=== PATIENT | male | born 1955 | race Caucasian/White ===

== ENCOUNTER → 2020-09-10 13:38 | Outpatient (BNVA) | payer MEDICARE, OTHER, SELFPAY | PROVIDERS: PCP Internal Medicine; Visit Provider Internal Medicine Cardiovascular Disease | DX: R06.00 Dyspnea, unspecified (principal); I10 Essential (primary) hypertension | CPT/HCPCS: 93005; 99212 ==

== ENCOUNTER 2020-09-18 07:28 | Outpatient (REF) | payer MEDICARE, OTHER, SELFPAY ==
[2020-09-18 08:21] LABS: MANUAL DIFF FLAG NO
[2020-09-18 08:30] LABS: Basophils Absolute Auto 0.1 X10*3/uL (0.0-0.2); Basophils Percent Auto 0.6 % (0-2); Eosinophils Absolute Auto 0.2 X10*3/uL (0.0-0.4); Hematocrit 46.1 % (42-52); Hemoglobin 15.1 g/dl (14.0-18.0); Imm Gran Abs Auto 0.03 X10*3/uL (0.00-0.03); Imm Gran Pct Auto 0.3 % (0.0-0.4); Lymphocytes Absolute Auto 2.6 X10*3/uL (1.2-4.9); Lymphocytes Percent Auto 26.6 % (20-40); Mean Corpuscular HGB Conc 32.8 g/dl (31.0-36.0); Mean Corpuscular Hemoglobin 28.1 pg (27.0-33.0); Mean Corpuscular Volume 85.8 fL (80-98); Mean Platelet Volume 11.5 fL (9.4-12.4); Monocytes Absolute Auto 0.9 X10*3/uL (0.1-1.2); Monocytes Percent Auto 9.5 % (2-11); Platelet Count 324 X10*3/uL (160-400); Red Blood Count 5.37 X10*6/uL (4.60-5.80); Red Cell Distribution Width 14.4 % (11.0-16.0); White Blood Count 9.8 X10*3/uL (4.8-10.8)
[2020-09-18 08:51] LABS: Estimated Average Glucose 120 mg/dL; Hemoglobin A1c % 5.8 %
[2020-09-18 08:55] LABS: Alanine Aminotransferase 21 U/L (0-40); Albumin Level 4.2 g/dL (3.5-5.0); Alkaline Phosphatase 59 U/L (39-117); Anion Gap 16 (12-20); Aspartate Amino Transferase 17 U/L (5-37); B Type Natriuretic Peptide 88 pg/mL (<100); Bilirubin Direct 0.3 mg/dL (0.0-0.5); Bilirubin Total 0.6 mg/dL (0.0-1.0); Blood Urea Nitrogen 25 mg/dL (9-16); Calcium 9.8 mg/dL (8.4-10.2); Carbon Dioxide 26 mmol/L (22-29); Chloride 103 mmol/L (96-108); Estimated Glomerular Filt Rate > 60; Glucose Fasting 124 mg/dL (60-99); Potassium 4.8 mmol/L (3.3-5.1); Sodium 140 mmol/L (135-145); Total Protein 7.7 g/dL (6.5-8.0)
[2020-09-18 09:20] LABS: Prostate Specific Antigen 0.22 ng/mL (<0.05-4.0); Thyroid Stimulating Hormone 2.76 uIU/mL (0.32-4.0)
== END 2020-09-18 07:29 | disposition home or self-care (01) ==
LOC: HO.LAB 07:28
PROVIDERS: PCP Internal Medicine; Visit Provider Internal Medicine
DX: Z12.5 Encounter for screening for malignant neoplasm of prostate (principal); E78.00 Pure hypercholesterolemia, unspecified; R73.01 Impaired fasting glucose
CPT/HCPCS: 36415; 80053; 80076; 82248; 83036; 83880; 84153; 84443; 85025

== ENCOUNTER 2020-10-01 15:16 | Outpatient (REF) | payer MEDICARE, OTHER, SELFPAY ==
--- NOTE | ~2020-10-01 | XR_ITS ---
EXAMINATION: XR CHEST CLINICAL INFORMATION: Dyspnea COMPARISON: None TECHNIQUE: 2 views of the chest were obtained. FINDINGS: The lungs are well expanded. There is no focal consolidation, edema, or effusion. There is mild bronchial wall thickening. No pneumothorax. The cardiomediastinal silhouette is within normal limits. No acute osseous abnormality. XR/XR chest 2V IMPRESSION: No consolidation. Bronchial wall thickening can be seen with a small airways process such as asthma or atypical/viral infection.
== END 2020-10-01 15:17 | disposition home or self-care (01) ==
LOC: HO.XRAY 15:16
PROVIDERS: PCP Internal Medicine; Visit Provider Internal Medicine
DX: R06.00 Dyspnea, unspecified (principal); E66.01 Morbid (severe) obesity due to excess calories; G47.33 Obstructive sleep apnea (adult) (pediatric); Z99.89 Dependence on other enabling machines and devices; Z87.891 Personal history of nicotine dependence; Z79.899 Other long term (current) drug therapy
CPT/HCPCS: 71046; 99202

== ENCOUNTER → 2020-10-22 09:11 | Outpatient (REF) | payer MEDICARE, OTHER, SELFPAY ==
--- NOTE | 2020-10-22 09:14 | CA_ITS ---
Transthoracic Echocardiogram Patient (Last, First, Middle): Bill Jeter, Gender: Male Date of : 1955 Age: 65 Procedure Date: 10/22/2020 Procedure Type: Transthoracic Echocardiogram Location: OP Height: 180.34 cm Weight: 140.62 kg BSA: 2.54 m2 Heart Rate: bpm BP: 120 / 59 mmHg Goldbeater: LORRAINE Jaramillo MD: Schuyler Small MD Migration Agent: Elijah Zavala MD Symptoms: R06.00 - Dyspnea, unspecified Study Quality: Technically Difficult/contrast ECG Rhythm: Atrial Fibrillation Conclusions: - 1. Normal LV systolic function 2. Limited evaluation of atrium 3. Limited evaluation of cardiac valves with within normal limits cardiac valvular Doppler 4. Normal RV systolic pressure 5. No gross pericardial effusion Findings Procedure Information Contrast agent, definity, is being given per protocol without apparent complications. Left Ventricle Normal left ventricular size and systolic function. There is mildly increased left ventricular wall thickness. The visually estimated ejection fraction is between 60-65%. Diastolic function is indeterminate on the basis of available data. Right Ventricle The right ventricle was not well visualized. Atria The left atrium was not well visualized. Interatrial shunt cannot be excluded. The right atrium was not well visualized. Aortic Valve The aortic valve was not well visualized. There is no aortic valve stenosis. There is no aortic valve regurgitation. Mitral Valve Likely normal mitral valve structure and function. There is trace mitral valve regurgitation. There is no mitral valve stenosis. Pulmonic Valve The pulmonic valve was not well visualized. Tricuspid Valve The tricuspid valve was not well visualized. The right ventricular systolic pressure is normal. There is no evidence of pulmonary hypertension. Great Vessels All visible segments of the aorta are normal in size. The pulmonary artery was not well visualized. Venous The inferior vena cava is normal in size and collapses greater than 50% with inspiration. Pericardium/Pleural There is no evidence of pericardial effusion. Prior Study Comparison No significant change compared to prior study dated: 02/17/2018. Patient noted to be in atrial fibrillation Measurements 2D Linear Measurements IVSd: 1.24 0.6-0.9/0.6-1.0 cm LVIDd: 4.50 3.9-5.3/4.2-5.9 cm LVIDd Index: 1.77 2.4-3.2/2.2-3.1 cm/m2 LVIDs: 3.41 2.0-3.6 cm LVPWd: 1.21 0.7-1.1 cm Ao Root: 3.90 2.1-3.5 cm LA Diam: 3.90 2.7-3.8/3.0-4.0 cm LAIDs Index: 1.54 1.5-2.3 cm/m2 LV Mass: 254.36 67-162/88-224 g LV Mass Index: 100.14 43-95/49-115 g/m2 LVOT Diam: 2.10 3.0+(-)1.3 cm Mitral Valve MV Pk E: 0.94 MV PK A: 0.36 MV Decel Time: 354.00 E/A: 2.60 E'Lateral: 11.20 E'Medial: 8.80 E/E' Med: 10.70 E/E' Lat: 8.40 PHT: 104.00 MVA PHT: 2.12 Decel [place]: 2.66 Aortic Valve AoV Pk Jason: 1.41 AoV Mn Jason: 0.91 AoV VTI: 0.32 AoV Pk Grad: 8.00 Aov Mn Grad: 4.00 ROMERO Cont.VTI: 2.75 LVOT LVOT Pk Jason: 0.98 LVOT Mn Jason: 0.67 LVOT VTI: 0.26 LVOT Pk Grad: 4.00 LVOT Mn Grad: 2.00 LVOT Diam: 2.10 LVOT Area: 3.46 Diastolic Function MV Pk E: 0.94 MV Pk A: 0.36 E/A: 2.60 E'Medial: 8.80 E/E' Med: 10.70 E' Laterial: 11.20 E/E' Lat: 8.40 Tricuspid Valve TR Pk Jason: 1.51 TR Pk Grad: 9.00 RA Press: 3.00 RVSP: 12.00 Great Vessels Aorta Ao Root-2D: 3.90 2.0-3.7 cm Ao Asc: 3.90 2.1-3.4 cm Updated in Other Vendor System with Status of Final Elijah Zavala MD electronically signed on 10/22/2020 4:00:23 PM with status of Final
== END ==
LOC: HO.CARD 09:11
PROVIDERS: Visit Provider Internal Medicine Cardiovascular Disease
DX: Z13.89 Encounter for screening for other disorder (principal)
CPT/HCPCS: 93306; 94060; 94727; 94729; Q9957

== ENCOUNTER 2020-10-22 10:21 | Outpatient (REF) | payer MEDICARE, OTHER, SELFPAY ==
--- NOTE | 2020-10-22 11:51 | PFT_ITS ---
Forced vital capacity and FEV1 are both slightly decreased. [id number] is normal. MVV slightly decreased. Postbronchodilator therapy, there is a slight improvement in FEV1 and [id number]. Total lung capacity normal. Residual volume slightly increased. Diffusion capacity normal. CONCLUSION: There is evidence of mild obstructive airway disorder. There is borderline response to bronchodilator therapy suggesting a bronchospastic component. These findings may indicate a mild degree of bronchial asthma. Clinical correlation recommended. MD PAULINE Oates/MODL / [id number]
== END 2020-10-22 10:22 | disposition home or self-care (01) ==
LOC: HO.RESP 10:21
PROVIDERS: PCP Internal Medicine; Visit Provider Internal Medicine
DX: R06.00 Dyspnea, unspecified (principal)
CPT/HCPCS: 93306; 94060; 94727; 94729; Q9957

== ENCOUNTER → 2020-10-23 11:10 | Outpatient (BNVA) | payer MEDICARE, OTHER, SELFPAY | PROVIDERS: PCP Internal Medicine; Visit Provider Internal Medicine | DX: E66.01 Morbid (severe) obesity due to excess calories (principal); R06.00 Dyspnea, unspecified; G47.33 Obstructive sleep apnea (adult) (pediatric); Z99.89 Dependence on other enabling machines and devices | CPT/HCPCS: 99212 ==

== ENCOUNTER → 2020-12-10 13:12 | Outpatient (BNVA) | payer MEDICARE, OTHER, SELFPAY | PROVIDERS: PCP Internal Medicine; Referring Provider Internal Medicine; Visit Provider Internal Medicine Cardiovascular Disease | DX: I10 Essential (primary) hypertension (principal); R06.00 Dyspnea, unspecified | CPT/HCPCS: 99212 ==

== ENCOUNTER → 2021-04-22 09:08 | Outpatient (BNVA) | payer MEDICARE, OTHER, SELFPAY | PROVIDERS: PCP Internal Medicine; Visit Provider Internal Medicine | DX: G47.33 Obstructive sleep apnea (adult) (pediatric) (principal); E66.01 Morbid (severe) obesity due to excess calories; R06.00 Dyspnea, unspecified; Z99.89 Dependence on other enabling machines and devices | CPT/HCPCS: 99212 ==

== ENCOUNTER → 2021-06-10 12:58 | Outpatient (BNVA) | payer MEDICARE, OTHER, SELFPAY | PROVIDERS: PCP Internal Medicine; Referring Provider Internal Medicine; Visit Provider Internal Medicine Cardiovascular Disease | DX: R06.00 Dyspnea, unspecified (principal); I10 Essential (primary) hypertension | CPT/HCPCS: 99212 ==

== ENCOUNTER → 2021-12-02 10:10 | Outpatient (BNVA) | payer MEDICARE, OTHER, SELFPAY | PROVIDERS: PCP Internal Medicine; Visit Provider Internal Medicine Cardiovascular Disease | DX: R06.00 Dyspnea, unspecified (principal); I10 Essential (primary) hypertension | CPT/HCPCS: 93005; 99212 ==

== ENCOUNTER → 2022-07-21 14:54 | Outpatient (BNVA) | payer MEDICARE, OTHER, SELFPAY | PROVIDERS: PCP Internal Medicine; Referring Provider Internal Medicine; Visit Provider Internal Medicine Cardiovascular Disease | DX: I10 Essential (primary) hypertension (principal); R06.00 Dyspnea, unspecified; K76.0 Fatty (change of) liver, not elsewhere classified; E66.01 Morbid (severe) obesity due to excess calories; Z68.42 Body mass index [BMI] 45.0-49.9, adult | CPT/HCPCS: 93005; 99212 ==

== ENCOUNTER 2022-08-02 07:55 | Outpatient (REF) | payer MEDICARE, OTHER, SELFPAY ==
[2022-08-02 08:56] LABS: Alanine Aminotransferase 20 U/L (0-40); Albumin Level 4.1 g/dL (3.5-5.0); Alkaline Phosphatase 56 U/L (39-117); Aspartate Amino Transferase 15 U/L (5-37); Bilirubin Direct 0.2 mg/dL (0.0-0.5); Bilirubin Total 0.6 mg/dL (0.0-1.0); Cholesterol 156 mg/dL; HDL Cholesterol 29 mg/dL; LDL Cholesterol Calculated 93 mg/dl; Total Protein 7.3 g/dL (6.5-8.0); Triglycerides 174 mg/dL
[2022-08-02 09:17] LABS: Ferritin 271 ng/mL (20-250)
[2022-08-03 14:23] LABS: CRP High Sensitivity >10.0 mg/L
== END 2022-08-02 07:56 | disposition home or self-care (01) ==
LOC: HO.LAB 07:55
PROVIDERS: PCP Internal Medicine; Visit Provider Internal Medicine Cardiovascular Disease
DX: K76.0 Fatty (change of) liver, not elsewhere classified (principal)
CPT/HCPCS: 36415; 80061; 80076; 82728; 86141

== ENCOUNTER → 2022-08-24 09:09 | Outpatient (BNVA) | payer MEDICARE, OTHER, SELFPAY | PROVIDERS: PCP Internal Medicine; Visit Provider Internal Medicine | DX: K76.0 Fatty (change of) liver, not elsewhere classified (principal); E66.01 Morbid (severe) obesity due to excess calories; Z68.41 Body mass index [BMI] 40.0-44.9, adult | CPT/HCPCS: 99202 ==

== ENCOUNTER 2022-09-01 07:46 | Outpatient (REF) | payer MEDICARE, OTHER, SELFPAY ==
--- NOTE | ~2022-09-01 | US_ITS ---
EXAMINATION: US ABDOMEN COMPLETE CLINICAL INFORMATION: Fatty (change of) liver, not elsewhere classified. COMPARISON: None TECHNIQUE: Real-time imaging of the abdominal viscera. FINDINGS: PANCREAS: Visualized portions of the pancreas are unremarkable. The pancreatic tail is obscured by bowel gas. ABDOMINAL AORTA: The proximal, mid, and distal segments are normal in caliber. INFERIOR VENA CAVA: Visualized portions are normal. LIVER: Liver is borderline enlarged measuring 16.6 cm in span. The liver contour is normal. There is diffuse increased liver parenchymal echogenicity, consistent with infiltrative hepatocellular disease. No focal hepatic lesion. There is no intrahepatic biliary duct dilatation seen. GALLBLADDER: Normal. The gallbladder is physiologically distended without evidence of stones, sludge, polyps, wall thickening or pericholecystic fluid. COMMON BILE DUCT: Normal in caliber measuring 0.4 cm in diameter. RIGHT KIDNEY: Normal. No hydronephrosis. No renal calculi or focal parenchymal lesions. The kidney measures 13.0 cm in maximum dimension. LEFT KIDNEY: Normal. No hydronephrosis. No renal calculi or focal parenchymal lesions. The kidney measures 12.0 cm in maximum dimension. SPLEEN: Spleen is mildly enlarged. The spleen measures 13.3 cm in maximum dimension. FREE FLUID: None. US/US abdomen complete IMPRESSION: Liver is borderline enlarged. Increased hepatic echogenicity which can be seen in the setting of hepatic steatosis or underlying liver disease. Spleen is mildly enlarged.
[2022-09-01 09:12] LABS: Hemoglobin 13.8 g/dl (14.0-18.0); Mean Corpuscular HGB Conc 32.9 g/dl (31.0-36.0); Mean Corpuscular Hemoglobin 27.9 pg (27.0-33.0); Mean Platelet Volume 10.8 fL (9.4-12.4); Platelet Count 290 X10*3/uL (160-400); Red Blood Count 4.94 X10*6/uL (4.60-5.80); Red Cell Distribution Width 15.1 % (11.0-16.0)
[2022-09-01 09:21] LABS: Estimated Average Glucose 134 mg/dL; Hemoglobin A1c % 6.3 %
[2022-09-01 10:12] LABS: Hepatitis A Antibody IgG Nonreactive (Nonreactive); ~Hepatitis A Antibody IgG 0.42 S/CO (0.00-0.99)
[2022-09-01 10:13] LABS: ~HepC Num1 0.09 S/CO (0.00-0.79); ~Hepatitis C Antibody Nonreactive (Nonreactive)
[2022-09-01 10:20] LABS: HBS Num1 0.16 mIU/mL (0-7.99); HBc Num1 0.13 S/CO (0.00-0.79); HBsAGNum1 0.28 S/CO (0.00-0.99); Hepatitis B Core Antibody Nonreactive (Nonreactive); Hepatitis B Surface Antigen Negative (Negative); ~Hepatitis B Surface Antibody NONREACTIVE (Nonreactive)
== END 2022-09-01 07:47 | disposition home or self-care (01) ==
LOC: HO.US 07:46
PROVIDERS: PCP Internal Medicine; Visit Provider Internal Medicine
DX: K74.60 Unspecified cirrhosis of liver (principal); K76.0 Fatty (change of) liver, not elsewhere classified
CPT/HCPCS: 36415; 76700; 83036; 85027; 85610; 86704; 86706; 86708; 86803; 87340

== ENCOUNTER → 2022-11-23 09:17 | Outpatient (BNVA) | payer MEDICARE, OTHER, SELFPAY | PROVIDERS: PCP Internal Medicine; Referring Provider Internal Medicine; Visit Provider Internal Medicine | DX: E66.01 Morbid (severe) obesity due to excess calories (principal); Z68.41 Body mass index [BMI] 40.0-44.9, adult; K76.0 Fatty (change of) liver, not elsewhere classified; R53.83 Other fatigue | CPT/HCPCS: 99212 ==

== ENCOUNTER 2022-11-24 07:38 | Outpatient (REF) | payer MEDICARE, OTHER, SELFPAY ==
[2022-11-24 09:12] LABS: Estimated Average Glucose 117 mg/dL; Hemoglobin A1C 148.8074 umol/L; Hemoglobin A1c % 5.7 %
[2022-11-24 09:33] LABS: Cortisol Random 15.7 ug/dL; TSH reflex Free T4 2.47 uIU/mL (0.32-4.0)
[2022-12-01 15:42] LABS: Testosterone, Total 199 ng/dL (250-1100)
== END 2022-11-24 07:39 | disposition home or self-care (01) ==
LOC: HO.LAB 07:38
PROVIDERS: PCP Internal Medicine; Visit Provider Internal Medicine
DX: R53.83 Other fatigue (principal)
CPT/HCPCS: 36415; 82533; 83036; 84402; 84403; 84443

== ENCOUNTER → 2022-12-07 08:20 | Outpatient (BNVA) | payer MEDICARE, OTHER, SELFPAY | PROVIDERS: PCP Internal Medicine; Visit Provider Internal Medicine Endocrinology, Diabetes & Metabolism | DX: R79.89 Other specified abnormal findings of blood chemistry (principal) | CPT/HCPCS: 99202 ==

== ENCOUNTER 2023-01-05 12:41 | Outpatient (AMB) | payer MEDICARE, OTHER, SELFPAY ==
--- NOTE | 2023-01-05 13:02 | A.OFFVIS_ITS ---
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 Required: No Allergies No Known Allergies Allergy (Verified 01/05/23 13:07) Medication List - Last Reconciled 01/05/23 by DORCAS Lawson albuterol sulfate 90 mcg/actuation (ProAir HFA) 2 puffs inhalation Q6H PRN amlodipine 10 mg PO DAILY aspirin (Adult Aspirin Regimen) 81 mg PO DAILY CPAP (CPAP Machine/Device) As directed hepatitis A and B vaccine (PF) 720 ANIKA unit- 20 mcg/mL (Twinrix (PF)) 1 mL IM ONCE hydrochlorothiazide 25 mg PO QAM isosorbide mononitrate ER 60 mg PO QAM losartan 100 mg PO DAILY metoprolol tartrate 50 mg PO DAILY sertraline 50 mg PO DAILY terazosin 5 mg PO DAILY HPI HPI Comments History of Present Illness Details Pt is here to start the [facility] Weight Management surgical weight loss program. He heard about our program from his PCP. His goal is to lose weight and achieve a healthy lifestyle as well as to improve, if not resolve, obesity related medical conditions, including HTN, TED. He reports first being concerned about his weight 20 years ago, highest weight to date was 340. Current weight is 316.4 with a BMI of 44.1. He has tried multiple methods of weight loss including fad diets without permanent results. He lives with his . He is not currently working. He wakes at:?7 am, and goes to bed at?10 pm. Dinner is at 6 pm. Breakfast: pb and J toasted w chocolate milk and coffee (black) AM snack: skip Lunch: skip or sandwich PM snack: skip Dinner: chicken, veg, stove top stuffing, rice, pasta, After dinner: ice cream, chips Other snacks: as above, popcorn Liquids: 32-64 oz water, Mingo soda16 oz daily, no juice Alcohol/marijuana/tobacco intake: 1 drink per week, smoke marijuana daily, no tobacco (quit 25 years ago-prev 2 ppd x 20 years) Exercise: walk daily, 20-30 minutes GERD score: 0 BRIANNA score: 0 ESS score: 5 QOL score: 95 [facility] Medical History Dyspnea on exertion Morbid obesity TED on CPAP Surgical History H/O vasectomy History of cardiac cath History of surgery Hx of colonoscopy Family History Father HTN (hypertension) Mother HTN (hypertension) Social History Alcohol intake: current Alcohol intake frequency: holidays/special occasions only Patient Tobacco Use Status: Former Tobacco user Quit Date: 2004 Years Smoked: 20+ Physical Exam Const General: cooperative, healthy appearing and no acute distress Orientation/consciousness: patient oriented x3 HEENT Head: Yes normal to inspection Ears: hearing grossly normal bilaterally General nose exam: Normal external nose present Face and sinus: Yes normal facial exam Eyes General: appearance normal, both eyes and all related structures Resp Effort & Inspection: normal respiratory effort Auscultation: diminished lung sounds on the left Cardio Rate: regular rate Rhythm: regular rhythm Heart sounds: S1 normal heart sound present and S2 normal heart sound present GI Inspection: Yes normal to inspection, No distended and Yes obesity Palpation (GI): Soft to palpation, nontender and no guarding Auscultation: normal bowel sounds Skin General skin exam: no rashes or lesions noted Neuro General: patient oriented x3 Extrem General: No edema Psych Appearance: grossly normal Mental Status: mental status grossly normal Speech and movement: Normal speech and movement present Affect: normal affect Attitude: cooperative Assessment & Plan Assessment & Plan (1) Morbid obesity: Code(s): E66.01 - Morbid (severe) obesity due to excess calories Plan: This is a?67 yo male who will start our SWL program to prepare for bariatric surgery.? Blood work, h pylori , CXR, ECG, Abd US and UGI have been ordered. He is being scheduled for RD and BH initial consultations. He will start SWL classes and watch the first three videos before his next appointment. ? Adequate sleep of 7-8 hours per night discussed, awakening at 7 am an going to bed around 10 pm ? Purchase body composition analyzer scale (Carola hernandez or Omid recommended) and check weight weekly. The best time to do this is first thing in the morning after going to the bathroom. 1. Nutritional counseling: Be sure to careful read the number of scoops per shake Start with 3 Pure Protein shakes ([employer], [employer], [employer], [employer]) First shake (1 scoop in 8 oz low fat unsweetened almond milk) at 8am-10am, Second shake, (1 scoop in 8 oz low fat unsweetened almond milk) at 12pm-2pm 1 protein bar (Fulfil bars at [employer], [employer], or [employer]) at 3pm-5pm. Dinner at 6pm (10 forks of protein and 10 forks of salad/vegetables). Meal to include lean meat (beef, fish, pork, turkey, chicken), cooked vegetables or a salad with olive oil and/or fruits (berries, pears, apples, kiwi). Avoid salt, breads, potatoes, rice, pasta, desserts. Another shake with 1/2 scoop in 8 oz unsweetened almond milk at 8pm-10pm. Try to drink 64 oz of water daily and avoid soda and juices. ?2. Each shake would be drunk slowly, like coffee in a period of 2 hours. ?3. Cut each bar in 4 pieces and eat each piece in 30 min ?to make each bar last 2 hours. ?4. I emphasized the importance of measuring accurately the food portion and measure it carefully when serving the food on the plate ?5. The meal portions include 10 full-size forks of meat and 10 full-size forks of salad. You always eat the meat portion but you can replace up to half of the forks of salad/vegetables with rice, potatoes or pasta, or a fruit ?if you like. The less you do it the better weight loss will be. ?6. One full-size fork is what can be scooped on the fork without falling aside and not what can be bit with the fork. Use regular forks like those you find in a typical restaurant. ?7.? Please send me weight measurements as soon as possible and then once a week. Always include your diet and exercise plan. Alternatively come weekly at the office for weight checks and send me the measurements. ?8. Exercise counseling: Begin by watching a stretching for beginners video. Start slowly and begin to stretch your muscles. You should do this before and after each exercise session to prevent injury. Please join [employer] gym near your home. Ask the room manager or one of the trainers how to use the machines if you are unfamiliar with them. Start elliptical with a resistance of 2. Increase resistance by 1 every 3 min to your most comfortable resistance with a max resistance of 8. Reduce the resistance by 1 every 3 minutes back down to 2 and repeat cycles for 300 calories. Alternatively, start treadmill with a speed of 3.0 and incline of 0, increasing incline by 1 every 3 minutes to the highest comfortable level (max 6 for now) then decrease in the same fashion. Repeat process to a goal of 300 calories. Goal of 2000 calories burned or more weekly. You may also consider use of the stationary bike. The easiest would be to chose the fat-burn or interval training program on the machine and do this until you reach the 300 calorie goal. Alternatively, you can manually adjust the resistance in a similar fashion as mentioned above, (resistance of 2-8 with a goal speed of 12 mph). Tracking calories is essential. 9. Alternatively start walking outside daily, tracking calories with a goal of 300 calories per day, daily. You can download the she[employer]on [employer] which can track your time, distance and calories while walking outside. You press start in the sheldon when you start and then stop when you are finished. 10.? It is important to communicate by text with me weekly 11. Please get labs, EKG and chest X-Ray within 1 week. 12. Discussed and answered all questions regarding?obtained consent to participate in the [place] [facility]?Registry. 13. Please follow the diet plan exactly, without any change. If you do not like something about the plan or you feel hungry, you need to communicate with me so I can help you revise the plan. You should not change the plan yourself. Text me at [phone] 14. Goal is to lose at least 12 pounds in the first month 15. Goal is to lose 10% of your weight before surgery, which is about 31 lbs. Ultimate weight goal: 285 lbs before surgery Patient is morbidly obese and is not considered stable at this time.?I spent a total of 70 minutes reviewing/updating records, examining the patient and counseling the patient on weight management as detailed above. Orders: Orders Vitamin B12 and Folate Today E66.01 - Morbid (severe) obesity due to excess calories, I10 - Essential (primary) hypertension, R06.00 - Dyspnea, unspecified Comprehensive Met. Panel Today E66.01 - Morbid (severe) obesity due to excess calories, I10 - Essential (primary) hypertension, R06.00 - Dyspnea, unspecified C Reactive Protein Today E66.01 - Morbid (severe) obesity due to excess calories, I10 - Essential (primary) hypertension, R06.00 - Dyspnea, unspecified Ferritin Today E66.01 - Morbid (severe) obesity due to excess calories, I10 - Essential (primary) hypertension, R06.00 - Dyspnea, unspecified Hemoglobin A1c Today E66.01 - Morbid (severe) obesity due to excess calories, I10 - Essential (primary) hypertension, R06.00 - Dyspnea, unspecified Insulin Today E66.01 - Morbid (severe) obesity due to excess calories, I10 - Essential (primary) hypertension, R06.00 - Dyspnea, unspecified IRON PROFILE Today E66.01 - Morbid (severe) obesity due to excess calories, I10 - Essential (primary) hypertension, R06.00 - Dyspnea, unspecified Lipid Panel Today E66.01 - Morbid (severe) obesity due to excess calories, I10 - Essential (primary) hypertension, R06.00 - Dyspnea, unspecified PTHI Today E66.01 - Morbid (severe) obesity due to excess calories, I10 - Essential (primary) hypertension, R06.00 - Dyspnea, unspecified TSH reflex Free T4 Today E66.01 - Morbid (severe) obesity due to excess calories, I10 - Essential (primary) hypertension, R06.00 - Dyspnea, unspecified Vitamin A Today E66.01 - Morbid (severe) obesity due to excess calories, I10 - Essential (primary) hypertension, R06.00 - Dyspnea, unspecified Vitamin B1 Today E66.01 - Morbid (severe) obesity due to excess calories, I10 - Essential (primary) hypertension, R06.00 - Dyspnea, unspecified Vitamin D 25-OH Total Today E66.01 - Morbid (severe) obesity due to excess calories, I10 - Essential (primary) hypertension, R06.00 - Dyspnea, unspecified Zinc Today E66.01 - Morbid (severe) obesity due to excess calories, I10 - Essential (primary) hypertension, R06.00 - Dyspnea, unspecified ECG 12 lead EKG Today E66.01 - Morbid (severe) obesity due to excess calories, I10 - Essential (primary) hypertension, R06.00 - Dyspnea, unspecified FL upper GI w air Today E66.01 - Morbid (severe) obesity due to excess calories, I10 - Essential (primary) hypertension, R06.00 - Dyspnea, unspecified Complete Blood Count Auto Diff Today E66.01 - Morbid (severe) obesity due to excess calories, I10 - Essential (primary) hypertension, R06.00 - Dyspnea, unspecified H Pylori Breath Test Today E66.01 - Morbid (severe) obesity due to excess calories, I10 - Essential (primary) hypertension, R06.00 - Dyspnea, unspecified US abdomen comp w elastography Today E66.01 - Morbid (severe) obesity due to excess calories, I10 - Essential (primary) hypertension, R06.00 - Dyspnea, unspecified XR chest 2V Today E66.01 - Morbid (severe) obesity due to excess calories, I10 - Essential (primary) hypertension, R06.00 - Dyspnea, unspecified Referrals Behavioral Health Referral E66.01 - Morbid (severe) obesity due to excess calories, I10 - Essential (primary) hypertension, R06.00 - Dyspnea, unspecified Nutrition/Dietitian Referral E66.01 - Morbid (severe) obesity due to excess calories, I10 - Essential (primary) hypertension, R06.00 - Dyspnea, unspecified Coding Level of Care Code New Pt Level 5 (49626) Diagnoses Morbid obesity E66. Time Spent (min) 70
[2023-01-05 13:09] VITALS: BP 114/59; PULSE 74; TEMP 36.1; O2SAT 97; BMI 44.1
== END 2023-01-05 14:48 | disposition home or self-care (01) ==
PROVIDERS: PCP Internal Medicine; Visit Provider Physician Assistant Surgical
DX: E66.01 Morbid (severe) obesity due to excess calories (principal); Z68.41 Body mass index [BMI] 40.0-44.9, adult
CPT/HCPCS: 99205

== ENCOUNTER → 2023-01-05 12:41 | Outpatient (BNVA) | payer MEDICARE, OTHER, SELFPAY | PROVIDERS: PCP Internal Medicine; Visit Provider Physician Assistant Surgical | DX: E66.01 Morbid (severe) obesity due to excess calories (principal); Z68.41 Body mass index [BMI] 40.0-44.9, adult | CPT/HCPCS: 99202 ==

== ENCOUNTER 2023-01-17 09:50 | Outpatient (AMB) | payer MEDICARE, OTHER, SELFPAY ==
[2023-01-17 10:03] VITALS: BP 115/70; PULSE 75; BMI 44.0
--- NOTE | 2023-01-17 10:03 | MHC.OFFVIS ---
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 Allergies No Known Allergies Allergy (Verified 01/17/23 10:09) Medication List - Last Reconciled 01/17/23 by Schuyler Small MD albuterol sulfate 90 mcg/actuation (ProAir HFA) 2 puffs inhalation Q6H PRN amlodipine 10 mg PO DAILY aspirin (Adult Aspirin Regimen) 81 mg PO DAILY CPAP (CPAP Machine/Device) As directed hepatitis A and B vaccine (PF) 720 ANIKA unit- 20 mcg/mL (Twinrix (PF)) 1 mL IM ONCE hydrochlorothiazide 25 mg PO QAM isosorbide mononitrate ER 60 mg PO QAM losartan 100 mg PO DAILY metoprolol tartrate 50 mg PO DAILY sertraline 50 mg PO DAILY terazosin 5 mg PO DAILY HPI HPI Comments History of Present Illness Details Pleasant 67 gentleman here for follow-up. He was seen for dyspnea on exertion in the past. He underwent cardiac catheterization which did not show any significant coronary disease. Subsequent to that he was started on antihypertensive therapy as well as nitrates. His symptoms improved somewhat but never completely went back to normal. In the past he lost some weight and felt better and he was advised to exercise regularly and lose some weight. More recently he has been stable but has gained more weight which has led to fatigue and dyspnea. There has been some depression present 2. He had a CT scan of his chest which was mainly for screening for lung cancer given his history of smoking. This did not show any significant lung issue but did show hepatic steatosis. He was referred to GI. 01/17/23: He returns for follow-up. He has joined a gym and is following with the weight management program. He also saw gastroenterology and was referred to endocrinology for further workup for his fatigue and weight gain. His testosterone levels were a little low and his spironolactone was held. Blood pressure continues to be stable. [facility] Medical History Dyspnea on exertion Morbid obesity TED on CPAP Surgical History H/O vasectomy History of cardiac cath History of surgery Hx of colonoscopy Family History Father HTN (hypertension) Mother HTN (hypertension) Social History Alcohol intake: current Alcohol intake frequency: holidays/special occasions only Patient Tobacco Use Status: Former Tobacco user Quit Date: 2004 Years Smoked: 20+ Review of Systems ENT Reports dizziness Card Denies chest pain, Denies chest pain at rest, Denies chest pain with activity, Denies rapid heart rate, Denies pedal edema, Denies edema, Denies leg edema, Denies lightheadedness, Denies palpitations, Denies dyspnea, Denies dyspnea on exertion and Denies orthopnea Resp Denies cough, Denies dyspnea and Denies dyspnea on exertion GI Denies hematochezia and Denies change in stool character Musc Denies abnormal gait, Reports limited range of motion, Reports muscle cramps, Denies muscle weakness, Denies numbness, Denies radiating pain into limb, Denies stiffness and Denies tingling Neuro Denies abnormal gait, Reports dizziness, Denies numbness and Denies tingling Endo Denies palpitations Physical Exam Vital Signs: Last Vital Signs Pulse 75 01/17/23 10:03 BP 115/70 01/17/23 10:03 BMI result Body Mass Index 44.0 GENERAL APPEARANCE: in no acute distress, obese. NECK/THYROID: no carotid bruit, no jugular venous distention. SKIN: no suspicious lesions, warm and dry. HEART: no murmurs, regular rate and rhythm, S1, S2 normal. LUNGS: clear to auscultation bilaterally. ABDOMEN: normal, bowel sounds present, soft, nontender, nondistended. EXTREMITIES: no clubbing, cyanosis, or edema. PERIPHERAL PULSES: equal. NEUROLOGIC: nonfocal, alert and oriented. PSYCH: mood/affect full range. Assessment & Plan Assessment & Plan (1) Dyspnea on exertion: Code(s): R06.00 - Dyspnea, unspecified (2) Essential hypertension: Comment: Stable Code(s): I10 - Essential (primary) hypertension Plan 67-year-old gentleman here for follow-up. Blood pressure control is good. He was taken off the spironolactone because his testosterone level was low and he was experiencing fatigue. He is following with endocrinology. For hepatic steatosis he has seen GI and is going to continue to follow with them. He has started seeing weight management program and has taken a gym membership and is exercising regularly. He is saying he already is feeling better. I think if he can lose some weight he will have a lot of his medical issues stabilized. No changes in medications. See us back in 6 months. Thank you for allowing me to participate in the care of your patient. Please feel free to contact me if you have any questions. Coding Level of Care Code Est Pt Level 4 (19603) Diagnoses Dyspnea on exertion R06.00 Essential hypertension I10
== END 2023-01-17 10:19 | disposition home or self-care (01) ==
PROVIDERS: Visit Provider Internal Medicine Cardiovascular Disease
DX: R06.00 Dyspnea, unspecified (principal); I10 Essential (primary) hypertension
CPT/HCPCS: 99214

== ENCOUNTER → 2023-01-17 09:50 | Outpatient (BNVA) | payer MEDICARE, OTHER, SELFPAY | PROVIDERS: Visit Provider Internal Medicine Cardiovascular Disease | DX: R06.00 Dyspnea, unspecified (principal); I10 Essential (primary) hypertension | CPT/HCPCS: 99212 ==

== ENCOUNTER 2023-01-21 08:00 | Outpatient (REF) | payer MEDICARE, OTHER, SELFPAY ==
--- NOTE | ~2023-01-21 | US_ITS ---
EXAMINATION: US COMPLETE ABDOMEN WITH LIVER ELASTOGRAPHY CLINICAL INFORMATION: Morbid/severe obesity due to excess calories. COMPARISON: None available. TECHNIQUE: Real-time imaging of the abdominal viscera. Noninvasive ultrasound liver fibrosis assessment is performed using Teodoro ElastPQ point quantification shear wave elastography (2D-SWE) with a C5-2 MHz transducer. Multiple elastography samples are obtained. FINDINGS: PANCREAS: The pancreas is mostly obscured by the overlying bowel gas. ABDOMINAL AORTA: The proximal, middle, and distal aortic segments are normal in caliber. INFERIOR VENA CAVA: Visualized portions are normal. LIVER: The liver demonstrates normal size, contour and increased echogenicity. No focal lesion or intrahepatic biliary duct dilatation. The right lobe measures 20.0 cm in length. The left lobe measures 13.6 cm in length. Portal flow is hepatopedal. Shear wave liver elastography median stiffness is 1.66 m/s (reference: normal median stiffness is 1.3 m/s or less). Elastography measurement boxes are very shallow and may falsely elevate the numbers. IQR/median stiffness to assess sampling precision is 0.25 (reference: good quality data set is IQR/median stiffness of 0.15 or less). GALLBLADDER: Gallbladder wall thickness is 0.2 cm. The gallbladder is physiologically distended without evidence of stones, sludge, polyps, wall thickening or pericholecystic fluid. COMMON BILE DUCT: Normal in caliber measuring 0.5 cm in diameter. RIGHT KIDNEY: Normal. No hydronephrosis. No renal calculi or focal parenchymal lesions. The kidney measures 12.5 cm in maximum dimension. LEFT KIDNEY: Normal. No hydronephrosis. No renal calculi or focal parenchymal lesions. The kidney measures 10.3 cm in maximum dimension. SPLEEN: Normal. The spleen measures 13.2 cm in maximum dimension. FREE FLUID: None. US/US abdomen comp w elastography IMPRESSION: 1. Unremarkable complete abdomen ultrasound. 2. Liver elastography: Median liver stiffness 1.66 m/s corresponding to cACLD ruled out. REFERENCE: Society of Radiologists in Ultrasound Liver Stiffness Thresholds (2019): LIVER STIFFNESS THRESHOLDS: *Liver Stiffness equal or less than 1.3 m/s: High probability of being normal. *Liver Stiffness less than 1.7 m/s: In the absence of other known clinical signs, rules out compensated advanced chronic liver disease. *Liver Stiffness 1.7-2.1 m/s: Suggestive of compensated advanced chronic liver disease but need further test for confirmation. *Liver Stiffness over 2.1 m/s: Rules in compensated advanced chronic liver disease. *Liver Stiffness over 2.4 m/s: Suggestive of clinically significant portal hypertension. QUALITY OF DATA SET: *IQR/Median value equal or less than 0.15 implies a quality data set. *IQR/Median value over 0.15 implies a poor quality data set. SIGNIFICANT CHANGE FROM PRIOR EXAM: Significant change if liver stiffness measurement is 10% or greater from prior exam. OTHER CONSIDERATIONS: The stage of liver fibrosis may be overestimated in the setting of acute hepatitis, liver inflammation, elevated liver function tests, hepatic vascular congestion, obstructive cholestasis, non-fasting state, and infiltrative diseases such as amyloidosis and lymphoma. In some patients with NAFLD, the liver stiffness thresholds for compensated advanced chronic liver disease may be lower. In causes other than viral hepatitis and NAFLD, liver stiffness thresholds are not well established.
--- NOTE | ~2023-01-21 | XR_ITS ---
EXAMINATION: XR CHEST CLINICAL INFORMATION: Morbid obesity COMPARISON: October 01, 2020 TECHNIQUE: 2 views of the chest were obtained. FINDINGS: No significant abnormality is noted involving the heart, lungs, mediastinum, bony thorax or soft tissues. XR/XR chest 2V IMPRESSION: No acute disease.
--- NOTE | 2023-01-21 08:06 | ECG_ITS ---
Test Reason : e66.1 Blood Pressure : / mmHG Vent. Rate : 079 BPM Atrial Rate : 000 BPM P-R Int : 000 ms QRS Dur : 144 ms QT Int : 422 ms P-R-T Axes : 000 -12 028 degrees QTc Int : 483 ms Atrial fibrillation Right bundle branch block Abnormal ECG No previous ECGs available Referred By: Krishna Nickerson Electronically Signed By:JOSE COOPER MD
[2023-01-21 08:24] LABS: MANUAL DIFF FLAG NO
[2023-01-21 08:59] LABS: Basophils Absolute Auto 0.1 X10*3/uL (0.0-0.2); Basophils Percent Auto 0.5 % (0-2); Eosinophils Absolute Auto 0.2 X10*3/uL (0.0-0.4); Eosinophils Percent Auto 1.4 % (0-4); Hematocrit 45.4 % (42.0-52.0); Hemoglobin 14.6 g/dl (14.0-18.0); Imm Gran Abs Auto 0.04 X10*3/uL (0.00-0.03); Imm Gran Pct Auto 0.4 % (0.0-0.4); Lymphocytes Absolute Auto 1.5 X10*3/uL (1.2-4.9); Lymphocytes Percent Auto 13.6 % (20-40); Mean Corpuscular HGB Conc 32.2 g/dl (31.0-36.0); Mean Corpuscular Hemoglobin 27.2 pg (27.0-33.0); Mean Corpuscular Volume 84.7 fL (80.0-98.0); Mean Platelet Volume 10.5 fL (9.4-12.4); Monocytes Absolute Auto 0.8 X10*3/uL (0.1-1.2); Monocytes Percent Auto 7.1 % (2-11); Neutrophils Absolute Auto 8.6 x10*3/uL (2.0-8.3); Platelet Count 375 X10*3/uL (160-400); Red Blood Count 5.36 X10*6/uL (4.60-5.80); Red Cell Distribution Width 14.4 % (11.0-16.0); White Blood Count 11.1 X10*3/uL (4.8-10.8)
[2023-01-21 09:07] LABS: Estimated Average Glucose 111 mg/dL; Hemoglobin A1c % 5.5 %
[2023-01-21 09:34] LABS: Alanine Aminotransferase 19 U/L (0-40); Albumin Level 4.2 g/dL (3.5-5.0); Alkaline Phosphatase 50 U/L (39-117); Anion Gap 22 (12-20); Aspartate Amino Transferase 21 U/L (5-37); Bilirubin Total 0.7 mg/dL (0.0-1.0); Blood Urea Nitrogen 44 mg/dL (9-16); C Reactive Protein 2.03 mg/dL (< or = 0.50); Calcium 10.9 mg/dL (8.4-10.2); Carbon Dioxide 20 mmol/L (22-29); Chloride 100 mmol/L (96-108); Cholesterol 130 mg/dL; Estimated Glomerular Filt Rate 46; Glucose Random 105 mg/dL (60-115); HDL Cholesterol 22 mg/dL; Iron 53 mcg/dL (45-160); LDL Cholesterol Calculated 75 mg/dl; Percent Iron Saturation 17 % (15-50); Potassium 3.9 mmol/L (3.3-5.1); Sodium 138 mmol/L (135-145); Total Iron Binding Capacity 305 mcg/dL (228-428); Total Protein 8.1 g/dL (6.5-8.0); Triglycerides 166 mg/dL; Unsaturated Iron Binding 252 ug/dL
[2023-01-21 10:00] LABS: Ferritin 235 ng/mL (20-250); Folate 8.3 ng/mL (> or = 4.0); Insulin 20 uU/mL (2-29); TSH reflex Free T4 1.24 uIU/mL (0.32-4.0); Vitamin B12 488 pg/mL (200-900); Vitamin D 25-OH Total 28.6 ng/mL (>30)
[2023-01-24 13:22] LABS: Calcium (PTHI) 10.6 mg/dL (8.6-10.3); PTHI 9 pg/mL (16-77)
[2023-01-25 14:44] LABS: Zinc 70 mcg/dL (60-130)
[2023-01-26 11:49] LABS: Vitamin B1 7 nmol/L (8-30)
[2023-01-27 02:53] LABS: Vitamin A 47 mcg/dL (38-98)
== END 2023-01-21 08:01 | disposition home or self-care (01) ==
LOC: HO.US 08:00
PROVIDERS: Visit Provider Physician Assistant Surgical
DX: R06.00 Dyspnea, unspecified (principal); E66.01 Morbid (severe) obesity due to excess calories; I10 Essential (primary) hypertension
CPT/HCPCS: 36415; 71046; 76705; 76981; 80053; 80061; 82306; 82607; 82728; 82746; 83036; 83525; 83540; 83970; 84425; 84443; 84590; 84630; 85025; 86140; 93005

== ENCOUNTER → 2023-01-21 08:06 | Outpatient (BNV) | payer MEDICARE, OTHER, SELFPAY | PROVIDERS: Visit Provider Internal Medicine Cardiovascular Disease | DX: E66.01 Morbid (severe) obesity due to excess calories (principal) | CPT/HCPCS: 93010 ==

== ENCOUNTER 2023-01-31 09:16 | Outpatient (AMB) | payer MEDICARE, OTHER, SELFPAY ==
--- NOTE | 2023-01-31 09:29 | A.OFFVIS_ITS ---
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 Allergies No Known Allergies Allergy (Verified 01/31/23 09:32) Medication List - Last Reconciled 01/31/23 by DORCAS Lawson albuterol sulfate 90 mcg/actuation (ProAir HFA) 2 puffs inhalation Q6H PRN amlodipine 10 mg PO DAILY aspirin (Adult Aspirin Regimen) 81 mg PO DAILY cholecalciferol (vitamin D3) 125 mcg PO DAILY 90 days CPAP (CPAP Machine/Device) As directed hepatitis A and B vaccine (PF) 720 ANIKA unit- 20 mcg/mL (Twinrix (PF)) 1 mL IM ONCE hydrochlorothiazide 25 mg PO QAM isosorbide mononitrate ER 60 mg PO QAM losartan 100 mg PO DAILY metoprolol tartrate 50 mg PO DAILY sertraline 50 mg PO DAILY terazosin 5 mg PO DAILY thiamine HCl (vitamin B1) 100 mg PO DAILY 90 days HPI HPI Comments History of Present Illness Details The patient is a pleasant 67 year old female who returns to the clinic for pre-operative surgical weight loss management. They were last seen in the office on 01/05/23, recorded weight at that time was 316.4 pounds, with a BMI of 44.1. Today's weight is 297.6 pounds and BMI is 41.5. There has been a weight loss of 18.8 pounds since initiating the surgical weight loss program on 01/05/23 with a total body weight loss of 5.94 %. Pre op work up completed as follows: SWL classes:? 08/04 BH appts: 02/09/23 ? ? RD appts: 02/02/23 Labs: 01/21/23-SCr 1.51, H. pylori: [] CXR: 01/21/23-nad EK01/21/23-AF, RBBB-Cardiology notified, last seen 01/17/23 ABD U/S: 01/21/23 UGI: needs appt The patient reports he feels well and has improved breathing, energy and exe rcise tolerance. Current meal plan includes: 3 Pure Protein shakes First shake (1 scoop in 8 oz low fat unsweetened almond milk) at 8am-10am, Second shake, (1 scoop in 8 oz low fat unsweetened almond milk) at 12pm-2pm 1 protein bar (Fulfil bars at [employer], [employer], or [employer]) at 3pm-5pm. Dinner at 6pm (10 forks of protein and 10 forks of salad/vegetables). Another shake with 1/2 scoop in 8 oz unsweetened almond milk at 8pm-10pm. Drinking 48-64 oz of water Current exercise plan includes: 5 x per week swimming for an hour, walks with PFSH Medical History Dyspnea on exertion Morbid obesity TED on CPAP Surgical History H/O vasectomy History of cardiac cath History of surgery Hx of colonoscopy Family History Father HTN (hypertension) Mother HTN (hypertension) Social History Alcohol intake: current Alcohol intake frequency: holidays/special occasions only Patient Tobacco Use Status: Former Tobacco user Quit Date: 2004 Years Smoked: 20+ Review of Systems Const All systems reviewed & are unremarkable except as noted in HPI and below Physical Exam Vital Signs: BMI result Body Mass Index 41.5 Const General: healthy appearing and no acute distress Resp Effort & Inspection: normal respiratory effort Auscultation: clear to auscultation bilaterally Cardio Rate: regular rate Rhythm: abnormal rhythm irregularly irregular GI Auscultation: normal bowel sounds Extrem General: Yes normal to inspection Assessment & Plan Assessment & Plan (1) Morbid obesity: Code(s): E66.01 - Morbid (severe) obesity due to excess calories Plan: Will change meal plan slightly to: 3 Pure Protein shakes First shake (1 scoop in 8 oz low fat unsweetened almond milk) at 8am-10am, Second shake, (1/2 scoop in 8 oz low fat unsweetened almond milk) at 12pm-2pm 1 protein bar (Fulfil bars at [employer], [facility], or [employer]) at 3pm-5pm. Dinner at 6pm (10 forks of protein and 10 forks of salad/vegetables). Another shake with 1/2 scoop in 8 oz unsweetened almond milk at 8pm-10pm. Encouraged to add stationary bike to exercise regimen after swimming RTC 4 weeks (2) Abnormal EKG: Code(s): R94.31 - Abnormal electrocardiogram [ECG] [EKG] Plan: Discussed AF/RBBB and cardiology Dr Small is aware and will bring pt back in to discuss (3) Chronic kidney disease: Code(s): N18.9 - Chronic kidney disease, unspecified Plan: Pt states his PCP is aware and following this. Coding Level of Care Code Est Pt Level 4 (54010) Diagnoses Morbid obesity E66.01 Abnormal EKG R94.31 Chronic kidney disease N18.9 Time Spent (min) 40
[2023-01-31 09:34] VITALS: BP 146/69; PULSE 79; TEMP 35.7; O2SAT 95; BMI 41.5
== END 2023-01-31 10:41 | disposition home or self-care (01) ==
PROVIDERS: PCP Internal Medicine; Visit Provider Physician Assistant Surgical
DX: E66.01 Morbid (severe) obesity due to excess calories (principal); Z68.41 Body mass index [BMI] 40.0-44.9, adult; R94.31 Abnormal electrocardiogram [ECG] [EKG]; N18.9 Chronic kidney disease, unspecified
CPT/HCPCS: 99214

== ENCOUNTER → 2023-01-31 09:16 | Outpatient (BNVA) | payer MEDICARE, OTHER, SELFPAY | PROVIDERS: PCP Internal Medicine; Visit Provider Physician Assistant Surgical | DX: E66.01 Morbid (severe) obesity due to excess calories (principal); R06.00 Dyspnea, unspecified; I45.10 Unspecified right bundle-branch block; N18.9 Chronic kidney disease, unspecified; G47.33 Obstructive sleep apnea (adult) (pediatric); Z68.41 Body mass index [BMI] 40.0-44.9, adult; Z98.890 Other specified postprocedural states; Z79.82 Long term (current) use of aspirin; Z99.89 Dependence on other enabling machines and devices; Z79.899 Other long term (current) drug therapy | CPT/HCPCS: 99212 ==

== ENCOUNTER 2023-02-02 09:11 | Outpatient (AMB) | payer MEDICARE, OTHER, SELFPAY ==
--- NOTE | 2023-02-02 09:22 | MHC.AMNUTRGE ---
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 Exercise: swimming 1 hour , which he enjoys SW online classes: 09/01 has a lot of questions and concerns about surgery. isn't familiar with the post op diet recs yet is apprehensive about the idea of doing shakes for an extended period of time after surgery Dietary counseling reduction Who buys your food spouse Who prepares/cooks your food spouse Meal frequency regular: breakfast, lunch, dinner and snacks Lifestyle Eating out 1-3 times/week Family support Yes ( is very supportive) Food frequency Fruit: daily, Vegetables: daily, Grains/pasta/breads/cereal (carbs): daily, Meats/poultry/fish (protein): daily, Meat substitutes/nuts/seeds/legumes: daily, Processed foods/meats: several times weekly, Soda: daily, Juice: daily and Sports/energy drinks: daily Diagnosis Nutrition problem #1 overweight/obesity As related to (etiology) #1 excess energy intake and physical inactivity As evidenced by (sign/symptom) #1 high BMI Monitoring/Goals Nutrition problem monitoring total energy intake, level of knowledge/skill, total PRO intake, total CHO intake and weight Outcome progress progressing Learning/Education Readiness to learn good Stages of change action Educational materials provided Yes Most Recent Diabetes Results: Cholesterol 130 mg/dL 01/21/23 HDL Cholesterol 22 mg/dL 01/21/23 Triglycerides 166 mg/dL 01/21/23 Creatinine 1.51 mg/dL (0.5-1.4) H 01/21/23 Blood Urea Nitrogen 44 mg/dL (9-16) H 01/21/23 Sodium 138 mmol/L (135-145) 01/21/23 Potassium 3.9 mmol/L (3.3-5.1) 01/21/23 Chloride 100 mmol/L (96-108) 01/21/23 Carbon Dioxide 20 mmol/L (22-29) L 01/21/23 Calcium 10.9 mg/dL (8.4-10.2) H 01/21/23 AST 21 U/L (5-37) 01/21/23 ALT 19 U/L (0-40) 01/21/23 Total Protein 8.1 g/dL (6.5-8.0) H 01/21/23 Albumin 4.2 g/dL (3.5-5.0) 01/21/23 [facility] Medical History Dyspnea on exertion Morbid obesity TED on CPAP Surgical History H/O vasectomy History of cardiac cath History of surgery Hx of colonoscopy Family History Father HTN (hypertension) Mother HTN (hypertension) Social History Alcohol intake: current Alcohol intake frequency: holidays/special occasions only Patient Tobacco Use Status: Former Tobacco user Quit Date: 2004 Years Smoked: 20+ Assessment & Plan Assessment & Plan (1) Morbid (severe) obesity due to excess calories: Code(s): E66.01 - Morbid (severe) obesity due to excess calories Patient Instructions: Patient is doing well overall. He will continue his nutrition and exercise plans. Will complete online classes and follow-up 03/03 at 09:30 in office for review and more education about post bariatric surgery diet recommendations Coding Level of Care Code Nutr Indiv Intake (94578) Diagnoses Morbid (severe) obesity due to excess calories E66.01 Time Spent (min) 40
== END 2023-02-02 09:50 | disposition home or self-care (01) ==
PROVIDERS: PCP Internal Medicine; Visit Provider Dietitian, Registered
DX: E66.01 Morbid (severe) obesity due to excess calories (principal)

== ENCOUNTER → 2023-02-02 09:11 | Outpatient (BNVA) | payer MEDICARE, OTHER, SELFPAY | PROVIDERS: PCP Internal Medicine; Visit Provider Dietitian, Registered | DX: I48.92 Unspecified atrial flutter (principal); I10 Essential (primary) hypertension; E66.01 Morbid (severe) obesity due to excess calories; Z68.41 Body mass index [BMI] 40.0-44.9, adult | CPT/HCPCS: 93005; 97802; 99212 ==

== ENCOUNTER 2023-02-02 09:56 | Outpatient (AMB) | payer MEDICARE, OTHER, SELFPAY ==
[2023-02-02 10:20] VITALS: BP 124/86; PULSE 90; BMI 41.4
--- NOTE | 2023-02-02 10:20 | A.OFFVIS_ITS ---
Intake Vital Signs 02/02/23 10:20 Height 5 ft 11 in Weight 297 lb BMI 41.4 BP 124/86 Blood Pressure Location Lt brachial Position Sitting Pulse 90 Pulse Source Monitor Intake Visit Reasons: abn ekg Intake Note: Follow up with EKG for evaluation of abnormal EKG. 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 Required: No Accompanied by: Self / Same As Patient Allergies No Known Allergies Allergy (Verified 02/02/23 10:25) Medication List - Last Reconciled 02/02/23 by Schuyler Small MD amlodipine 10 mg PO DAILY aspirin (Adult Aspirin Regimen) 81 mg PO DAILY cholecalciferol (vitamin D3) 125 mcg PO DAILY 90 days CPAP (CPAP Machine/Device) As directed hepatitis A and B vaccine (PF) 720 ANIKA unit- 20 mcg/mL (Twinrix (PF)) 1 mL IM ONCE hydrochlorothiazide 25 mg PO QAM isosorbide mononitrate ER 30 mg PO QAM losartan 100 mg PO DAILY metoprolol tartrate 50 mg PO DAILY sertraline 50 mg PO DAILY terazosin 5 mg PO DAILY thiamine HCl (vitamin B1) 100 mg PO DAILY 90 days HPI HPI Comments History of Present Illness Details Pleasant 67 gentleman here for follow-up. He was seen for dyspnea on exertion in the past. He underwent cardiac catheterization which did not show any significant coronary disease. Subsequent to that he was started on antihypertensive therapy as well as nitrates. His symptoms improved somewhat but never completely went back to normal. In the past he lost some weight and felt better and he was advised to exercise regularly and lose some weight. More recently he has been stable but has gained more weight which has led to fatigue and dyspnea. There has been some depression present 2. He had a CT scan of his chest which was mainly for screening for lung cancer given his history of smoking. This did not show any significant lung issue but did show hepatic steatosis. He was referred to GI. 01/17/23: He returns for follow-up. He has joined a gym and is following with the weight management program. He also saw gastroenterology and was referred to endocrinology for further workup for his fatigue and weight gain. His testosterone levels were a little low and his spironolactone was held. Blood pressure continues to be stable. 02/02/23: He went for assessment with weight management program. EKG performed there is showing atrial fibrillation. Was referred back to us for further assessment. He is denying any symptoms. In fact is feeling better than before and has been exercising losing weight without any dyspnea, palpitations or heart failure symptoms. EKG in the office is showing atrial flutter with variable block. Heart rates are well controlled. He is currently taking Toprol-XL 50 mg daily. He is on baby aspirin. No bleeding concerns. [facility] Medical History Dyspnea on exertion Morbid obesity TED on CPAP Surgical History H/O vasectomy History of cardiac cath History of surgery Hx of colonoscopy Family History Father HTN (hypertension) Mother HTN (hypertension) Social History Alcohol intake: current Alcohol intake frequency: holidays/special occasions only Patient Tobacco Use Status: Former Tobacco user Quit Date: 2004 Years Smoked: 20+ Review of Systems Const Denies weakness ENT Denies dizziness Card Denies chest pain, Denies chest pain with activity, Denies syncope, Denies rapid heart rate, Denies pedal edema, Denies edema, Denies leg edema, Denies lightheadedness, Denies palpitations, Denies dyspnea, Denies dyspnea on exertion and Denies orthopnea Resp Denies cough, Denies dyspnea and Denies dyspnea on exertion GI Denies hematochezia and Denies change in stool character Musc Denies abnormal gait, Denies muscle cramps, Denies muscle weakness, Denies numbness, Denies radiating pain into limb and Denies tingling Neuro Denies abnormal gait, Denies dizziness, Denies syncope, Denies numbness, Denies tingling and Denies weakness Endo Denies palpitations Physical Exam Vital Signs: Last Vital Signs Pulse 90 02/02/23 10:20 BP 124/86 02/02/23 10:20 BMI result Body Mass Index 41.4 GENERAL APPEARANCE: in no acute distress, obese. NECK/THYROID: no carotid bruit, no jugular venous distention. SKIN: no suspicious lesions, warm and dry. HEART: no murmurs, irregular rate and rhythm. LUNGS: clear to auscultation bilaterally. ABDOMEN: normal, bowel sounds present, soft, nontender, nondistended. EXTREMITIES: no clubbing, cyanosis, or edema. PERIPHERAL PULSES: equal. NEUROLOGIC: nonfocal, alert and oriented. PSYCH: mood/affect full range. Office Procedures EKG Details: Atrial flutter 90/min, QTc 504, RBBB. [id number], Complete Assessment & Plan Assessment & Plan (1) Atrial flutter: Code(s): I48.92 - Unspecified atrial flutter (2) Essential hypertension: Comment: Stable Code(s): I10 - Essential (primary) hypertension (3) Morbid obesity: Code(s): E66.01 - Morbid (severe) obesity due to excess calories Plan [age] gentleman with morbid obesity, hypertension was referred to Bariatric program and was noticed to have question atrial fibrillation on the EKG and sent back to us. EKG showing atrial flutter at this point. Is completely asymptomatic at this point. Blood pressure control is good. Clinically not in heart failure. Stopping the aspirin. Starting him on Eliquis 5 mg twice a day. He will see us back in 2 months. At that stage we will discuss should be due cardioversion. Also will do 3 day Holter monitor to see how his heart rates are during the day. Thank you for allowing me to participate in the care of your patient. Please feel free to contact me if you have any questions. Orders: Orders ECG 3 day holter monitor Today I48.92 - Unspecified atrial flutter Medications: New 2 apixaban 5 mg PO BID 60 tabs 5RF I48.92 - Unspecified atrial flutter Coding Level of Care Code Est Pt Level 4 (99407) Diagnoses Atrial flutter I48.92 Essential hypertension I10 Morbid obesity E66.01 CPT Codes EKG - CPT: 46171-[id number], Complete ([id number])
== END 2023-02-02 11:02 | disposition home or self-care (01) ==
PROVIDERS: PCP Internal Medicine; Visit Provider Internal Medicine Cardiovascular Disease
DX: I48.92 Unspecified atrial flutter (principal); I10 Essential (primary) hypertension; E66.01 Morbid (severe) obesity due to excess calories
CPT/HCPCS: 93010; 99214

== ENCOUNTER → 2023-02-08 09:49 | Outpatient (REF) | payer MEDICARE, OTHER, SELFPAY ==
--- NOTE | 2023-02-08 09:52 | HM_ITS ---
Conclusion: 1. Patient was monitored for total period of 2 days and 23 hours 2. Baseline was atrial fibrillation with average heart rate of 61 beats per minute very good rate control 3. Longest pause of 2.9 seconds which is not significant for patient persistent atrial fibrillation 4. PVCs 5. No patient reported symptoms MTDD
== END ==
LOC: HO.CARD 09:49
PROVIDERS: Visit Provider Internal Medicine Cardiovascular Disease
DX: I48.92 Unspecified atrial flutter (principal)
CPT/HCPCS: 93242

== ENCOUNTER → 2023-02-08 09:52 | Outpatient (BNV) | payer MEDICARE, OTHER, SELFPAY | PROVIDERS: Visit Provider Internal Medicine Cardiovascular Disease | DX: I48.91 Unspecified atrial fibrillation (principal) | CPT/HCPCS: 93244 ==

== ENCOUNTER 2023-02-09 11:46 | Outpatient (AMB) | payer MEDICARE, OTHER, SELFPAY ==
--- NOTE | 2023-02-09 11:53 | MHC.WMTHER ---
Intake Intake Visit Reasons: (OV) BH Intake Allergies No Known Allergies Allergy (Verified 02/02/23 10:25) PFSH Medical History Dyspnea on exertion Morbid obesity TED on CPAP Surgical History H/O vasectomy History of cardiac cath History of surgery Hx of colonoscopy Family History Father HTN (hypertension) Mother HTN (hypertension) Social History Alcohol intake: current Alcohol intake frequency: holidays/special occasions only Patient Tobacco Use Status: Former Tobacco user Quit Date: 2004 Years Smoked: 20+ Behavioral Health Assessment Weight Management Therapy Therapy Notes Details Pt reported that he is looking to have weight loss surgery to help improve his health and quality of life. He stated that his health issues are related to his weight. He reported being in therapy in the past due to depression after retiring from [employer] after 25 years. He denied a history of problems with drugs or alcohol. Presenting Concerns Referral Source provider Reason for referral weight loss surgery evaluation Precipitating Event obesity Living Situation Current Living Situation Own At risk of losing current housing? No Satisfied with current living situation? Yes Comments Pt lives with his . Food/Weight/Diet Expectations of change weight loss and maintenance History/Relationship with food He reported he drank most of his calories through ice tea, soda juices, ate small amounts but would eat bread, pasta, candy, desserts, sympathetic bedtime eater if someone else is having something then he will have some. History/Relationship with weight Pt stated that he has been struggling with his weight for 20 years or so. History/Relationship with dieting various diets throughout his life, Binge Eating Do you frequently eat large amounts of food in short periods of time, not feeling physically hungry? No Do you feel out of control when you eat a large amount of food in a short period of time? No Do you eat large amounts of food rapidly and typically alone? Yes Night Eating Do you wake up at least once during the night to eat? No If you wake up in the night, do you find that it is necessary to eat something in order to fall back asleep? No Do you have little or no appetite in the morning and feel very hungry in the evening, often overeating between dinner and when you go to bed? No Social History Family history and relationship Patient has been to his third for 7 years. He has three adult children and 1 granddaughter. 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 none Education Preferred learning style Auditory, Verbal, Written, Learn by doing and Visual Currently enrolled in educational program? No Interested in further educational program? No Employment Employment Status Retired Wants help to find employment? No Financial Situation Describe current financial situation Comfortable Financial assistance? None Service Service? Yes Mental Health and Addiction Treatment Current/Past addictive behavior concerns? No Medical and Physical Health Summary Physical exam in the last year? Yes Pain Screening Current pain? No Pain in the last few months? No Medications Is the patient compliant with medications? Yes Does the patient have [facility] Guardian in place? Not applicable Does the patient use complimentary health approaches? No Trauma/Abuse History History of trauma? No Questionnaires PHQ-9 Over the last 2 weeks, how often have you been bothered by any of the following problems? 1. Little interest or pleasure in doing things: several days 2. Feeling down, depressed, or hopeless: several days 3. Trouble falling or staying asleep, or sleeping too much: nearly every day 4. Feeling tired or having little energy: nearly every day 5. Poor appetite or overeating: more than half the days 6. Feeling bad about yourself - or that you are a failure or have let yourself or your family down: not at all 7. Trouble concentrating on things, such as reading the newspaper or watching television: not at all 8. Moving or speaking so slowly that other people could have noticed. Or the opposite - being so fidgety or restless that you have been moving around a lot more than usual: not at all 9. Thoughts that you would be better off or of hurting yourself in some way: not at all Total score: 10 Source: Developed by Drs. Dylon Pinto, Kaci Thorpe, Rick Ventura and colleagues, with an educational kaitlynn from [employer]). Binge Eating Scale Group 1 A. I don't feel self-conscious about my wt. or body size when I'm with others. B. I feel concerned about how I look to others, but it normally does not make me fell disappointed with myself C. I do get self-conscious about my appearance and wt. which makes me feel disappointed in myself. D. I feel very self-conscious about my wt. and frequently I feel intense shame and disgust for myself. I try to avoid social contacts because of my self-consciousness. Response Group 1: B Group 2 A. I don't have any difficulty eating slowly in the proper manner. B. Although I seem to gobble down foods, I don't end up feeling stuffed because of eating to much. C. At times, I tend to eat quickly and then, I feel uncomfortably full afterwards. D. I have the habit of bolting down my food, without really chewing it. When this happens I usually feel uncomfortably stuffed because I've eaten to much. Response Group 2: C Group 3 A. I feel capable to control my eating urges when I want to. B. I feel like I have failed to control my eating more than the average person. C. I feel utterly helpless when it comes to feeling in control of my eating urges. D. Because I feel so helpless about controlling my eating I have become very desperate about trying to get control. Response Group 3: A Group 4 A. I don't have the habit of eating when I'm bored. B. I sometimes eat when I'm bored, but often I'm able to get busy and get my mind off food. C. I have a regular habit of eating when I'm bored, but occasionally, I can use some other activity to get my mind off eating. D. I have a strong habit of eating when I'm bored. Nothing seems to help me breath the habit. Response Group 4: A Group 5 A. I'm usually physically hungry when I eat something. B. Occasionally, I eat something on impulse even though I really am not hungry. C. I have the regular habit of eating foods, that I might not really enjoy, to satisfy a hungry feeling even though physically, I don't need the food. D. Although I'm not physically hungry, I get a hungry feeling in my mouth that only seems to be satisfied when I eat a food, like sandwich, that fills my mouth. Sometimes, when I eat the food to satisfy my mouth hunger, I then spit the food out so I won't gain weight. Response Group 5: B Group 6 A. I don't feel any guilt or self-hate after I overeat. B. After I overeat, occasionally I feel guilt or self-hate. C. Almost all the time I experience strong guilt or self-hate after I overeat. Response Group 6: B Group 7 A. I don't lose total control of my eating when dieting even after periods when I overeat. B. Sometimes when I eat a forbidden food on a diet, I feel like I blew it and eat even more. C. Frequently, I have the habit of saying to myself, I've blown it now, why not go all the way, when I overeat on a diet. When that happens I eat more. D. I have a regular habit of starting a strict diets for myself but I break the diets by going on an eating binge. My life seems to be either a feast or famine. Response Group 7: D Group 8 A. I rarely eat so much food that I feel uncomfortably stuffed afterwards. B. Usually about once a month, I each such a quantity of food, I end up feeling very stuffed. C. I have regular periods during the month when I eat large amounts of food, either at mealtime or at snacks. D. I eat so much food that I regularly feel quite uncomfortable after eating and sometimes a bit nauseous. Response Group 8: B Group 9 A. My level of calorie intake does not go up very high or go down very low on a regular basis. B. Sometimes after I overeat, I will try to reduce my caloric intake to almost nothing to compensate for the excess calories I've eaten. C. I have a regular habit of overeating during the night. It seems that my routine is not to be hungry in the morning but overeat in the evening. D. In my adult years, I have had week-long periods where I practically starve myself. This follows periods when I overeat. It seems I live a life of either feast or famine. Response Group 9: A Group 10 A. I usually am able to stop eating when I want to. I know when enough is enough. B. Every so often, I experience a compulsion to eat which I can't seem to control. C. Frequently, I experience strong urges to eat which I seem unable to control, but at other times I can control my eating urges. D. I feel incapable of controlling urges to eat. I have a fear of not being able to stop eating voluntarily. Response Group 10: A Group 11 A. I don't have any problem stopping eating when I feel full. B. I usually can stop eating when I feel full but occasionally overeat leaving me feeling uncomfortably stuffed. C. I have a problem stopping eating once I start and usually I feel uncomfortably stuffed after I eat a meal. D. Because I have a problem not being able to stop eating when I want, I sometimes have to induce vomiting to relieve my stuffed feeling. Response Group 11: A Group 12 A. I seem to eat just as much when I'm with others, Family social gatherings as when I'm by myself. B. Sometimes, when I'm with other persons, I don't eat as much as I want to eat because I'm self-conscious about my eating. C. Frequently, I eat only a small amount of food when others are present, because I'm very embarrassed about my eating. D. I feel so ashamed about overeating that I pick times to overeat when I know no one will see me. I feel like a closet eater. Response Group 12: A Group 13 A. I eat three meals a day with only an occasional between meal snack. B. I eat 3 meals a day, but I also normally snack between meals. C. When I am snacking heavily, I get in the habit of skipping regular meals. D. There are regular periods when I seem to be continually eating, with no planned meals. Response Group 13: A Group 14 A. I don't think much about trying to control unwanted eating urges. B. At least some of the time, I feel my thoughts are pre-occupied with trying to control my eating urges. C. I feel that frequently I spend much time thinking about how much I ate or about trying not to eat anymore. D. It seems to me that most of my waking hours are pre-occupied by thoughts about eating or not eating. I feel like I'm constantly struggling not to eat. Response Group 14: C Group 15 A. I don't think about food a great deal. B. I have strong craving for food but they last only for brief periods of time. C. I have days when I can't seem to think about anything else but food. D. Most of my days seem to be pre-occupied with thoughts about food. I feel like I live to eat. Response Group 15: A Group 16 A. I usually know whether or not I'm physically hungry. I take the right portion of food to satisfy me. B. Occasionally, I feel uncertain about knowing whether or not I'm physically hungry. A these times it's hard to know how much food I should take to satisfy me. C. Even though I might know how many calories I should eat, I don't have any idea what is a normal amount of food for me. Response Group 16: C Binge Eating Score: 13 Score less than 17 Minimal Risk Score between 18-26 Moderate Risk Score between 27-46 High Risk Assessment & Plan Assessment & Plan (1) Dysthymia: Code(s): F34.1 - Dysthymic disorder (2) Morbid obesity: Code(s): E66.01 - Morbid (severe) obesity due to excess calories Plan Pt will be seen again for further evaluation. Patient processed many different thoughts and concerns he has about surgery. Validation and normalization of feelings, active and supportive listening, motivational interviewing, Coding Level of Care Code Psy Diag Eval ([id number]) Diagnoses Dysthymia F34.1 Morbid obesity E66.01 Time Spent (min) 50
== END 2023-02-09 14:29 | disposition home or self-care (01) ==
PROVIDERS: PCP Internal Medicine; Visit Provider Counselor Mental Health
DX: F34.1 Dysthymic disorder (principal); E66.01 Morbid (severe) obesity due to excess calories; Z68.41 Body mass index [BMI] 40.0-44.9, adult
CPT/HCPCS: 90791

== ENCOUNTER → 2023-02-09 11:46 | Outpatient (BNVA) | payer MEDICARE, OTHER, SELFPAY | PROVIDERS: PCP Internal Medicine; Visit Provider Counselor Mental Health ==

== ENCOUNTER 2023-02-22 08:43 | Outpatient (AMB) | payer MEDICARE, OTHER, SELFPAY ==
--- NOTE | 2023-02-22 08:48 | MHC.OFFVIS ---
Intake Vital Signs 02/22/23 08:50 Height 5 ft 11 in Weight 291 lb BMI 40.6 Intake Visit Reasons: 3 Month Follow Up Intake Note: Bill presents in the office as a 3 month follow up. CC: He states that he is not having any concerns at this time. 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 08/24/22: History was reviewed the patient, who currently has no gastrointestinal symptoms to include abdominal pain, nausea, vomiting, changes in bowel habits. Fatty liver was diagnosed based on a CT scan done for lung cancer screening in 2021. In terms of the risk factors appears to be morbid obesity as etOH is minimal. Estimates 12oz beer in a week. Pt does not have DM or HLD. Most recent LFTs from 08/02/2022 are normal. Ferritin mildly elevated. 11/23/22: No gastrointestinal complaints today. Main complaint is low energy and easy fatiguability. Pt recalled very little of the discussion from last visit. He was unsure of reason for follow up today. We again reviewed the incidental finding of steatosis on CT Chest that led to this referral. US Abd 08/2022 also showed steatosis. Fib-4 based on labs is 0.80 which is reassuring for no advanced fibrosis. Weight is unchanged from last time. He had previously declined bariatric medicine appt as he had forgotten why it was recommended. 02/22/23: Recent diagnosis of AFib - on eliquis with follow up later this year with Cardiology to review indication for cardioversion. Also reports a hx of syncope on 02/02 afternoon. Did not seek any medical attention at that time as felt back to baseline after coming about and no recurrent events (the syncopal episode occured before the Holter was installed). Has been working on weight with weight management and has lost almost 20 lbs in one month! Reports feeling increased levels of energy and breathing a lot better too. Labs ordered by weight management - SONAL and hypercalcemia with low PTH and normal Vit D noted. Elastography without any advanced fibrosis, consistent with Fib-4 score. COUNTS INCLUDE 234 BEDS AT THE [facility] Medical History Dyspnea on exertion Morbid obesity TED on CPAP Surgical History H/O vasectomy History of cardiac cath History of surgery Hx of colonoscopy Family History Father HTN (hypertension) Mother HTN (hypertension) Social History Alcohol intake: current Alcohol intake frequency: holidays/special occasions only Patient Tobacco Use Status: Former Tobacco user Quit Date: 2004 Years Smoked: 20+ Physical Exam Vital Signs: BMI result Body Mass Index 40.6 Gen Appear: NAD, with central obesity HEENT: No scleral icterus Chest: CTA CVS: Regular S1/S2 no murmurs Abd: soft, nontender, nondistended, no shifting dullness to percussion, bowel sounds active Ext: No peripheral edema bilaterally Neuro: A/Ox3, no asterixis Derm: Palmar erythema noted Assessment & Plan Assessment & Plan (1) Hepatic steatosis: Code(s): K76.0 - Fatty (change of) liver, not elsewhere classified (2) Morbid obesity: Code(s): E66.01 - Morbid (severe) obesity due to excess calories (3) Hypercalcemia: Code(s): E83.52 - Hypercalcemia (4) Atrial flutter: Code(s): I48.92 - Unspecified atrial flutter Plan Fatty liver 2/2 MAFLD/MOHAN. Fib-4 is 0.80 and elastography without any advanced fibrosis. Mainstay of management will be control of metabolic factors and was congratulated on weight loss of 20 lbs in a month. In terms of his c/o fatigue and low energy, this has improved considerably. He is being seen by Endocrine for low testosterone and spirinolactone DCed. Also noted to have hypercalcemia and SONAL on labs ordered by weight management. No anemia. Will order prelim work up to r/o humoral hyperCal, granulomatous disease (25 OH normal), MM (total protein noted to be high). Plan: -detailed counseling was done with the patient regarding prevention of further progression to chronic liver disease. -treatment will largely be weight loss, recommend at least 10% of body weight loss in 6 months -Continue etOH abstinence -Pt established with weight management program. -Labs for hyperCal work up ordered - will call pt with results and any actionable findings -TOMMY martin sent to his [facility] for syncope in a pt with recently diagnosed AF Follow up in 6 months. Orders: Orders Calcium Today E83.52 - Hypercalcemia Calcium, Ionized Today E83.52 - Hypercalcemia Comprehensive Met. Panel Today K76.0 - Fatty (change of) liver, not elsewhere classified Protein Electrophoresis, Serum Today E83.52 - Hypercalcemia Protein Electrophoresis,Ran Ur Today E83.52 - Hypercalcemia [place]/Lambda Light Chain Serum Today E83.52 - Hypercalcemia Parathyroid Hormone Related Pr Today E83.52 - Hypercalcemia Vitamin D 1,25 OH LC/MS/MS Today E83.52 - Hypercalcemia Vitamin D 25-OH Total Today E83.52 - Hypercalcemia Coding Level of Care Code Est Pt Level 5 (39530) Diagnoses Hepatic steatosis K76.0 Morbid obesity E66.01 Hypercalcemia E83.52 Atrial flutter I48.92
[2023-02-22 08:50] VITALS: BMI 40.6
== END 2023-02-22 09:34 | disposition home or self-care (01) ==
PROVIDERS: PCP Internal Medicine; Visit Provider Internal Medicine
DX: K76.0 Fatty (change of) liver, not elsewhere classified (principal); E66.01 Morbid (severe) obesity due to excess calories; Z68.41 Body mass index [BMI] 40.0-44.9, adult; E83.52 Hypercalcemia; I48.92 Unspecified atrial flutter
CPT/HCPCS: 99214

== ENCOUNTER 2023-02-22 08:43 | Outpatient (REF) | payer MEDICARE, OTHER, SELFPAY ==
[2023-02-22 11:01] LABS: Alanine Aminotransferase 19 U/L (0-40); Albumin Level 3.9 g/dL (3.5-5.0); Alkaline Phosphatase 51 U/L (39-117); Anion Gap 12 (12-20); Aspartate Amino Transferase 17 U/L (5-37); Bilirubin Total 0.6 mg/dL (0.0-1.0); Blood Urea Nitrogen 47 mg/dL (9-16); Carbon Dioxide 28 mmol/L (22-29); Chloride 103 mmol/L (96-108); Estimated Glomerular Filt Rate 36; Glucose Random 109 mg/dL (60-115); Potassium 3.9 mmol/L (3.3-5.1); Sodium 139 mmol/L (135-145); Total Protein 7.6 g/dL (6.5-8.0)
[2023-02-22 11:19] LABS: Vitamin D 25-OH Total 43.2 ng/mL (>30)
[2023-02-23 15:08] LABS: Calcium, Ionized 5.1 mg/dL (4.7-5.5)
[2023-02-24 15:14] LABS: Prot Elec - Albumin 3.7 g/dL (3.8-4.8); Prot Elec - Alpha1 0.4 g/dL (0.2-0.3); Prot Elec - Alpha2 0.8 g/dL (0.5-0.9); Prot Elec - Beta 1 0.5 g/dL (0.4-0.6); Prot Elec - Beta 2 0.5 g/dL (0.2-0.5); Prot Elec - Gamma 1.2 g/dL (0.8-1.7)
[2023-02-25 23:13] LABS: VITAMIN D (1,25 OH) D3 18 pg/mL; Vit D (1,25-Dihydroxy) Total 18 pg/mL (18-72); Vitamin D (1,25 OH) D2 <8 pg/mL
[2023-03-02 18:48] LABS: Parathyroid Hormone Related Pr 14 pg/mL (11-20)
[2023-03-04 15:43] LABS: Kappa, Serum 351 mg/dL (176-443); Kappa/Lambda Ratio, Serum 2.06 (1.29-2.55); Lambda, Serum 170 mg/dL (91-240)
== END 2023-02-22 08:44 | disposition home or self-care (01) ==
LOC: HO.LAB 08:43
PROVIDERS: PCP Internal Medicine; Visit Provider Internal Medicine
DX: K76.0 Fatty (change of) liver, not elsewhere classified (principal); E83.52 Hypercalcemia; E66.01 Morbid (severe) obesity due to excess calories; I48.92 Unspecified atrial flutter
CPT/HCPCS: 80053; 82306; 82330; 82652; 83519; 83883; 84165; 99212

== ENCOUNTER 2023-03-01 13:32 | Outpatient (AMB) | payer MEDICARE, OTHER, SELFPAY ==
--- NOTE | 2023-03-01 13:36 | MHC.OFFVISWM ---
Intake VS Expanded 03/01/23 13:42 Height 5 ft 11 in Weight 290 lb BMI 40.4 BP 116/57 L Blood Pressure Location Rt brachial Blood Pressure Position Sitting Pulse 66 Pulse Source Pulse Oximeter Temp 98.1 F Temperature Source Temporal Artery Scan Pulse Oximetry 96 Oxygen Delivery Method Room Air Body Fat 115. 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 Allergies No Known Allergies Allergy (Verified 03/01/23 13:39) Medication List - Last Reconciled 03/01/23 by DORCAS Lawson amlodipine 10 mg PO DAILY apixaban 5 mg PO BID cholecalciferol (vitamin D3) 125 mcg PO DAILY 90 days CPAP (CPAP Machine/Device) As directed hepatitis A and B vaccine (PF) 720 ANIKA unit- 20 mcg/mL (Twinrix (PF)) 1 mL IM ONCE hydrochlorothiazide 25 mg PO QAM isosorbide mononitrate ER 30 mg PO QAM losartan 100 mg PO DAILY metoprolol tartrate 50 mg PO DAILY sertraline 50 mg PO DAILY thiamine HCl (vitamin B1) 100 mg PO DAILY 90 days HPI HPI Comments History of Present Illness Details The patient is a pleasant 67 year old male who returns to the clinic for pre-operative surgical weight loss management. They were last seen in the office on 01/31/23, recorded weight at that time was 297.6 pounds, with a BMI of 41.5. Today's weight is 290 pounds and BMI is 40.4. There has been a weight loss of 26.4 pounds since initiating the surgical weight loss program on 01/05/23 with a total body weight loss of 8.3 %. Pre op work up completed as follows: SWL classes:? 08/04 BH appts: 02/09/23 ? ? RD appts: f/u 03/03/23 Labs: 01/21/23-SCr 1.51, low B1 H. pylori: [] CXR: 01/21/23-nad EK01/21/23-AF, RBBB-Cardiology notified, last seen 01/17/23 ABD U/S: 01/21/23 UGI: needs appt The patient reports he feels well although does not want to continue in the program as he does not want to have a surgical intervention. Current meal plan includes: 3 Pure Protein shakes First shake (1 scoop in 8 oz low fat unsweetened almond milk) at 8am-10am, Second shake, (1/2 scoop in 8 oz low fat unsweetened almond milk) at 12pm-2pm 1 protein bar (Fulfil bars at [employer], [employer], or [employer]) at 3pm-5pm. Dinner at 6pm (10 forks of protein and 10 forks of salad/vegetables). Another shake with 1/2 scoop in 8 oz unsweetened almond milk at 8pm-10pm. Drinking 48-64 oz of water Current exercise plan includes: 5 x per week swimming for an hour, walks with PFSH Medical History Dyspnea on exertion Morbid obesity TED on CPAP Surgical History H/O vasectomy History of cardiac cath History of surgery Hx of colonoscopy Family History Father HTN (hypertension) Mother HTN (hypertension) Social History (Updated 03/01/23 @ 13:40 by Bianca Tolbert CMA) Alcohol intake: current Alcohol intake frequency: holidays/special occasions only Patient Tobacco Use Status: Former Tobacco user Quit Date: 2004 Years Smoked: 20+ Physical Exam Vital Signs: Last Vital Signs Temp 98.1 F 03/01/23 13:42 Pulse 66 03/01/23 13:42 BP 116/57 L 03/01/23 13:42 Pulse Ox 96 03/01/23 13:42 Oxygen Delivery Method Room Air 03/01/23 13:42 BMI result Body Mass Index 40.4 Const General: healthy appearing and no acute distress Resp Effort & Inspection: normal respiratory effort Auscultation: clear to auscultation bilaterally Cardio Rate: regular rate Rhythm: regular rhythm GI Auscultation: normal bowel sounds Extrem General: Yes normal to inspection Assessment & Plan Assessment & Plan (1) Morbid obesity: Code(s): E66.01 - Morbid (severe) obesity due to excess calories Plan: Pt wishes to w/d from the program at this time. Encouraged to continue meal plan until 275 pounds then decrease to 1/2 scoop each shake Continue exercise may return in the future if he wishes. Coding Level of Care Code Est Pt Level 3 (72187) Diagnoses Morbid obesity E66.01
[2023-03-01 13:42] VITALS: BP 116/57; PULSE 66; TEMP 36.7; O2SAT 96; BMI 40.4
== END 2023-03-01 14:14 | disposition home or self-care (01) ==
PROVIDERS: PCP Internal Medicine; Visit Provider Physician Assistant Surgical
DX: E66.01 Morbid (severe) obesity due to excess calories (principal); Z68.41 Body mass index [BMI] 40.0-44.9, adult
CPT/HCPCS: 99213

== ENCOUNTER → 2023-03-01 13:32 | Outpatient (BNVA) | payer MEDICARE, OTHER, SELFPAY | PROVIDERS: PCP Internal Medicine; Visit Provider Physician Assistant Surgical | DX: E66.01 Morbid (severe) obesity due to excess calories (principal); Z68.41 Body mass index [BMI] 40.0-44.9, adult | CPT/HCPCS: 99212 ==

== ENCOUNTER 2023-03-02 13:28 | Outpatient (REF) | payer MEDICARE, OTHER, SELFPAY ==
[2023-03-02 16:44] LABS: Calcium 10.3 mg/dL (8.4-10.2)
[2023-03-02 18:48] LABS: Anion Gap 14 (12-20); Blood Urea Nitrogen 31 mg/dL (9-16); Calcium 10.3 mg/dL (8.4-10.2); Carbon Dioxide 25 mmol/L (22-29); Chloride 104 mmol/L (96-108); Estimated Glomerular Filt Rate 47; Glucose Random 89 mg/dL (60-115); Potassium 3.9 mmol/L (3.3-5.1); Sodium 139 mmol/L (135-145)
[2023-03-04 02:58] LABS: Follicle Stimulating Hormone 2.4 mIU/mL (1.6-8.0); Lutenizing Hormone 4.6 mIU/mL (1.6-15.2)
[2023-03-07 15:03] LABS: Testosterone, Free 25.7 pg/mL (35.0-155.0); Testosterone, Total 211 ng/dL (250-1100)
== END 2023-03-02 13:29 | disposition home or self-care (01) ==
LOC: HO.LAB 13:28
PROVIDERS: Internal Medicine Endocrinology, Diabetes & Metabolism; Absent Provider Internal Medicine; PCP Internal Medicine; Referring Provider Internal Medicine; Visit Provider Internal Medicine Cardiovascular Disease
DX: I12.9 Hypertensive chronic kidney disease with stage 1 through stage 4 chronic kidney disease, or unspecified chronic kidney disease (principal); N18.9 Chronic kidney disease, unspecified; R79.89 Other specified abnormal findings of blood chemistry; E83.52 Hypercalcemia; R06.00 Dyspnea, unspecified; R55 Syncope and collapse
CPT/HCPCS: 36415; 80048; 82310; 83001; 83002; 84402; 84403; 93005; 99212

== ENCOUNTER 2023-03-02 13:28 | Outpatient (AMB) | payer MEDICARE, OTHER, SELFPAY ==
--- NOTE | 2023-03-02 14:00 | A.OFFVIS_ITS ---
Intake Vital Signs 03/02/23 14:03 Height 5 ft 11 in Weight 290 lb BMI 40.4 BP 104/56 L Blood Pressure Location Lt brachial Position Sitting Pulse 65 Pulse Source Monitor Intake Visit Reasons: SYNCOPAL EPISODES Intake Note: Follow up with EKG after recent syncopal episode. Concierge Receptionist Required: No Accompanied by: Self / Same As Patient Allergies No Known Allergies Allergy (Verified 03/02/23 14:06) Medication List - Last Reconciled 03/02/23 by Schuyler Small MD amlodipine 10 mg PO DAILY apixaban 5 mg PO BID cholecalciferol (vitamin D3) 125 mcg PO DAILY 90 days CPAP (CPAP Machine/Device) As directed hepatitis A and B vaccine (PF) 720 ANIKA unit- 20 mcg/mL (Twinrix (PF)) 1 mL IM ONCE hydrochlorothiazide 25 mg PO QAM isosorbide mononitrate ER 30 mg PO QAM losartan 100 mg PO DAILY metoprolol tartrate 50 mg PO DAILY sertraline 50 mg PO DAILY thiamine HCl (vitamin B1) 100 mg PO DAILY 90 days HPI HPI Comments History of Present Illness Details Pleasant 67 gentleman here for follow-up. He was seen for dyspnea on exertion in the past. He underwent cardiac catheterization which did not show any significant coronary disease. Subsequent to that he was started on antihypertensive therapy as well as nitrates. His symptoms improved somewhat but never completely went back to normal. In the past he lost some weight and felt better and he was advised to exercise regularly and lose some weight. More recently he has been stable but has gained more weight which has led to fatigue and dyspnea. There has been some depression present 2. He had a CT scan of his chest which was mainly for screening for lung cancer given his history of smoking. This did not show any significant lung issue but did show hepatic steatosis. He was referred to GI. 01/17/23: He returns for follow-up. He has joined a gym and is following with the weight management program. He also saw gastroenterology and was referred to endocrinology for further workup for his fatigue and weight gain. His testosterone levels were a little low and his spironolactone was held. Blood pressure continues to be stable. 02/02/23: He went for assessment with weight management program. EKG performed there is showing atrial fibrillation. Was referred back to us for further assessment. He is denying any symptoms. In fact is feeling better than before and has been exercising losing weight without any dyspnea, palpitations or heart failure symptoms. EKG in the office is showing atrial flutter with variable block. Heart rates are well controlled. He is currently taking Toprol-XL 50 mg daily. He is on baby aspirin. No bleeding concerns. 03/02/2023: He returns for follow-up. He saw GI and told them that he had syncope. We decided to bring him for follow-up. It appears he has been diagnosed with kidney disease. He had blood workup done which showed acute kidney injury. He also was noticed to have hypercalcemia. Apparently he was out in the sun and felt dizzy and went inside the house. He was sitting and stood up and started walking and felt a love to his had and very flushed and then passed out for short period time. He did not have any further issues since then. He has lost 30 lb in the last 6 months. [facility] Medical History Dyspnea on exertion Morbid obesity TED on CPAP Surgical History H/O vasectomy History of cardiac cath History of surgery Hx of colonoscopy Family History Father HTN (hypertension) Mother HTN (hypertension) Social History Alcohol intake: current Alcohol intake frequency: holidays/special occasions only Patient Tobacco Use Status: Former Tobacco user Quit Date: 2004 Years Smoked: 20+ Review of Systems Const Denies weakness ENT Denies dizziness Card Denies chest pain, Denies chest pain with activity, Denies syncope, Denies rapid heart rate, Denies pedal edema, Denies edema, Denies leg edema, Denies lightheadedness, Denies palpitations, Denies dyspnea, Denies dyspnea on exertion and Denies orthopnea Resp Denies cough, Denies dyspnea and Denies dyspnea on exertion GI Denies hematochezia and Denies change in stool character Musc Denies abnormal gait, Denies muscle cramps, Denies muscle weakness, Denies numbness, Denies radiating pain into limb and Denies tingling Neuro Denies abnormal gait, Denies dizziness, Denies syncope, Denies numbness, Denies tingling and Denies weakness Endo Denies palpitations Physical Exam Vital Signs: Last Vital Signs Pulse 65 03/02/23 14:03 BP 104/56 L 03/02/23 14:03 BMI result Body Mass Index 40.4 GENERAL APPEARANCE: in no acute distress, obese. NECK/THYROID: no carotid bruit, no jugular venous distention. SKIN: no suspicious lesions, warm and dry. HEART: no murmurs, irregular rate and rhythm. LUNGS: clear to auscultation bilaterally. ABDOMEN: normal, bowel sounds present, soft, nontender, nondistended. EXTREMITIES: no clubbing, cyanosis, or edema. PERIPHERAL PULSES: equal. NEUROLOGIC: nonfocal, alert and oriented. PSYCH: mood/affect full range. Office Procedures EKG Details: Atrial fibrillation 65 beats per minute, normal axis, right bundle-branch block, QTC 445 milliseconds. [id number], Complete Assessment & Plan Assessment & Plan (1) CLAROS (dyspnea on exertion): Comment: He has background diastolic heart failure, obesity and deconditioning. Clinically is not volume overloaded. HE HAS SOME MILD RESTRICTIVE PATTERN, ON PFT. HIS DYSPNEA ON EXERTION IS PRIMARILY DUE TO MORBID OBESITY, CAUSING MILD RESTRICTIVE PATTERN. AND ALSO HIS BACKGROUND OF DIASTOLIC HEART FAILURE. EXPLAINED IN DETAIL, WOULD NOT NEED ANY MEDICAL TREATMENT, EXCEPT DOING DEEP BREATHING EXERCISES DAILY AND LOSING WEIGHT. Code(s): R06.00 - Dyspnea, unspecified (2) Essential hypertension: Comment: Stable Code(s): I10 - Essential (primary) hypertension (3) Syncope: Code(s): R55 - Syncope and collapse Plan Pleasant 67 gentleman who is here for follow-up. He has background of morbid obesity, hypertension and dyspnea on exertion. He also was diagnosed with at rial flutter but EKG in the office today showing atrial fibrillation. In any case he is rate controlled and asymptomatic from arrhythmia viewpoint. He had episode of syncope with sound like vasovagal syncope. He was out in the heat when he started feeling dizzy and went inside the house and then felt flushed and passed out. Other possibility can be orthostatic hypotension as he was changing his posture. In any case his losartan and hydrochlorothiazide were held because he had kidney injury none previously had hypercalcemia 2. I will repeat blood workup today. His blood pressure is low despite holding hydrochlorothiazide and losartan. I have advised him to stop the isosorbide mononitrate also. He is on metoprolol tartrate which is not a long-acting form and I am changing him to metoprolol succinate at the same dose. If his blood pressure recovers then I think losartan should be resumed. I think his blood pressure is changing because of weight loss. Rate control strategy for atrial fibrillation for now. If he develops any symptoms or had difficult to control heart rates then we can consider cardioversion Anticoagulation with apixaban 5 mg twice a day. Thank you for allowing me to participate in the care of your patient. Please feel free to contact me if you have any questions. Orders: Orders Basic Metabolic Panel Today N18.9 - Chronic kidney disease, unspecified Medications: New metoprolol succinate ER (Toprol XL) 50 mg PO DAILY 90 tabs 3RF Discontinued hydrochlorothiazide Discontinued Reason: Doctor's Order 25 mg PO QAM 90 caps 3RF Coding Level of Care Code Est Pt Level 4 (56581) Diagnoses CLAROS (dyspnea on exertion) R06.00 Essential hypertension I10 Syncope R55 CPT Codes EKG - CPT: 12602-[id number], Complete ([id number])
[2023-03-02 14:03] VITALS: BP 104/56; PULSE 65; BMI 40.4
== END 2023-03-02 14:33 | disposition home or self-care (01) ==
PROVIDERS: PCP Internal Medicine; Referring Provider Internal Medicine; Visit Provider Internal Medicine Cardiovascular Disease
DX: R06.00 Dyspnea, unspecified (principal); I10 Essential (primary) hypertension; R55 Syncope and collapse
CPT/HCPCS: 93010; 99214

== ENCOUNTER 2023-03-30 | Outpatient (REF) | payer MEDICARE, OTHER, SELFPAY | END 2023-03-30 00:01 | LOC: CF | PROVIDERS: PCP Internal Medicine; Visit Provider Internal Medicine Cardiovascular Disease | DX: E66.01 Morbid (severe) obesity due to excess calories (principal); I10 Essential (primary) hypertension; I50.9 Heart failure, unspecified; R06.00 Dyspnea, unspecified; I51.81 Takotsubo syndrome; I48.92 Unspecified atrial flutter; I99.8 Other disorder of circulatory system; Z79.899 Other long term (current) drug therapy | CPT/HCPCS: 99212 ==

== ENCOUNTER 2023-03-30 12:30 | Outpatient (AMB) | payer MEDICARE, OTHER, SELFPAY ==
--- NOTE | 2023-03-30 12:51 | A.OFFVIS_ITS ---
Intake Vital Signs 03/30/23 12:52 Height 5 ft 11 in Weight 284 lb 6.341 oz BMI 39.7 BP 116/70 Blood Pressure Location Lt brachial Position Sitting Pulse 64 Intake Visit Reasons: [facility] follow up Intake Note: Follow-up [facility] dc heart good finger still and issue Photogravure Press Operator Required: No Allergies No Known Allergies Allergy (Verified 03/02/23 14:06) Medication List - Last Reconciled 03/30/23 by Schuyler Small MD amlodipine 10 mg PO DAILY apixaban 5 mg PO BID carvedilol 6.25 mg PO BID cholecalciferol (vitamin D3) 125 mcg PO DAILY 90 days CPAP (CPAP Machine/Device) As directed empagliflozin (Jardiance) 10 mg PO DAILY furosemide 20 mg PO DAILY gabapentin 100 mg PO TID oxycodone mg PO sertraline 50 mg PO DAILY spironolactone 25 mg PO DAILY thiamine HCl (vitamin B1) 100 mg PO DAILY 90 days HPI HPI Comments History of Present Illness Details Pleasant 67 gentleman here for follow-up. He was seen for dyspnea on exertion in the past. He underwent cardiac catheterization which did not show any significant coronary disease. Subsequent to that he was started on antihypertensive therapy as well as nitrates. His symptoms improved somewhat but never completely went back to normal. In the past he lost some weight and felt better and he was advised to exercise regularly and lose some weight. More recently he has been stable but has gained more weight which has led to fatigue and dyspnea. There has been some depression present 2. He had a CT scan of his chest which was mainly for screening for lung cancer given his history of smoking. This did not show any significant lung issue but did show hepatic steatosis. He was referred to GI. 01/17/23: He returns for follow-up. He has joined a gym and is following with the weight management program. He also saw gastroenterology and was referred to endocrinology for further workup for his fatigue and weight gain. His testosterone levels were a little low and his spironolactone was held. Blood pressure continues to be stable. 02/02/23: He went for assessment with [facility] ght management program. EKG performed there is showing atrial fibrillation. Was referred back to us for further assessment. He is denying any symptoms. In fact is feeling better than before and has been exercising losing weight without any dyspnea, palpitations or heart failure symptoms. EKG in the office is showing atrial flutter with variable block. Heart rates are well controlled. He is currently taking Toprol-XL 50 mg daily. He is on baby aspirin. No bleeding concerns. 03/02/2023: He returns for follow-up. He saw GI and told them that he had syncope. We decided to bring him for follow-up. It appears he has been diagnosed with kidney disease. He had blood workup done which showed acute kidney injury. He also was noticed to have hypercalcemia. Apparently he was out in the sun and felt dizzy and went inside the house. He was sitting and stood up and started walking and felt a love to his had and very flushed and then passed out for short period time. He did not have any further issues since then. He has lost 30 lb in the last 6 months. 03/30/23: He is here for f/u. He was admi tted with CHF and NSTEMI to [facility]. He was diagnosed with Takotsubo. He had cardiac cath and afterwards developed right index finger pain and discoloration. It was thought that he had a micro embolus in the aftery. He was heparinized and was seen by hand surgery. He was discharged with full dose ASA and eliquis. He continues to have some pain but p ain is improving overall. He still has purplish discoloration of the index finger. He has intact sensations. [facility] Medical History Dyspnea on exertion Morbid obesity TED on CPAP Surgical History H/O vasectomy History of cardiac cath History of surgery Hx of colonoscopy Family History Father HTN (hypertension) Mother HTN (hypertension) Social History Alcohol intake: current Alcohol intake frequency: holidays/special occasions only Patient Tobacco Use Status: Former Tobacco user Quit Date: 2004 Years Smoked: 20+ Review of Systems Const Denies chills, Denies fatigue, Denies fever(s), Denies frequent falls, Denies weakness, Denies weight gain and Denies weight loss ENT Denies dizziness Card Denies chest pain, Denies leg edema, Denies lightheadedness, Denies palpitations, Denies dyspnea, Denies dyspnea on exertion, Denies orthopnea and Denies other (loss of consciousness) Resp Denies cough, Denies dyspnea and Denies dyspnea on exertion GI Denies hematochezia and Denies change in stool character Musc Denies abnormal gait, Denies muscle weakness, Denies numbness, Denies radiating pain into limb and Denies tingling Neuro Denies abnormal gait, Denies dizziness, Denies frequent falls, Denies numbness, Denies tingling and Denies weakness Endo Denies fatigue and Denies palpitations Physical Exam Vital Signs: Last Vital Signs Pulse 64 03/30/23 12:52 BP 116/70 03/30/23 12:52 BMI result Body Mass Index 39.7 GENERAL APPEARANCE: in no acute distress, obese. NECK/THYROID: no carotid bruit, + jugular venous distention. SKIN: no suspicious lesions, warm and dry. HEART: no murmurs, irregular rate and rhythm. LUNGS: clear to auscultation bilaterally. ABDOMEN: normal, bowel sounds present, soft, nontender, nondistended. EXTREMITIES: no clubbing. +1 edema. Right index finger purplish, not cold, nailbed is white, no tissue loss. PERIPHERAL PULSES: equal. NEUROLOGIC: nonfocal, alert and oriented. PSYCH: mood/affect full range. Assessment & Plan Assessment & Plan (1) Atrial flutter: Code(s): I48.92 - Unspecified atrial flutter (2) Takotsubo cardiomyopathy: Code(s): I51.81 - Takotsubo syndrome (3) CHF (congestive heart failure): Code(s): I50.9 - Heart failure, unspecified (4) Ischemic finger: Code(s): I99.8 - Other disorder of circulatory system Plan 68 male here for f/u. He had takotsubo CM and he was admitted with CHF. Still mildly overloaded but he has just restarted the Lasix 20 mg yesterday. I have advised him to continue the same. We will repeat echo in couple of months. He had embolus in the right index finger. Radial and ulnar arteries are patent. Was on hep gtt in hospital. On full dose ASA and apixaban. Advised him to keep the hand warm. He will f/u with vascular surgery at [facility]. No tissue loss and no signs of gangrene. f/u in couple of months. Coding Level of Care Code Est Pt Level 4 (17180) Diagnoses Atrial flutter I48.92 Takotsubo cardiomyopathy I51.81 CHF (congestive heart failure) I50.9 Ischemic finger I99.8
[2023-03-30 12:52] VITALS: BP 116/70; PULSE 64; BMI 39.7
== END 2023-03-30 13:45 | disposition home or self-care (01) ==
PROVIDERS: PCP Internal Medicine; Visit Provider Internal Medicine Cardiovascular Disease
DX: I48.92 Unspecified atrial flutter (principal); I51.81 Takotsubo syndrome; I50.9 Heart failure, unspecified; I99.8 Other disorder of circulatory system
CPT/HCPCS: 99214

== ENCOUNTER 2023-06-01 13:35 | Outpatient (AMB) | payer MEDICARE, OTHER, SELFPAY ==
--- NOTE | 2023-06-01 13:57 | A.OFFVIS_ITS ---
Intake Vital Signs 06/01/23 13:58 Height 5 ft 11 in Weight 273 lb 5.971 oz BMI 38.1 BP 140/70 H Blood Pressure Location Lt brachial Position Sitting Pulse 94 Pulse Source Pulse Oximeter Intake Visit Reasons: 2 mth s/p holter Intake Note: 2 mnth s/p holter/ patient its fine Insert Molding Operator Required: No Accompanied by: Self / Same As Patient Allergies No Known Allergies Allergy (Verified 03/02/23 14:06) Medication List - Last Reconciled 06/01/23 by Schuyler Small MD amlodipine 10 mg PO DAILY apixaban 5 mg PO BID 90 days carvedilol 6.25 mg PO BID cholecalciferol (vitamin D3) 125 mcg PO DAILY 90 days CPAP (CPAP Machine/Device) As directed empagliflozin (Jardiance) 10 mg PO DAILY sertraline 50 mg PO DAILY spironolactone 25 mg PO DAILY thiamine HCl (vitamin B1) 100 mg PO DAILY 90 days HPI HPI Comments History of Present Illness Details Pleasant 68 gentleman here for follow-up. He was seen for dyspnea on exertion in the past. He underwent cardiac catheterization which did not show any significant coronary disease. Subsequent to that he was started on antihypertensive therapy as well as nitrates. His symptoms improved somewhat but never completely went back to normal. In the past he lost some weight and felt better and he was advised to exercise regularly and lose some weight. More recently he has been stable but has gained more weight which has led to fatigue and dyspnea. There has been some depression present 2. He had a CT scan of his chest which was mainly for screening for lung cancer given his history of smoking. This did not show any significant lung issue but did show hepatic steatosis. He was referred to GI. 01/17/23: He returns for follow-up. He has joined a gym and is following with the weight management program. He also saw gastroenterology and was referred to endocrinology for further workup for his fatigue and weight gain. His testosterone levels were a little low and his spironolactone was held. Blood pressure continues to be stable. 02/02/23: [facility] EKG performed there is showing atrial fibrillation. Was referred back to us for further assessment. He is denying any symptoms. In fact is feeling better than before and has been exercising losing weight without any dyspnea, palpitations or heart failure symptoms. EKG in the office is showing atrial flutter with variable block. Heart rates are well controlled. He is currently taking Toprol-XL 50 mg daily. He is on baby aspirin. No bleeding concerns. 03/02/2023: He returns for follow-up. He saw GI and told them that he had syncope. We decided to bring him for follow-up. It appears he has been diagnosed with kidney disease. He had blood workup done which showed acute kidney injury. He also was noticed to have hypercalcemia. Apparently he was out in the sun and felt dizzy and went inside the house. He was sitting and stood up and started walking and felt a love to his had and very flushed and then passed out for short period time. He did not have any further issues since then. He has lost 30 lb in the last 6 months. 03/30/23: He is here for f/u. He was admi tted with CHF and NSTEMI to [facility]. He was diagnosed with Takotsubo. He had cardiac cath and afterwards developed right index finger pain and discoloration. It was thought that he had a micro embolus in the aftery. He was heparinized and was seen by hand surgery. He was discharged with full dose ASA and eliquis. He continues to have some pain but pain is improving overall. He still has purplish discoloration of the index finger. He has intact sensations. 06/01/2023: He returns for follow-up. Un fortunately he had gangrene of the index finger and had amputation of index finger performed just before . He said he was in excruciating pain and subsequently they decided to do amputation. He has done well since then. Is not requiring any medications currently. He was started on Jardiance and has been losing weight. He is saying that before surgery stop the Lasix and has not resumed it. His blood pressure is mildly elevated. He has mild peripheral edema also. [facility] Medical History Dyspnea on exertion Morbid obesity TED on CPAP Surgical History H/O vasectomy History of cardiac cath History of surgery Hx of colonoscopy Family History Father HTN (hypertension) Mother HTN (hypertension) Social History Alcohol intake: current Alcohol intake frequency: holidays/special occasions only Patient Tobacco Use Status: Former Tobacco user Quit Date: 2004 Years Smoked: 20+ Review of Systems Const Reports chills, Reports fatigue, Reports fever(s), Reports frequent falls, Reports weakness, Reports weight gain and Reports weight loss ENT Reports dizziness Card Reports chest pain, Reports leg edema, Reports lightheadedness, Reports palpitations, Reports dyspnea and Reports dyspnea on exertion Resp Reports cough, Reports dyspnea and Reports dyspnea on exertion GI Reports hematochezia Musc Reports abnormal gait, Reports muscle weakness, Reports numbness, Reports radiating pain into limb and Reports tingling Neuro Reports abnormal gait, Reports dizziness, Reports frequent falls, Reports numbness, Reports tingling and Reports weakness Endo Reports fatigue and Reports palpitations Physical Exam Vital Signs: Last Vital Signs Pulse 94 06/01/23 13:58 BP 140/70 H 06/01/23 13:58 BMI result Body Mass Index 38.1 GENERAL APPEARANCE: in no acute distress, obese. NECK/THYROID: no carotid bruit, + jugular venous distention. SKIN: no suspicious lesions, warm and dry. HEART: no murmurs, irregular rate and rhythm. LUNGS: clear to auscultation bilaterally. ABDOMEN: normal, bowel sounds present, soft, nontender, nondistended. EXTREMITIES: no clubbing. +1 edema. Right index finger amputation with healed stump. PERIPHERAL PULSES: equal. NEUROLOGIC: nonfocal, alert and oriented. PSYCH: mood/affect full range. Assessment & Plan Assessment & Plan (1) Takotsubo cardiomyopathy: Code(s): I51.81 - Takotsubo syndrome (2) Chronic kidney disease: Code(s): N18.9 - Chronic kidney disease, unspecified (3) Essential hypertension: Comment: Stable Code(s): I10 - Essential (primary) hypertension (4) CHF (congestive heart failure): Code(s): I50.9 - Heart failure, unspecified Plan 68-year-old gentleman who is here for follow-up. He had congestive heart failure and presented with mild NSTEMI to [facility]. Cardiac catheterization showed normal coronary arteries and he was thought to have takotsubo cardiomyopathy. He had no beatriz procedure complications but the same night he had the angiogram he woke up with severe right index finger pain. He was seen by vascular surgery and started on heparin drip because there was conc boris for ischemia to the index finger. He also had a CT scan which did not show any major vessel occlusion. It was thought that he had embolic occlusion and he was conservatively treated at that time by vascular and had surgery. He was subsequently seen in the office and had discoloration of the index finger with poor flow distally. We tried some nitroglycerin but he could not tolerate it and developed some blisters on the finger. He was seen by vascular surgery in follow-up and decision was made to do amputation which was done just before . He is currently taking apixaban 5 mg twice a day which I have advised him to continue regularly. He continues to be in flutter but he is asymptomatic from that currently. Clinically he is improved. We will repeat echocardiography to see if the takotsubo cardiomyopathy has improved or not. Resuming Lasix at 20 mg daily. He will continue rest of his medications as before. He will follow- up with us in 4 months. Thank you for allowing me to participate in the care of your patient. Please feel free to contact me if you have any questions. Orders: Orders CA echo transthoracic complete Today I51.81 - Takotsubo syndrome Medications: New furosemide (Lasix) 20 mg PO DAILY 90 tabs 3RF Coding Level of Care Code Est Pt Level 4 (54791) Diagnoses Takotsubo cardiomyopathy I51.81 Chronic kidney disease N18.9 Essential hypertension I10 CHF (congestive heart failure) I50.9
[2023-06-01 13:58] VITALS: BP 140/70; PULSE 94; BMI 38.1
== END 2023-06-01 15:05 | disposition home or self-care (01) ==
PROVIDERS: PCP Internal Medicine; Visit Provider Internal Medicine Cardiovascular Disease
DX: I51.81 Takotsubo syndrome (principal); I12.9 Hypertensive chronic kidney disease with stage 1 through stage 4 chronic kidney disease, or unspecified chronic kidney disease; N18.9 Chronic kidney disease, unspecified; I50.9 Heart failure, unspecified
CPT/HCPCS: 99214

== ENCOUNTER → 2023-06-01 13:35 | Outpatient (BNVA) | payer MEDICARE, OTHER, SELFPAY | PROVIDERS: PCP Internal Medicine; Visit Provider Internal Medicine Cardiovascular Disease | DX: I51.81 Takotsubo syndrome (principal); I13.0 Hypertensive heart and chronic kidney disease with heart failure and stage 1 through stage 4 chronic kidney disease, or unspecified chronic kidney disease; N18.9 Chronic kidney disease, unspecified; I50.9 Heart failure, unspecified | CPT/HCPCS: 99212 ==

== ENCOUNTER → 2023-06-22 08:35 | Outpatient (REF) | payer MEDICARE, OTHER, SELFPAY ==
--- NOTE | 2023-06-22 08:37 | CA_ITS ---
Transthoracic Echocardiogram Patient (Last, First, Middle): Bill Jeter, Gender: Male Date of : 1955 Age: 68 Procedure Date: 06/22/2023 Procedure Type: Transthoracic Echocardiogram Location: OP Height: 180.34 cm Weight: 122.47 kg BSA: 2.40 m2 Heart Rate: bpm BP: 130 / 84 mmHg Evaluation Advisor: TO Referring MD: Schuyler Small MD Symptoms: I51.81 - Takotsubo syndrome Study Quality: Fair, contrast Conclusions: - Normal left ventricular size and systolic function. There is mildly increased left ventricular wall thickness. The visually estimated ejection fraction is between 60-65%. - Mildly increased right ventricular cavity size. There is normal right ventricular systolic function. - The left atrium is moderately dilated. The right atrium is mildly dilated. - There is mild dilatation of the sinuses of Valsalva measuring 3.93 cm and mild dilatation of the ascending aorta measuring 4.00 cm. Findings Procedure Information Contrast agent, definity, is being given per protocol without apparent complications. Left Ventricle Normal left ventricular size and systolic function. There is mildly increased left ventricular wall thickness. The visually estimated ejection fraction is between 60-65%. There is no evidence of regional wall motion abnormalities. Diastolic function is indeterminate on the basis of available data. Right Ventricle Mildly increased right ventricular cavity size. There is normal right ventricular systolic function. Atria The left atrium is moderately dilated. The right atrium is mildly dilated. Aortic Valve Normal aortic valve structure and function. There is no aortic valve stenosis. There is no aortic valve regurgitation. Mitral Valve The mitral valve appears normal. There is trace mitral valve regurgitation. There is no mitral valve stenosis. Pulmonic Valve Normal pulmonic valve structure and function. There is trace pulmonic valve regurgitation. Tricuspid Valve Normal tricuspid valve structure and function. Normal right atrial pressure. There is no evidence of pulmonary hypertension. Great Vessels There is mild dilatation of the sinuses of Valsalva measuring 3.93 cm and mild dilatation of the ascending aorta measuring 4.00 cm. The visualized portions of the pulmonary artery and branches are normal. Venous The inferior vena cava is normal in size and collapses greater than 50% with inspiration. Prior Study Comparison Changes noted compared to prior study dated: 10/22/2020. Mild dilation of RV. Mild dilation of aorta. Measurements 2D Linear Measurements IVSd: 1.33 0.6-0.9/0.6-1.0 cm LVIDd: 4.89 3.9-5.3/4.2-5.9 cm LVIDd Index: 2.04 2.4-3.2/2.2-3.1 cm/m2 LVIDs: 3.59 2.0-3.6 cm LVPWd: 1.12 0.7-1.1 cm LV Mass: 289.66 67-162/88-224 g LV Mass Index: 120.69 43-95/49-115 g/m2 LVOT Diam: 2.50 3.0+(-)1.3 cm 2D Systolic Function EF 4C: 42.80 >55% EF 2C: 53.30 >55% Mitral Valve MV Pk E: 0.80 MV Decel Time: 197.00 E'Lateral: 13.70 E'Medial: 8.77 E/E' Med: 9.10 E/E' Lat: 5.80 PHT: 58.00 MVA PHT: 3.79 Decel Hutchinson: 4.07 Aortic Valve AoV Pk Jason: 1.01 AoV Pk Grad: 4.00 LVOT LVOT Pk Jason: 0.68 LVOT Mn Jason: 0.44 LVOT VTI: 0.12 LVOT Pk Grad: 2.00 LVOT Mn Grad: 1.00 LVOT Diam: 2.50 LVOT Area: 4.91 Diastolic Function MV Pk E: 0.80 E'Medial: 8.77 E/E' Med: 9.10 E' Laterial: 13.70 E/E' Lat: 5.80 Right Ventricle TAPSE (mm): 21.20 TVS' Jason: 10.90 Tricuspid Valve TR Pk Jason: 1.91 TR Pk Grad: 15.00 RA Press: 3.00 RVSP: 18.00 Great Vessels Aorta Sinus of Valsalva: 3.93 2.0-3.[address] [place]: 3.28 1.7-3.4 cm Ao Asc: 4.00 2.1-3.4 cm Updated in Other Vendor System with Status of Final Schuyler Small MD electronically signed on 06/22/2023 3:34:26 PM with status of Final
== END ==
LOC: HO.CARD 08:35
PROVIDERS: PCP Internal Medicine; Visit Provider Internal Medicine Cardiovascular Disease
DX: I51.81 Takotsubo syndrome (principal)
CPT/HCPCS: 93306; Q9957

== ENCOUNTER → 2023-06-22 08:37 | Outpatient (BNV) | payer MEDICARE, OTHER, SELFPAY | PROVIDERS: PCP Internal Medicine; Visit Provider Internal Medicine Cardiovascular Disease | DX: I51.81 Takotsubo syndrome (principal) | CPT/HCPCS: 93306 ==

== ENCOUNTER 2023-07-07 10:42 | Outpatient (REF) | payer MEDICARE, OTHER, SELFPAY ==
--- NOTE | ~2023-07-07 | MR_ITS ---
EXAMINATION: MR BRAIN WITHOUT AND WITH CONTRAST CLINICAL INFORMATION: secondary hypogonadism COMPARISON: None TECHNIQUE: Multiplanar multisequence MR imaging of the brain was obtained without and following the administration of 5 mL Gadavist intravenous contrast. FINDINGS: The pituitary gland is normal in overall size, contour, and signal intensity on precontrast imaging. It enhances homogeneously on postcontrast sequences, without any evidence of focal delayed enhancement to suggest a microadenoma. The infundibulum remains midline and the optic chiasm is in a normal location. The cavernous sinus enhances normally. There is no acute infarct on diffusion-weighted imaging. No extra-axial collection or mass effect/herniation. Scattered periventricular and deep white matter T2 FLAIR hyperintensities consistent with mild underlying microangiopathy. No hydrocephalus. The ventricles are normal in morphology and size. No abnormal parenchymal or extra-axial enhancement. The major flow voids at the skull base are preserved. The midline structures are normal. The cerebellar tonsils are normally positioned. The craniocervical junction is normal. Marrow signal is within normal limits. The visualized soft tissues are without significant abnormality. Mild ethmoid and left greater than right maxillary sinus mucosal thickening MR/MR head/brain wo/w con IMPRESSION: 1. No evidence of pituitary adenoma. 2. Mild chronic microangiopathy
[2023-07-07] MEDS: gadobutroL 7.5 ML VIAL IVPUSH (12:02)
== END 2023-07-07 10:43 | disposition home or self-care (01) ==
LOC: HO.MRI 10:42
PROVIDERS: PCP Internal Medicine; Visit Provider Internal Medicine Endocrinology, Diabetes & Metabolism
DX: R79.89 Other specified abnormal findings of blood chemistry (principal); I73.9 Peripheral vascular disease, unspecified
CPT/HCPCS: 70553; A9585

== ENCOUNTER 2023-07-13 10:36 | Outpatient (AMB) | payer MEDICARE, OTHER, SELFPAY ==
[2023-07-13 10:38] VITALS: BP 130/82; PULSE 80; BMI 40.8
--- NOTE | 2023-07-13 10:38 | A.OFFVIS_ITS ---
Intake Vital Signs 07/13/23 10:38 Height 5 ft 11 in Weight 292 lb 12.382 oz BMI 40.8 BP 130/82 Blood Pressure Location Lt brachial Position Sitting Pulse 80 Pulse Source Pulse Oximeter Intake Visit Reasons: f/u hypogonadism-confirmed Intake Note: Patient presents for Hypogonadism follow up. Curbstone Setter Required: No Accompanied by: Self / Same As Patient Allergies No Known Allergies Allergy (Verified 07/13/23 10:43) HPI HPI Comments History of Present Illness Details 67 YO Male ] who is seen in consultation at the request of his PCP for Hypogonadism. First diagnosed with Hypogonadism recently with labs revealing testosterone 199 with low normal free testosterone by dialysis. Not started on Testosterone supplementation Currently not achieving spontaneous am erections, and unable to achieve erection when desired. Not Reports low libido. Decreased facial hair and shaving frequency. Denies any change in size or shape of testicles. Denies penile discharge or scrotal tenderness. Denies any history of mumps orchitis. Denies any head trauma. Has history of TED. Uses sleep CPAP with 3 children who were conceived spontaneously. Sense of smell intact. Denies headache or visual changes, gynecomastia or galactorrhea. Denies orthostatic symptoms, weight loss. Denies change in size of hands or feet. Denies hair loss, weight gain, cold intolerance. History of DVT or PE: No Labs: PSA CBC Had repeat free and total testosterone and gonadotropins performed which showed borderline low testosterone and free testosterone an inappropriately normal gonadotropins. An MRI of the pituitary was negative Main problem with ED [facility] Medical History (Updated 03/30/23 @ 19:42 by Schuyler Small MD) TED on CPAP Dyspnea on exertion Morbid obesity Surgical History History of amputation of finger of right hand History of surgery Hx of colonoscopy History of cardiac cath H/O vasectomy Family History Father HTN (hypertension) Mother HTN (hypertension) Social History Alcohol intake: current Alcohol intake frequency: holidays/special occasions only Patient Tobacco Use Status: Former Tobacco user Quit Date: 2004 Years Smoked: 20+ Physical Exam Vital Signs: Last Vital Signs Pulse 80 07/13/23 10:38 BP 130/82 07/13/23 10:38 BMI result Body Mass Index 40.8 Assessment & Plan Assessment & Plan (1) Low testosterone: Code(s): R79.89 - Other specified abnormal findings of blood chemistry Plan: This is a 68-year-old white male with a history of congestive heart failure/obesity found to have slightly low testosterone with normo gonadotropins. He complains more of a problem of erectile dysfunction. He is currently on Coreg. The plan is to recheck fasting testosterone with prolactin and ferritin. I will also message the patient's recep to see if this is a contraindication to starting the erectile dysfunction like Cialis or Levitra with the Coreg. Depending upon the testosterone, we could consider starting transdermal testosterone with erectile dysfunction agent or if the testosterone is normal just erectile dysfunction agent. If I start testosterone, I will need to do a rectal examination prior to initiation Orders: Orders Testosterone, Free/Total Today R79.89 - Other specified abnormal findings of blood chemistry Coding Level of Care Code Est Pt Level 3 (19780) Diagnoses Low testosterone R79.89
== END 2023-07-13 11:17 | disposition home or self-care (01) ==
PROVIDERS: PCP Internal Medicine; Visit Provider Internal Medicine Endocrinology, Diabetes & Metabolism
DX: R79.89 Other specified abnormal findings of blood chemistry (principal)
CPT/HCPCS: 99213

== ENCOUNTER → 2023-07-13 10:36 | Outpatient (BNVA) | payer MEDICARE, OTHER, SELFPAY | PROVIDERS: PCP Internal Medicine; Visit Provider Internal Medicine Endocrinology, Diabetes & Metabolism | DX: E29.1 Testicular hypofunction (principal) | CPT/HCPCS: 99212 ==

== ENCOUNTER 2023-08-24 08:29 | Outpatient (REF) | payer MEDICARE, OTHER, SELFPAY ==
[2023-08-24 10:10] LABS: Ferritin 139 ng/mL (20-250)
[2023-08-25 12:43] LABS: Prolactin 9.3 ng/mL (2.0-18.0)
[2023-08-31 11:08] LABS: Testosterone, Free 45.1 pg/mL (30.0-135.0); Testosterone, Total 293 ng/dL (250-1100)
== END 2023-08-24 08:30 | disposition home or self-care (01) ==
LOC: HO.LAB 08:29
PROVIDERS: PCP Internal Medicine; Visit Provider Internal Medicine Endocrinology, Diabetes & Metabolism
DX: R79.89 Other specified abnormal findings of blood chemistry (principal)
CPT/HCPCS: 36415; 82728; 84146; 84402; 84403

== ENCOUNTER 2023-09-12 13:40 | Outpatient (AMB) | payer MEDICARE, OTHER, SELFPAY ==
--- NOTE | 2023-09-12 13:47 | MHC.OFFVIS ---
Intake Vital Signs 09/12/23 13:48 Height 5 ft 11 in Weight 280 lb BMI 39.0 BP 165/80 H Blood Pressure Location Lt brachial Position Sitting Pulse 79 Pulse Source Pulse Oximeter Intake Visit Reasons: 6 month follow up Intake Note: Pt presents to the office today for a 6 month follow up. Pt states he is feeling well and denies any concerns at this point and time. Allergies No Known Allergies Allergy (Verified 09/12/23 13:49) HPI HPI Comments History of Present Illness Details This is a 67-year-old gentleman with past medical history of morbid obesity (BMI 45), hypertension, restrictive and obstructive lung disease, TED who is currently referred to our office for fatty liver. 08/24/22: History was reviewed the patient, who currently has no gastrointestinal symptoms to include abdominal pain, nausea, vomiting, changes in bowel habits. Fatty liver was diagnosed based on a CT scan done for lung cancer screening in 2021. In terms of the risk factors appears to be morbid obesity as etOH is minimal. Estimates 12oz beer in a week. Pt does not have DM or HLD. Most recent LFTs from 08/02/2022 are normal. Ferritin mildly elevated. 11/23/22: No gastrointestinal complaints today. Main complaint is low energy and easy fatiguability. Pt recalled very little of the discussion from last visit. He was unsure of reason for follow up today. We again reviewed the incidental finding of steatosis on CT Chest that led to this referral. US Abd 08/2022 also showed steatosis. Fib-4 based on labs is 0.80 which is reassuring for no advanced fibrosis. Weight is unchanged from last time. He had previously declined bariatric medicine appt as he had forgotten why it was recommended. 02/22/23: Recent diagnosis of AFib - on eliquis with follow up later this year with Cardiology to review indication for cardioversion. Also reports a hx of syncope on 02/02 afternoon. Did not seek any medical attention at that time as felt back to baseline after coming about and no recurrent events (the syncopal episode occured before the Holter was installed). Has been working on weight with weight management and has lost almost 20 lbs in one month! Reports feeling increased levels of energy and breathing a lot better too. Labs ordered by weight management - SONAL and hypercalcemia with low PTH and normal Vit D noted. Elastography without any advanced fibrosis, consistent with Fib-4 score. 09/12/23: Admitted to [facility] in Feb for stress induced CM - reported doing extra yard work and exhausted himself. 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 Currently on eliquis BID and lasix 20. Otherwise from fatty liver standpoint, has been working on his weight. Dropped BMI from 45 to almost 39 since his last visit. Withdrew from bariatric program but has been making efforts on his own - likes to swim daily and watching his diet and etOH intake. Consumes 1-2 beers a month. [facility] Medical History TED on CPAP Dyspnea on exertion Morbid obesity Surgical History History of amputation of finger of right hand History of surgery Hx of colonoscopy History of cardiac cath H/O vasectomy Family History Father HTN (hypertension) Mother HTN (hypertension) Social History Alcohol intake: current Alcohol intake frequency: holidays/special occasions only Patient Tobacco Use Status: Former Tobacco user Quit Date: 2004 Years Smoked: 20+ Review of Systems Const All systems reviewed & are unremarkable except as noted in HPI and below Physical Exam Vital Signs: Last Vital Signs Pulse 79 09/12/23 13:48 BP 165/80 H 09/12/23 13:48 BMI result Body Mass Index 39.0 NAD with obesity soft, nondistended A/Ox3, no gait abnl Assessment & Plan Assessment & Plan (1) Hepatic steatosis: Code(s): K76.0 - Fatty (change of) liver, not elsewhere classified (2) Morbid obesity: Code(s): E66.01 - Morbid (severe) obesity due to excess calories Plan Fatty liver 2/2 MAFLD/MOHAN. Fib-4 is 0.80 and elastography without any advanced fibrosis. Mainstay of management will be control of metabolic factors and was congratulated on ongoing weight loss. Plan: - Updated CBC and LFTs - US Abd ordered - If remains without significant fibrosis will be discharged back to PCP's care. Orders: Orders Complete Blood Count no Diff Today K76.0 - Fatty (change of) liver, not elsewhere classified Comprehensive Met. Panel Today K76.0 - Fatty (change of) liver, not elsewhere classified US abdomen complete Today K76.0 - Fatty (change of) liver, not elsewhere classified Coding Level of Care Code Est Pt Level 4 (94001) Diagnoses Hepatic steatosis K76.0 Morbid obesity E66.01
[2023-09-12 13:48] VITALS: BP 165/80; PULSE 79; BMI 39.0
== END 2023-09-12 14:16 | disposition home or self-care (01) ==
PROVIDERS: PCP Internal Medicine; Visit Provider Internal Medicine
DX: K76.0 Fatty (change of) liver, not elsewhere classified (principal); E66.01 Morbid (severe) obesity due to excess calories
CPT/HCPCS: 99214

== ENCOUNTER → 2023-09-12 13:40 | Outpatient (BNVA) | payer MEDICARE, OTHER, SELFPAY | PROVIDERS: PCP Internal Medicine; Visit Provider Internal Medicine | DX: K76.0 Fatty (change of) liver, not elsewhere classified (principal); G47.33 Obstructive sleep apnea (adult) (pediatric); E66.01 Morbid (severe) obesity due to excess calories; Z68.42 Body mass index [BMI] 45.0-49.9, adult; I48.91 Unspecified atrial fibrillation; Z79.01 Long term (current) use of anticoagulants | CPT/HCPCS: 99212 ==

== ENCOUNTER 2023-09-26 07:28 | Outpatient (REF) | payer MEDICARE, OTHER, SELFPAY ==
--- NOTE | ~2023-09-26 | US_ITS ---
EXAMINATION: US ABDOMEN COMPLETE CLINICAL INFORMATION: Fatty change of liver, not elsewhere classified. COMPARISON: Ultrasound abdomen complete with elastography 01/21/2023. Ultrasound abdomen complete 09/01/2022. TECHNIQUE: Real-time imaging of the abdominal viscera. Limited visualization due to bowel gas. FINDINGS: PANCREAS: Limited visualization of pancreatic tail and head. Imaged portion of pancreatic body is unremarkable. ABDOMINAL AORTA: Limited visualization. INFERIOR VENA CAVA: Visualized portions are normal. LIVER: Increased hepatic parenchymal heterogeneity and echogenicity could be associated with hepatocellular disease/hepatic steatosis and substantially limits visualization. Correlation with liver function tests and clinical exam recommended to determine further management. GALLBLADDER: No gallbladder wall thickening. No gallstones. COMMON BILE DUCT: Normal in caliber measuring 0.5 cm in diameter. RIGHT KIDNEY: Mild fullness of right renal pelvis. No renal calculi. Limited visualization. The kidney measures 12.3 cm in maximum dimension. LEFT KIDNEY: No hydronephrosis. No renal calculi. Limited visualization. The kidney measures 11.6 cm in maximum dimension. SPLEEN: Normal. The spleen measures 13.0 cm in maximum dimension. FREE FLUID: None. US/US abdomen complete IMPRESSION: 1. Increased hepatic parenchymal heterogeneity and echogenicity could be associated with hepatocellular disease/hepatic steatosis and substantially limits visualization. Correlation with liver function tests and clinical exam recommended to determine further management. 2. Mild fullness of right renal pelvis. No renal calculi.
[2023-09-26 08:02] LABS: Hematocrit 50.7 % (42.0-52.0); Hemoglobin 16.2 g/dl (14.0-18.0); Mean Corpuscular Hemoglobin 27.2 pg (27.0-33.0); Mean Corpuscular Volume 85.2 fL (80.0-98.0); Mean Platelet Volume 10.8 fL (9.4-12.4); Platelet Count 295 X10*3/uL (160-400); Red Blood Count 5.95 X10*6/uL (4.60-5.80); Red Cell Distribution Width 16.2 % (11.0-16.0); White Blood Count 12.1 X10*3/uL (4.8-10.8)
[2023-09-26 08:29] LABS: Alanine Aminotransferase 18 U/L (0-40); Albumin Level 3.9 g/dL (3.5-5.0); Alkaline Phosphatase 64 U/L (39-117); Anion Gap 13 (12-20); Aspartate Amino Transferase 18 U/L (5-37); Bilirubin Total 0.8 mg/dL (0.0-1.0); Blood Urea Nitrogen 21 mg/dL (9-16); Calcium 9.9 mg/dL (8.4-10.2); Carbon Dioxide 27 mmol/L (22-29); Chloride 105 mmol/L (96-108); Estimated Glomerular Filt Rate 55; Glucose Random 134 mg/dL (60-115); Potassium 4.8 mmol/L (3.3-5.1); Sodium 140 mmol/L (135-145); Total Protein 8.1 g/dL (6.5-8.0)
== END 2023-09-26 07:29 | disposition home or self-care (01) ==
LOC: HO.US 07:28
PROVIDERS: PCP Internal Medicine; Visit Provider Internal Medicine
DX: K76.0 Fatty (change of) liver, not elsewhere classified (principal)
CPT/HCPCS: 36415; 76700; 80053; 85027

== ENCOUNTER 2023-10-11 10:07 | Outpatient (AMB) | payer MEDICARE, OTHER, SELFPAY ==
[2023-10-11 10:11] VITALS: BP 132/90; PULSE 74; BMI 40.8
--- NOTE | 2023-10-11 10:11 | MHC.OFFVIS ---
Intake Vital Signs 10/11/23 10:11 Height 5 ft 11 in Weight 292 lb 5.327 oz BMI 40.8 BP 132/90 H Blood Pressure Location Lt brachial Position Sitting Pulse 74 Pulse Source Pulse Oximeter Intake Visit Reasons: f/u hypogonadism-confirmed Grocery Associate Required: No Accompanied by: Self / Same As Patient Allergies No Known Allergies Allergy (Verified 10/11/23 10:20) Medication List - Last Reconciled 10/11/23 by Dylon Farmer MD amlodipine 10 mg PO DAILY apixaban 5 mg PO BID 90 days apixaban (Eliquis) 5 mg PO BID carvedilol 6.25 mg PO BID CPAP (CPAP Machine/Device) As directed empagliflozin (Jardiance) 10 mg PO DAILY furosemide (Lasix) 20 mg PO DAILY sertraline 50 mg PO DAILY spironolactone 25 mg PO DAILY HPI HPI Comments History of Present Illness Details 68 YO Male ] who is seen in consultation at the request of his PCP for Hypogonadism. First diagnosed with Hypogonadism recently with labs revealing testosterone 199 with low normal free testosterone by dialysis. Not started on Testosterone supplementation Currently not achieving spontaneous am erections, and unable to achieve erection when desired. Not Reports low libido. Decreased facial hair and shaving frequency. Denies any change in size or shape of testicles. Denies penile discharge or scrotal tenderness. Denies any history of mumps orchitis. Denies any head trauma. Has history of TED. Uses sleep CPAP with 3 children who were conceived spontaneously. Sense of smell intact. Denies headache or visual changes, gynecomastia or galactorrhea. Denies orthostatic symptoms, weight loss. Denies change in size of hands or feet. Denies hair loss, weight gain, cold intolerance. History of DVT or PE: No Labs: PSA CBC Had repeat free and total testosterone and gonadotropins performed which showed borderline low testosterone and free testosterone an inappropriately normal gonadotropins. An MRI of the pituitary was negative Main problem with ED [facility] Medical History TED on CPAP Dyspnea on exertion Morbid obesity Surgical History History of amputation of finger of right hand History of surgery Hx of colonoscopy History of cardiac cath H/O vasectomy Family History Father HTN (hypertension) Mother HTN (hypertension) Social History Alcohol intake: current Alcohol intake frequency: holidays/special occasions only Patient Tobacco Use Status: Former Tobacco user Quit Date: 2004 Years Smoked: 20+ Physical Exam Vital Signs: Last Vital Signs Pulse 74 10/11/23 10:11 BP 132/90 H 10/11/23 10:11 BMI result Body Mass Index 40.8 Assessment & Plan Assessment & Plan (1) Low testosterone: Code(s): R79.89 - Other specified abnormal findings of blood chemistry Plan: This is a 68-year-old white male with a history of congestive heart failure/obesity found to have slightly low testosterone with normo gonadotropins. He complains more of a problem of erectile dysfunction. He is currently on Coreg. Repeat total testosterone is low normal with normal free testosterone The plan is to hold off on giving testosterone replacement as risks outweigh benefits. Will send patient back to primary care provider who can initiate an erectile dysfunction agent if not contraindicated by Cardiology Coding Level of Care Code Est Pt Level 3 (90000) Diagnoses Low testosterone R79.89
== END 2023-10-11 10:35 | disposition home or self-care (01) ==
PROVIDERS: PCP Internal Medicine; Visit Provider Internal Medicine Endocrinology, Diabetes & Metabolism
DX: R79.89 Other specified abnormal findings of blood chemistry (principal)
CPT/HCPCS: 99213

== ENCOUNTER → 2023-10-11 10:07 | Outpatient (BNVA) | payer MEDICARE, OTHER, SELFPAY | PROVIDERS: PCP Internal Medicine; Visit Provider Internal Medicine Endocrinology, Diabetes & Metabolism | DX: R79.89 Other specified abnormal findings of blood chemistry (principal) | CPT/HCPCS: 99212 ==

== ENCOUNTER 2023-10-26 10:42 | Outpatient (AMB) | payer MEDICARE, OTHER, SELFPAY ==
[2023-10-26 11:08] VITALS: BP 110/60; PULSE 89; BMI 40.9
--- NOTE | 2023-10-26 11:08 | A.OFFVIS_ITS ---
Vital Signs 10/26/23 11:08 Height 5 ft 11 in Weight 293 lb 3.437 oz BMI 40.9 BP 110/60 Blood Pressure Location Lt brachial Position Sitting Pulse 89 Pulse Source Pulse Oximeter Intake Visit Reasons: r/s 4 mos followup echo Deputy [employer] Required: No Accompanied by: Self / Same As Patient Allergies No Known Allergies Allergy (Verified 10/11/23 10:20) Medication List - Last Reconciled 10/26/23 by Schuyler Small MD amlodipine 10 mg PO DAILY apixaban (Eliquis) 5 mg PO BID carvedilol 6.25 mg PO BID CPAP (CPAP Machine/Device) As directed empagliflozin (Jardiance) 10 mg PO DAILY furosemide (Lasix) 20 mg PO DAILY sertraline 50 mg PO DAILY spironolactone 25 mg PO DAILY HPI Comments Details: Pleasant 68 gentleman here for follow-up. He was seen for dyspnea on exertion in the past. He underwent cardiac catheterization which did not show any significant coronary disease. Subsequent to that he was started on antihypertensive therapy as well as nitrates. His symptoms improved somewhat but never completely went back to normal. In the past he lost some weight and felt better and he was advised to exercise regularly and lose some weight. More recently he has been stable but has gained more weight which has led to fatigue and dyspnea. There has been some depression present 2. He had a CT scan of his chest which was mainly for screening for lung cancer given his history of smoking. This did not show any significant lung issue but did show hepatic steatosis. He was referred to GI. 01/17/23: He returns for follow-up. He has joined a gym and is following with the weight management program. He also saw gastroenterology and was referred to endocrinology for further workup for his fatigue and weight gain. His testosterone levels were a little low and his spironolactone was held. Blood pressure continues to be stable. 02/02/23: He went for assessment with weight management program. EKG performed there is showing atrial fibrillation. Was referred back to us for further assessment. He is denying any symptoms. In fact is feeling better than before and has been exercising losing weight without any dyspnea, palpitations or heart failure symptoms. EKG in the office is showing atrial flutter with variable block. Heart rates are well controlled. He is currently taking Toprol-XL 50 mg daily. He is on baby aspirin. No bleeding concerns. 03/02/2023: He returns for follow-up. He saw GI and told them that he had syncope. We decided to bring him for follow-up. It appears he has been diagnosed with kidney disease. He had blood workup done which showed acute kidney injury. He also was noticed to have hypercalcemia. Apparently he was out in the sun and felt dizzy and went inside the house. He was sitting and stood up and started walking and felt a love to his had and very flushed and then passed out for short period time. He did not have any further issues since then. He has lost 30 lb in the last 6 months. 03/30/23: He is here for f/u. He was admitted with CHF and NSTEMI to [facility]. He was diagnosed with Takotsubo. He had cardiac cath and afterwards developed right index finger pain and discoloration. It was thought that he had a micro embolus in the aftery. He was heparinized and was seen by hand surgery. He was discharged with full dose ASA and eliquis. He continues to have some pain but pain is improving overall. He still has purplish discoloration of the index finger. He has intact sensations. 06/01/2023: He returns for follow-up. Unfortunately he had gangrene of the index finger and had amputation of index finger performed just before . He said he was in excruciating pain and subsequently they decided to do amputation. He has done well since then. Is not requiring any medications currently. He was started on Jardiance and has been losing weight. He is saying that before surgery stop the Lasix and has not resumed it. His blood pressure is mildly elevated. He has mild peripheral edema also. 10/26/23: He returns for follow-up. He unfortunately developed a rash on his arms and legs and torso. This was fairly itchy and he has been on antibiotics. He still has significant rash on the legs. Since this started he has stopped swimming because he does not want to go in the pool with rash all over his body. Due to lack of activity has gained weight and feels short of breath and depressed. Blood pressure is well controlled. [facility] Medical History TED on CPAP Dyspnea on exertion Morbid obesity Surgical History History of amputation of finger of right hand History of surgery Hx of colonoscopy History of cardiac cath H/O vasectomy Family History Father HTN (hypertension) Mother HTN (hypertension) Social History Alcohol intake: current Alcohol intake frequency: holidays/special occasions only Patient Tobacco Use Status: Former Tobacco user Quit Date: 2004 Years Smoked: 20+ Review of Systems Const Denies chills, Denies fatigue, Denies fever(s), Denies frequent falls, Denies weakness, Denies weight gain and Denies weight loss ENT Denies dizziness Card Denies chest pain, Denies leg edema, Denies lightheadedness, Denies palpitations, Denies dyspnea and Denies dyspnea on exertion Resp Denies cough, Denies dyspnea and Denies dyspnea on exertion GI Denies hematochezia Musc Denies abnormal gait, Denies muscle weakness, Denies numbness, Denies radiating pain into limb and Denies tingling Neuro Denies abnormal gait, Denies dizziness, Denies frequent falls, Denies numbness, Denies tingling and Denies weakness Endo Denies fatigue and Denies palpitations Physical Exam Vital Signs: Last Vital Signs Pulse 89 10/26/23 11:08 BP 110/60 10/26/23 11:08 BMI result Body Mass Index 40.9 GENERAL APPEARANCE: in no acute distress, obese. NECK/THYROID: no carotid bruit, no jugular venous distention. SKIN: no suspicious lesions, warm and dry. HEART: no murmurs, regular rate and rhythm. LUNGS: clear to auscultation bilaterally. ABDOMEN: normal, bowel sounds present, soft, distended but nontender. EXTREMITIES: no clubbing. No significant peripheral. Right index finger amputation with healed stump. PERIPHERAL PULSES: equal. NEUROLOGIC: nonfocal, alert and oriented. PSYCH: mood/affect full range. Assessment & Plan Assessment & Plan (1) CLAROS (dyspnea on exertion): Comment: He has background diastolic heart failure, obesity and deconditioning. Clinically is not volume overloaded. HE HAS SOME MILD RESTRICTIVE PATTERN, ON PFT. HIS DYSPNEA ON EXERTION IS PRIMARILY DUE TO MORBID OBESITY, CAUSING MILD RESTRICTIVE PATTERN. AND ALSO HIS BACKGROUND OF DIASTOLIC HEART FAILURE. EXPLAINED IN DETAIL, WOULD NOT NEED ANY MEDICAL TREATMENT, EXCEPT DOING DEEP BREATHING EXERCISES DAILY AND LOSING WEIGHT. Code(s): R06.00 - Dyspnea, unspecified Category: Medical (2) Essential hypertension: Comment: Stable Code(s): I10 - Essential (primary) hypertension Category: Medical (3) Atrial flutter: Code(s): I48.92 - Unspecified atrial flutter Category: Medical Plan [age] year gentleman background history of hypertension, takotsubo cardiomyopathy, congestive heart failure and atrial flutter. He unfortunately had an embolic event to his right index finger from atrial flutter and finger was amputated. Blood pressure is well controlled. Clinically not in heart failure. He is gained weight unfortunately and is more short of breath than before. I think his dyspnea is due to weight gain and clearly previously as he lost weight his dyspnea improved. He has a significant rash on his legs and arms and is getting antibiotics for that. He is saying due to this he is unable to get into a pool where he was exercising previously and losing weight. He is following with primary care physician and potentially dermatology. From cardiovascular point of view, he is stable. He will see us back in few months. Thank you for allowing me to participate in the care of your patient. Please feel free to contact me if you have any questions. Coding Level of Care Code Est Pt Level 4 (96623) Diagnoses CLAROS (dyspnea on exertion) R06.00 Essential hypertension I10 Atrial flutter I48.92
== END 2023-10-26 11:50 | disposition home or self-care (01) ==
PROVIDERS: PCP Internal Medicine; Visit Provider Internal Medicine Cardiovascular Disease
DX: R06.00 Dyspnea, unspecified (principal); I10 Essential (primary) hypertension; I48.92 Unspecified atrial flutter
CPT/HCPCS: 99214

== ENCOUNTER → 2023-10-26 10:42 | Outpatient (BNVA) | payer MEDICARE, OTHER, SELFPAY | PROVIDERS: PCP Internal Medicine; Visit Provider Internal Medicine Cardiovascular Disease | DX: R06.00 Dyspnea, unspecified (principal); I10 Essential (primary) hypertension; I48.92 Unspecified atrial flutter; R21 Rash and other nonspecific skin eruption | CPT/HCPCS: 99212 ==

== ENCOUNTER 2024-02-29 10:29 | Outpatient (AMB) | payer MEDICARE, OTHER, SELFPAY ==
[2024-02-29 10:41] VITALS: BP 130/64; PULSE 75; BMI 42.5
--- NOTE | 2024-02-29 10:41 | A.OFFVIS_ITS ---
Vital Signs 02/29/24 10:41 Height 5 ft 11 in Weight 304 lb 10.861 oz BMI 42.5 BP 130/64 Blood Pressure Location Lt brachial Position Sitting Pulse 75 Pulse Source Monitor Intake Visit Reasons: 4 mth f/up Intake Note: 4 mth f/up Imaging Assistant Required: No Accompanied by: Self / Same As Patient Allergies No Known Allergies Allergy (Verified 10/11/23 10:20) Medication List - Last Reconciled 02/29/24 by Schuyler Small MD amlodipine 10 mg PO DAILY apixaban (Eliquis) 5 mg PO BID carvedilol 6.25 mg PO BID CPAP (CPAP Machine/Device) As directed empagliflozin (Jardiance) 10 mg PO DAILY furosemide (Lasix) 20 mg PO DAILY sertraline 50 mg PO DAILY spironolactone 25 mg PO DAILY HPI Comments Details: Pleasant 68 gentleman here for follow-up. He was seen for dyspnea on exertion in the past. He underwent cardiac catheterization which did not show any significant coronary disease. Subsequent to that he was started on antihypertensive therapy as well as nitrates. His symptoms improved somewhat but never completely went back to normal. In the past he lost some weight and felt better and he was advised to exercise regularly and lose some weight. More recently he has been stable but has gained more weight which has led to fatigue and dyspnea. There has been some depression present 2. He had a CT scan of his chest which was mainly for screening for lung cancer given his history of smoking. This did not show any significant lung issue but did show hepatic steatosis. He was referred to GI. 01/17/23: He returns for follow-up. He has joined a gym and is following with the weight management program. He also saw gastroenterology and was referred to endocrinology for further workup for his fatigue and weight gain. His testosterone levels were a little low and his spironolactone was held. Blood pressure continues to be stable. 02/02/23: He went for assessment with weight management program. EKG performed there is showing atrial fibrillation. Was referred back to us for further assessment. He is denying any symptoms. In fact is feeling better than before and has been exercising losing weight without any dyspnea, palpitations or heart failure symptoms. EKG in the office is showing atrial flutter with variable block. Heart rates are well controlled. He is currently taking Toprol-XL 50 mg daily. He is on baby aspirin. No bleeding concerns. 03/02/2023: He returns for follow-up. He saw GI and told them that he had syncope. We decided to bring him for follow-up. It appears he has been diagnosed with kidney disease. He had blood workup done which showed acute kidney injury. He also was noticed to have hypercalcemia. Apparently he was out in the sun and felt dizzy and went inside the house. He was sitting and stood up and started walking and felt a love to his had and very flushed and then passed out for short period time. He did not have any further issues since then. He has lost 30 lb in the last 6 months. 03/30/23: He is here for f/u. He was [facility] with [facility]F [facility]. He was diagnosed with Takotsubo. He had cardiac cath and afterwards developed right index finger pain and discoloration. It was thought that he had a micro embolus in the aftery. He was heparinized and was seen by hand surgery. He was discharged with full dose ASA and eliquis. He continues to have some pain but pain is improving overall. He still has purplish discoloration of the index finger. He has intact sensations. 06/01/2023: He returns for follow-up. Unfortunately he had gangrene of the index finger and had amputation of index finger performed just before . He said he was in excruciating pain and subsequently they decided to do amputation. He has done well since then. Is not requiring any medications currently. He was started on Jardiance and has been losing weight. He is sayi cl that before surgery stop the Lasix and has not resumed it. His blood pressure is mildly elevated. He has mild peripheral edema also. 10/26/23: He returns for follow-up. He unfortunately developed a rash on his arms and legs and torso. This was fairly itchy and he has been on antibiotics. He still has significant rash on the legs. Since this started he has stopped swimming because he does not want to go in the pool with rash all over his body. Due to lack of activity has gained weight and feels short of breath and depressed. Blood pressure is well controlled. 02/29/24: He is here for follow-up. He said he was getting a lot of urinary accidents and stopped using the Lasix. He is describing urge incontinence. He does not drink alcohol. He said due to this he has stopped using Lasix. He has been noticing that he is getting out of breath easily. Especially when he bends forward or does activities. He also has been more sedentary due to dermatitis on his leg and hammertoe for which he is getting surgery. [facility] Medical History TED on CPAP Dyspnea on exertion Morbid obesity Surgical History History of amputation of finger of right hand History of surgery Hx of colonoscopy History of cardiac cath H/O vasectomy Family History Father HTN (hypertension) Mother HTN (hypertension) Social History Alcohol intake: current Alcohol intake frequency: holidays/special occasions only Patient Tobacco Use Status: Former Tobacco user Years Smoked: 20+ Review of Systems Const Denies chills, Denies fatigue, Denies fever(s), Denies frequent falls, Denies weakness, Denies weight gain and Denies weight loss ENT Denies dizziness Card Denies chest pain, Denies leg edema, Denies lightheadedness, Denies palpitations, Denies dyspnea and Denies dyspnea on exertion Resp Denies cough, Denies dyspnea and Denies dyspnea on exertion GI Denies hematochezia Musc Denies abnormal gait, Denies muscle weakness, Denies numbness, Denies radiating pain into limb and Denies tingling Neuro Denies abnormal gait, Denies dizziness, Denies frequent falls, Denies numbness, Denies tingling and Denies weakness Endo Denies fatigue and Denies palpitations Physical Exam Vital Signs: Last Vital Signs Pulse 75 02/29/24 10:41 BP 130/64 02/29/24 10:41 BMI result Body Mass Index 42.5 GENERAL APPEARANCE: in no acute distress, obese. NECK/THYROID: no carotid bruit, no jugular venous distention. SKIN: no suspicious lesions, warm and dry. HEART: no murmurs, irregular rate and rhythm. LUNGS: clear to auscultation bilaterally. ABDOMEN: normal, bowel sounds present, soft, distended but nontender. EXTREMITIES: no clubbing. No significant peripheral. Right index finger amputation with healed stump. PERIPHERAL PULSES: equal. NEUROLOGIC: nonfocal, alert and oriented. PSYCH: mood/affect full range. Office Procedures EKG Details: Atrial fibrillation 75 beats per minute, right axis deviation, right bundle- branch block, QTC 447 milliseconds. [id number], Complete Assessment & Plan Assessment & Plan (1) CLAROS (dyspnea on exertion): Comment: He has background diastolic heart failure, obesity and deconditioning. Clinically is not volume overloaded. HE HAS SOME MILD RESTRICTIVE PATTERN, ON PFT. HIS DYSPNEA ON EXERTION IS PRIMARILY DUE TO MORBID OBESITY, CAUSING MILD RESTRICTIVE PATTERN. AND ALSO HIS BACKGROUND OF DIASTOLIC HEART FAILURE. EXPLAINED IN DETAIL, WOULD NOT NEED ANY MEDICAL TREATMENT, EXCEPT DOING DEEP BREATHING EXERCISES DAILY AND LOSING WEIGHT. Code(s): R06.00 - Dyspnea, unspecified Category: Medical (2) Essential hypertension: Comment: Stable Code(s): I10 - Essential (primary) hypertension Category: Medical (3) Atrial flutter: Code(s): I48.92 - Unspecified atrial flutter Category: Medical Plan [age] year gentleman background history of hypertension, takotsubo cardiomyopathy, congestive heart failure and atrial flutter. He unfortunately had an embolic event to his right index finger from atrial flutter and finger was amputated. Blood pressure is well controlled. He has stopped using Lasix and has been more SOB. I think Lasix should be resumed as he has known diastolic CHF and has been gaining weight too. c/w anticoagulation. Thank you for allowing me to participate in the care of your patient. Please feel free to contact me if you have any questions. Coding Level of Care Code Est Pt Level 4 (75980) Diagnoses CLAROS (dyspnea on exertion) R06.00 Essential hypertension I10 Atrial flutter I48.92 CPT Codes EKG - CPT: 01640-[id number], Complete ([id number])
== END 2024-02-29 11:11 | disposition home or self-care (01) ==
PROVIDERS: PCP Internal Medicine; Visit Provider Internal Medicine Cardiovascular Disease
DX: R06.00 Dyspnea, unspecified (principal); I10 Essential (primary) hypertension; I48.92 Unspecified atrial flutter
CPT/HCPCS: 93010; 99214

== ENCOUNTER → 2024-02-29 10:29 | Outpatient (BNVA) | payer MEDICARE, OTHER, SELFPAY | PROVIDERS: PCP Internal Medicine; Visit Provider Internal Medicine Cardiovascular Disease | DX: R06.00 Dyspnea, unspecified (principal); I48.92 Unspecified atrial flutter; I10 Essential (primary) hypertension | CPT/HCPCS: 93005; 99212 ==

== ENCOUNTER 2024-04-30 09:55 | Outpatient (AMB) | payer MEDICARE, OTHER, SELFPAY ==
--- NOTE | 2024-04-30 09:57 | MHC.OFFVIS ---
Vital Signs 04/30/24 09:59 Height 5 ft 11 in Weight 299 lb 13.259 oz BMI 41.8 BP 163/68 H Blood Pressure Location Lt radial Position Sitting Pulse 61 Intake Visit Reasons: Fatty Liver f/u Intake Note: Bill presents in the office as a follow up for fatty liver. CC: He states that he is feeling okay - In Nov he was told there was a blood clot in his pointer finger and had to get his right pointer finger amputated. He states he is not having any GI concerns at this time. Charge Account Identification Clerk Required: No Allergies No Known Allergies Allergy (Verified 10/11/23 10:20) HPI Comments Details: This is a 67-year-old gentleman with past medical history of morbid obesity (BMI 45), hypertension, restrictive and obstructive lung disease, TED who is currently referred to our office for fatty liver. 08/24/22: History was reviewed the patient, who currently has no gastrointestinal symptoms to include abdominal pain, nausea, vomiting, changes in bowel habits. Fatty liver was diagnosed based on a CT scan done for lung cancer screening in 2021. In terms of the risk factors appears to be morbid obesity as etOH is minimal. Estimates 12oz beer in a week. Pt does not have DM or HLD. Most recent LFTs from 08/02/2022 are normal. Ferritin mildly elevated. 11/23/22: No gastrointestinal complaints today. Main complaint is low energy and easy fatiguability. Pt recalled very little of the discussion from last visit. He was unsure of reason for follow up today. We again reviewed the incidental finding of steatosis on CT Chest that led to this referral. US Abd 08/2022 also showed steatosis. Fib-4 based on labs is 0.80 which is reassuring for no advanced fibrosis. Weight is unchanged from last time. He had previously declined bariatric medicine appt as he had forgotten why it was recommended. 02/22/23: Recent diagnosis of AFib - on eliquis with follow up later this year with Cardiology to review indication for cardioversion. Also reports a hx of syncope on 02/02 afternoon. Did not seek any medical attention at that time as felt back to baseline after coming about and no recurrent events (the syncopal episode occured before the Holter was installed). Has been working on weight with weight management and has lost almost 20 lbs in one month! Reports feeling increased levels of energy and breathing a lot better too. Labs ordered by weight management - SONAL and hypercalcemia with low PTH and normal Vit D noted. Elastography without any advanced fibrosis, consistent with Fib-4 score. 09/12/23: Admitted to [facility] in Feb for stress induced CM - reported doing extra yard work and exhausted himself. Underwent cardiac cath which did not show CAD but did develop R index finger embolic occlusion which had to be treated with amputation on 05/13 due to gangrene ([facility]). Currently on eliquis BID and lasix 20. Otherwise from fatty liver standpoint, has been working on his weight. Dropped BMI from 45 to almost 39 since his last visit. Withdrew from bariatric program but has been making efforts on his own - likes to swim daily and watching his diet and etOH intake. Consumes 1-2 beers a month. 04/30/24: Here for follow up. Reports has been getting treatment done for hammer toes. In addition also had severe venous congestion in legs and now going vascular treatment. This did set him back in his weight loss efforts as not able to do much exercise or swim to allow recovery after procedures. R hammer toe surgery still pending. Had managed to lose >30 lbs but gained it back. Interested in trying GLP-1s. EtOH intake is unchanged despite previous counseling for zero intake. Pt also reports significant urinary urgency and incontinence which he had initialyl attributed to lasix but notices it most of the day now. Last colo 05/2022 (Dr Valdez) x3 TA, diverticulosis, hemorrhoids. [facility] Medical History TED on CPAP Dyspnea on exertion Morbid obesity Surgical History History of amputation of finger of right hand History of surgery Hx of colonoscopy History of cardiac cath H/O vasectomy Family History Father HTN (hypertension) Mother HTN (hypertension) Social History Alcohol intake: current Alcohol intake frequency: holidays/special occasions only Patient Tobacco Use Status: Former Tobacco user Years Smoked: 20+ Review of Systems Const All systems reviewed & are unremarkable except as noted in HPI and below Physical Exam Vital Signs: Last Vital Signs Pulse 61 04/30/24 09:59 BP 163/68 H 04/30/24 09:59 BMI result Body Mass Index 41.8 No apparent distress With obesity Nonicteric Abdomen soft, nondistended Alert and oriented x3, normal gait Assessment & Plan Assessment & Plan (1) Hepatic steatosis: Code(s): K76.0 - Fatty (change of) liver, not elsewhere classified Category: Medical (2) Morbid obesity: Code(s): E66.01 - Morbid (severe) obesity due to excess calories Category: Medical (3) Personal history of colonic polyps: Code(s): Z86.0100 - Personal history of colon polyps, unspecified Category: Medical Plan Fatty liver 2/2 metALD Fib-4 is 0.80 and elastography without any advanced fibrosis based on previous labs. Will recheck given weight gain in a short duration. He is also due for repeat US abd which has been ordered. Mainstay of management will be control of metabolic factors. Interested in trying GLP-1s. Was advised to discuss this further with PCP or electrical integrator. In terms of urinary complaints, based on hx suspicious for prostate enlargement and will refer to Urology for further eval. Plan: - Check CBC, CMP and INR - Pt also not immune to HBV, but declines vaccination at this time due to low risk. - Check A1c and lipids - US Abd ordered - Urology referral - [place] for hx of polyps due in May 2025. Follow up 6 months Orders: Orders Complete Blood Count no Diff Today K76.0 - Fatty (change of) liver, not elsewhere classified Comprehensive Met. Panel Today K76.0 - Fatty (change of) liver, not elsewhere classified Prothrombin Time INR Today K76.0 - Fatty (change of) liver, not elsewhere classified Lipid Panel Today K76.0 - Fatty (change of) liver, not elsewhere classified Hemoglobin A1c Today K76.0 - Fatty (change of) liver, not elsewhere classified US abdomen complete Today K76.0 - Fatty (change of) liver, not elsewhere classified Referrals Urology Referral R39.9 - Unspecified symptoms and signs involving the genitourinary system Coding Level of Care Code Est Pt Level 4 (06881) Complex EM visit Add On G2211 Diagnoses Hepatic steatosis K76.0 Morbid obesity E66.01 Personal history of colonic polyps Z86.0100
[2024-04-30 09:59] VITALS: BP 163/68; PULSE 61; BMI 41.8
== END 2024-04-30 11:04 | disposition home or self-care (01) ==
LOC: HO.HGI 09:55
PROVIDERS: PCP Internal Medicine; Visit Provider Internal Medicine
DX: K76.0 Fatty (change of) liver, not elsewhere classified (principal); E66.01 Morbid (severe) obesity due to excess calories; Z86.0100 Personal history of colon polyps, unspecified
CPT/HCPCS: 99214; G2211

== ENCOUNTER → 2024-04-30 09:55 | Outpatient (BNVA) | payer MEDICARE, OTHER, SELFPAY | PROVIDERS: PCP Internal Medicine; Visit Provider Internal Medicine | DX: K76.0 Fatty (change of) liver, not elsewhere classified (principal); E66.01 Morbid (severe) obesity due to excess calories; Z86.0100 Personal history of colon polyps, unspecified | CPT/HCPCS: 99212 ==

== ENCOUNTER 2024-05-09 08:01 | Outpatient (REF) | payer MEDICARE, OTHER, SELFPAY ==
--- NOTE | ~2024-05-09 | US_ITS ---
EXAMINATION: US ABDOMEN COMPLETE CLINICAL INFORMATION: Fatty (change of) liver, not elsewhere classified. COMPARISON: Ultrasound abdomen 09/26/2023 and 01/21/2023. TECHNIQUE: Real-time imaging of the abdominal viscera. FINDINGS: PANCREAS: The visualized portion of the pancreas head and body are normal, portion of the pancreatic body and tail, not visualized are obscured by bowel gas. ABDOMINAL AORTA: The proximal, mid, and distal segments are normal in caliber. INFERIOR VENA CAVA: Visualized portions are normal. LIVER: The liver is normal in size. The liver contour is normal. Increased echogenicity of the liver parenchyma, this can be seen in the setting of hepatic steatosis or liver parenchymal disease. No focal hepatic lesion. There is no intrahepatic biliary duct dilatation seen. GALLBLADDER: Normal. The gallbladder is physiologically distended without evidence of stones, sludge, polyps, wall thickening or pericholecystic fluid. COMMON BILE DUCT: Normal in caliber measuring 0.3 cm in diameter. RIGHT KIDNEY: Normal. No hydronephrosis. No renal calculi or focal parenchymal lesions. The kidney measures 11.8 cm in maximum dimension. LEFT KIDNEY: Normal. No hydronephrosis. No renal calculi or focal parenchymal lesions. The kidney measures 10.7 cm in maximum dimension. SPLEEN: Borderline enlarged The spleen measures 12.7 cm in maximum dimension. FREE FLUID: None. US/US abdomen complete IMPRESSION: 1. Increased echogenicity of the liver parenchyma, this can be seen in the setting of hepatic steatosis or liver parenchymal disease. 2. Spleen borderline enlarged 12.7 cm. Electronically signed by: Polina Heard MD 05/13/2024 07:15 PM [facility]
[2024-05-09 08:36] LABS: Hematocrit 49.1 % (42.0-52.0); Hemoglobin 15.9 g/dl (14.0-18.0); Mean Corpuscular HGB Conc 32.4 g/dl (31.0-36.0); Mean Corpuscular Hemoglobin 28.1 pg (27.0-33.0); Mean Corpuscular Volume 86.7 fL (80.0-98.0); Mean Platelet Volume 10.6 fL (9.4-12.4); Platelet Count 298 X10*3/uL (160-400); Red Blood Count 5.66 X10*6/uL (4.60-5.80); Red Cell Distribution Width 15.5 % (11.0-16.0); White Blood Count 12.1 X10*3/uL (4.8-10.8)
[2024-05-09 08:44] LABS: Estimated Average Glucose 120 mg/dL; Hemoglobin A1c % 5.8 % (<6.0); Total Hemoglobin (HGBA1C) 4112.3472 umol/L
[2024-05-09 08:45] LABS: INTERNATIONAL NORM RATIO 1.1 (0.9-1.1); Prothrombin Time 13.1 SEC (10.9-12.4)
[2024-05-09 08:55] LABS: Alanine Aminotransferase 21 U/L (0-40); Albumin Level 3.9 g/dL (3.5-5.0); Alkaline Phosphatase 63 U/L (39-117); Anion Gap 10 (12-20); Aspartate Amino Transferase 22 U/L (5-37); Bilirubin Total 0.8 mg/dL (0.0-1.0); Blood Urea Nitrogen 18 mg/dL (9-16); Calcium 9.4 mg/dL (8.4-10.2); Carbon Dioxide 28 mmol/L (22-29); Chloride 106 mmol/L (96-108); Cholesterol 146 mg/dL (<200); Estimated Glomerular Filt Rate 50; Glucose Random 138 mg/dL (60-115); HDL Cholesterol 27 mg/dL (>40); LDL Cholesterol Calculated 84 mg/dL (<100); Sodium 139 mmol/L (135-145); Total Protein 8.1 g/dL (6.5-8.0); Triglycerides 177 mg/dL (<150)
== END 2024-05-09 08:02 | disposition home or self-care (01) ==
LOC: HO.US 08:01
PROVIDERS: PCP Internal Medicine; Visit Provider Internal Medicine
DX: K76.0 Fatty (change of) liver, not elsewhere classified (principal); Z13.1 Encounter for screening for diabetes mellitus
CPT/HCPCS: 36415; 76700; 80053; 80061; 83036; 85027; 85610

== ENCOUNTER 2024-06-06 11:01 | Outpatient (AMB) | payer MEDICARE, OTHER, SELFPAY ==
[2024-06-06 11:11] VITALS: BP 130/64; PULSE 86
--- NOTE | 2024-06-06 11:11 | MHC.OFFVIS ---
Vital Signs 06/06/24 11:11 Height 5 ft 11 in BMI Reason not done Patient refused/unable BP 130/64 Blood Pressure Location Lt brachial Position Sitting Pulse 86 Pulse Source Pulse Oximeter Intake Visit Reasons: 3 follow up Intake Note: 3 mth f/up Accounts Payable Lead Required: No Accompanied by: Self / Same As Patient Allergies No Known Allergies Allergy (Verified 10/11/23 10:20) Medication List - Last Reconciled 06/06/24 by Schuyler Small MD amlodipine 10 mg PO DAILY apixaban (Eliquis) 5 mg PO BID carvedilol 6.25 mg PO BID CPAP (CPAP Machine/Device) As directed empagliflozin (Jardiance) 10 mg PO DAILY furosemide (Lasix) 20 mg PO DAILY sertraline 50 mg PO DAILY spironolactone 25 mg PO DAILY HPI Comments Details: Pleasant 69 gentleman here for follow-up. He was seen for dyspnea on exertion in the past. He underwent cardiac catheterization which did not show any significant coronary disease. Subsequent to that he was started on antihypertensive therapy as well as nitrates. His symptoms improved somewhat but never completely went back to normal. In the past he lost some weight and felt better and he was advised to exercise regularly and lose some weight. More recently he has been stable but has gained more weight which has led to fatigue and dyspnea. There has been some depression present 2. He had a CT scan of his chest which was mainly for screening for lung cancer given his history of smoking. This did not show any significant lung issue but did show hepatic steatosis. He was referred to GI. 01/17/23: He returns for follow-up. He has joined a gym and is following with the weight management program. He also saw gastroenterology and was referred to endocrinology for further workup for his fatigue and weight gain. His testosterone levels were a little low and his spironolactone was held. Blood pressure continues to be stable. 02/02/23: He went for assessment with weight management program. EKG performed there is showing atrial fibrillation. Was referred back to us for further assessment. He is denying any symptoms. In fact is feeling better than before and has been exercising losing weight without any dyspnea, palpitations or heart failure symptoms. EKG in the office is showing atrial flutter with variable block. Heart rates are well controlled. He is currently taking Toprol-XL 50 mg daily. He is on baby aspirin. No bleeding concerns. 03/02/2023: He returns for follow-up. He saw GI and told them that he had syncope. We decided to bring him for follow-up. It appears he has been diagnosed with kidney disease. He had blood workup done which showed acute kidney injury. He also was noticed to have hypercalcemia. Apparently he was out in the sun and felt dizzy and went inside the house. He was sitting and stood up and started walking and felt a love to his had and very flushed and then passed out for short period time. He did not have any further issues since then. He has lost 30 lb in the last 6 months. 03/30/23: He is here for f/u. He was admitted with CHF and NSTEMI to [facility]. He was diagnosed with Takotsubo. He had cardiac cath and afterwards developed right index finger pain and discoloration. It was thought that he had a micro embolus in the aftery. He was heparinized and was seen by hand surgery. He was discharged with full dose ASA and eliquis. He continues to have some pain but pain is improving overall. He still has purplish discoloration of the index finger. He has intact sensations. 06/01/2023: He returns for follow-up. Unfortunately he had gangrene of the index finger and had amputation of index finger performed just before . He said he was in excruciating pain and subsequently they decided to do amputation. He has done well since then. Is not requiring any medications currently. He was started on Jardiance and has been losing weight. He is saying that before surgery stop the Lasix and has not resumed it. His blood pressure is mildly elevated. He has mild peripheral edema also. 10/26/23: He returns for follow-up. He unfortunately developed a rash on his arms and legs and torso. This was fairly itchy and he has been on antibiotics. He still has significant rash on the legs. Since this started he has stopped swimming because he does not want to go in the pool with rash all over his body. Due to lack of activity has gained weight and feels short of breath and depressed. Blood pressure is well controlled. 02/29/24: He is here for follow-up. He said he was getting a lot of urinary accidents and stopped using the Lasix. He is describing urge incontinence. He does not drink alcohol. He said due to this he has stopped using Lasix. He has been noticing that he is getting out of breath easily. Especially when he bends forward or does activities. He also has been more sedentary due to dermatitis on his leg and hammertoe for which he is getting surgery. 06/06/2024: He is here for follow-up. He has been feeling well. He underwent surgery for hammertoes and has been doing well. He is walking and exercising no chest pain or shortness of breath. No palpitations. [facility] Medical History TED on CPAP Dyspnea on exertion Morbid obesity Surgical History History of amputation of finger of right hand History of surgery Hx of colonoscopy History of cardiac cath H/O vasectomy Family History Father HTN (hypertension) Mother HTN (hypertension) Social History Alcohol intake: current Alcohol intake frequency: holidays/special occasions only Patient Tobacco Use Status: Former Tobacco user Years Smoked: 20+ Review of Systems Const Denies chills, Denies fatigue, Denies fever(s), Denies frequent falls, Denies weakness, Denies weight gain and Denies weight loss ENT Denies dizziness Card Denies chest pain, Denies leg edema, Denies lightheadedness, Denies palpitations, Denies dyspnea and Denies dyspnea on exertion Resp Denies cough, Denies dyspnea and Denies dyspnea on exertion GI Denies hematochezia Musc Denies abnormal gait, Denies muscle weakness, Denies numbness, Denies radiating pain into limb and Denies tingling Neuro Denies abnormal gait, Denies dizziness, Denies frequent falls, Denies numbness, Denies tingling and Denies weakness Endo Denies fatigue and Denies palpitations Physical Exam Vital Signs: Last Vital Signs Pulse 86 06/06/24 11:11 BP 130/64 06/06/24 11:11 GENERAL APPEARANCE: in no acute distress, obese. NECK/THYROID: no carotid bruit, no jugular venous distention. SKIN: no suspicious lesions, warm and dry. HEART: no murmurs, irregular rate and rhythm. LUNGS: clear to auscultation bilaterally. ABDOMEN: normal, bowel sounds present, soft, distended but nontender. EXTREMITIES: no clubbing. No significant peripheral. Right index finger amputation with healed stump. PERIPHERAL PULSES: equal. NEUROLOGIC: nonfocal, alert and oriented. PSYCH: mood/affect full range. Assessment & Plan Assessment & Plan (1) CLAROS (dyspnea on exertion): Comment: He has background diastolic heart failure, obesity and deconditioning. Clinically is not volume overloaded. HE HAS SOME MILD RESTRICTIVE PATTERN, ON PFT. HIS DYSPNEA ON EXERTION IS PRIMARILY DUE TO MORBID OBESITY, CAUSING MILD RESTRICTIVE PATTERN. AND ALSO HIS BACKGROUND OF DIASTOLIC HEART FAILURE. EXPLAINED IN DETAIL, WOULD NOT NEED ANY MEDICAL TREATMENT, EXCEPT DOING DEEP BREATHING EXERCISES DAILY AND LOSING WEIGHT. Code(s): R06.00 - Dyspnea, unspecified Category: Medical (2) Essential hypertension: Comment: Stable Code(s): I10 - Essential (primary) hypertension Category: Medical (3) Atrial flutter: Code(s): I48.92 - Unspecified atrial flutter Category: Medical Plan [age] year gentleman background history of hypertension, takotsubo cardiomyopathy, congestive heart failure and atrial flutter. He unfortunately had an embolic event to his right index finger from atrial flutter and finger was amputated. Blood pressure is well controlled. Euvolemic by examination. Continue same dose of furosemide 20 mg daily. He is on spironolactone 25 mg and Jardiance. He is on carvedilol 6.25 mg twice a day and Eliquis 5 mg twice a day. No bleeding concerns. He has been exercising regularly and feeling good. With weight loss he is going to feel better. He will see us back in 6 months. Thank you for allowing me to participate in the care of your patient. Please feel free to contact me if you have any questions. Coding Level of Care Code Est Pt Level 4 (88920) Diagnoses CLAROS (dyspnea on exertion) R06.00 Essential hypertension I10 Atrial flutter I48.92
--- OUTSIDE RECORDS SUMMARY | 2024-06-07 01:22 | XMS_ITS ---
Author Organization [facility] Address [address] [place] [address] Care Team Providers Care Assistant Professor Of Criminal Justice Name Role Phone Marcella Farah M.D Primary Care Provider Unavailable Coby Stevenson Unavailable [phone] Allergies No Known Allergies REASON FOR VISIT Pcp-04/19, Painful Toe Medications Medication SIG (Take, Route, Frequency, Duration) Notes Start Date End Date Status Eliquis 5 MG as directed Orally Active Carvedilol 6.25 MG 1 tablet with food Orally Twice a day Active Spironolactone 25 MG 1 tablet Orally Active Furosemide 20 MG 1 tablet Orally Once a day Active Jardiance 10 MG 1 tablet Orally Once a day Active Amlodipine & Diet Manage Prod Active Sertraline HCl 100 MG 1 tablet Orally On ce a day Active Social History Tobacco Use: Social History Observation Description Date Details (start date - stop date) Former Smoker NA - NA Tobacco use other than smoking: Question Answer Notes Are you an other tobacco user? No Tobacco Control (Standard) Question Answer Notes Tobacco use: Former smoker Additional Findings: Tobacco non-user Ex-cigaret te smoker Vital Signs Height 9hc00us in 05/16/2024 Weight 280 lbs 05/16/2024 BMI 40.17 kg/m2 05/16/2024 Blood pressure systolic 130 mm Hg 05/16/20 24 Blood pressure diastolic 80 mm Hg 024 Encounters Encounter Location Date Provider Diagnosis [facility] [address] [place] [address] 05/16/2024 Coby Stevenson Hammer toe of right foot M20.41 Assessments Encounter Date Diagnosis (ICD Code) Assessment Notes Treatment Notes Treatment Clinical Notes Section Notes 05/16/2024 Hammer toe of right foot (ICD-10 - M20.41) Plan Of Treatment Next Appt Details Follow Up: 1 Week, Reason: Procedure Notes * Category Sub-Category Detail Notes Podiatry Procedure Tenotomy - Flexor (27984) LOC ATION : T7 INDICATIONS : a painful non-rigid toe contrature at the PIPJ/DIPJ, Resistant to previous conservative treatment, ANESTHESIA : 3cc of [address] local anesthesic utilizing aseptic technique administered to each involved toe, PREP : The incision site was made surgically clean by applying betadine to the involved area, PROCEDURE : Once anesthesia was achieved, an incision was made at the flexor crease of the interphalangeal joint. The tendon was then transected in a medial to lateral sweeping motion. Any contracted plantar joint capsule was released as well. Skin sutured with Nylon in interrupted suture technique., Steri-strips and a sterile bandage were applied while splinting the toe in a rectus/corrected position, DISPOSITION : The patient tolerated the procedure and anesthesia well, and left the exam room awake, alert, and stable. The patient was instructed to take Tylenol or Motrin for discomfort, rest, ice for 10-15 minutes per hour, elevate the foot, and walk minimally until the next office visit. A surgical shoe was dispensed for ambulation. The patient is to maintain a clean surgical site, keeping it dry until the next visit Progress Notes * Bill JETER IIDOB: [birth year] (69 yo M)Acc No.[id number]:05/16/2024 Patient:?Bill JETER BRODY Provider:?Coby Stevenson DPM :1955???Age:69 Y???Sex:Male Angel e:05/16/2024 Address:[address] [place] [address], [id number] Pcp:Kin Borja Subjective: * Chief Complaints: * ???Pcp-04/19Painful Toe * ROS:?General/Constitutional:?Nausea?denies.?Vomiting?denies.?Hunger Thirst?denies.?Loss appetite?denies.?Chills?denies.?Fatigue?denies.?Fever?denies.?Night Sweats?denies.?Unexplained weight loss?denies.?Unexplained weight gain?denies.?HEENTM:?Dentures?denies.?Dizziness?denies.?Glasses/contacts?denies.?Retinopathy?de nies.?Blurred/double vision?denies.?TMJ?denies.?Discharge/drainage?denies.?Implants?denies.?Sore throat?denies.?Dental implants?denies.?Hard of hearing ?denies.?Difficulty chewing/swallowing/speaking?denies.?Nose bleeds?denies.?Sore mouth?denies.?Respiratory:?On Oxygen?denies.?Pneumonia/pleurisy?denies.?Bronchitis?denies.?Emphysema?denies.?C oughing?denies.?Cough blood?denies.?Shortness of breath?denies.?Wheezing?denies.?Cardiovascular:?Pacemaker?denies.?MVP?denies.?WPW?denies.?CHF?admits.?Heart attack?denies.?Septal defect?denies.?Rapid beat?denies.?Chest pain ?denies.?Atrial Fib.?admits.?Murmur/Palpitations?denies.?Gastrointestinal:?Hemorrhoids?denies.?Stomach/Abdominal pain?denies.?Dark blood stool?denies.?Irritable bowel ?denies.?Constipation?denies.?Diarrhea?denies.?Hematology:?Swelling?denies.?Clots?denies.?Varicose Veins?denies.?Bruising?denies.?Bleeding problem?denies.?Genitourinary:?Blood urine?denies.?Frequent/Painfu/urination/bladder control?denies.?Kidney stones?denies.?Infection (UTI)?denies.?Nephropathy?denies.?sex trans dis (STD)?denies.?Prostate?denies.?Musculoskeletal:?Hammertoes?denies.?Bunions?denies.?Back Pain?denies.?Muscle Cramps/ Resting?denies.?Muscle cramps / walking?denies.?Generalized aches and pains?denies.?Weakness?denies.?Integ.:?Jarrett?denies.?Scars?denies.?Corns/calluses?denies.?Ingrown nails?denies.?Painful nails?denies.?Open Sores?denies.?Rashes?denies.?Neurologic:?Difficulty sleeping?denies.?Brain disorder?denies.?Numbness?denies.?Balance trouble?denies.?Confusion?denies.?Fainting/blackouts?denies.?Tingling?denies.?Tr emors?denies.? * Medical History:? * Surgical History:?amputation finger 2022 * Hospitalization/Major Diagno stic Procedure:?Denies Past Hospitalization * Family History:?Mother: unkn own.?Father: unknown, stroke.? * Social History:?Tobacco Use:?Tobacco use other than smoking?Are you an other tobacco user??No ?Tobacco Control (Standard)?Tobacco use:?Former smoker ?Additional Findings: Tobacco non-user?Ex-cigarette smoker * Medications:?TakingSertralin e HCl 100 MG Tablet 1 tablet Orally Once a day Amlodipine & Diet Manage Prod Jardiance 10 MG Tablet 1 tablet Orally Once a day Furosemide 20 MG Tablet 1 tablet Orally Once a day Spironolactone 25 MG Tablet 1 tablet Orally Carvedilol 6.25 MG Tablet 1 tablet with food Orally Twice a day Eliquis 5 MG Tablet as directed Orally Medication List reviewed and reconciled with the patientTaking Sertraline HCl 100 MG Tablet 1 tablet Orally Once a day Taking Amlodipine & Diet Manage Prod Taking Jardiance 10 MG Tablet 1 tablet Orally Once a day Taking Furosemide 20 MG Tablet 1 tablet Orally Once a day Taking Spironolactone 25 MG Tablet 1 tablet Orally Taking Carvedilol 6.25 MG Tablet 1 tablet with food Orally Twice a day Taking Eliquis 5 MG Tablet as directed Orally Medication List reviewed and reconciled with the patient * Allergies:?N.K.D.A.yes[Aller gies Verified] Objective: * Vitals:?Ht: 7ew30ai, Wt:280, BMI:40.17, Shoe size: 9, BP:130/80mm Hg, Ht-cm: 177.8 cm, Wt-k.01 kg. * Examination: ???Orthopedic: ?DIGITAL DEFORMITIES:?Digital contracture, PIPJ, incompl-reducible with WB or to push-up test, T7.?Vascular: ?DP PULSES(B):?2/4 , B/L.?PT PULSES(B):? 0/4, B/L.?CAPILLARY FILL TIME:? delayed, all digits, B/L.?TROPHIC CONDITION-TEXTURE/ELASTICITY/TURGOR/HAIR GROWTH(B):? decreased, B/L.?TEMPERTURE GRADIENT(C):?decreased, proximal to distal, B/L, cool to cool.?PIGMENTATION:?brawny , B/L.?EDEMA(C):?absent, B/L.?CLAUDICATION(C):?denies, B/L.?REST PAIN:?denies, B/L.?Dermatologic: ?SKIN FINDINGS:?Skin exam reveals Keratotic lesion(s) located at , T7 , SUB MTH (s) , 3 , Right.? Assessment: * Assessment: 1.?Hammer toe of right foot - M20.41 (Primary)??? Plan: * Treatment: * Procedures:?Podiatry Procedure:?Tenotomy - Flexor (28188)?LOCATION : T7 INDICATIONS : a painful non-rigid toe contrature at the PIPJ/DIPJ, Resistant to previous conservative treatment, ANESTHESIA : 3cc of [address] local anesthesic utilizing aseptic technique administered to each involved toe, PREP : The incision site was made surgically clean by applying betadine to the involved area, PROCEDURE : Once anesthesia was achieved, an incision was made at the flexor crease of the interphalangeal joint. The tendon was then transected in a medial to lateral sweeping motion. Any contracted plantar joint capsule was released as well. Skin sutured with Nylon in interrupted suture technique., Steri-strips and a sterile bandage were applied while splinting the toe in a rectus/corrected position, DISPOSITION : The patient tolerated the procedure and anesthesia well, and left the exam room awake, alert, and stable. The patient was instructed to take Tylenol or Motrin for discomfort, rest, ice for 10-15 minutes per hour, elevate the foot, and walk minimally until the next office visit. A surgical shoe was dispensed for ambulation. The patient is to maintain a clean surgical site, keeping it dry until the next visit.? * Procedure Codes:?98252 INCIS ION OF FOOT TENDON(S) * Preventive Medicine:? ??Counseling:?Digital Surgery:?FLEXOR : Minimal Incision digital procedure consisting of Percutaneous Flexor Release was discussed with the patient, including the risks of the procedure vs and not having the procedure, the potential procedure complications, the anesthesia, and the usual post-op course. No guarentees were given. We discussed with the patient the complications such as delayed/non healing, excessive scarring, excessive swelling, failure of procedure, floppy toe, infection, numbness, chronic pain, recurrence of the condition, shortened toe, joint stiffness, and possible loss of limb/life. Alternatives to the procedure were also discussed, including conservative care, The patient would like to procede with surgical treatment.? * Follow Up:?1 Week * Images: * Sign off status: Completed true * Provider:?Coby Stevenson DPM Date:? Generated for Trevin smallwood/Sarai/eTransmitting on:?06/07/2024 01:22 AM EST History and Physical Notes * Examination Category Sub-Category Detail Notes Category Not es Dermatologic SKIN FINDINGS: Skin exam reveal s Keratotic lesion(s) located at , T7 , SUB MTH (s) , 3 , Right Orthopedic DIGITAL DEFORMITIES: Digital con tracture, PIPJ, incompl-reducible with WB or to push-up test, T7 Vascular DP PULSES(B): 2/4 , B/L PT PULSES(B): 0/4, B/L CAPILLARY FILL TIME: delayed, all digits , B/L TEMPERTURE GRADIENT(C): decreased, proxi mal to distal, B/L, cool to cool TROPHIC CONDITION-TEXTURE/ELASTICITY/TURGOR/HAIR GROWTH(B): decreased, B/L EDEMA(C): absent, B/L CLAUDICATION(C): denies, B/L REST PAIN: denies, B/L PIGMENTATION: brawny , B/L
--- OUTSIDE RECORDS SUMMARY | 2024-06-07 01:22 | XMS_ITS | Continuity of Care Document ---
Author Organization [facility] Adult Address [address] [place] [address]- Care Team Providers Care Marshmallow Machine Worker Name Role Phone Sofi BELLE, Marcella Primary Care Physician Encounter [place] Date(s): 05/02/24 - 06/01/24 [facility] Adult [address] [place] [address]- Encounter Type: Triage Allergies, Adverse Reactions, Alerts No Known Medication Allergies Immunizations Given and Recorded Vaccine Date Status Refusal Reason SARS-CoV-2 (COVID-19) mRNA-6631 vaccine 07/10/21 R ecorded Medications amLODIPine 10 mg oral tablet 1 tablet, By Mouth, Daily, # 90 tablet, 3 Refills, Maintenance, 03/01/24 9:16:00 AM EDT, [facility], 180, cm, 11/28/23 10:16:00 EDT, Height, 124.8, kg, 05/12/23 8:06:00 EST, Dry Weight Start Date: 03/01/24 Status: Ordered Quantity: 90.0 Unit: tablet Repeat number: 4 Coreg 6.25 mg oral tablet 6.25 mg, By Mouth, 2 times a day, # 180 tablet, Refills 3, Tot. Refills 3, Maintenance, 02/16/24 10:10:00 AM EDT, Route to Pharmacy Electronically, [facility], Partial fill upon patient request if the prescription is for a schedule II opioid drug., 180, cm, 11/28/23 10:16:00 EDT, Height, 124.8, kg, 05/12/23 8:06:00 EST, Dry Weight Start Date: 02/16/24 Stop Date: 02/10/25 Status: Ordered Quantity: 180.0 Unit: tablet Repeat number: 4 Eliquis 5 mg oral tablet 1 tablet = 5 mg, By Mouth, 2 times a day, # 180 tablet, 3 Refills, Maintenance, 02/16/24 10:10:00 AMEDT, Tablet, [facility], Partial fill upon patient request if the prescription is for a schedule II opioid drug., 180, cm, 11/28/23 10:16:00 EDT, Height, 124.8, kg, 05/12/23 8:06:00 EST, Dry Weight Start Date: 02/16/24 Stop Date: 02/10/25 Status: Ordered Quantity: 180.0 Unit: tablet Repeat number: 4 Flonase Allergy Relief 50 mcg/inh nasal spray 1 sprays = 50 mcg, Nares, Both, 2 times a day, shake well before using, # 16 Gm, 1 Refills, Maintenance, 08/03/23 9:56:00 AM EST, [place], [facility], Partial fill upon patient request if the prescription is for a schedule II opioid drug., 180, cm, 08/03/23 9:22:00 EST, Height, 124.8,kg, 05/12/23 8:06:00 EST, Dry Weight Start Date: 08/03/23 Status: Ordered Quantity: 16.0 Unit: g Repeat number: 2 Indication: Postnasal drip furosemide 20 mg oral tablet 20 mg, 1, tablet, By Mouth, Daily, for 90 days, # 90 tablet, Refills 3, Tot. Refills 3, Acute 02/24/25 9:17:00 AM EDT, 03/01/24 9:17:00 AM EDT, Route to Pharmacy Electronically, [facility], Partial fill upon patient request if the prescription is for a schedule II opioid drug., 180, cm, 11/28/23 10:16:00 EDT, Height, 124.8, kg, 05/12/23 8:06:00 EST, Dry Weight Start Date: 03/01/24 Stop Date: 02/24/25 Status: Ordered Quantity: 90.0 Unit: tablet Repeat number: 4 hydrOXYzine hydrochloride 10 mg oral tablet 2 tablet = 20 mg, By Mouth, 4 times a day, PRN as needed for itching, # 80 tablet, 0 Refills, Maintenance, 03/01/24 9:17:00 AM EDT, Tablet, [facility], Partial fill upon patient request if the prescription is for a schedule II opioid drug., 180, cm, 11/28/23 10:16:00 EDT, Height, 124.8, kg, 05/12/23 8:06:00 EST, Dry Weight Start Date: 03/01/24 Status: Ordered Quantity: 80.0 Unit: tablet Repeat number: 1 Jardiance 10 mg oral tablet 1 tablet = 10 mg, By Mouth, Daily in AM, # 90 tablet, 3 Refills, Maintenance, 02/16/24 10:10:00 AM EDT, Tablet, [facility], Partial fill upon patient request if the prescription is for a schedule II opioid drug., 180, cm, 11/28/23 10:16:00 EDT, Height, 124.8, kg, 05/12/23 8:06:00 EST, Dry Weight Start Date: 02/16/24 Stop Date: 02/10/25 Status: Ordered Quantity: 90.0 Unit: tablet Repeat number: 4 sertraline 100 mg oral tablet 2 tablet = 200 mg, By Mouth, Daily, # 180 tablet, 3 Refills, Maintenance, 03/01/24 9:17:00 AM EDT, Tablet, [facility], Partial fill upon patient request if the prescription is for a schedule II opioid drug., 180, cm, 11/28/23 10:16:00 EDT, Height, 124.8, kg, 05/12/23 8:06:00 EST, Dry Weight Start Date: 03/01/24 Stop Date: 02/24/25 Status: Ordered Quantity: 180.0 Unit: tablet Repeat number: 4 spironolactone 25 mg oral tablet 25 mg, By Mouth, Daily, # 90 tablet, Refills 3, Tot. Refills 3, Maintenance, 02/16/24 10:10:00 AM EDT, Route to Pharmacy Electronically, [facility], Partial fill upon patient request if the prescription is for a schedule II opioid drug., 180, cm, 11/28/23 10:16:00 EDT, Height, 124.8, kg, 05/12/23 8:06:00 EST, Dry Weight Start Date: 02/16/24 Stop Date: 02/10/25 Status: Ordered Quantity: 90.0 Unit: tablet Repeat number: 4 Problem List Condition Confirmation Course Effective Dates Status Health St atus Informant Atrial fibrillation Confirmed Active Bilateral hearing loss Confirmed Active Chronic diastolic heart failure Confirmed Active Chronic kidney disease, stage 3 Confirmed Active Depression Confirmed Active Erectile dysfunction Confirmed Active HTN - Hypertension Confirmed Active TED - Obstructive sleep apnea Confirmed Active Prediabetes Confirmed Active Severe obesity Confirmed Active Fatty liver Confirmed Active Tubular adenoma of colon 1 Confirmed 06/03/22 Active 1repeat screening colonoscopy in 2024 Social History Social History Type Response Tobacco Use: QUIT 2017. Vonda espitia pack years: 47. Started at age: 14 Years. Stopped at age: 63 Years. Sex Sex Representation Male (finding) Patient Care team information Care Team Personnel Name: Lianne Sánchez RN Position: S die presser Member Role: Water Treatment Plant Mechanic Name: Mitra Turpin RN Position: S RN Member Role: Primary Care Nurse Name: Beth Raya RN Position: S RN Member Role: Primary Care Nurse Name: Marcella Farah MD Position: [facility] Physician - Primary Care Member Role: PCP Address: [address] [place] [address] Telecom: Name: Bethany Whitehead RN Position: S RN Member Role: Primary Care Nurse Name: Thais Healy RN Position: S RN Member Role: Primary Care Nurse Care Team Related Persons Name: BERNADETTE HUGHES Insurance Providers Guarantor name: DANIELLE HUGHES Health Plan Information #: 1 Payer: MEDICARE PART B OUTPT Member Number: NA Policy Number: NA Group Number: NA Health Plan Information #: 2 Payer: FOR LIFE MCR A ONLY Member Number: NA Policy Number: NA Group Number: NA
--- OUTSIDE RECORDS SUMMARY | 2024-06-07 01:22 | XMS_ITS ---
[facility] Address [address] [place] [address] Care Team Providers Care Burglar Alarm Installer Name Role Phone Marcella Farah M.D Primary Care Provider Unavailable Coby Stevenson Unavailable [phone] Allergies No Known Allergies REASON FOR VISIT pcp-02/2024, Painful Toe(s) Medications Medication SIG (Take, Route, Frequency, Duration) Notes Start Date End Date Status Furosemide 20 MG 1 tablet Orally Once a day Active Spironolactone 25 MG 1 tablet Orally Active Carvedilol 6.25 MG 1 tablet with food Orally Twice a day Active Amlodipine & Diet Manage Prod Active Jardiance 10 MG 1 tablet Orally Once a day Active Eliquis 5 MG as directed Orally Active Sertraline HCl 100 MG 1 tablet Orally On ce a day Active Social History Tobacco Use: Social History Observation Description Date Details (start date - stop date) Former Smoker NA - NA Alcohol Screen Question Answer Notes Did you have a drink contain ing alcohol in the past year? Yes How often did you have a dri nk containing alcohol in the past year? 2 to 3 times a week (3 points) Points 3 Interpretation Negative Tobacco use other than smoking: Question Answer Notes Are you an other tobacco user? No Tobacco Control (Standard) Question Answer Notes Tobacco use: Former smoker Additional Findings: Tobacco non-user Ex-cigaret te smoker Vital Signs Height 5ft 10in in 05/23/2024 Weight 280 lbs 05/23/2024 BMI 40.17 kg/m2 05/23/2024 Encounters Encounter Location Date Provider Diagnosis [facility] [address] [place] [phone] 05/23/2024 Coby Stevenson Hammer toe of right foot M20.41 Assessments Encounter Date Diagnosis (ICD Code) Assessment Notes Treatment Notes Treatment Clinical Notes Section Notes 05/23/2024 Hammer toe of right foot (ICD-10 - M20.41) Improvement Plan Of Treatment Next Appt Details Follow Up: prn, Reason: Procedure Notes * Category Sub-Category Detail Notes Dressing Change: Type: bandaide Topical: bacitacin applied Removal of: sutures performed wi th sterile forceps/suture scissors or #15 blade, area cleaned with alcohol prior to removal Progress Notes * Bill JETER IIDOB: [birth year] (69 yo M)Acc No.[id number]:05/23/2024 Patient:?Bill JETER II Provider:?oCby Stevenson DPM :1955???Age:69 Y???Sex:Male Angel e:05/23/2024 Address:[address] [place], [place] [id number] Pcp:Kin Borja Subjective: * Chief Complaints: * ???Pcp-ainful Toe(s) * HPI: ???Toe pain:?Location:?3rd toe, Right foot.?Course:?improved.?Treatments:?Flexor tenotomy,?.? * ROS:?General/Constitutional:?Nausea?denies.?Vomiting?denies.?Hunger Thirst?denies.?Loss appetite?denies.?Chills?denies.?Fatigue?denies.?Fever?denies.?Night Sweats?denies.?Unexplained weight loss?denies.?Unexplained [...] use:?Former smoker ?Additional Findings: Tobacco non-user?Ex-cigarette smoker ???Drugs/Alcohol:?Drugs?Have you used drugs other than those for medical reasons in the past 12 months??Yes ?Marijuana??Yes ?Alcohol Screen?Did you have a drink containing alcohol in the past year??Yes ?How often did you have a drink containing alcohol in the past year??2 to 3 times a week (3 points) ?Points?3 ?Interpretation?Negative ???Miscellaneous:?Caffeine: yes, frequency:, 1-2 cups per day. ?Children: yes, 3. ?Exercise: no. ?Marital status: . 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 * Medications:?TakingSertralin e HCl 100 MG Tablet [...] * Allergies:?N.K.D.A.yes[Aller gies Verified] Objective: * Vitals:?Ht: 5ft 10in, Wt:280 , BMI:40.17, Shoe size: 9, Ht-cm: 177.8 cm, Wt-k.01 kg. * Examination: ???Orthopedic: ?DIGITAL DEFORMITIES:?NO FURTHER, Digital contracture, PIPJ, T7 Digit without pain and in rectus position with healed incision site.?Dermatologic: ?SURGICAL SITE?Skin and Sutures intact, Incision edges are well aligned and adhered, CFT intact, No signs or symptoms consistent with infection.? Assessment: * Assessment: 1.?Hammer toe of right foot - M20.41 (Primary)???Notes :Improvement??? Plan: * Treatment: * Procedures:?Dressing Change::?Type:?bandaide.?Topical:?bacitacin applied.?Removal of:?sutures performed with sterile forceps/suture scissors or #15 blade, area cleaned with alcohol prior to removal.? * Procedure Codes:? * Preventive Medicine:? ??Counseling:?Post-op:?I reviewed with the patient the usual surgical post-op course. The patient is to call with any questions/complications, and will follow-up as scheduled, return to accom firm-soled shoe for stability and support, gradually increase activity to tolerance, Pt can begin showering per usual starting tomorrow, can apply abx ointment to incisions to help with scarring, Pt to continue to ice and elevate foot to help with post op swelling and pain.? * Follow Up:?prn * Images: * Sign off status: Completed true * Provider:?Coby Stevenson DPM Date:? Generated for Trevin smallwood/Sarai/Babita on:?06/07/2024 01:22 AM EST History and Physical Notes * HPI (History of Present Illness) Category Sub-Category Detail Notes Category Not es Toe pain Location: 3rd toe, Right foot Course: improved Treatments: Flexor tenotomy, Examination Category Sub-Category Detail Notes Category Not es Dermatologic SURGICAL SITE Skin and Sutures intact, Incision edges are well aligned and adhered, CFT intact, No signs or symptoms consistent with infection Orthopedic DIGITAL DEFORMITIES: NO FURTHER, Digital contracture, PIPJ, T7 Digit without pain and in rectus position with healed incision site
--- OUTSIDE RECORDS SUMMARY | 2024-06-07 01:22 | XMS_ITS | Continuity of Care Document ---
Author Organization [facility] Adult Address [address] [place] [address]- Care Team Providers Care Acquisitions Logistics Analyst Name Role Phone Sofi BELLE, Marcella Primary Care Physician Encounter [facility] Date(s): 04/18/24 - 05/18/24 [facility] Adult [address] [place] [address]- Encounter Type: Triage Allergies, Adverse Reactions, Alerts No Known Medication Allergies Immunizations Given and Recorded Vaccine Date Status Refusal Reason SARS-CoV-2 (COVID-19) mRNA-8179 vaccine 07/10/21 R ecorded Medications amLODIPine 10 [...] 1 Refills, Maintenance, 08/03/23 9:56:00 AM EST, [place], [facility], Partial fill [...] 03/01/24 9:17:00 AM EDT, Tablet, [facility], Partial fill upon patient request [...] 03/01/24 9:17:00 AM EDT, Tablet, [facility], Partial fill upon patient request [...] Personnel Name: Lianne Sánchez RN Position: S airplane flight attendant supervisor Member Role: Skirt Panel Assembler Name: Mitra Turpin RN Position: S RN Member Role: Primary Care Nurse Name: Beth Raya RN Position: S RN Member Role: Primary Care Nurse Name: Marcella Farah MD Position: [facility] Physician - Primary Care Member Role: PCP Address: [address] [place] [address] Telecom: Name: Bethany Whitehead RN Position: S [...]
--- OUTSIDE RECORDS SUMMARY | 2024-06-07 01:23 | XMS_ITS | Patient Health Record ---
Author Organization [facility] Address [address] [place] [address] Care Team Providers Care Dispatcher Relay Name Role Phone Marcella Farah M.D Primary Care Provider Unavailable Coby Stevenson Unavailable [phone] Allergies No Known Allergies Reason For Referral No Information Medications Medication SIG (Take, Route, Frequency, Duration) Notes Start Date End Date Status Furosemide 20 MG 1 tablet Orally Once a day Active Spironolactone 25 MG 1 tablet Orally Active Carvedilol 6.25 MG 1 tablet with food Orally Twice a day Active Eliquis 5 MG as directed Orally Active Sertraline HCl 100 MG 1 tablet Orally On ce a day Active Amlodipine & Diet Manage Prod Active Jardiance 10 MG 1 tablet Orally Once a day Active Social History Tobacco Use: [...] Additional Findings: Tobacco non-user Ex-cigaret te smoker Problems Problem Type SNOMED Code ICD Code Onset Dates Problem Status W/U Status Risk Notes Problem Acquired hammer toe of right foot (053411864276201 5) Other hammer toe(s) (acquired), right foot (M20.41) Active confirmed Problem Acquired hammer toe of left foot (783113374180600 3) Other hammer toe(s) (acquired), left foot (M20.42) Active confirmed Problem Acquired hammer toe of right foot (356759481189892 5) Hammer toe of right foot (M20.41) Active confirmed Improvement Problem Acquired hammer toe of left foot (811803332102649 3) Hammer toe of left foot (M20.42) Active confirmed Improvement Problem Atherosclerosis of [place] artery of both lower extremities, with unspecified presence of clinical manifestation (I70.203) Active confirmed Problem Spasm (12477348) Extensor tendon tightness, contracture (M62.40) Active confirmed Improvement Problem Ulcer of toe of right foot (disorder) (278292526427282 01) Skin ulcer of toe of right foot, limited to breakdown of skin (L97.511) Active confirmed Response to treatment Problem Localized, primary osteoarthritis of the ankle and/or foot (731872587) Arthritis of joint of lesser toe, left (M19.072) Active confirmed Problem Localized, primary osteoarthritis of the ankle and/or foot (680138024) Arthritis of joint of lesser toe, right (M19.071) Active confirmed Problem Ulcer of toe of left foot (disorder) (234412532027331 02) Skin ulcer of toe of left foot, limited to breakdown of skin (L97.521) Active confirmed Response to treatment Problem Ischemic ulcer o f left foot, limited to breakdown of skin (L97.521) Active confirmed Response to treatment Vital Signs Blood pressure diastolic 80 mm Hg 05/16/2024 Height 5ft 10in in 05/23/2024 Blood pressure systolic 130 mm Hg 05/16/2024 Weight 280 lbs 05/23/2024 BMI 40.17 kg/m2 05/23/2024 Encounters Encounter Location Date Provider Diagnosis [facility] [place] [address] [place] [address] 01/17/2024 Coby Stevenson Other hammer toe(s) (acquired), left foot M20.42 ; Ischemic ulcer of left foot, limited to breakdown of skin L97.521 ; Atherosclerosis of [place] artery of both lower extremities, with unspecified presence of clinical manifestation I70.203 ; Other hammer toe(s) (acquired), right foot M20.41 ; Arthritis of joint of lesser toe, right M19.071 ; Arthritis of joint of lesser toe, left M19.072 and Subluxation of metatarsophalangeal joint of toe, initial encounter S93.149A [address] [address] 04/03/2024 Coby Perica Skin ulcer of toe of left foot, limited to breakdown of skin L97.521 and Hammer toe of left foot M20.[address] [address] 04/10/2024 Coby Perica Hammer toe of right foot M20.41 and Hammer toe of left foot M20.[address] [address] 05/16/2024 Coby Perica Hammer toe of right foot M20.[address] [address] 05/23/2024 Coby Perica Hammer toe of right foot M20.[address] [address] 01/17/2024 Coby Perica [address] [address] 04/10/2024 Coby Perica Assessments Encounter Date Diagnosis (ICD Code) Assessment Notes Treatment Notes Treatment Clinical Notes Section Notes 01/17/2024 Other hammer toe(s) (acquired), left foot (ICD-10 - M20.42) 01/17/2024 Ischemic ulcer of le ft foot, limited to breakdown of skin (ICD-10 - L97.521) Response to treatment Patient Educated with: WOUND CARE INSTRUCTIONS .pdf (WOUND CARE INSTRUCTIONS .pdf) 04/03/2024 Hammer toe of left f oot (ICD-10 - M20.42) 04/03/2024 Skin ulcer of toe of left foot, limited to breakdown of skin (ICD-10 - L97.521) Response to treatment Patient Educated with: WOUND CARE INSTRUCTIONS .pdf (WOUND CARE INSTRUCTIONS .pdf) 04/10/2024 Hammer toe of right foot (ICD-10 - M20.41) 04/10/2024 Hammer toe of left f oot (ICD-10 - M20.42) Improvement 05/16/2024 Hammer toe of right foot (ICD-10 - M20.41) 05/23/2024 Hammer toe of right foot (ICD-10 - M20.41) Improvement 01/17/2024 Atherosclerosis of [place] artery of both lower extremities, with unspecified presence of clinical manifestation (ICD-10 - I70.203) 01/17/2024 Other hammer toe(s) (acquired), right foot (ICD-10 - M20.41) 01/17/2024 Arthritis of joint o f lesser toe, right (ICD-10 - M19.071) 01/17/2024 Arthritis of joint o f lesser toe, left (ICD-10 - M19.072) 01/17/2024 Subluxation of metatarsophalangeal joint of toe, initial encounter (ICD-10 - S93.149A) 04/03/2024 Other Plan Of Treatment Pending Test Test Name Order Date X ray : Foot, left 3V 01/17/2024 X ray : Foot, right 3V 01/17/2024 Insurance Providers Payer Name Payer Address Payer Phone Subscriber Number Group Number Insured Name Patient Relationship to Insured Coverage Start Date Coverage End Date Medicare [employer] [address] [place] [address] [phone] [id number] Bill Jeter Self - patient is the insured [employer] [address] [place] [id number] [phone] [id number] Bill Jeter Self - patient is the insured Medical (General) History Medical History History ICD Code Depression High blood pressure Measles Chicken pox Heart attack 2022 Surgical History Surgery Date(Month/Year) amputation finger 2022
--- OUTSIDE RECORDS SUMMARY | 2024-06-07 01:23 | XMS_ITS | Continuity of Care Document ---
Author Name [facility] Organization [facility] Care Team Providers Care Desktop Support Manager Name Role Phone [facility] Unavailable Unavailable Problems Combined list of problems from Department of Defense and Veterans Affairs facilities. It does not include entries that were removed or entered in error. Problem Status Onset Date Problem Type Date of Resolution Comments Source Abrasion, Cornea Active Condition [facility] Calcaneal spur Active Condition [facility] Calculus of Kidney Active Condition November 01, 2005 Entered By: SUJATA STEINER Comment: right [facility] Essential Hypertension Active Condition [facility] Major Depressive Disorder, Recurrent, Moderate (DSM-IV 296.32) Active Condition [facility] OBESITY, UNSP Active Condition [facility] spirometry showed no Obstructive or restrictive disease. Active Condition [facility] WNL/FUNCTIONAL Active Condition [facility] Medications Combined list of outpatient medications from Department of Defense and Veterans Affairs facilities.Medications provided include 1) outpatient medications from the last 15 months, and 2) patient-reported medications. Medication Details Route Status Patient Instructions Prescription Expires Prescription Number Last Dispense Date Ordering Provider Order Date Order Qty Source AMLODIPINE BESYLATE (AMLODIPINE BESYLATE), 10 MG, TABLET, ORAL, [employer] 90 ea. BOTTLE Active [id number] 4 2023 90 Pharmac y Data Transac tion Service Facilit y AMLODIPINE BESYLATE (AMLODIPINE BESYLATE), 10 MG, TABLET, ORAL, CIPLA [employer] 90 ea. BOTTLE Active [id number] 4 2023 90 Pharmac y Data Transac tion Service Facilit y AMLODIPINE BESYLATE (AMLODIPINE BESYLATE), 10 MG, TABLET, ORAL, [employer], 1000 ea. BOTTLE Cancele d [id number] : 2023 0 Pharmac y Data Transac tion Service Facilit y CARVEDILOL (carvedilol ), 6.25 MG, TABLET, ORAL, [employer] 500 ea. BOTTLE Active [id number] 4 2023 180 Pharmac y Data Transac tion Service Facilit y CARVEDILOL (carvedilol ), 6.25 MG, TABLET, ORAL, [employer] 500 ea. BOTTLE Active [id number] 4 2023 180 Pharmac y Data Transac tion Service Facilit y DOXYCYCLINE HYCLATE (DOXYCYCLIN E HYCLATE), 100 MG, CAPSULE, ORAL, [facility] [place]., 500 ea. BOTTLE Active [id number] 4 2023 10 Pharmac y Data Transac tion Service Facilit y DOXYCYCLINE HYCLATE (DOXYCYCLIN E HYCLATE), 100 MG, CAPSULE, ORAL, [facility] [place]., 500 ea. BOTTLE Active [id number] 4 2023 20 Pharmac y Data Transac tion Service Facilit y DOXYCYCLINE MONOHYDRATE (DOXYCYCLIN E MONOHYDRATE ), 100 MG, TABLET, ORAL, [employer]ARMA, 50 ea. BOTTLE Active [id number] 4 2023 60 Pharmac y Data Transac tion Service Facilit y ELIQUIS (APIXABAN), 5 MG, TABLET, ORAL, [facility] , 60 ea. BOTTLE Active [id number] 3 2022 180 Pharmac y Data Transac tion Service Facilit y ELIQUIS (APIXABAN), 5 MG, TABLET, ORAL, [facility] , 60 ea. BOTTLE Active [id number] 2023 180 Pharmac y Data Transac tion Service Facilit y ELIQUIS (APIXABAN), 5 MG, TABLET, ORAL, [facility] , 60 ea. BOTTLE Active [id number] 4 2023 180 Pharmac y Data Transac tion Service Facilit y FLUTICASONE PROPIONATE (FLUTICASON E PROPIONATE) , 50MCG, SPRAY SUSP, NASAL, APOTEX FIDEL, 16 g AER W/ADAP Active [id number] 4 2023 16 Pharmac y Data Transac tion Service Facilit y FUROSEMIDE (furosemide ), 20 MG, TABLET, ORAL, [employer], 1000 ea. BOTTLE Cancele d [id number] : 2023 0 Pharmac y Data Transac tion Service Facilit y FUROSEMIDE (furosemide ), 20 MG, TABLET, ORAL, [employer], 1000 ea. BOTTLE Active [id number] 4 2023 90 Pharmac y Data Transac tion Service Facilit y FUROSEMIDE (furosemide ), 20 MG, TABLET, ORAL, [employer], 1000 ea. BOTTLE Active [id number] 4 2023 90 Pharmac y Data Transac tion Service Facilit y FUROSEMIDE (furosemide ), 20 MG, TABLET, ORAL, [employer], 1000 ea. BOTTLE Active [id number] 4 2023 90 Pharmac y Data Transac tion Service Facilit y FUROSEMIDE (furosemide ), 20 MG, TABLET, ORAL, [employer], 1000 ea. BOTTLE Active [id number] 4 2023 90 Pharmac y Data Transac tion Service Facilit y HYDROXYZINE HCL (HYDROXYZIN E HCL), 10 MG, TABLET, ORAL, [facility], 100 ea. BOTTLE Active [id number] 4 2023 80 Pharmac y Data Transac tion Service Facilit y HYDROXYZINE HCL (HYDROXYZIN E HCL), 25 MG, TABLET, ORAL, [employer], 100 ea. BOTTLE Active [id number] 4 2023 240 Pharmac y Data Transac tion Service Facilit y HYDROXYZINE HCL (HYDROXYZIN E HCL), 25 MG, TABLET, ORAL, [employer], 100 ea. BOTTLE Active [id number] 4 2023 40 Pharmac y Data Transac tion Service Facilit y JARDIANCE (EMPAGLIFLO ZIN), 10 MG, TABLET, ORAL, BOEHRINGER ING., 90 ea. BOTTLE Active [id number] 4 2023 90 Pharmac y Data Transac tion Service Facilit y JARDIANCE (EMPAGLIFLO ZIN), 10 MG, TABLET, ORAL, BOEHRINGER ING., 90 ea. BOTTLE Active [id number] 4 2023 90 Pharmac y Data Transac tion Service Facilit y PREDNISONE (prednisone ), 20 MG, TABLET, ORAL, AMNEAL PHARMACE, 100 ea. BOTTLE Active [id number] 4 2023 10 Pharmac y Data Transac tion Service Facilit y SERTRALINE HCL (SERTRALINE HCL), 100MG, TABLET, ORAL, [employer], 500 ea. BOTTLE Active [id number] 2023 180 Pharmac y Data Transac tion Service Facilit y SERTRALINE HCL (SERTRALINE HCL), 100MG, TABLET, ORAL, [employer], 500 ea. BOTTLE Active [id number] 2023 180 Pharmac y Data Transac tion Service Facilit y SPIRONOLACT ONE (spironolac tone), 25 MG, TABLET, ORAL, MIKAYLA RANCH NM, 100 ea. BOTTLE Active [id number] 4 2023 90 Pharmac y Data Transac tion Service Facilit y SPIRONOLACT ONE (spironolac tone), 25 MG, TABLET, ORAL, MIKAYLA RANCH NM, 100 ea. BOTTLE Active [id number] 4 2023 90 Pharmac y Data Transac tion Service Facilit y TACROLIMUS (TACROLIMUS ), 0.1 %, OINT. (G), TOPICAL, [employer] 100 g TUBE Active [id number] 4 2023 100 Pharmac y Data Transac tion Service Facilit y TRIAMCINOLO NE ACETONIDE (TRIAMCINOL ONE ACETONIDE), 0.1 %, CREAM (G), TOPICAL, [facility], 454 g TUBE Active [id number] 4 2023 454 Pharmac y Data Transac tion Service Facilit y TRIAMCINOLO NE ACETONIDE (triamcinol one acetonide), 0.1 %, OINT. (G), TOPICAL, [email or web address] PHARMA, 454 g JAR Active [id number] 4 2023 454 Pharmac y Data Transac tion Service Facilit y TRIAMCINOLO NE ACETONIDE (triamcinol one acetonide), 0.5 %, CREAM (G), TOPICAL, [facility], 15 g TUBE Active [id number] 4 2023 15 Pharmac y Data Transac tion Service Facilit y Allergies, Adverse Reactions, Alerts Combined list of allergies from Department of Defense and Veterans Affairs facilities. It does not include entries that were removed or entered in error. Substance Category Reaction Severity Reaction type Status Date Reported Comments Source LISINOPRIL Drug allergy (disorder) active 3 [facility] Immunizations Combined list of available immunizations from the Department of Defense and Veterans Affairs facilities. Immunization Series Date Given Administered By Site Reaction Lot Number CVX Code Drug Shrub Grower Status Comments Source COVID-19 (MODERNA), MRNA, LNP-S, PF, 100 MCG/0.5 ML DOSE 2 2020 207 complet ed MOD; [id number]; 1 [facility] COVID-19 (MODERNA), MRNA, LNP-S, PF, 100 MCG/0.5 ML DOSE 1 2020 207 complet ed MOD; [id number]; 1 [facility] FLU,3 YRS (HISTORICAL) 2005 88 complet ed [facility] TD(ADULT) UNSPECIFIED FORMULATION 2005 CARLOS BRADLEY 139 complet ed [facility] FLU,3 YRS (HISTORICAL) 2003 CARLOS BRADLEY 88 complet ed [facility] FLU,3 YRS (HISTORICAL) 2000 CANDELARIA DURAN RET 88 complet ed [facility] Social History Combined list of available smoking, tobacco, and other social history from Department of Defense and Veterans Affairs facilities. Social History Type Response Date Comment Source Tobacco smoking status NHIS HISTORY OF SMOKING 02/17/2004 [facility] History of tobacco use HISTORY OF SMOKING 03/05/2003 quit-10 yrs [facility] History of tobacco use HISTORY OF SMOKING 02/05/2002 quit 10 years ago - prior hx: smoked 2 - 2.5 ppd x 15 years [facility] History of tobacco use QUIT TOBACCO USE > 7 YEARS AGO 10/02/2001 [facility] History of tobacco use HISTORY OF SMOKING 12/05/2000 used to be heavy smoker [facility] This section is an empty social history section. DoD
--- OUTSIDE RECORDS SUMMARY | 2024-06-07 01:23 | XMS_ITS ---
Author Organization [facility] Address [address] [place] [address] Care Team Providers Care Motorized Squad Sergeant Name Role Phone Marcella Farah M.D Primary Care Provider Coby Herring [phone] REASON FOR VISIT BUY Betadine Encounters Encounter Location Date Provider Diagnosis [address] [address] 04/10/2024 Coby Stevenson Plan Of Treatment No Information Progress Notes * Bill JETER IIDOB: [birth year] (69 yo M)Acc No.[id number]:04/10/2024 Patient:?Bill Jeter :1955???Age:69 Y???Sex:Male Address:[address] [place] [address] * true * Date:? Generated for Trevin smallwood/Sarai/eTransmitting on:?06/07/2024 01:22 AM EST
== END 2024-06-06 11:39 | disposition home or self-care (01) ==
PROVIDERS: PCP Internal Medicine; Visit Provider Internal Medicine Cardiovascular Disease
DX: R06.00 Dyspnea, unspecified (principal); I10 Essential (primary) hypertension; I48.92 Unspecified atrial flutter
CPT/HCPCS: 99214

== ENCOUNTER → 2024-06-06 11:01 | Outpatient (BNVA) | payer MEDICARE, OTHER, SELFPAY | PROVIDERS: PCP Internal Medicine; Visit Provider Internal Medicine Cardiovascular Disease | DX: I10 Essential (primary) hypertension (principal); I48.92 Unspecified atrial flutter; R06.00 Dyspnea, unspecified; Z79.01 Long term (current) use of anticoagulants | CPT/HCPCS: 99212 ==

== ENCOUNTER 2024-06-25 14:31 | Outpatient (AMB) | payer MEDICARE, OTHER, SELFPAY ==
--- OUTSIDE RECORDS SUMMARY | 2024-06-25 14:33 | XMS_ITS | Continuity of Care Document ---
Author Organization [facility] Address [address] [place] [address]- Care Team Providers Care Lyric Writer Name Role Phone Sofi BELLE, Marcella Primary Care Physician [place] [facility] [place]17[place]24 - 06/16/24 [facility] [address] [place] [address]- Encounter Type: Triage Allergies, Adverse Reactions, Alerts No Known Medication Allergies Immunizations Given and Recorded Vaccine Date Status Refusal Reason SARS-CoV-2 (COVID-19) mRNA-1383 vaccine 07/10/21 R ecorded Medications amLODIPine 10 [...] 1 Refills, Maintenance, 08/03/23 9:56:00 AM EST, [place], [facility], Partial fill [...] 03/01/24 9:17:00 AM EDT, [place], [facility], Partial fill upon patient request [...] 03/01/24 9:17:00 AM EDT, [place], [facility], Partial fill upon patient request [...] Team Personnel Name: Lianne Sánchez RN Position: [facility] dance choreographer Member Role: Automobile Body Repairer Name: Mitra Turpin RN Position: [facility] RN Member Role: Primary Care Nurse Name: Beth Raya RN Position: S RN Member Role: Primary Care Nurse Name: Marcella Farah MD Position: [facility] Physician - Primary Care Member Role: PCP Address: [address] [place] [id number] Telecom: Name: Bethany Whitehead RN Position: [facility] RN Member Role: Primary Care Nurse Name: Thais Healy RN Position: [facility] RN Member Role: Primary Care Nurse Care Team Related Persons Name: ELLENBERNADETTE Insurance Providers Guarantor name: DANIELLE HUGHES Health Plan Information #: 1 Payer: MEDICARE PART B OUTPT Member Number: NA Policy Number: NA Group Number: NA Health Plan Information #: 2 Payer: FOR LIFE MCR A ONLY Member Number: NA Policy Number: NA Group Number: NA
--- OUTSIDE RECORDS SUMMARY | 2024-06-25 14:34 | XMS_ITS | Patient Health Record ---
Author Organization [facility] Address [address] [facility] [place] [address] Care Team Providers Care Unit Secretary Name Role Phone Marcella Farah M.D Primary Care Provider Unavailable Coby Stevenson Unavailable [phone] Allergies No Known Allergies Reason For Referral [...] Problem Acquired hammer toe of right foot (508502967934772 5) Other hammer toe(s) (acquired), right foot (M20.41) Active confirmed Problem Acquired hammer toe of left foot (568776286182355 3) Other hammer toe(s) (acquired), left foot (M20.42) Active confirmed Problem Acquired hammer toe of right foot (817888829306386 5) Hammer toe of right foot (M20.41) Active confirmed Improvement Problem Acquired hammer toe of left foot (076783925449269 3) Hammer toe of left foot (M20.42) Active confirmed Improvement Problem Atherosclerosis of [place] artery of both lower extremities, with unspecified presence of clinical manifestation (I70.203) Active confirmed Problem Spasm (22413916) Extensor tendon tightness, contracture (M62.40) Active confirmed Improvement Problem Ulcer of toe of right foot (disorder) (593023905987520 01) Skin ulcer of toe of right foot, limited to breakdown of skin (L97.511) Active confirmed Response to treatment Problem Localized, primary osteoarthritis of the ankle and/or foot (867510071) Arthritis of joint of lesser toe, left (M19.072) Active confirmed Problem Localized, primary osteoarthritis of the ankle and/or foot (375090699) Arthritis of joint of lesser toe, right (M19.071) Active confirmed Problem Ulcer of toe of left foot (disorder) (850827637145827 02) Skin ulcer of toe of left [...] 05/23/2024 Encounters Encounter Location Date Provider Diagnosis [facility] [address] [place] [address] 01/17/2024 Coby Stevenson Other hammer toe(s) (acquired), left foot M20.42 ; Ischemic ulcer of left foot, limited to breakdown of skin L97.521 ; Atherosclerosis of [place] artery of both lower extremities, with unspecified presence of clinical manifestation I70.203 ; Other hammer toe(s) (acquired), right foot M20.41 ; Arthritis of joint of lesser toe, right M19.071 ; Arthritis of joint of lesser toe, left M19.072 and Subluxation of metatarsophalangeal joint of toe, initial encounter S93.149A [address] [address] 04/03/2024 Coby Perica Skin ulcer of toe of left foot, limited to breakdown of skin L97.521 and Hammer toe of left foot M20.[address] [address] 04/10/2024 Coby Perica Hammer toe of right foot M20.41 and Hammer toe of left foot M20.[address] [address] 05/16/2024 Coby Perica Hammer toe of right foot M20.[address] [address] 05/23/2024 Coby Perica Hammer toe of right foot M20.[address] [address] 01/17/2024 Coby Perica [address] [address] 04/10/2024 Coby Perica Assessments Encounter Date Diagnosis [...] (ICD-10 - M20.41) Improvement 01/17/2024 Atherosclerosis of [place] artery of both lower extremities, with unspecified [...] [employer] [address] [facility] [address] [id number] Bill Jeter Self - patient is the insured [employer] [address] [place] [address] [phone] [id number] Bill Jeter Self - patient is the insured Medical (General) History Medical History History ICD Code Depression High blood pressure Measles Chicken pox Heart attack 2022 Surgical History Surgery Date(Month/Year) amputation finger 2022
--- OUTSIDE RECORDS SUMMARY | 2024-06-25 14:34 | XMS_ITS ---
Author Organization [facility] Address [address] [place] [address] Care Team Providers Care Commercial Front Load Operator Name Role Phone Marcella Farah M.D Primary Care Provider Coby Herring [phone] REASON FOR VISIT BUY Betadine Encounters Encounter Location Date Provider Diagnosis [address] [address] 04/10/2024 Coby Stevenson Plan Of Treatment No Information Progress Notes * Bill JETER IIDOB: [birth year] (69 yo M)Acc No.[id number]:04/10/2024 Patient:?Bill Jeter :1955???Age:69 Y???Sex:Male Address:[address] [place] [address] * true * Date:? Generated for Trevin smallwood/Sarai/eTransmitting on:?06/25/2024 02:34 PM EST
--- OUTSIDE RECORDS SUMMARY | 2024-06-25 14:34 | XMS_ITS ---
Author Organization [facility] Address [address] [place] [address] Care Team Providers Care Shingle Shearing Machine Operator Name Role Phone Marcella Farah M.D Primary Care Provider Unavailable Coby Stevenson Unavailable [phone] Allergies No Known Allergies REASON FOR VISIT [...] non-user Ex-cigaret te smoker Vital Signs Height 3hi24gg in 05/16/2024 Weight 280 lbs 05/16/2024 BMI 40.17 kg/m2 05/16/2024 Blood pressure systolic 130 mm Hg 05/16/20 24 Blood pressure diastolic 80 mm Hg 024 Encounters Encounter Location Date Provider Diagnosis [facility] [address] [place] [address] 05/16/2024 Coby Stevenson Hammer toe of right foot M20.41 Assessments Encounter Date Diagnosis (ICD Code) Assessment Notes Treatment Notes Treatment Clinical Notes Section Notes 05/16/2024 Hammer toe of right foot (ICD-10 - M20.41) Plan Of Treatment Next Appt Details Follow Up: 1 Week, Reason: Procedure Notes * Category Sub-Category Detail Notes Podiatry Procedure Tenotomy - Flexor (14568) LOC ATION : T7 INDICATIONS : a [...] Bill JETER IIDOB: [birth year] (69 yo M)Acc No.[id number]:05/16/2024 Patient:?Bill JETER BRODY Provider:?Coby Stevenson DPM :1955???Age:69 Y???Sex:Male Angel e:05/16/2024 Address:[address] [place] [address], [id number] Pcp:Kin Borja Subjective: * Chief Complaints: * [...] * Allergies:?N.K.D.A.yes[Aller gies Verified] Objective: * Vitals:?Ht: 2bt77gq, Wt:280, BMI:40.17, Shoe size: 9, BP:130/80mm Hg, [...] * Treatment: * Procedures:?Podiatry Procedure:?Tenotomy - Flexor (22427)?LOCATION : T7 INDICATIONS : a painful non-rigid [...] dry until the next visit.? * Procedure Codes:?92636 INCIS ION OF FOOT TENDON(S) * Preventive [...] Stevenson DPM Date:? Generated for Trevin smallwood/Sarai/eTransmitting on:?06/25/2024 02:33 PM EST History and Physical Notes * Examination Category Sub-Category Detail Notes Category Not es Dermatologic SKIN FINDINGS: Skin exam reveal s Keratotic lesion(s) located at , T7 , SUB MTH (s) , 3 , Right Orthopedic DIGITAL DEFORMITIES: Digital con tracture, PIPJ, incompl-reducible with WB or to push-up test, T7 Vascular DP PULSES (B): 2/4 , B/L PT PULSES (B): 0/4, B/L CAPILLARY FILL TIME: delayed, all digits , B/L TEMPERTURE GRADIENT (C): decreased, prox imal to distal, B/L, cool to cool TROPHIC CONDITION-TEXTURE/ELASTICITY/TURGOR/HAIR GROWTH (B): decreased, B/L EDEMA (C): absent, B/L CLAUDICATION (C): denies, B/L REST PAIN: denies, B/L PIGMENTATION: brawny , B/L
--- OUTSIDE RECORDS SUMMARY | 2024-06-25 14:34 | XMS_ITS ---
[facility] Address [address] [place] [address] Care Team Providers Care Hog Scraper Name Role Phone Marcella Farah M.D Primary Care Provider Unavailable Coby Stevenson Unavailable [phone] Allergies No Known Allergies REASON FOR VISIT [...] 05/23/2024 Encounters Encounter Location Date Provider Diagnosis [facility] [address] [place] [address] 05/23/2024 Coby Stevenson Hammer toe of right [...] Bill JETER IIDOB: [birth year] (69 yo M)Acc No.[id number]:05/23/2024 Patient:?Bill JETER II Provider:?Coby Stevenson DPM :1955???Age:69 Y???Sex:Male Angel e:05/23/2024 Address:[address] [place], [place] [id number] Pcp:Kin Borja Subjective: * Chief Complaints: * [...] ?Exercise: no. ?Marital status: . 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 * Medications:?TakingSertralin e HCl 100 MG Tablet [...] Stevenson DPM Date:? Generated for Trevin smallwood/Sarai/Babita on:?06/25/2024 02:33 PM EST History and Physical Notes * HPI [...]
--- OUTSIDE RECORDS SUMMARY | 2024-06-25 14:34 | XMS_ITS | Continuity of Care Document ---
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 Medication Details Route Status Patient Instructions Prescription Expires Prescription Number Last Dispense Date Ordering Provider Order Date Order Qty Source AMLODIPINE BESYLATE (AMLODIPINE BESYLATE), 10 MG, TABLET, ORAL, [employer] 90 ea. BOTTLE Active [id number] 4 2023 90 Pharmac y Data Transac tion Service Facilit y AMLODIPINE BESYLATE (AMLODIPINE BESYLATE), 10 MG, TABLET, ORAL, [employer] 90 ea. BOTTLE Active [id number] 4 2023 90 Pharmac y Data Transac tion Service Facilit y AMLODIPINE BESYLATE (AMLODIPINE BESYLATE), 10 MG, TABLET, ORAL, Therative, 1000 ea. BOTTLE Cancele d [id number] : 2023 0 Pharmac y Data Transac tion Service Facilit y CARVEDILOL (carvedilol ), 6.25 MG, TABLET, ORAL, [employer] 500 ea. BOTTLE Active [id number] 4 2023 180 Pharmac y Data Transac tion Service Facilit y CARVEDILOL (carvedilol ), 6.25 MG, TABLET, ORAL, [employer] 500 ea. BOTTLE Active [id number] 4 2023 180 Pharmac y Data Transac tion Service Facilit y DOXYCYCLINE HYCLATE (DOXYCYCLIN E HYCLATE), 100 MG, CAPSULE, ORAL, [facility] [place]., 500 ea. BOTTLE Active [id number] 2023 10 Pharmac y Data Transac tion Service Facilit y DOXYCYCLINE HYCLATE (DOXYCYCLIN E HYCLATE), 100 MG, CAPSULE, ORAL, [facility] [place] 500 ea. BOTTLE Active [id number] 2023 20 Pharmac y Data Transac tion Service Facilit y DOXYCYCLINE MONOHYDRATE (DOXYCYCLIN E MONOHYDRATE ), 100 MG, TABLET, ORAL, [employer] [facility], 50 ea. BOTTLE Active [id number] 2023 60 Pharmac y Data Transac tion Service Facilit y ELIQUIS (APIXABAN), 5 MG, TABLET, ORAL, [facility] , 60 ea. BOTTLE Active [id number] 2022 180 Pharmac y Data Transac tion Service Facilit y ELIQUIS (APIXABAN), 5 MG, TABLET, ORAL, [facility] , 60 ea. BOTTLE Active [id number] 4 2023 180 Pharmac y Data Transac tion Service Facilit y ELIQUIS (APIXABAN), 5 MG, TABLET, ORAL, [facility] , 60 ea. BOTTLE Active [id number] 4 2023 180 Pharmac y Data Transac tion Service Facilit y FLUTICASONE PROPIONATE (FLUTICASON E PROPIONATE) , 50MCG, SPRAY SUSP, NASAL, APOTEX FIDEL, 16 g AER W/ADAP Active [id number] 2023 16 Pharmac y Data Transac tion Service Facilit y FUROSEMIDE (furosemide ), 20 MG, TABLET, ORAL, [employer], 1000 ea. BOTTLE Cancele d [id number] : 2023 0 Pharmac y Data Transac tion Service Facilit y FUROSEMIDE (furosemide ), 20 MG, TABLET, ORAL, [employer], 1000 ea. BOTTLE Active [id number] 2023 90 Pharmac y Data Transac tion Service Facilit y FUROSEMIDE (furosemide ), 20 MG, TABLET, ORAL, [employer], 1000 ea. BOTTLE Active [id number] 2023 90 Pharmac y Data Transac tion Service Facilit y FUROSEMIDE (furosemide ), 20 MG, TABLET, ORAL, [employer], 1000 ea. BOTTLE Active [id number] 4 2023 90 Pharmac y Data Transac tion Service Facilit y FUROSEMIDE (furosemide ), 20 MG, TABLET, ORAL, [employer], 1000 ea. BOTTLE Active [id number] 2023 90 Pharmac y Data Transac tion Service Facilit y HYDROXYZINE HCL (HYDROXYZIN E HCL), 10 MG, TABLET, ORAL, [facility], 100 ea. BOTTLE Active [id number] 2023 80 Pharmac y Data Transac tion Service Facilit y HYDROXYZINE HCL (HYDROXYZIN E HCL), 25 MG, TABLET, ORAL, [employer], 100 ea. BOTTLE Active [id number] 2023 240 Pharmac y Data Transac tion Service Facilit y HYDROXYZINE HCL (HYDROXYZIN E HCL), 25 MG, TABLET, ORAL, [employer], 100 ea. BOTTLE Active [id number] 2023 40 Pharmac y Data Transac tion Service Facilit y JARDIANCE (EMPAGLIFLO ZIN), 10 MG, TABLET, ORAL, [employer] 90 ea. BOTTLE Active [id number] 2023 90 Pharmac y Data Transac tion Service Facilit y JARDIANCE (EMPAGLIFLO ZIN), 10 MG, TABLET, ORAL, [employer]., 90 ea. BOTTLE Active [id number] 4 2023 90 Pharmac y Data Transac tion Service Facilit y PREDNISONE (prednisone ), 20 MG, TABLET, ORAL, [facility], 100 ea. BOTTLE Active [id number] 2023 10 Pharmac y Data Transac tion Service Facilit y SERTRALINE HCL (SERTRALINE HCL), 100MG, TABLET, ORAL, [employer] [facility], 500 ea. BOTTLE Active [id number] 2023 180 Pharmac y Data Transac tion Service Facilit y SERTRALINE HCL (SERTRALINE HCL), 100MG, TABLET, ORAL, [employer] [facility], 500 ea. BOTTLE Active [id number] 2023 180 Pharmac y Data Transac tion Service Facilit y SPIRONOLACT ONE (spironolac tone), 25 MG, TABLET, ORAL, MIKAYLA RANCH [place], 100 ea. BOTTLE Active [id number] 4 2023 90 Pharmac y Data Transac tion Service Facilit y SPIRONOLACT ONE (spironolac tone), 25 MG, TABLET, ORAL, MIKAYLA RANCH [place], 100 ea. BOTTLE Active [id number] 4 2023 90 Pharmac y Data Transac tion Service Facilit y TACROLIMUS (TACROLIMUS ), 0.1 %, OINT. (G), TOPICAL, [employer] 100 g TUBE Active [id number] 2023 100 Pharmac y Data Transac tion Service Facilit y TRIAMCINOLO NE ACETONIDE (TRIAMCINOL ONE ACETONIDE), 0.1 %, CREAM (G), TOPICAL, [facility], 454 g TUBE Active [id number] 4 2023 454 Pharmac y Data Transac tion Service Facilit y TRIAMCINOLO NE ACETONIDE (triamcinol one acetonide), 0.1 %, OINT. (G), TOPICAL, [email or web address] [facility], 454 g JAR Active [id number] 4 2023 454 Pharmac y Data Transac tion Service Facilit y TRIAMCINOLO NE ACETONIDE (triamcinol one acetonide), 0.5 %, CREAM (G), TOPICAL, [facility], 15 g TUBE Active [id number] 4 2023 15 Pharmac y Data Transac tion Service Facilit y Allergies, Adverse Reactions, Alerts Combined list of allergies from Department of Defense and Veterans Affairs facilities. It does not include entries that were removed or entered in error. Substance Category Reaction Severity Reaction type Status Date Reported Comments Source LISINOPRIL Drug allergy (disorder) active 3 [facility] Immunizations Combined list of available immunizations from the Department of Defense and Veterans Affairs facilities. Immunization Series Date Given Administered By Site Reaction Lot Number CVX Code Drug Bicycle Racer Status Comments Source COVID-19 (MODERNA), MRNA, LNP-S, PF, 100 MCG/0.5 ML DOSE 2 2020 207 complet ed MOD; [id number]; 1 [facility] COVID-19 (MODERNA), MRNA, LNP-S, PF, 100 MCG/0.5 ML DOSE 1 2020 207 complet ed MOD; [id number]; 1 [facility] [...] SMOKING 02/17/2004 [facility] History of tobacco use HISTORY OF SMOKING 03/05/2003 quit-10 yrs [facility] History of tobacco use HISTORY OF SMOKING 02/05/2002 quit 10 years ago - prior hx: smoked 2 - 2.5 ppd x 15 years [facility] History of tobacco use QUIT TOBACCO USE > 7 YEARS AGO 10/02/2001 [facility] History of tobacco use HISTORY OF SMOKING 12/05/2000 used to be heavy smoker [facility] This section is an empty social history section. DoD
--- NOTE | 2024-06-25 14:57 | MHC.OFFVIS ---
Intake Visit Reasons: vague LUTS syptoms Intake Note: New Patient presents for initial visit for urinary frequency Urology Medications: none Blood Thinner: apixaban PVR: 65ml's Family Development Extension Specialist Required: No Accompanied by: Self / Same As Patient Allergies No Known Allergies Allergy (Verified 06/25/24 20:36) Medication List - Last Reconciled 06/25/24 by SUZANNE Pan amlodipine 10 mg PO DAILY apixaban (Eliquis) 5 mg PO BID carvedilol 6.25 mg PO BID CPAP (CPAP Machine/Device) As directed empagliflozin (Jardiance) 10 mg PO DAILY furosemide 20 mg PO DAILY 90 days sertraline 50 mg PO DAILY spironolactone 25 mg PO DAILY tamsulosin 0.4 mg PO BEDTIME 30 days HPI Comments Details: Bill is a very pleasant 69-year-old male patient of . He has a past medical history of sleep apnea on CPAP, morbid obesity, atrial flutter, congestive heart failure, NSTEMI 2022, and takotsubo. He presents to the office today as a new patient for his ongoing lower urinary tract symptoms. In discussion with the patient today he reports feeling lower urinary tract symptoms have been present for approximately 6 months however feels they are worsening. He reports noting urinary urgency, urinary frequency, and stress incontinence if not near a bathroom. He also reports noting episodes of nocturia up to 3 times per night. He does report to be compliant with his CPAP machine for his sleep apnea. He otherwise denies hematuria, dysuria, foul smelling urine, changes to urinary stream, flank pain, fever, and or chills. In office urinalysis results reviewed with the patient today. PVR 65 mL. We discussed at length potential causes of lower urinary tract symptoms patient was experiencing. He has had a recent abdominal ultrasound 05/20 bilateral kidneys with no hydronephrosis, renal calculi, and or focal lesions noted. We discussed obtaining bladder ultrasound for further assessment evaluation as well as PSA. We discussed further treatment options of these lower urinary tract symptoms. All questions were answered. He otherwise offers no other issues or concerns at this time. [facility] Medical History TED on CPAP Dyspnea on exertion Morbid obesity Surgical History History of amputation of finger of right hand History of surgery Hx of colonoscopy History of cardiac cath H/O vasectomy Family History Father HTN (hypertension) Mother HTN (hypertension) Social History Alcohol intake: current Alcohol intake frequency: holidays/special occasions only Patient Tobacco Use Status: Former Tobacco user Years Smoked: 20+ Review of Systems Const All systems reviewed & are unremarkable except as noted in HPI and below Reports no additional complaints Eyes Reports no additional complaints ENT Reports no additional complaints Card Reports as per HPI Resp Reports as per HPI GI Reports no additional complaints Reports as per HPI Musc Reports no additional complaints Neuro Reports no additional complaints Psych Reports no additional complaints Endo Reports no additional complaints Juan/Lymph Reports no additional complaints Aller/Immun Reports no additional complaints Physical Exam Const General: cooperative, healthy appearing, comfortable, no acute distress, well developed, alert and awake Nutritional Appearance: obese Orientation/consciousness: patient oriented x3 Limitations: no limitations HEENT Head: Yes normal to inspection, Yes normocephalic and Yes atraumatic Ears: hearing grossly normal bilaterally Eyes General: appearance normal, both eyes and all related structures Neck Neck: Yes normal visual inspection and Yes trachea midline Chest Chest palpation & inspection: normal inspection of the chest Resp Effort & Inspection: normal respiratory effort and able to speak in complete sentences Cardio Rate: regular rate GI Inspection: Yes normal to inspection General: Yes no CVA tenderness Back/Spine/Pelvis Back: no CVA tenderness Skin General skin exam: no rashes or lesions noted Neuro General: patient oriented x3 Extrem General: Yes normal to inspection Psych Appearance: grossly normal and well kempt Mental Status: mental status grossly normal Speech and movement: Normal speech and movement present and Clear speech present Affect: normal affect Attitude: cooperative Thought process: Normal thought process present Thought content: Normal thought content present Insight: Fair insight present (Psych) Judgement: Fair judgement present (Psych) Office Procedures Post Void Residual Post Residual Void Post Void Residual (PVR): [id number] Void Residual by ultrasound Results AMB Urinalysis, Automated UA Leukoctes 0 Brent/uL Last Edit by Halle Yi on 06/25/24 16:03 UA Nitrite Last Edit by Halle Yi on 06/25/24 16:03 UA Urobilinogen 0.2 mg/dL Last Edit by Palamidanaun Jimenez on 06/25/24 16:03 UA Protein 15 mg/dL Last Edit by Halle Jimenez on 06/25/24 16:04 UA [facility]:04 UA pH 6.0 Last Edit by Halle [facility] on 06/25/24 16:03 UA Blood 0 Leroy/uL Last Edit by Halle [facility] on 06/25/24 16:03 UA Specific [place] 1.025 Last Edit by Palamidanaun Flexiro[employer] on 06/25/24 16:04 UA Specific [place] previously reported as 1.020 [employer] 06/25/24 16:04 UA Ketone Last Edit by Halle [employer] on 06/25/24 16:03 UA Bilirubin 0 mg/dL Last Edit by [employer] on 06/25/24 16:03 UA Glucose 0 mg/dL Last Edit by Palamidanaun Flexiroam on 06/25/24 16:03 Results Reviewed Results Reviewed: Laboratory Last Values Urine pH (Auto) 6.0 06/25/24 16:01 Specific [place] (Auto) 1.025 06/25/24 16:01 Urine Protein (Auto) 15 mg/dL 06/25/24 16:01 Glucose (UA)(Auto) 0 mg/dL 06/25/24 16:01 Urine Blood (Auto) 0 Leroy/uL 06/25/24 16:01 Urine Bilirubin (Auto) 0 mg/dL 06/25/24 16:01 Urine Urobilinogen (Auto) 0.2 mg/dL 06/25/24 16:01 Leukocyte Esterase (Auto) 0 Brent/uL 06/25/24 16:01 Assessment & Plan Assessment & Plan (1) Urinary frequency: Code(s): R35.0 - Frequency of micturition Category: Medical (2) Urinary urgency: Code(s): R39.15 - Urgency of urination Category: Medical (3) Nocturia: Code(s): R35.1 - Nocturia Category: Medical (4) Lower urinary tract symptoms (LUTS): Code(s): R39.9 - Unspecified symptoms and signs involving the genitourinary system Category: Medical Plan In office urinalysis results reviewed with the patient today; as noted above. PVR 65 mL. Will obtain bladder ultrasound for further assessment evaluation. We discussed at length importance of weight loss in relation to lower urinary tract symptoms as well as overall health and well-being. Will obtain PSA for further assessment evaluation. Start Flomax as discussed and prescribed. We discussed bladder triggers/irritants. We discussed possible near future in office cystoscopy and or urodynamics for further assessment evaluation. Discussed importance of timed/scheduled voiding to decreased episodes of incontinence. Follow-up in 1-3 months with imaging, PVR, and PSA; or sooner with any issues, concerns, and or questions. Orders: Orders Prostate Specific Antigen Today N40.0 - Benign prostatic hyperplasia without lower urinary tract symptoms AMB Urinalysis Automated Today Z13.9 - Encounter for screening, unspecified AMB Post Void Residual by ultrasound Today R35.0 - Frequency of micturition US bladder Today R35.0 - Frequency of micturition, R39.15 - Urgency of urination Medications: New tamsulosin 0.4 mg PO BEDTIME 30 days 30 caps 3RF N40.1 - Benign prostatic hyperplasia with lower urinary tract symptoms, R35.1 - Nocturia Patient Instructions: The patient had an opportunity to ask questions regarding the treatment plan. All questions were answered. Physical exam, labs, and imaging were discussed and reviewed in detail. As well as risks, benefits, and discussion of treatment choices. No major barriers to understanding were identified. The patient expressed understanding and agreement with the above treatment plan. The patient was made aware they should contact our office by phone for worsening of their current condition, the appearance of new symptoms, or with any questions or concerns. Compliance is encouraged with any medications and follow up testing that is ordered. It is a privilege to be allowed the opportunity to participate in? your urological care.? Again, if you have any questions or concerns If you have any questions or concerns please do not hesitate to contact me. The office is [phone]. This note is constructed using voice recognition software. While every effort has been made to ensure accuracy digital analytics manager errors may have been included. Yours sincerely, SUZANNE Pan Coding Level of Care Code New Pt Level 4 (81337) Diagnoses Urinary frequency R35.0 Urinary urgency R39.15 Nocturia R35.1 Lower urinary tract symptoms (LUTS) R39.9 CPT Codes Post Residual Void - PVR CPT Code: 37212-Whuh Void Residual by ultrasound ([id number])
== END 2024-06-25 15:32 | disposition home or self-care (01) ==
PROVIDERS: PCP Internal Medicine; Visit Provider Nurse Practitioner Family
DX: R35.0 Frequency of micturition (principal); R39.15 Urgency of urination; R35.1 Nocturia; R39.9 Unspecified symptoms and signs involving the genitourinary system; Z13.9 Encounter for screening, unspecified
CPT/HCPCS: 99204

== ENCOUNTER → 2024-06-25 14:31 | Outpatient (BNVA) | payer MEDICARE, OTHER, SELFPAY | PROVIDERS: PCP Internal Medicine; Visit Provider Nurse Practitioner Family | DX: R39.15 Urgency of urination (principal); R35.0 Frequency of micturition; R35.1 Nocturia; R39.9 Unspecified symptoms and signs involving the genitourinary system | CPT/HCPCS: 51798; 81003; 99202 ==

== ENCOUNTER 2024-08-16 10:19 | Outpatient (REF) | payer MEDICARE, OTHER, SELFPAY ==
--- NOTE | ~2024-08-16 | US_ITS ---
EXAMINATION: US PELVIS LIMITED (BLADDER) CLINICAL INFORMATION: Urgency of urination. COMPARISON: None available. TECHNIQUE: Real-time imaging of the bladder. FINDINGS: BLADDER: Fluid-filled with small volume. Bilateral ureteral jets are demonstrated. Prevoid bladder volume is 150 mL. Postvoid bladder volume is 22 mL. Prostate gland is not enlarged measures 4 cm with a volume: 24 cc. US/US bladder IMPRESSION: 22 cc residual urine in a post void image.. Electronically signed by: Andrea So MD 08/16/2024 03:17 PM LAURY CULLEN
--- OUTSIDE RECORDS SUMMARY | 2024-08-16 11:24 | XMS_ITS ---
Author Name Department [place] Organization [place] Address [address] [place] [id number] Support Name Relationship Address Phone BLANCA HUGHES Next of Kin [address] [place], [place] [phone] BLANCA HUGHES Emergency Contact [address] [place] [address] Insurance Providers: All historical and [...] Name Patient's Relationship to Policy Dunbar MEDICARE ([facility]) MEDICARE (M) PART A Jun 27, 2020 PART A [id number] ALEAH HUGHES PATIENT MEDICARE (WN) MEDICARE (M) PART B Jun 27, 2020 PART B [id number] ALEAH HUGHES PATIENT [facility] 2018 SELEC T Jun 27, 2017 ([facility]) SELECT [id number] 51 ALEAH HUGHESY PATIENT FOR LIFE TFL* Jun 27, 2017 [id number] ELLEN,ALEAH MONGEY PATIENT Selected Encounter This section includes the information on record at [place] for the Encounter. Date/Time Encounter Type Encounter Description Reason Provider Source Jul 12, 2024 04:00 PM HEARING AID XM&SLCTN [facility]INAURL AUDIOLOGY ICD-10-CM H90.3 Sensorineural hearing loss, bilateral SENIOR,PATRICIA L IHE Encounter Template Text not used by [place] Assessments - Encounter Diagnoses This section includes the primary and secondary diagnoses documented for the Encounter. Date/Time Primary/Secondary Diagnosis Diagnosis Name Provider Source Jul 12, 2024 04:43 PM PRIMARY Sensorineural hearing loss, bilateral PATRICIA CYR [facility] Jul 12, 2024 04:43 PM SECONDARY Tinnitus, bilateral PATRICIA CYR [facility] Plan of Treatment: Future Appointments (+ 6 months) and Future Tests (+/- 45 days) The Plan of Treatment section includes future care activities for the patient [facility] [place] [facility] This section includes future appointments and future orders which are active, pending or scheduled. Future Appointments This section includes appointments that were scheduled to occur 6 months from the date of the Encounter, up to a maximum of 20 appointments. The data comes from all [place] treatment facilities. Appointment Date/Time Appointment Type Appointme nt Facility Name Oct 22, 2024 11:00 AM AMBULATORY - MEDICINE [facility] Active, Pending, and Scheduled Orders This section includes a listing of several types of active, pending, and scheduled orders, including clinic medications orders, diagnostic test orders, procedure orders and consult orders; where the start date of the order is 45 days before the date of the Encounter or 45 days after the date of theEncounter. The data comes from all [place] treatment facilities. Test Date/Time Test Type Test Details Facility Name Aug 07, 2024 02:16 PM Consult Order OTOLARYNGO LOGY/ENT ONE Cons Residential Appraiser's Choice [facility] Social History: Smoking Status (Most current) and Tobacco Use (All prior to encounter date) This section includes the most current, and the historical, smoking and tobacco- related health factors from the [place] facility where the Encounter took place. Current Smoking Status This section includes the most current smoking, or tobacco-related health factor, from the [place] facility where the Encounter took place. Date/Time Current Smoking Status Comment Facil ity Feb 17, 2004 09:49 AM HISTORY OF SMOKING [facility] Tobacco Use History This section includes a history of the smoking, or tobacco-related health factors, that were collected on or before the date of the Encounter. The data comes from the [place] facility where the Encounter took place. Date/Time Smoking Status/Tobac co Use Comment Facility Mar 05, 2003 11:21 AM HISTORY OF SMOKING quit-10 yrs [facility] Feb 05, 2002 02:23 PM HISTORY OF SMOKING quit 10 years ago - prior hx: smoked 2 - 2.5 ppd x 15 years [facility] Oct 02, 2001 01:47 PM QUIT TOBACCO USE > 7 YEARS AGO [facility] Dec 05, 2000 09:32 AM HISTORY OF SMOKING used to be heavy smoker [facility] Encounter Notes: All associated encounter notes This section contains the clinical notes associated to the Encounter. Date/Time Encounter Note(s) Provider Source Jul 12, 2024 07:53 AM AUDIOLOGY E [facility] T[facility] AUDIOLOGY CLINIC STANDARD TITLE: AUDIOLOGY E & M NOTE DATE OF NOTE: JUL 12, 2024@07:53 ENTRY DATE: JUL 12, 2024@07:53:13 AUTHOR: PATRICIA CYR COSIGNER: URGENCY: STATUS: COMPLETED Dx CODE: H90.3-Sensorineural Hearing Loss, Bilateral APPOINTMENT TYPE: Hearing Re-Evaluation and Hearing Aid Selection BACKGROUND/HISTORY: [facility] was seen today for a hearing re-evaluation and hearing aid selection appointment, unaccompanied. He was fit on 07/27/19 with GEETA HAILY AI DIANA 312s and reports a decline in benefit from these devices. He notes that they have become intermittent. He is eligible for new hearing aids through the [place] due to the age of the current [...] AID SELECTION: In order to save the [facility] a trip back for a hearing aid selection, this was completed today. is interested in hearing aids similar to his current pair. He would prefer to remain with size 312 batteries. Once is cleared for hearing aid use, a pair of Geeta Edge AI DIANA 312s will be ordered in [facility] in the [facility] with size 4 M receivers and canal [...] will be ordered as indicated above and [facility] will be contacted to schedule a 60 min hearing aid fitting. Patient Education Education provided on the following topics: Hearing test results Education provided to: P Response to Education: VU Sutton Patient P Family F Significant Other SO Verbalizes Understanding VU Returns Demonstration RD Performs Independently PI Lacks Comprehension LC Refused Education RE Not Applicable NA Suicide Screen: C-SSRS Screening [place]-Suicide Severity Rating Scale (C-SSRS Screener) 1. Over [...] required due to responses to other questions. /loretta/ MAYTE PANG, [facility]-A STAFF LEATHER CRAFTER Signed: 07/12/2024 16:44 PATRICIA CYR [facility]
--- OUTSIDE RECORDS SUMMARY | 2024-08-16 11:25 | XMS_ITS | Continuity of Care Document ---
Author Organization [facility] Adult Address [address] [place] [address]- Care Team Providers Care Manager Mental Health Name Role Phone Sofi BELLE, Marcella [id number] Date[facility]s): 08/03/24 - 08/10/24 [facility] [address] [place] [address]- Encounter Diagnosis History of respiratory failure(Discharge Diagnosis) - 08/03/24 HTN - Hypertension(Discharge Diagnosis) - 08/03/24 TED - Obstructive sleep apnea(Discharge Diagnosis) - 08/03/24 Globus sensation(Discharge Diagnosis) - 08/03/24 Bronchitis(Discharge Diagnosis) - 08/03/24 Attending Physician: Marcella Farah MD Encounter Type: Office Visit Allergies, Adverse Reactions, Alerts No Known Medication Allergies Immunizations Given and Recorded Vaccine Date Status Refusal Reason influenza virus vaccine, inactivated 07/23/24 Give n SARS-CoV-2 (COVID-19) mRNA-[id number] vaccine 07/10/21 R ecorded tetanus-diphtheria toxoids (Td) 10/07/05 Recorded Medications Albuterol (Eqv-Ventolin HFA) 90 mcg/inh inhalation aerosol 2 inhalation = 180 mcg, Inhalation, Every 6 hours, PRN as needed for shortness of breath or wheezing, # 8.5 Gm, 1 Refills, Maintenance, 08/03/24 10:59:00 AM EST, Aerosol, [facility], Partial fill upon patient request if the prescription is for a schedule II opioid drug., 2 inhalation Inhalation Every 6 hours,PRN:as needed for shortness of breath or wheezing, 178, cm, 08/03/24 10:57 :00 EST, Height, 132, kg, 07/22/24 15:18:00 EST, Dry Weight Start Date: 08/03/24 Status: Ordered Quantity: 8.5 Unit: g Repeat number: 2 Indication: Bronchitis, not specified as acute or chronic amLODIPine 10 mg oral tablet 1 tablet, [...] using, # 16 Gm, 1 Refills, Maintenance, 07/24/24 9:03:00 AM EST, [place], [facility], Partial fill upon patient requestif the prescription is for a schedule II opioid drug., 178, cm, 07/23/24 11:24:00 EST, Height, 132,kg, 07/22/24 15:18:00 EST, Dry Weight Start Date: 07/24/24 Status: Ordered Quantity: 16.0 Unit: g Repeat number: 2 Indication: Postnasal drip furosemide 20 mg oral tablet 20 mg, 1, tablet, By Mouth, Daily, for 90 days, # 90 tablet, Refills 3, Tot. Refills 3, Acute 02/24/25 9:17:00 AM EDT, 03/01/24 9:17:00 AM EDT, Route to Pharmacy Electronically, [facility], Partial fill upon patient request if the prescription is for a schedule II opioid drug., 180, cm, 11/28/23 10:16:00 EDT, Height, 124.8, kg, 05/12/23 8:06:00 EST, Dry Weight Start Date: 03/01/24 Stop Date: 02/24/25 Status: Ordered Quantity: 90.0 Unit: tablet Repeat number: 4 Gabapentin = 300 mg, By Mouth, Daily, takes at bedtime, 0 Refills, Maintenance, 07/22/24 3:36:00 PM EST, Partial fill upon patient request if the prescription is for a schedule II opioid drug. Start Date: 07/22/24 Status: Ordered Repeat number: 1 hydrOXYzine hydrochloride 10 mg oral tablet 2 tablet = 20 mg, By Mouth, 4 times a day, PRN as needed for itching, # 80 tablet, 0 Refills, Maintenance, 03/01/24 9:17:00 AM EDT, Tablet, [facility], Partial fill upon patient request [...] 03/01/24 9:17:00 AM EDT, Tablet, [facility], Partial fill [...] Quantity: 90.0 Unit: tablet Repeat number: 4 tamsulosin 0.4 mg oral capsule 0.4 mg, 1, capsule, By Mouth, Daily, # 30 capsule, Refills 0, Maintenance, 07/22/24 3:38:00 PM EST, Partial fill upon patient request if the prescription is for a schedule II opioid drug. Start Date: 07/22/24 Status: Ordered Quantity: 30.0 Unit: capsule Repeat number: 1 Problem List Condition Confirmation Course Effective Dates [...] 06/03/22 Active 1repeat screening colonoscopy in 2024 Diagnosis Diagnosis Type Effective Dates Health Status Clinical Service Informant History of respiratory failure Discharge Diagnosis 08/03/24 HTN - Hypertension Discharge Diagnosis 08/03/24 TED - Obstructive sleep apnea Discharge Diagnosis 08/03/24 Globus sensation Discharge Diagnosis 08/03/24 Bronchitis Discharge Diagnosis 08/03/24 Vital Signs Most recent to oldest [Reference Range]: 1 2 3 Height 178 cm (08/03/24 10:57 AM) 178 cm (08/03/24 10:25 AM) 178 cm (08/03/24 10:14 AM) Oxygen Saturation [94-100 %] 96 % (08/03/24 10:14 AM) Pulse Rate [55-90 bpm] 100 bpm *H* (08/03/24 10:14 AM) Blood Pressure [90-138/55-84 mm Hg] 132/78mm Hg (08/03/24 10:57 AM) 158/86mm Hg *H* (08/03/24 10:25 AM) 141/82mm Hg *H* (08/03/24 10:14 AM) Mode of Delivery (Oxygen) Room air (08/03/24 10:14 AM) Blood pressure sites Arm, left (08/03/24 10:25 AM) Arm, left (08/03/24 10:14 AM) Social History Social History Type Response Tobacco Use: QUIT 2017. Tota l pack years: 47. Started at age: 14 Years. Stopped at age: 63 Years. Sex Sex Representation Male (finding) Note * Rosanne Mercado: PERFORM Event Display: Patient Education/Instruction Authored Date: Ambulatory Adult Visit Summary [facility] [address], [place] [id number] Name: DANIELLE HUGHES : 1955?? Visit: 08/03/2024 09:50?? Ambulatory Visit Instructions ?? Your Care Team Primary Care Provider Sofi BELLE, Marcella? This Visit Provider Marcella Farah MD Your Diagnosis History of respiratory failure HTN - Hypertension TED - Obstructive sleep apnea Globus sensation Bronchitis Vitals Signs Pulse Rate:??100 bpm??High Height: 178 cm Systolic Blood Pressure: 132 mm Hg ?? Diastolic Blood Pressure: 78 mm Hg ?? Oxygen Saturation: 96 % ?? What to do next Scheduled Follow-Up Appointments Tuesday 1:50 PM EDT ?? With: Marcella Farah MD Where: [address] [address]- Status: Pending Future Orders CBC w/ Differential - Routine, Once, 11/02/23 11:44:00 EDT, Within 3 Days, [facility], Blood?? Medications The list below reflects the information in our records and provided by you today along with any changes made during this visit. Please continue your medications until treatment is completed or stopped by your provider. If this is different from the information you have or there are other questions,please contact the prescribing provider. What How Much When Why Instructions New Albuterol (Albuterol (Eqv-Ventolin HFA) 90 mcg/ inh inhalation aerosol) 2 inhalation Inhalation Every 6 hours as needed for as needed for shortness of breath or wheezing Bronchitis Refills: 1 Pickup at [facility] Unchanged Amlodipine (amLODIPine 10 mg oral tablet) 1 tab(s) Oral Daily Unchanged apixaban (Eliquis 5 mg oral tablet) 1 tab(s) Oral Twice a day Duration: 90 Days Unchanged Carvedilol (Coreg 6.25 mg oral tablet) 6.25 Milligram Oral Twice a day Duration: 90 Days Unchanged empagliflozin (Jardiance 10 mg oral tablet) 1 tab(s) Oral Daily in the morning Duration: 90 Days Unchanged Fluticasone Nasal (Flonase Allergy Relief 50 mcg/ inh nasal spray) 1 spray(s) Nares, Both Twice a day Postnasal drip shake well before using ?? Unchanged Furosemide (furosemide 20 mg oral tablet) 1 tab(s) Oral Daily Duration: 90 Days Unchanged Gabapentin 300 Milligram Oral Daily takes at bedtime ?? Unchanged HydrOXYzine (hydrOXYzine hydrochloride 10 mg oral tablet) 2 tab(s) Oral 4 times a day as needed for as needed for itching Unchanged Sertraline (sertraline 100 mg oral tablet) 2 tab(s) Oral Daily Duration: 90 Days Unchanged Spironolactone (spironolactone 25 mg oral tablet) 25 Milligram Oral Daily Duration: 90 Days Unchanged Tamsulosin (tamsulosin 0.4 mg oral capsule) 1 capsule Oral Daily Pharmacy Information [facility]: [address], [place] [id number] [phone] ?? What How Much When Comments Stop Taking PredniSONE (predniSONE 10 mg oral tablet) See instructions Take 4 tablet by mouth X 2 days then 3 tablet X2day, 2 tablet X2day, 1X2 and then discontinue ?? Medications and Immunizations Administered Medications Given During Visit No medications given during this visit.?? Allergies (NKA means No Known Allergies) No Known Medication Allergies Common Emergency Awareness Tips IS IT A STROKE? Act FAST and Check for these signs: FACE Does the face look uneven? ARM Does one arm drift down? SPEECH Does their speech sound strange? TIME Call at any sign of stroke ?? Heart Attack Signs Chest discomfort: Most heart attacks involve discomfort in the center of the chest and lasts more than a few minutes, or goes away and comes back. It can feel like uncomfortable pressure, squeezing, fullness or pain. Discomfort in upper body: Symptoms can include pain or discomfort in one or both arms, back, neck, jaw or stomach. Shortness of breath: With or without discomfort. Other signs: Breaking out in a cold sweat, nausea, or lightheaded. Remember, MINUTES DO MATTER. If you experience any of these heart attack warning signs, call to get immediate medical attention! ?? Smoking can increase your chances of developing chronic health problems and can cause harmful effects to other family members in your house. If you smoke, you are strongly encouraged to quit. Please call [employer] [facility] at [phone] or [phone] ([phone]) or log in to [email or web address] for referrals to smoking cessation programs. ?? The National Suicide Prevention Hotline is available 17/01 if you or someone you know needs to find a reason to keep living. By calling 3-199-459-FriendsEAT (3644) you'll be connected to a skilled, trained counselor at a crisis center in your area. [facility] Portal You can view and manage your care through the patient portal or by using a health care [facility]ldon of your choosing. [employer] is a website that allows you to securely view your medical information including your hospital discharge summary, office visit summaries, medications and follow-up visits. You can also request appointments, renew medications, and request access to your medical information using a health care sheldon of your choosing, or just ask a question. You can enroll at [email or web address] or register during your next office visit. [facility], in keeping with [facility] guidance, no longer requires face masks for staff, patientsor visitors in most situations. Similiar to time spent indoors at other locations, there is the chance that you were exposed to repiratory viruses during your time with us (such as flu or COVID-19). If you develop symptoms concerning for a viral respiratory infection, please seek testing (and treatment if indicated) from your medical provider or home test kit. ?? Disclaimer: The information provided is of a general nature and is intended to be used in conjunction with the recommendations and advice of your health care practitioner. Every effort has been made to ensure that the information provided is accurate and complete at the time it is provided to you however, as your needs change, or, as new information becomes available, different or additional instructions may be required. ?? If you have questions, please consult with your primary care provider or pharmacist, as appropriate. This information is not intended to serve as substitution for assessment and evaluation by a qualified health care provider. If you do not have a primary care provider, you may find a [facility] provider by calling [facility] Interactive Link at [phone]. Patient Care team information Care Team Personnel Name: Lianne Sánchez RN Position: [facility] sampler pickup Member Role: Lift Driver Name: Mitra Turpin RN Position: S RN Member Role: Primary Care Nurse Name: Beth Raya RN Position: S RN Member Role: Primary Care Nurse Name: Marcella Farah MD Position: S Physician - Primary Care Member Role: PCP Address: [address] [place] [id number] Telecom: Name: Bethany Whitehead RN Position: [facility] RN Member Role: Primary Care Nurse Name: Thais Healy RN Position: S RN Member Role: Primary Care Nurse Care Team Related Persons Name: BERNADETTE HUGHES Insurance Providers Guarantor name: DANIELLE HUGHES Health Plan Information #: 2 Payer: FOR LIFE MCR A ONLY Member Number: [id number] Policy Number: NA Group Number: NA Health Plan Information #: 1 Payer: MEDICARE PART B OUTPT Member Number: [id number] Policy Number: NA Group Number: NA
--- OUTSIDE RECORDS SUMMARY | 2024-08-16 11:25 | XMS_ITS ---
Author Organization [facility] Address [address] [place] [address] Care Team Providers Care Bread Room Hand Name Role Phone Marcella Farah M.D Primary Care Provider Unavailable Coby Stevenson Unavailable [phone] Allergies No Known Allergies REASON FOR VISIT [...] 05/23/2024 Encounters Encounter Location Date Provider Diagnosis [facility] [address] [place] [phone] 05/23/2024 Coby Stevenson Hammer toe of right [...] Bill JETER IIDOB: [birth year] (69 yo M)Acc No.[id number]:05/23/2024 Patient:?Bill JETER II Provider:?Coby Stevenson DPM :1955???Age:69 Y???Sex:Male Angel e:05/23/2024 Address:[address] [place], [place] [id number] Pcp:Kin Borja Subjective: * Chief Complaints: * [...] ?Exercise: no. ?Marital status: . 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 * Medications:?TakingSertralin e HCl 100 MG Tablet [...] Stevenson DPM Date:? Generated for Trevin smallwood/Sarai/Babita on:?08/16/2024 11:24 AM EST History and Physical Notes * [...]
--- OUTSIDE RECORDS SUMMARY | 2024-08-16 11:25 | XMS_ITS | Patient Health Record ---
Author Organization [facility] Address [address] [place] [address] Care Team Providers Care Specialty Sales Representative Name Role Phone Marcella Farah M.D Primary Care Provider Unavailable Coby Stevenson Unavailable [phone] Allergies No Known Allergies Reason For Referral [...] Problem Acquired hammer toe of right foot (940102629738494 5) Other hammer toe(s) (acquired), right foot (M20.41) Active confirmed Problem Acquired hammer toe of left foot (760268785978993 3) Other hammer toe(s) (acquired), left foot (M20.42) Active confirmed Problem Acquired hammer toe of right foot (002128407832477 5) Hammer toe of right foot (M20.41) Active confirmed Improvement Problem Acquired hammer toe of left foot (487510193802070 3) Hammer toe of left foot (M20.42) Active confirmed Improvement Problem Atherosclerosis of [place] artery of both lower extremities, with unspecified presence of clinical manifestation (I70.203) Active confirmed Problem Spasm (30814463) Extensor tendon tightness, contracture (M62.40) Active confirmed Improvement Problem Ulcer of toe of right foot (disorder) (311823032235034 01) Skin ulcer of toe of right foot, limited to breakdown of skin (L97.511) Active confirmed Response to treatment Problem Localized, primary osteoarthritis of the ankle and/or foot (770673166) Arthritis of joint of lesser toe, left (M19.072) Active confirmed Problem Localized, primary osteoarthritis of the ankle and/or foot (575162950) Arthritis of joint of lesser toe, right (M19.071) Active confirmed Problem Ulcer of toe of left foot (disorder) (560707687391393 02) Skin ulcer of toe of left [...] 05/23/2024 Encounters Encounter Location Date Provider Diagnosis [facility] [place] [address] [place] [address] 01/17/2024 Coby Stevenson Other hammer toe(s) (acquired), left foot M20.42 ; Ischemic ulcer of left foot, limited to breakdown of skin L97.521 ; Atherosclerosis of [place] artery of both lower extremities, with unspecified presence of clinical manifestation I70.203 ; Other hammer toe(s) (acquired), right foot M20.41 ; Arthritis of joint of lesser toe, right M19.071 ; Arthritis of joint of lesser toe, left M19.072 and Subluxation of metatarsophalangeal joint of toe, initial encounter S93.149A [address] [address] 04/03/2024 Coby Perica Skin ulcer of toe of left foot, limited to breakdown of skin L97.521 and Hammer toe of left foot M20.[address] [address] 04/10/2024 Coby Perica Hammer toe of right foot M20.41 and Hammer toe of left foot M20.[address] [address] 05/16/2024 Coby Perica Hammer toe of right foot M20.[address] [address] 05/23/2024 Coby Perica Hammer toe of right foot M20.[address] [address] 01/17/2024 Coby Perica [address] [address] 04/10/2024 Coby Perica Assessments Encounter Date Diagnosis [...] (ICD-10 - M20.41) Improvement 01/17/2024 Atherosclerosis of [place] artery of both lower extremities, with unspecified [...] [employer] [address] [place] [address] [id number] Bill Jeter Self - patient is the insured [employer] [address] [place] [id number] [phone] [id number] Bill Jeter Self - patient is the insured Medical (General) History Medical History History ICD Code Depression High blood pressure Measles Chicken pox Heart attack 2022 Surgical History Surgery Date(Month/Year) amputation finger 2022
--- OUTSIDE RECORDS SUMMARY | 2024-08-16 11:25 | XMS_ITS | Continuity of Care Document ---
Author Name [facility] Organization [facility] Care Team Providers Care Communications Planner Name Role Phone [facility] Unavailable Unavailable Problems Combined list of problems [...] Active Condition November 01, 2005 Entered By: Mirtha STEINER Comment: right [facility] Essential Hypertension Active Condition [facility] Major Depressive Disorder, Recurrent, Moderate (DSM-IV 296.32) Active Condition [facility] OBESITY, UNSP Active Condition [facility] spirometry showed no Obstructive or restrictive disease. Active Condition [facility] WNL/FUNCTIONAL Active Condition [facility] Diagnosis: ICD-10-CM H90.3 Sensorineural hearing loss, bilateral Active Diagnosis [facility] Medications Combined list of outpatient medications from Department of Defense and Veterans Affairs facilities.Medications provided include 1) outpatient medications from the last 15 months, and 2) patient-reported medications. Medication Details Route Status Patient Instructions Prescription Expires Prescription Number Last Dispense Date Ordering Provider Order Date Order Qty Source AMLODIPINE BESYLATE (AMLODIPINE BESYLATE), 10 MG, TABLET, ORAL, [employer] 90 ea. BOTTLE Active [id number] 4 2023 90 Pharmac y Data Transac tion Service Facilit y AMLODIPINE BESYLATE (AMLODIPINE BESYLATE), 10 MG, TABLET, ORAL, [employer] 90 ea. BOTTLE Active [id number] 4 2023 90 Pharmac y Data Transac tion Service Facilit y AMLODIPINE BESYLATE (AMLODIPINE BESYLATE), 10 MG, TABLET, ORAL, [employer], 1000 ea. BOTTLE Cancele d [id number] 4 [id number] : 2023 0 Pharmac y Data Transac tion Service Facilit y CARVEDILOL (carvedilol ), 6.25 MG, TABLET, ORAL, [employer] 500 ea. BOTTLE Active [id number] 4 2023 180 Pharmac y Data Transac tion Service Facilit y CARVEDILOL (carvedilol ), 6.25 MG, TABLET, ORAL, [employer] 500 ea. BOTTLE Active [id number] 4 2023 180 Pharmac y Data Transac tion Service Facilit y DOXYCYCLINE HYCLATE (DOXYCYCLIN E HYCLATE), 100 MG, CAPSULE, ORAL, [facility],I NC., 500 ea. BOTTLE Active [id number] 4 2023 10 Pharmac y Data Transac tion Service Facilit y DOXYCYCLINE HYCLATE (DOXYCYCLIN E HYCLATE), 100 MG, CAPSULE, ORAL, [facility] NC., 500 ea. BOTTLE Active [id number] 4 2023 20 Pharmac y Data Transac tion Service Facilit y DOXYCYCLINE MONOHYDRATE (DOXYCYCLIN E MONOHYDRATE ), 100 MG, TABLET, ORAL, [employer]ARMA, 50 ea. BOTTLE Active [id number] 4 2023 60 Pharmac y Data Transac tion Service Facilit y ELIQUIS (APIXABAN), 5 MG, TABLET, ORAL, [facility] , 60 ea. BOTTLE Active [id number] 3 2022 180 Pharmac y Data Transac tion Service Facilit y ELIQUIS (APIXABAN), 5 MG, TABLET, ORAL, [employer] [facility] , 60 ea. BOTTLE Active [id number] 4 2023 180 Pharmac y Data Transac tion Service Facilit y ELIQUIS (APIXABAN), 5 MG, TABLET, ORAL, [facility] [facility] , 60 ea. BOTTLE Active [id number] 4 2023 180 Pharmac y Data Transac tion Service Facilit y FLUTICASONE PROPIONATE (FLUTICASON E PROPIONATE) , 50MCG, SPRAY SUSP, NASAL, APOTEX FIDEL, 16 g AER W/ADAP Active [id number] 4 2023 16 Pharmac y Data Transac tion Service Facilit y FUROSEMIDE (furosemide ), 20 MG, TABLET, ORAL, [employer], 1000 ea. BOTTLE Cancele d [id number] 4 [id number] : 2023 0 Pharmac y Data Transac tion Service Facilit y FUROSEMIDE (furosemide ), 20 MG, TABLET, ORAL, [employer], 1000 ea. BOTTLE Active [id number] 4 2023 90 Pharmac y Data Transac tion Service Facilit y FUROSEMIDE (furosemide ), 20 MG, TABLET, ORAL, [employer], 1000 ea. BOTTLE Active [id number] 4 2023 90 Pharmac y Data Transac tion Service Facilit y FUROSEMIDE (furosemide ), 20 MG, TABLET, ORAL, [employer], 1000 ea. BOTTLE Active [id number] 4 2023 90 Pharmac y Data Transac tion Service Facilit y FUROSEMIDE (furosemide ), 20 MG, TABLET, ORAL, [employer], 1000 ea. BOTTLE Active [id number] 4 2023 90 Pharmac y Data Transac tion Service Facilit y HYDROXYZINE HCL (HYDROXYZIN E HCL), 10 MG, TABLET, ORAL, [facility], 100 ea. BOTTLE Active [id number] 4 2023 80 Pharmac y Data Transac tion Service Facilit y HYDROXYZINE HCL (HYDROXYZIN E HCL), 25 MG, TABLET, ORAL, [employer], 100 ea. BOTTLE Active [id number] 4 2023 240 Pharmac y Data Transac tion Service Facilit y HYDROXYZINE HCL (HYDROXYZIN E HCL), 25 MG, TABLET, ORAL, [employer], 100 ea. BOTTLE Active [id number] 4 2023 40 Pharmac y Data Transac tion Service Facilit y JARDIANCE (EMPAGLIFLO ZIN), 10 MG, TABLET, ORAL, BOEHRINGER ING., 90 ea. BOTTLE Active [id number] 4 2023 90 Pharmac y Data Transac tion Service Facilit y JARDIANCE (EMPAGLIFLO ZIN), 10 MG, TABLET, ORAL, [employer]EHRINGER ING., 90 ea. BOTTLE Active [id number] 4 2023 90 Pharmac y Data Transac tion Service Facilit y PREDNISONE (prednisone ), 20 MG, TABLET, ORAL, AMNEAL PHARMACE, 100 ea. BOTTLE Active [id number] 4 2023 10 Pharmac y Data Transac tion Service Facilit y SERTRALINE HCL (SERTRALINE HCL), 100MG, TABLET, ORAL, [employer]ARM, 500 ea. BOTTLE Active [id number] 4 2023 180 Pharmac y Data Transac tion Service Facilit y SERTRALINE HCL (SERTRALINE HCL), 100MG, TABLET, ORAL, [employer], 500 ea. BOTTLE Active [id number] 4 2023 180 Pharmac y Data Transac tion Service Facilit y SPIRONOLACT ONE (spironolac tone), 25 MG, TABLET, ORAL, MIKAYLA RANCH DC, 100 ea. BOTTLE Active [id number] 4 2023 90 Pharmac y Data Transac tion Service Facilit y SPIRONOLACT ONE (spironolac tone), 25 MG, TABLET, ORAL, MIKAYLA RANCH DC, 100 ea. BOTTLE Active [id number] 4 2023 90 Pharmac y Data Transac tion Service Facilit y TACROLIMUS (TACROLIMUS ), 0.1 %, OINT. (G), TOPICAL, [employer] 100 g TUBE Active [id number] 4 2023 100 Pharmac y Data Transac tion Service Facilit y TRIAMCINOLO NE ACETONIDE (TRIAMCINOL ONE ACETONIDE), 0.1 %, CREAM (G), TOPICAL, [facility], 454 g TUBE Active [id number] 4 2023 454 Pharmac y Data Transac tion Service Facilit y TRIAMCINOLO NE ACETONIDE (triamcinol one acetonide), 0.1 %, OINT. (G), TOPICAL, [employer] [facility], 454 g JAR Active [id number] 4 2023 454 Pharmac y Data Transac tion Service Facilit y TRIAMCINOLO NE ACETONIDE (triamcinol one acetonide), 0.5 %, CREAM (G), TOPICAL, [facility], 15 g TUBE Active [id number] 4 2023 15 Pharmac y Data Transac tion Service Facilit y Allergies, Adverse Reactions, Alerts Combined list of allergies from Department of Defense and Veterans Affairs facilities. It does not include entries that were removed or entered in error. Substance Category Reaction Severity Reaction type Status Date Reported Comments Source LISINOPRIL Drug allergy (disorder) active 3 [facility] Immunizations Combined list of available immunizations from the Department of Defense and Veterans Affairs facilities. Immunization Series Date Given Administered By Site Reaction Lot Number CVX Code Drug Configuration Manager Status Comments Source COVID-19 (MODERNA), MRNA, LNP-S, PF, 100 MCG/0.5 ML DOSE 2 2020 207 complet ed MOD; [id number]; 1 [facility] COVID-19 (MODERNA), MRNA, LNP-S, PF, 100 MCG/0.5 ML DOSE 1 2020 207 complet ed MOD; [id number]; 1 [facility] FLU,3 YRS (HISTORICAL) 2005 88 complet ed [facility] TD(ADULT) UNSPECIFIED FORMULATION 2005 CARLOS BRADLEY 139 complet ed [facility] FLU,3 YRS (HISTORICAL) 2003 CARLOS BRADLEY 88 complet ed [facility] FLU,3 YRS (HISTORICAL) 2000 CANDELARIA DURAN RET F 88 complet ed [facility] Encounters Combined list of: 1) Encounters from Department of Veterans Affairs facilities going backup to the last 18 months, not all VA inpatient encounters are included; 2) Encounters from the Department of Defense facilities going backup to 280 months. Location Location Details Encounter Type Encounter Number Reason For Visit Attending Provider ADM Date DC Date Status Disposition Source [facility] [place] [facility] XM&SLCTN MARISSA [id number] Diagnos is: ICD-10- CM H90.3 Sensori neural hearing loss, bilater al SENIOR,NEFTALI [facility]LE L [facility] Social History Combined list of available smoking, tobacco, and other social history from Department of Defense and Veterans Affairs facilities. Social History Type Response Date Comment Source Tobacco smoking status NHIS HISTORY OF SMOKING 02/17/2004 [place] [facility] [place] [facility] History of tobacco use HISTORY OF SMOKING 03/05/2003 quit-10 yrs [facility] [place] [facility] History of tobacco use HISTORY OF SMOKING 02/05/2002 quit 10 years ago - prior hx: smoked 2 - 2.5 ppd x 15 years [facility] [place] [facility] History of tobacco use QUIT TOBACCO USE > 7 YEARS AGO 10/02/2001 [facility] [place] [facility] History of tobacco use HISTORY OF SMOKING 12/05/2000 [facility] This section is an empty social history section. [facility] Plan of Care List of future care activities from Department of Veterans Affairs facilities. Additional future care activities may be listed in the Assessment and Plan section. Date/Time Care Activity Care Activity Detail Facili ty 10/22/2024 AMBULATORY - MEDICINE AMBULATORY - MEDICI NE [facility] [place] [facility] 08/07/2024 Consult Order OTOLARYNGOLOGY/E NT ONE Cons Database Programmer's Choice [facility] [place] [facility]
--- OUTSIDE RECORDS SUMMARY | 2024-08-16 11:25 | XMS_ITS | Continuity of Care Document ---
Author Organization [facility] Address [address] [place] [address]- Care Team Providers Care Rubbing Bed Operator Name Role Phone Sofi BELLE, Marcella Primary Care Physician [place] [facility] [place]24 - 08/04/24 [facility] [address] [place] [address]- Encounter Type: Triage Allergies, Adverse Reactions, Alerts No Known Medication Allergies Immunizations Given and Recorded Vaccine Date Status Refusal Reason influenza virus vaccine, inactivated 07/23/24 Give n SARS-CoV-2 (COVID-19) mRNA-1273 vaccine 07/10/21 R ecorded tetanus-diphtheria toxoids (Td) [...] Refills, Maintenance, 02/16/24 10:10:00 AMEDT, Tablet, [facility], Partial fill upon patient request [...] 1 Refills, Maintenance, 07/24/24 9:03:00 AM EST, [place], [facility], Partial fill [...] Personnel Name: Lianne Sánchez RN Position: S nutrition services worker Member Role: Retail Office Associate Name: Mitra Turpin RN Position: S RN Member Role: Primary Care Nurse Name: Beth Raya RN Position: S RN Member Role: Primary Care Nurse Name: Marcella Farah MD Position: [facility] Physician - Primary Care Member Role: PCP Address: [address] [place] [address] Telecom: Name: Bethany Whitehead RN Position: S RN Member Role: Primary Care Nurse Name: Thais Healy RN Position: S RN Member Role: Primary Care Nurse Care Team Related Persons Name: ELLENLORAINEE Insurance Providers Guarantor name: DANIELLE HUGHES Health Plan Information #: 1 Payer: MEDICARE PART B OUTPT Member Number: NA Policy Number: NA Group Number: NA Health Plan Information #: 2 Payer: FOR LIFE MCR A ONLY Member Number: NA Policy Number: NA Group Number: NA
--- OUTSIDE RECORDS SUMMARY | 2024-08-16 11:25 | XMS_ITS ---
Author Organization [facility] Address [address] [place] [address] Care Team Providers Care Stretch Machine Operator Name Role Phone Marcella Farah M.D Primary Care Provider Unavailable Coby Stevenson Unavailable [phone] Allergies No Known Allergies REASON FOR VISIT [...] non-user Ex-cigaret te smoker Vital Signs Height 8ro01fd in 05/16/2024 Weight 280 lbs 05/16/2024 BMI 40.17 kg/m2 05/16/2024 Blood pressure systolic 130 mm Hg 05/16/20 24 Blood pressure diastolic 80 mm Hg 024 Encounters Encounter Location Date Provider Diagnosis [facility] [address] [place] [address] 05/16/2024 Coby Stevenson Hammer toe of right foot M20.41 Assessments Encounter Date Diagnosis (ICD Code) Assessment Notes Treatment Notes Treatment Clinical Notes Section Notes 05/16/2024 Hammer toe of right foot (ICD-10 - M20.41) Plan Of Treatment Next Appt Details Follow Up: 1 Week, Reason: Procedure Notes * Category Sub-Category Detail Notes Podiatry Procedure Tenotomy - Flexor (93956) LOC ATION : T7 INDICATIONS : a [...] Bill JETER IIDOB: [birth year] (69 yo M)Acc No.[id number]:05/16/2024 Patient:?Bill JETER BRODY Provider:?Coby Stevenson DPM :1955???Age:69 Y???Sex:Male Angel e:05/16/2024 Address:[address] [place] [address], [id number] Pcp:Kin Borja Subjective: * Chief Complaints: * [...] * Allergies:?N.K.D.A.yes[Aller gies Verified] Objective: * Vitals:?Ht: 4mc29as, Wt:280, BMI:40.17, Shoe size: 9, BP:130/80mm Hg, [...] * Treatment: * Procedures:?Podiatry Procedure:?Tenotomy - Flexor (33591)?LOCATION : T7 INDICATIONS : a painful non-rigid [...] dry until the next visit.? * Procedure Codes:?38797 INCIS ION OF FOOT TENDON(S) * Preventive [...] Stevenson DPM Date:? Generated for Trevin smallwood/Sarai/eTransmitting on:?08/16/2024 11:24 AM EST History and Physical [...]
--- OUTSIDE RECORDS SUMMARY | 2024-08-16 11:25 | XMS_ITS ---
Author Organization [facility] Address [address] [place] [address] Care Team Providers Care Water Treatment Plant Repairer Name Role Phone Marcella Farah M.D Primary Care Provider Coby Herring [phone] REASON FOR VISIT BUY Betadine Encounters Encounter Location Date Provider Diagnosis [address] [address] 04/10/2024 Coby Stevenson Plan Of Treatment No Information Progress Notes * Bill JETER IIDOB: [birth year] (69 yo M)Acc No.[id number]:04/10/2024 Patient:?Bill Jeter :1955???Age:69 Y???Sex:Male Address:[address] [place] [address] * true * Date:? Generated for Trevin smallwood/Sarai/eTransmitting on:?08/16/2024 11:25 AM EST
== END 2024-08-16 10:20 | disposition home or self-care (01) ==
LOC: HO.US 10:19
PROVIDERS: PCP Internal Medicine; Visit Provider Nurse Practitioner Family
DX: R39.15 Urgency of urination (principal); R35.0 Frequency of micturition
CPT/HCPCS: 76857

== ENCOUNTER → 2024-08-16 10:21 | Outpatient (BNV) | payer MEDICARE, OTHER, SELFPAY | PROVIDERS: PCP Internal Medicine; Visit Provider Radiology Diagnostic Radiology | DX: R39.15 Urgency of urination (principal) | CPT/HCPCS: 76857 ==

== ENCOUNTER 2024-08-24 08:48 | Outpatient (REF) | payer MEDICARE, OTHER, SELFPAY ==
--- OUTSIDE RECORDS SUMMARY | 2024-08-24 09:09 | XMS_ITS | Continuity of Care Document ---
Author Name [facility] Organization [facility] Care Team Providers Care Hostess Host Name Role Phone [facility] Unavailable Unavailable Problems Combined list of problems [...] [facility] [place] [facility] WNL/FUNCTIONAL Active Condition [facility] Diagnosis: ICD-10-CM H90.3 Sensorineural hearing loss, [...] BESYLATE (AMLODIPINE BESYLATE), 10 MG, TABLET, ORAL, [employer] 90 ea. BOTTLE Active [id number] 4 2023 90 Pharmac y Data Transac tion Service Facilit y AMLODIPINE BESYLATE (AMLODIPINE BESYLATE), 10 MG, TABLET, ORAL, [employer] 90 ea. BOTTLE Active [id number] 4 2023 90 Pharmac y Data Transac tion Service Facilit y AMLODIPINE BESYLATE (AMLODIPINE BESYLATE), 10 MG, TABLET, ORAL, [employer], 1000 ea. BOTTLE Cancele d [id number] : 2023 0 Pharmac y Data Transac tion Service Facilit y CARVEDILOL (carvedilol ), 6.25 MG, TABLET, ORAL, [employer] 500 ea. BOTTLE Active [id number] 4 2023 180 Pharmac y Data Transac tion Service Facilit y CARVEDILOL (carvedilol ), 6.25 MG, TABLET, ORAL, [employer] 500 ea. BOTTLE Active [id number] 4 2023 180 Pharmac y Data Transac tion Service Facilit y DOXYCYCLINE HYCLATE (DOXYCYCLIN E HYCLATE), 100 MG, CAPSULE, ORAL, [facility],I NC., 500 ea. BOTTLE Active [id number] 2023 10 Pharmac y Data Transac tion Service Facilit y DOXYCYCLINE HYCLATE (DOXYCYCLIN E HYCLATE), 100 MG, CAPSULE, ORAL, [facility],I NC., 500 ea. BOTTLE Active [id number] 4 2023 20 Pharmac y Data Transac tion Service Facilit y DOXYCYCLINE MONOHYDRATE (DOXYCYCLIN E MONOHYDRATE ), 100 MG, TABLET, ORAL, [employer] PHARMA, 50 ea. BOTTLE Active [id number] 4 2023 60 Pharmac y Data Transac tion Service Facilit y ELIQUIS (APIXABAN), 5 MG, TABLET, ORAL, [facility] , 60 ea. BOTTLE Active [id number] 3 2022 180 Pharmac y Data Transac tion Service Facilit y ELIQUIS (APIXABAN), 5 MG, TABLET, ORAL, [employer] [facility] , 60 ea. BOTTLE Active [id number] 4 2023 180 Pharmac y Data Transac tion Service Facilit y ELIQUIS (APIXABAN), 5 MG, TABLET, ORAL, [employer] [facility] , 60 ea. BOTTLE Active [id number] 4 2023 180 Pharmac y Data Transac tion Service Facilit y FLUTICASONE PROPIONATE (FLUTICASON E PROPIONATE) , 50MCG, SPRAY SUSP, NASAL, APOTEX FIDEL, 16 g AER W/ADAP Active [id number] 4 2023 16 Pharmac y Data Transac tion Service Facilit y FUROSEMIDE (furosemide ), 20 MG, TABLET, ORAL, [employer], 1000 ea. BOTTLE Cancele d [id number] : 2023 0 Pharmac y Data Transac tion Service Facilit y FUROSEMIDE (furosemide ), 20 MG, TABLET, ORAL, [employer], 1000 ea. BOTTLE Active [id number] 4 2023 90 Pharmac y Data Transac tion Service Facilit y FUROSEMIDE (furosemide ), 20 MG, TABLET, ORAL, [employer], 1000 ea. BOTTLE Active [id number] 4 2023 90 Pharmac y Data Transac tion Service Facilit y FUROSEMIDE (furosemide ), 20 MG, TABLET, ORAL, [employer], 1000 ea. BOTTLE Active [id number] 4 2023 90 Pharmac y Data Transac tion Service Facilit y FUROSEMIDE (furosemide ), 20 MG, TABLET, ORAL, [employer], 1000 ea. BOTTLE Active [id number] 4 2023 90 Pharmac y Data Transac tion Service Facilit y HYDROXYZINE HCL (HYDROXYZIN E HCL), 10 MG, TABLET, ORAL, [facility], 100 ea. BOTTLE Active [id number] 4 2023 80 Pharmac y Data Transac tion Service Facilit y HYDROXYZINE HCL (HYDROXYZIN E HCL), 25 MG, TABLET, ORAL, [employer], 100 ea. BOTTLE Active [id number] 4 2023 240 Pharmac y Data Transac tion Service Facilit y HYDROXYZINE HCL (HYDROXYZIN E HCL), 25 MG, TABLET, ORAL, [employer], 100 ea. BOTTLE Active [id number] 4 2023 40 Pharmac y Data Transac tion Service Facilit y JARDIANCE (EMPAGLIFLO ZIN), 10 MG, TABLET, ORAL, BOEHRINGER ING., 90 ea. BOTTLE Active [id number] 4 2023 90 Pharmac y Data Transac tion Service Facilit y JARDIANCE (EMPAGLIFLO ZIN), 10 MG, TABLET, ORAL, [employer] ING., 90 ea. BOTTLE Active [id number] 4 2023 90 Pharmac y Data Transac tion Service Facilit y PREDNISONE (prednisone ), 20 MG, TABLET, ORAL, AMNEAL PHARMACE, 100 ea. BOTTLE Active [id number] 4 2023 10 Pharmac y Data Transac tion Service Facilit y SERTRALINE HCL (SERTRALINE HCL), 100MG, TABLET, ORAL, [employer] PHARM, 500 ea. BOTTLE Active [id number] 4 2023 180 Pharmac y Data Transac tion Service Facilit y SERTRALINE HCL (SERTRALINE HCL), 100MG, TABLET, ORAL, [employer] PH[employer], 500 ea. BOTTLE Active [id number] 4 2023 180 Pharmac y Data Transac tion Service Facilit y SPIRONOLACT ONE (spironolac tone), 25 MG, TABLET, ORAL, MIKAYLA RANCH MD, 100 ea. BOTTLE Active [id number] 4 2023 90 Pharmac y Data Transac tion Service Facilit y SPIRONOLACT ONE (spironolac tone), 25 MG, TABLET, ORAL, MIKAYLA RANCH MD, 100 ea. BOTTLE Active [id number] 4 2023 90 Pharmac y Data Transac tion Service Facilit y TACROLIMUS (TACROLIMUS ), 0.1 %, OINT. (G), TOPICAL, [employer] 100 g TUBE Active [id number] 4 2023 100 Pharmac y Data Transac tion Service Facilit y TRIAMCINOLO NE ACETONIDE (TRIAMCINOL ONE ACETONIDE), 0.1 %, CREAM (G), TOPICAL, [facility], 454 g TUBE Active [id number] 4 2023 454 Pharmac y Data Transac tion Service Facilit y TRIAMCINOLO NE ACETONIDE (triamcinol one acetonide), 0.1 %, OINT. (G), TOPICAL, [employer], 454 g JAR Active [id number] 4 2023 454 Pharmac y Data Transac tion Service Facilit y TRIAMCINOLO NE ACETONIDE (triamcinol one acetonide), 0.5 %, CREAM (G), TOPICAL, [facility], 15 g TUBE Active [id number] 4 2023 15 Pharmac y Data Transac [...] Site Reaction Lot Number CVX Code Drug Window Framer Status Comments Source COVID-19 (MODERNA), MRNA, LNP-S, PF, 100 MCG/0.5 ML DOSE 2 2020 207 complet ed MOD; [id number]; 1 [facility] COVID-19 (MODERNA), MRNA, LNP-S, PF, 100 MCG/0.5 ML DOSE 1 2020 207 complet ed MOD; [id number]; 1 [facility] [place] [...] ADM Date DC Date Status Disposition Source [facility] [place] [facility] XM&SLCTN MARISSA [id number] Diagnos is: ICD-10- CM H90.3 Sensori neural hearing loss, bilater al SENIOR,NEFTALI OLE L 07/12 [facility] Social History Combined list of available smoking, tobacco, and other social history from Department of Defense and Veterans Affairs facilities. Social History Type Response Date Comment Source Tobacco smoking status NHIS HISTORY OF SMOKING 02/17/2004 [place] [facility] [place] [facility] History of tobacco use HISTORY OF SMOKING 03/05/2003 quit-10 yrs [facility] [place] [facility] History of tobacco use HISTORY OF SMOKING 02/05/2002 quit 10 years ago - prior hx: smoked 2 - 2.5 ppd x 15 years [facility] [place] [facility] History of tobacco use QUIT TOBACCO USE > 7 YEARS AGO 10/02/2001 [facility] [place] [facility] History of tobacco use HISTORY OF SMOKING 12/05/2000 [facility] [place] [facility] This section is an empty social history section. [facility] Plan of Care List of future care activities from Department of Veterans Affairs facilities. Additional future care activities may be listed in the Assessment and Plan section. Date/Time Care Activity Care Activity Detail Facili ty 10/22/2024 AMBULATORY - MEDICINE AMBULATORY - MEDICI [place] [facility] [place] [facility] 08/07/2024 Consult Order OTOLARYNGOLOGY/E NT ONE Cons Broker Agricultural Produce's Choice [facility] [place] [facility]
--- OUTSIDE RECORDS SUMMARY | 2024-08-24 09:09 | XMS_ITS ---
[facility] Address [address] [place] [address] Care Team Providers Care Tube Wrapper Name Role Phone Marcella Farah M.D Primary Care Provider Unavailable Coby Stevenson Unavailable [phone] Allergies No Known Allergies REASON FOR VISIT [...] 05/23/2024 Encounters Encounter Location Date Provider Diagnosis [facility] [address] [place] [id number] 05/23/2024 Coby Stevenson Hammer toe of right [...] Bill JETER IIDOB: [birth year] (69 yo M)Acc No.[id number]:05/23/2024 Patient:?Bill JETER II Provider:?Coby Stevenson DPM :1955???Age:69 Y???Sex:Male Angel e:05/23/2024 Address:[address] [place], [place] [id number] Pcp:Kin Borja Subjective: * Chief Complaints: * [...] ?Exercise: no. ?Marital status: . 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 * Medications:?TakingSertralin e HCl 100 MG Tablet [...] Stevenson DPM Date:? Generated for Trevin smallwood/Sarai/Babita on:?08/24/2024 09:09 AM EST History and Physical Notes * [...]
--- OUTSIDE RECORDS SUMMARY | 2024-08-24 09:09 | XMS_ITS | Continuity of Care Document ---
Author Organization [facility] Address [address] [place] [address]- Care Team Providers Care Gasket Maker Name Role Phone Sofi BELLE, Marcella Primary Care Physician Encounter [facility] Date(s): 07/24/24 - 08/23/24 [facility] [address] [place] [address]- Encounter Diagnosis Postnasal drip(Discharge Diagnosis) - 07/24/24 Encounter Type: Triage Allergies, Adverse Reactions, Alerts [...] Daily, # 90 tablet, 3 Refills, Maintenance, 9/5/24 9:16:00 AM EDT, [facility], [...] 1 Refills, Maintenance, 07/24/24 9:03:00 AM EST, Erin, [facility], Partial fill [...] Diagnosis Diagnosis Type Effective Dates Health Status Cl inical Service Informant Postnasal drip Discharge Diagnosis 1/28/25 Non-Specified Social History Social History Type Response Tobacco Use: QUIT 2018. Vonda espitia pack years: 47. Started at age: 14 Years. Stopped at age: 63 Years. Sex Sex Representation Male (finding) Patient Care team information Care Team Personnel Name: Lianne Sánchez RN Position: S insulator tester Member Role: Alley Worker Name: Mitra Turpin RN Position: S RN Member Role: Primary Care Nurse Name: Beth Raya RN Position: S RN Member Role: Primary Care Nurse Name: Marcella Farah MD Position: [facility] Physician - Primary Care Member Role: PCP Address: [address] [place] [address] Telecom: Name: Bethany Whitehead RN Position: S [...]
--- OUTSIDE RECORDS SUMMARY | 2024-08-24 09:09 | XMS_ITS ---
Author Organization [facility] Address [address] [place] [address] Care Team Providers Care Desktop Publishing Specialist Name Role Phone Marcella Farah M.D Primary Care Provider Unavailable Coby Stevenson Unavailable [phone] Allergies No Known Allergies REASON FOR VISIT [...] non-user Ex-cigaret te smoker Vital Signs Height 8ex14qa in 05/16/2024 Weight 280 lbs 05/16/2024 BMI 40.17 kg/m2 05/16/2024 Blood pressure systolic 130 mm Hg 05/16/20 24 Blood pressure diastolic 80 mm Hg 024 Encounters Encounter Location Date Provider Diagnosis [facility] [address] [place] [address] 05/16/2024 Coby Stevenson Hammer toe of right foot M20.41 Assessments Encounter Date Diagnosis (ICD Code) Assessment Notes Treatment Notes Treatment Clinical Notes Section Notes 05/16/2024 Hammer toe of right foot (ICD-10 - M20.41) Plan Of Treatment Next Appt Details Follow Up: 1 Week, Reason: Procedure Notes * Category Sub-Category Detail Notes Podiatry Procedure Tenotomy - Flexor (41572) LOC ATION : T7 INDICATIONS : a [...] Bill JETER IIDOB: [birth year] (69 yo M)Acc No.[id number]:05/16/2024 Patient:?Bill JETER BRODY Provider:?Coby Stevenson DPM :1955???Age:69 Y???Sex:Male Angel e:05/16/2024 Address:[address] [place] [address], [id number] Pcp:Kin Borja Subjective: * Chief Complaints: * [...] * Allergies:?N.K.D.A.yes[Aller gies Verified] Objective: * Vitals:?Ht: 2ip83vr, Wt:280, BMI:40.17, Shoe size: 9, BP:130/80mm Hg, [...] * Treatment: * Procedures:?Podiatry Procedure:?Tenotomy - Flexor (20545)?LOCATION : T7 INDICATIONS : a painful non-rigid [...] dry until the next visit.? * Procedure Codes:?84947 INCIS ION OF FOOT TENDON(S) * Preventive [...] Stevenson DPM Date:? Generated for Trevin smallwood/Sarai/eTransmitting on:?08/24/2024 09:09 AM EST History and Physical [...]
--- OUTSIDE RECORDS SUMMARY | 2024-08-24 09:09 | XMS_ITS | Patient Health Record ---
Author Organization [facility] Address [address] [facility] [place] [address] Care Team Providers Care Supervisor Sintering Plant Name Role Phone Marcella Farah M.D Primary Care Provider Unavailable Coby Stevenson Unavailable [phone] Allergies No Known Allergies Reason For Referral [...] Problem Acquired hammer toe of right foot (245234999445637 5) Other hammer toe(s) (acquired), right foot (M20.41) Active confirmed Problem Acquired hammer toe of left foot (788187157701142 3) Other hammer toe(s) (acquired), left foot (M20.42) Active confirmed Problem Acquired hammer toe of right foot (279327176390376 5) Hammer toe of right foot (M20.41) Active confirmed Improvement Problem Acquired hammer toe of left foot (453354119677111 3) Hammer toe of left foot (M20.42) Active confirmed Improvement Problem Atherosclerosis of [place] artery of both lower extremities, with unspecified presence of clinical manifestation (I70.203) Active confirmed Problem Spasm (23343881) Extensor tendon tightness, contracture (M62.40) Active confirmed Improvement Problem Ulcer of toe of right foot (disorder) (219541545898174 01) Skin ulcer of toe of right foot, limited to breakdown of skin (L97.511) Active confirmed Response to treatment Problem Localized, primary osteoarthritis of the ankle and/or foot (739416258) Arthritis of joint of lesser toe, left (M19.072) Active confirmed Problem Localized, primary osteoarthritis of the ankle and/or foot (451087515) Arthritis of joint of lesser toe, right (M19.071) Active confirmed Problem Ulcer of toe of left foot (disorder) (091878141382282 02) Skin ulcer of toe of left [...] 05/23/2024 Encounters Encounter Location Date Provider Diagnosis [facility] [address] [place] [address] 01/17/2024 Coby Stevenson Other hammer toe(s) (acquired), left foot M20.42 ; Ischemic ulcer of left foot, limited to breakdown of skin L97.521 ; Atherosclerosis of [place] artery of both lower extremities, with unspecified presence of clinical manifestation I70.203 ; Other hammer toe(s) (acquired), right foot M20.41 ; Arthritis of joint of lesser toe, right M19.071 ; Arthritis of joint of lesser toe, left M19.072 and Subluxation of metatarsophalangeal joint of toe, initial encounter S93.149A [address] [address] 04/03/2024 Coby Perica Skin ulcer of toe of left foot, limited to breakdown of skin L97.521 and Hammer toe of left foot M20.[address] [address] 04/10/2024 Coby Perica Hammer toe of right foot M20.41 and Hammer toe of left foot M20.[address] [address] 05/16/2024 Coby Perica Hammer toe of right foot M20.[address] [address] 05/23/2024 Coby Perica Hammer toe of right foot M20.[address] [address] 01/17/2024 Coby Perica [address] [address] 04/10/2024 Coby Perica Assessments Encounter Date Diagnosis [...] (ICD-10 - M20.41) Improvement 01/17/2024 Atherosclerosis of [place] artery of both lower extremities, with unspecified [...] [address] [place] [place] [address] [id number] Bill Jeter Self - patient is the insured [employer] [address] [place] [address] [phone] [id number] Bill Jeter Self - patient is the insured Medical (General) History Medical History History ICD Code Depression High blood pressure Measles Chicken pox Heart attack 2022 Surgical History Surgery Date(Month/Year) amputation finger 2022
--- OUTSIDE RECORDS SUMMARY | 2024-08-24 09:09 | XMS_ITS ---
Author Organization [facility] Address [address] [place] [address] Care Team Providers Care Manufacturing Engineer Chief Name Role Phone Marcella Farah M.D Primary Care Provider Coby Herring [phone] REASON FOR VISIT BUY Betadine Encounters Encounter Location Date Provider Diagnosis [address] [address] 04/10/2024 Coby Stevenson Plan Of Treatment No Information Progress Notes * Bill JETER IIDOB: [birth year] (69 yo M)Acc No.[id number]:04/10/2024 Patient:?Bill Jeter :1955???Age:69 Y???Sex:Male Address:[address] [place] [address] * true * Date:? Generated for Trevin smallwood/Sarai/eTransmitting on:?08/24/2024 09:09 AM EST
[2024-08-24 11:11] LABS: Prostate Specific Antigen 0.34 ng/mL (<0.05-4.0)
== END 2024-08-24 08:49 | disposition home or self-care (01) ==
LOC: HO.LAB 08:48
PROVIDERS: PCP Internal Medicine; Visit Provider Nurse Practitioner Family
DX: N40.0 Benign prostatic hyperplasia without lower urinary tract symptoms (principal); Z12.5 Encounter for screening for malignant neoplasm of prostate
CPT/HCPCS: 36415; 84153

== ENCOUNTER 2024-08-30 11:15 | Outpatient (AMB) | payer MEDICARE, OTHER, SELFPAY ==
--- NOTE | 2024-08-30 11:17 | A.OFFVIS_ITS ---
Intake Visit Reasons: 2m/US/PVR Intake Note: Patient presents today for follow up on urinary frequency, psa results, and ultrasound results Urology Medications: tamsulosin Blood Thinner: apixaban PVR: 30ml's Interactive Media Specialist Required: No Accompanied by: Self / Same As Patient Allergies No Known Allergies Allergy (Verified 08/30/24 13:55) Medication List - Last Reconciled 08/30/24 by SUZANNE Pan amlodipine 10 mg PO DAILY apixaban (Eliquis) 5 mg PO BID carvedilol 6.25 mg PO BID CPAP (CPAP Machine/Device) As directed empagliflozin (Jardiance) 10 mg PO DAILY furosemide 20 mg PO DAILY 90 days sertraline 50 mg PO DAILY spironolactone 25 mg PO DAILY tamsulosin 0.4 mg PO BEDTIME 90 days HPI Comments Details: Bill is a very pleasant 69-year-old male patient of . He has a past medical history of sleep apnea on CPAP, morbid obesity, atrial flutter, congestive heart failure, NSTEMI 2022, and takotsubo. He presents to the office today for follow-up. Of note, patient was seen approximately 3 months ago as a new patient for ongoing lower urinary tract symptoms he had been experiencing at which time a bladder ultrasound was ordered for further assessment evaluation and the patient was started on Flomax. In discussion with the patient today he reports to be doing and feeling well. He reports significant improvement in symptoms of urinary urgency and frequency he had been experiencing. Bladder ultrasound notes Fluid-filled with small volume. Bilateral ureteral jets are demonstrated. Prevoid bladder volume is 150 mL. Postvoid bladder volume is 22 mL. Prostate gland is not enlarged measures 4 cm with a volume: 24 cc. He does have a history of sleep apnea and is compliant with his CPAP. PSAs are as follows: PSA 09/14 0.2, 08/21 0.3 He otherwise denies hematuria, dysuria, foul smelling urine, changes to urinary stream, flank pain, fever, and or chills. In office urinalysis results reviewed with the patient today. We discussed at length potential causes of lower urinary tract symptoms patient was experiencing. He has had a recent abdominal ultra sound 05/20 bilateral kidneys with no hydronephrosis, renal calculi, and or focal lesions noted. All questions were answered. He otherwise offers no other issues or concerns at this time. [facility] Medical History TED on CPAP Dyspnea on exertion Morbid obesity Surgical History History of amputation of finger of right hand History of surgery Hx of colonoscopy History of cardiac cath H/O vasectomy Family History Father HTN (hypertension) Mother HTN (hypertension) Social History Alcohol intake: current Alcohol intake frequency: holidays/special occasions only Patient Tobacco Use Status: Former Tobacco user Years Smoked: 20+ Review of Systems Const All systems reviewed & are unremarkable except as noted in HPI and below Reports no additional complaints Eyes Reports no additional complaints ENT Reports no additional complaints Card Reports as per HPI Resp Reports as per HPI GI Reports no additional complaints Reports as per HPI Musc Reports no additional complaints Neuro Reports no additional complaints Psych Reports no additional complaints Endo Reports no additional complaints Juan/Lymph Reports no additional complaints Aller/Immun Reports no additional complaints Physical Exam Const General: cooperative, healthy appearing, comfortable, no acute distress, well developed, alert and awake Nutritional Appearance: obese Orientation/consciousness: patient oriented x3 Limitations: no limitations HEENT Head: Yes normal to inspection, Yes normocephalic and Yes atraumatic Ears: hearing grossly normal bilaterally Eyes General: appearance normal, both eyes and all related structures Neck Neck: Yes normal visual inspection and Yes trachea midline Chest Chest palpation & inspection: normal inspection of the chest Resp Effort & Inspection: normal respiratory effort and able to speak in complete sentences Cardio Rate: regular rate GI Inspection: Yes normal to inspection General: Yes no CVA tenderness Back/Spine/Pelvis Back: no CVA tenderness Skin General skin exam: no rashes or lesions noted Neuro General: patient oriented x3 Extrem General: Yes normal to inspection Psych Appearance: grossly normal and well kempt Mental Status: mental status grossly normal Speech and movement: Normal speech and movement present and Clear speech present Affect: normal affect Attitude: cooperative Thought process: Normal thought process present Thought content: Normal thought content present Insight: Fair insight present (Psych) Judgement: Fair judgement present (Psych) Office Procedures Post Void Residual Post Residual Void Post Void Residual (PVR): 30 35486-Ueqc Void Residual by ultrasound Results AMB Urinalysis, Automated UA Leukoctes 0 Brent/uL Last Edit by [facility] on 08/30/24 14:00 UA Nitrite Last Edit by [employer] on 08/30/24 14:00 UA Urobilinogen 0.2 mg/dL Last Edit by [employer] on 08/30/24 14:00 UA Protein 0 mg/dL Last Edit by [employer] on 08/30/24 14:00 UA pH 5.5 Last Edit by [employer] on 08/30/24 14:00 UA Blood 0 Leroy/uL Last Edit by [employer] on 08/30/24 14:00 UA Specific Broxton 1.015 Last Edit by [employer] on 08/30/24 14:00 UA Ketone Negative Last Edit by [employer] on 08/30/24 14:00 UA Bilirubin 0 mg/dL Last Edit by [employer] on 08/30/24 14:00 UA Glucose 500 mg/dL Last Edit by [employer] on 08/30/24 14:00 Results Reviewed Results Reviewed: Laboratory Last Values Urine pH (Auto) 5.5 08/30/24 13:58 Specific Broxton (Auto) 1.015 08/30/24 13:58 Urine Protein (Auto) 0 mg/dL 08/30/24 13:58 Glucose (UA)(Auto) 500 mg/dL 08/30/24 13:58 Urine Ketones (Auto) Negative 08/30/24 13:58 Urine Blood (Auto) 0 Leroy/uL 08/30/24 13:58 Urine Bilirubin (Auto) 0 mg/dL 08/30/24 13:58 Urine Urobilinogen (Auto) 0.2 mg/dL 08/30/24 13:58 Leukocyte Esterase (Auto) 0 Brent/uL 08/30/24 13:58 Date of Service: 08/16/24 EXAMINATION: US PELVIS LIMITED (BLADDER) CLINICAL INFORMATION: Urgency of urination. COMPARISON: None available. TECHNIQUE: Real-time imaging of the bladder. FINDINGS: BLADDER: Fluid-filled with small volume. Bilateral ureteral jets are demonstrated. Prevoid bladder volume is 150 mL. Postvoid bladder volume is 22 mL. Prostate gland is not enlarged measures 4 cm with a volume: 24 cc. IMPRESSION: 22 cc residual urine in a post void image. Assessment & Plan Assessment & Plan (1) Urinary frequency: Code(s): R35.0 - Frequency of micturition Category: Medical (2) Urinary urgency: Code(s): R39.15 - Urgency of urination Category: Medical (3) Nocturia: Code(s): R35.1 - Nocturia Category: Medical (4) Lower urinary tract symptoms (LUTS): Code(s): R39.9 - Unspecified symptoms and signs involving the genitourinary system Category: Medical Plan In office urinalysis results reviewed with the patient today; as noted above. Recent bladder ultrasound results reviewed the patient today; as noted above. Recent PSA results reviewed with the patient today; as noted above. Continue Flomax as discussed and prescribed; refill provided We discussed at length importance of weight loss in relation to lower urinary tract symptoms as well as overall health and well-being. We discussed bladder triggers/irritants. We discussed possible near future in office cystoscopy and or urodynamics for further assessment evaluation if symptoms arise Follow-up in 6 months with PVR; or sooner with any issues, concerns, and or questions. Orders: Orders AMB Urinalysis Automated Today Z13.9 - Encounter for screening, unspecified AMB Post Void Residual by ultrasound Today R35.0 - Frequency of micturition Medications: Changed From tamsulosin 0.4 mg PO BEDTIME 30 days 30 caps 3RF N40.1 - Benign prostatic hyperplasia with lower urinary tract symptoms, R35.1 - Nocturia To tamsulosin 0.4 mg PO BEDTIME 90 caps 2RF 90 days N40.1 - Benign prostatic hyperplasia with lower urinary tract symptoms, R35.1 - Nocturia Patient Instructions: The patient had an opportunity to ask questions regarding the treatment plan. All questions were answered. Physical exam, labs, and imaging were discussed and reviewed in detail. As well as risks, benefits, and discussion of treatment choices. No major barriers to understanding were identified. The patient expressed understanding and agreement with the above treatment plan. The patient was made aware they should contact our office by phone for worsening of their current condition, the appearance of new symptoms, or with any questions or concerns. Compliance is encouraged with any medications and follow up testing that is ordered. It is a privilege to be allowed the opportunity to participate in? your urological care.? Again, if you have any questions or concerns If you have any questions or concerns please do not hesitate to contact me. The office is [phone]. This note is constructed using voice recognition software. While every effort has been made to ensure accuracy efficiency manager errors may have been included. Yours sincerely, SUZANNE Pan Coding Level of Care Code Est Pt Level 3 (11289) Diagnoses Urinary frequency R35.0 Urinary urgency R39.15 Nocturia R35.1 Lower urinary tract symptoms (LUTS) R39.9 CPT Codes Post Residual Void - PVR CPT Code: 56054-Xrhz Void Residual by ultrasound ([id number])
--- OUTSIDE RECORDS SUMMARY | 2024-08-30 13:47 | XMS_ITS ---
Author Organization [facility] Address [address] [place] [address] Care Team Providers Care Workflow Developer Name Role Phone Marcella Farah M.D Primary Care Provider Coby Herring [phone] REASON FOR VISIT BUY Betadine Encounters Encounter Location Date Provider Diagnosis [address] [address] 04/10/2024 Coby Stevenson Plan Of Treatment No Information Progress Notes * Bill JETER IIDOB: [birth year] (69 yo M)Acc No.[id number]:04/10/2024 Patient:?Bill Jeter :1955???Age:69 Y???Sex:Male Address:[address] [place] [address] * true * Date:? Generated for Trevin smallwood/Sarai/eTransmitting on:?08/30/2024 01:47 PM EST
--- OUTSIDE RECORDS SUMMARY | 2024-08-30 13:47 | XMS_ITS | Patient Health Record ---
Author Organization [facility] Address [address] [place] [address] Care Team Providers Care Staff Nurse Midwife Name Role Phone Marcella Farah M.D Primary Care Provider Unavailable Coby Stevenson Unavailable [phone] Allergies No Known Allergies Reason For Referral [...] Problem Acquired hammer toe of right foot (257616778503951 5) Other hammer toe(s) (acquired), right foot (M20.41) Active confirmed Problem Acquired hammer toe of left foot (829588376432335 3) Other hammer toe(s) (acquired), left foot (M20.42) Active confirmed Problem Acquired hammer toe of right foot (350611662635692 5) Hammer toe of right foot (M20.41) Active confirmed Improvement Problem Acquired hammer toe of left foot (563615726773332 3) Hammer toe of left foot (M20.42) Active confirmed Improvement Problem Atherosclerosis of nul[place] artery of both lower extremities, with unspecified presence of clinical manifestation (I70.203) Active confirmed Problem Spasm (52440821) Extensor tendon tightness, contracture (M62.40) Active confirmed Improvement Problem Ulcer of toe of right foot (disorder) (105391891877482 01) Skin ulcer of toe of right foot, limited to breakdown of skin (L97.511) Active confirmed Response to treatment Problem Localized, primary osteoarthritis of the ankle and/or foot (742739717) Arthritis of joint of lesser toe, left (M19.072) Active confirmed Problem Localized, primary osteoarthritis of the ankle and/or foot (141419962) Arthritis of joint of lesser toe, right (M19.071) Active confirmed Problem Ulcer of toe of left foot (disorder) (811016578418147 02) Skin ulcer of toe of left [...] 05/23/2024 Encounters Encounter Location Date Provider Diagnosis [facility] [address] [place] [address] 01/17/2024 Coby Stevenson Other hammer toe(s) (acquired), left foot M20.42 ; Ischemic ulcer of left foot, limited to breakdown of skin L97.521 ; Atherosclerosis of nulato artery of both lower extremities, with unspecified presence of clinical manifestation I70.203 ; Other hammer toe(s) (acquired), right foot M20.41 ; Arthritis of joint of lesser toe, right M19.071 ; Arthritis of joint of lesser toe, left M19.072 and Subluxation of metatarsophalangeal joint of toe, initial encounter S93.149A [address] [address] 04/03/2024 Coby Perica Skin ulcer of toe of left foot, limited to breakdown of skin L97.521 and Hammer toe of left foot M20.[address] [address] 04/10/2024 Coby Perica Hammer toe of right foot M20.41 and Hammer toe of left foot M20.[address] [address] 05/16/2024 Coby Perica Hammer toe of right foot M20.[address] [address] 05/23/2024 Coby Perica Hammer toe of right foot M20.[address] [address] 01/17/2024 Coby Perica [address] [address] 04/10/2024 Coby Perica Assessments Encounter Date Diagnosis [...] (ICD-10 - M20.41) Improvement 01/17/2024 Atherosclerosis of nul[place] artery of both lower extremities, with unspecified [...] [employer] [address] [place] [address] [id number] Bill Jeter Self - patient is the insured [employer] [address] [place] [address] [phone] [id number] Bill Jeter Self - patient is the insured Medical (General) History Medical History History ICD Code Depression High blood pressure Measles Chicken pox Heart attack 2022 Surgical History Surgery Date(Month/Year) amputation finger 2022
--- OUTSIDE RECORDS SUMMARY | 2024-08-30 13:47 | XMS_ITS ---
Author Organization [facility] Address [address] [place] [address] Care Team Providers Care Hydro Generation Manager Name Role Phone Marcella Farah M.D Primary Care Provider Unavailable Coby Stevenson Unavailable [phone] Allergies No Known Allergies REASON FOR VISIT [...] non-user Ex-cigaret te smoker Vital Signs Height 8wr97ao in 05/16/2024 Weight 280 lbs 05/16/2024 BMI 40.17 kg/m2 05/16/2024 Blood pressure systolic 130 mm Hg 05/16/20 24 Blood pressure diastolic 80 mm Hg 024 Encounters Encounter Location Date Provider Diagnosis [facility] [address] [place] [address] 05/16/2024 Coby Stevenson Hammer toe of right foot M20.41 Assessments Encounter Date Diagnosis (ICD Code) Assessment Notes Treatment Notes Treatment Clinical Notes Section Notes 05/16/2024 Hammer toe of right foot (ICD-10 - M20.41) Plan Of Treatment Next Appt Details Follow Up: 1 Week, Reason: Procedure Notes * Category Sub-Category Detail Notes Podiatry Procedure Tenotomy - Flexor (38217) LOC ATION : T7 INDICATIONS : a [...] Bill JETER IIDOB: [birth year] (69 yo M)Acc No.[id number]:05/16/2024 Patient:?Bill JETER BRODY Provider:?Coby Stevenson DPM :1955???Age:69 Y???Sex:Male Angel e:05/16/2024 Address:[address] [place] [address], [id number] Pcp:Kin Borja Subjective: * Chief Complaints: * [...] * Allergies:?N.K.D.A.yes[Aller gies Verified] Objective: * Vitals:?Ht: 8np78oz, Wt:280, BMI:40.17, Shoe size: 9, BP:130/80mm Hg, [...] * Treatment: * Procedures:?Podiatry Procedure:?Tenotomy - Flexor (73955)?LOCATION : T7 INDICATIONS : a painful non-rigid [...] dry until the next visit.? * Procedure Codes:?86477 INCIS ION OF FOOT TENDON(S) * Preventive [...] Stevenson DPM Date:? Generated for Trevin smallwood/Sarai/eTransmitting on:?08/30/2024 01:46 PM EST History and Physical Notes * [...]
--- OUTSIDE RECORDS SUMMARY | 2024-08-30 13:47 | XMS_ITS ---
[facility] Elisa zayas Readlyn Address [address] [place] [address] Care Team Providers Care Louver Mortiser Operator Name Role Phone Marcella Farah M.D Primary Care Provider Unavailable Coby Stevenson Unavailable [phone] Allergies No Known Allergies REASON FOR VISIT [...] 05/23/2024 Encounters Encounter Location Date Provider Diagnosis [facility] [address] [place] [phone] 05/23/2024 Coby Stevenson Hammer toe of right [...] Bill JETER IIDOB: [birth year] (69 yo M)Acc No.[id number]:05/23/2024 Patient:?Bill JETER II Provider:?Coby Stevenson DPM :1955???Age:69 Y???Sex:Male Angel e:05/23/2024 Address:[address] [place], [place] [id number] Pcp:Kin Borja Subjective: * Chief Complaints: * [...] ?Exercise: no. ?Marital status: . 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 * Medications:?TakingSertralin e HCl 100 MG Tablet [...] Stevenson DPM Date:? Generated for Trevin smallwood/Sarai/Babita on:?08/30/2024 01:47 PM EST History and Physical Notes * [...]
== END 2024-08-30 11:55 | disposition home or self-care (01) ==
PROVIDERS: PCP Internal Medicine; Visit Provider Nurse Practitioner Family
DX: R35.0 Frequency of micturition (principal); R39.15 Urgency of urination; R35.1 Nocturia; R39.9 Unspecified symptoms and signs involving the genitourinary system; Z13.9 Encounter for screening, unspecified
CPT/HCPCS: 99213

== ENCOUNTER → 2024-08-30 11:15 | Outpatient (BNVA) | payer MEDICARE, OTHER, SELFPAY | PROVIDERS: PCP Internal Medicine; Visit Provider Nurse Practitioner Family | DX: N40.1 Benign prostatic hyperplasia with lower urinary tract symptoms (principal); R35.0 Frequency of micturition; R39.15 Urgency of urination; R35.1 Nocturia | CPT/HCPCS: 51798; 81003; 99212 ==

== ENCOUNTER 2024-11-05 09:48 | Outpatient (REF) | payer MEDICARE, OTHER, SELFPAY ==
--- OUTSIDE RECORDS SUMMARY | 2024-11-05 11:33 | XMS_ITS | Continuity of Care Document ---
Author Name [facility] Organization [facility] Care Team Providers Care Class C Driver Name Role Phone 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 Medication Details Route Status Patient Instructions Prescription Expires Prescription Number Last Dispense Date Ordering Provider Order Date Order Qty Source AMLODIPINE BESYLATE (AMLODIPINE BESYLATE), 10 MG, TABLET, ORAL, Sprig, 1000 ea. BOTTLE Cancele d [id number] : 2023 0 Pharmac y Data Transac tion Service Facilit y DOXYCYCLINE HYCLATE (DOXYCYCLIN E HYCLATE), 100 MG, CAPSULE, ORAL, [facility] [place] 500 ea. BOTTLE Active [id number] 4 2023 10 Pharmac y Data Transac tion Service Facilit y DOXYCYCLINE HYCLATE (DOXYCYCLIN E HYCLATE), 100 MG, CAPSULE, ORAL, [facility] [place] 500 ea. BOTTLE Active [id number] 4 2023 20 Pharmac y Data Transac tion Service Facilit y DOXYCYCLINE MONOHYDRATE (DOXYCYCLIN E MONOHYDRATE ), 100 MG, TABLET, ORAL, Infor [employer]ARMA, 50 ea. BOTTLE Active [id number] 4 2023 60 Pharmac y Data Transac tion Service Facilit y FUROSEMIDE (furosemide ), 20 MG, TABLET, ORAL, [employer]KARE, 1000 ea. BOTTLE Cancele d [id number] : 2023 0 Pharmac y Data Transac tion Service Facilit y HYDROXYZINE HCL (HYDROXYZIN E HCL), 10 MG, TABLET, ORAL, [facility], 100 ea. BOTTLE Active [id number] 4 2023 80 Pharmac y Data Transac tion Service Facilit y HYDROXYZINE HCL (HYDROXYZIN E HCL), 25 MG, TABLET, ORAL, Sprig, 100 ea. BOTTLE Active [id number] 4 2023 240 Pharmac y Data Transac tion Service Facilit y HYDROXYZINE HCL (HYDROXYZIN E HCL), 25 MG, TABLET, ORAL, Sprig, 100 ea. BOTTLE Active [id number] 4 2023 40 Pharmac y Data Transac tion Service Facilit y PREDNISONE (prednisone ), 20 MG, TABLET, ORAL, AMNEAL PHARMACE, 100 ea. BOTTLE Active [id number] 4 2023 10 Pharmac y Data Transac tion Service Facilit y TACROLIMUS (TACROLIMUS ), 0.1 %, OINT. (G), TOPICAL, [employer] 100 g TUBE Active [id number] 4 2023 100 Pharmac y Data Transac tion Service Facilit y TRIAMCINOLO NE ACETONIDE (TRIAMCINOL ONE ACETONIDE), 0.1 %, CREAM (G), TOPICAL, [facility], 454 g TUBE Active [id number] 4 2023 454 Pharmac y Data Transac tion Service Facilit y TRIAMCINOLO NE ACETONIDE (triamcinol one acetonide), 0.1 %, OINT. (G), TOPICAL, [employer], 454 g JAR Active [id number] 4 2023 454 Pharmac y Data Transac tion Service Facilit y Allergies, Adverse Reactions, Alerts Combined list of allergies from Department of Defense and Veterans Affairs facilities. It does not include entries that were removed or entered in error. Substance Category Reaction Severity Reaction type Status Date Reported Comments Source LISINOPRIL Drug allergy (disorder) active 3 [facility] Immunizations Combined list of available immunizations from the Department of Defense and Veterans Affairs facilities. Immunization Series Date Given Administered By Site Reaction Lot Number CVX Code Drug Arterial Embalmer Status Comments Source COVID-19 (MODERNA), MRNA, LNP-S, PF, 100 MCG/0.5 ML DOSE 2 2020 207 complet ed MOD; [id number]; 1 [facility] [place] COVID-19 (MODERNA), MRNA, LNP-S, PF, 100 MCG/0.5 ML DOSE 1 2020 207 complet ed MOD; [id number]; 1 [facility] [place] [...] Oct 22, 2024 11:09 AM Reporting Lab: [facility] [place] [facility] [address] [address] Performing Lab: [facility] [place] [facility] [address] [address] [facility] [place] [facility] CREATININ E (eGFR 2020) GLOMERULAR FILTRATION RATE/1.73 SQ M.PREDICTED [VOLUME RATE/AREA] IN SERUM, PLASMA OR BLOOD BY CREATININE- BASED FORMULA (CKD-EPI 2020) 64 mL/min 60 10/22 Specimen Type: SERUM No comment entered. Ordering Provider: BAM STERLING Report Released Date/Time: Oct 22, 2024 11:09 AM Reporting Lab: [facility] [place] [facility] [address] [address] Performing Lab: [facility] [place] [facility] [address] [address] [facility] [place] [facility] Vital Signs Combined list of inpatient and outpatient Vital Signs from Department of Defense and Veterans Affairs, ranging from 12 months to all on record, depending upon the facility. Vital Sign Value Date Comments Source SYSTOLIC BLOOD PRESSURE 135 10/23/19 25 10:57:58 [facility] [place] [facility] DIASTOLIC BLOOD PRESSURE 73 025 10:57:58 [facility] [place] [facility] PULSE OXIMETRY 95 10/22/2024 10:57:58 [facility] [place] [facility] WEIGHT 299.2 10/22/2024 10:57:58 [facility] [place] [facility] BMI 42 kg/m2 10/22/2024 10:57:58 [facility] [place] [facility] PAIN 0 10/22/2024 10:57:58 [facility] [place] [facility] TEMPERATURE 98 10/22/2024 10:57:58 [facility] [place] [facility] PULSE 87 10/22/2024 10:57:58 [facility] [place] [facility] RESPIRATION 18 10/22/2024 10:57:58 [facility] [place] [facility] Encounters Combined list of: 1) Encounters from Department of Veterans Affairs facilities going backup to the last 18 months, not all [place] inpatient encounters are included; 2) Encounters from the Department of [facility] facilities going backup to 280 months. Location Location Details Encounter Type Encounter Number Reason For Visit Attending Provider ADM Date DC Date Status Disposition Source [facility] [place] [facility] HEARING AID XM&SLCTN BINAURL [id number] Diagnos is: ICD-10- CM H90.3 Sensori neural hearing loss, bilater al SENIOR,NEFTALI OLE L 07/12 [place] [facility] [place] [facility] [facility] OFF/OP CNSLTJ NEW/EST MOD 40 [id number] Diagnos is: ICD-10- CM H90.A22 Snsrnrl hear loss, uni, l ear, with rstrcd hear cntra side JOO STERLING [facility] Social History Combined list of available smoking, tobacco, and other social history from Department of Defense and Veterans Affairs facilities. Social History Type Response Date Comment Source Tobacco smoking status NHIS HISTORY OF SMOKING 02/17/2004 [facility] [place] [place] [facility] History of tobacco use HISTORY OF SMOKING 03/05/2003 quit-10 yrs [facility] [place] [facility] History of tobacco use HISTORY OF SMOKING 02/05/2002 quit 10 years ago - prior hx: smoked 2 - 2.5 ppd x 15 years [facility] [place] [facility] History of tobacco use QUIT TOBACCO USE > 7 YEARS AGO [facility]02[facility] [place] [facility] History of tobacco use HISTORY OF SMOKING 12/05/2000 used to be heavy smoker [facility] [place] [facility] This section is an empty social history section. DoD
[2024-11-05 11:47] LABS: Hematocrit 50.4 % (42.0-52.0); Hemoglobin 15.9 g/dl (14.0-18.0); Mean Corpuscular HGB Conc 31.5 g/dl (31.0-36.0); Mean Corpuscular Hemoglobin 27.5 pg (27.0-33.0); Mean Platelet Volume 10.9 fL (9.4-12.4); Platelet Count 311 X10*3/uL (160-400); Red Blood Count 5.79 X10*6/uL (4.60-5.80); Red Cell Distribution Width 15.1 % (11.0-16.0); White Blood Count 10.8 X10*3/uL (4.8-10.8)
[2024-11-05 11:52] LABS: INTERNATIONAL NORM RATIO 1.2 (0.9-1.1); Prothrombin Time 13.4 SEC (10.9-12.4)
[2024-11-05 12:02] LABS: Estimated Average Glucose 120 mg/dL; Hemoglobin A1C 163.7159 umol/L; Hemoglobin A1c % 5.8 % (<6.0); Total Hemoglobin (HGBA1C) 4127.2765 umol/L
[2024-11-05 13:40] LABS: Alanine Aminotransferase 22 U/L (0-40); Albumin Level 4.2 g/dL (3.5-5.0); Anion Gap 14 (12-20); Aspartate Amino Transferase 26 U/L (5-37); Bilirubin Total 0.9 mg/dL (0.0-1.0); Blood Urea Nitrogen 20 mg/dL (9-16); Calcium 9.7 mg/dL (8.4-10.2); Carbon Dioxide 27 mmol/L (22-29); Chloride 106 mmol/L (96-108); Cholesterol 133 mg/dL (<200); Estimated Glomerular Filt Rate > 60; Glucose Random 115 mg/dL (60-115); HDL Cholesterol 31 mg/dL (>40); LDL Cholesterol Calculated 84 mg/dL (<100); Potassium 5.3 mmol/L (3.3-5.1); Sodium 142 mmol/L (135-145); Total Protein 7.9 g/dL (6.5-8.0); Triglycerides 92 mg/dL (<150)
[2024-11-05 14:33] LABS: Alkaline Phosphatase 65 U/L (39-117)
== END 2024-11-05 09:49 | disposition home or self-care (01) ==
LOC: HO.LAB 09:48
PROVIDERS: PCP Internal Medicine; Visit Provider Internal Medicine
DX: K76.0 Fatty (change of) liver, not elsewhere classified (principal); E66.01 Morbid (severe) obesity due to excess calories; Z86.0100 Personal history of colon polyps, unspecified; Z13.1 Encounter for screening for diabetes mellitus
CPT/HCPCS: 36415; 80053; 80061; 83036; 85027; 85610; 99212

== ENCOUNTER 2024-11-05 09:48 | Outpatient (AMB) | payer MEDICARE, OTHER, SELFPAY ==
[2024-11-05 09:53] VITALS: BP 143/78; PULSE 90; O2SAT 98; BMI 42.1
--- NOTE | 2024-11-05 09:53 | A.OFFVIS_ITS ---
Vital Signs 11/05/24 09:53 Height 5 ft 11 in Weight 302 lb 0.533 oz BMI 42.1 BP 143/78 H Blood Pressure Location Lt brachial Position Sitting Pulse 90 Pulse Source Pulse Oximeter Pulse Oximetry (%) 98 Oxygen Delivery Method Room Air Intake Visit Reasons: 6 month follow up Intake Note: Pt presents to the office today for a 6 month follow up. Pt states he is overall feeling well. Allergies No Known Allergies Allergy (Verified 11/05/24 09:55) HPI Comments Details: This is a 67-year-old gentleman with past medical history of morbid obesity (BMI 45), hypertension, restrictive and obstructive lung disease, TED who is currently referred to our office for fatty liver. 08/24/22: History was reviewed the patient, who currently has no gastrointestinal symptoms to include abdominal pain, nausea, vomiting, changes in bowel habits. Fatty liver was diagnosed based on a CT scan done for lung cancer screening in 2021. In terms of the risk factors appears to be morbid obesity as etOH is minimal. Estimates 12oz beer in a week. Pt does not have DM or HLD. Most recent LFTs from 08/02/2022 are normal. Ferritin mildly elevated. 11/23/22: No gastrointestinal complaints today. Main complaint is low energy and easy fatiguability. Pt recalled very little of the discussion from last visit. He was unsure of reason for follow up today. We again reviewed the incidental finding of steatosis on CT Chest that led to this referral. US Abd 08/2022 also showed steatosis. Fib-4 based on labs is 0.80 which is reassuring for no advanced fibrosis. Weight is unchanged from last time. He had previously declined bariatric medicine appt as he had forgotten why it was recommended. 02/22/23: Recent diagnosis of AFib - on eliquis with follow up later this year with Cardiology to review indication for cardioversion. Also reports a hx of syncope on 02/02 afternoon. Did not seek any medical attention at that time as felt back to baseline after coming about and no recurrent events (the syncopal episode occured before the Holter was installed). Has been working on weight with weight management and has lost almost 20 lbs in one month! Reports feeling increased levels of energy and breathing a lot better too. Labs ordered by weight management - SONAL and hypercalcemia with low PTH and normal Vit D noted. Elastography without any advanced fibrosis, consistent with Fib-4 score. 09/12/23: Admitted to [facility] in Sept for stress induced CM - reported doing extra yard work and exhausted himself. 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 Currently on eliquis BID and lasix 20. Otherwise from fatty liver standpoint, has been working on his weight. Dropped BMI from 45 to almost 39 since his last visit. Withdrew from bariatric program but has been making efforts on his own - likes to swim daily and watching his diet and etOH intake. Consumes 1-2 beers a month. 04/30/24: Here for follow up. Reports has been getting treatment done for hammer toes. In addition also had severe venous congestion in legs and now going vascular treatment. This did set him back in his weight loss efforts as not able to do much exercise or swim to allow recovery after procedures. R hammer toe surgery still pending. Had managed to lose >30 lbs but gained it back. Interested in trying GLP-1s. EtOH intake is unchanged despite previous counseling for zero intake. Pt also reports significant urinary urgency and incontinence which he had initialyl attributed to lasix but notices it most of the day now. Last colo 05/2022 (Dr Valdez) x3 TA, diverticulosis, hemorrhoids. 11/05/24: Here for 6 month follow up. Has had further weight gain since he was last seen. Stopped swimming and exercising recently. Also limited portion control. GLP1 not approved as pt not diabetic. Otherwise no abd pain, N,V, D. Due for colo this year. [facility] Medical History TED on CPAP Dyspnea on exertion Morbid obesity Surgical History History of amputation of finger of right hand History of surgery Hx of colonoscopy History of cardiac cath H/O vasectomy Family History Father HTN (hypertension) Mother HTN (hypertension) Social History Alcohol intake: current Alcohol intake frequency: holidays/special occasions only Patient Tobacco Use Status: Former Tobacco user Years Smoked: 20+ Review of Systems Const All systems reviewed & are unremarkable except as noted in HPI and below Physical Exam Vital Signs: Last Vital Signs Pulse 90 11/05/24 09:53 BP 143/78 H 11/05/24 09:53 Pulse Ox 98 11/05/24 09:53 Oxygen Delivery Method Room Air 11/05/24 09:53 BMI result Body Mass Index 19.1 No apparent distress, with obesity ??? mild icterus Abdomen soft, nondistended Alert and oriented x3, normal gait Assessment & Plan Assessment & Plan (1) Hepatic steatosis: Code(s): K76.0 - Fatty (change of) liver, not elsewhere classified Category: Medical (2) Morbid obesity: Code(s): E66.01 - Morbid (severe) obesity due to excess calories Category: Medical (3) Personal history of colonic polyps: Code(s): Z86.0100 - Personal history of colon polyps, unspecified Category: Medical Plan Fatty liver 2/2 metALD Will need updated Fib-4 and MELD labs caitie with recent weight gain. Will also get an US. Pt was surprised to hear about dx of hepatic steatosis and MOHAN today despite being established with GI x 2 years for this diagnosis and similar discussions numerous times in the past couple of years. We again discussed the role of morbid obesity at length and to consider following back with bariatrics. Will recheck A1c and refer to Endocrine if prediabetic to review GLP1 Rx. Plan: - Check CBC, CMP and INR - Check A1c and lipids - US Abd ordered Hx of polyps Last colo 05/2022 - x3 T.A. Due for repeat later this year. MSg sent to book this. Pt aware to hold jardiance and eliquis per protocol. Plan: - Rice May 2025. - PEG prep sent to pharmacy and instructions reviewed. Follow up 6 months Orders: Orders Prothrombin Time INR Today K76.0 - Fatty (change of) liver, not elsewhere classified Lipid Panel Today K76.0 - Fatty (change of) liver, not elsewhere classified US abdomen complete Today K76.0 - Fatty (change of) liver, not elsewhere classified Complete Blood Count no Diff Today K76.0 - Fatty (change of) liver, not elsewhere classified Comprehensive Met. Panel Today K76.0 - Fatty (change of) liver, not elsewhere classified Hemoglobin A1c Today K76.0 - Fatty (change of) liver, not elsewhere classified Medications: New peg 3350-electrolytes 236-22.74-6.74 -5.86 gram (Golytely) as per split prep instructions, until fecal effluent is clear 240 mL PO Q10M 4,000 mL 0RF colonoscopy Coding Level of Care Code Est Pt Level 4 (92312) Diagnoses Hepatic steatosis K76.0 Morbid obesity E66.01 Personal history of colonic polyps Z86.0106
--- OUTSIDE RECORDS SUMMARY | 2024-11-05 10:07 | XMS_ITS | Continuity of Care Document ---
Author Name [facility] Organization [facility] Care Team Providers Care Pipe Chipper Name Role Phone [facility] Unavailable Unavailable Problems Combined list of problems [...] [facility] WNL/FUNCTIONAL Active Condition [facility] Diagnosis: ICD-10-CM H90.A22 Snsrnrl hear loss, uni, l ear, with rstrcd hear cntra side Active Diagnosis [facility] [place] [facility] Diagnosis: ICD-10-CM H90.3 Sensorineural hearing loss, bilateral Active Diagnosis [facility] [place] [facility] Medications Combined list of outpatient medications from Department of Defense and Veterans Affairs facilities.Medications provided include 1) outpatient medications from the last 15 months, and 2) patient-reported medications. Medication Details Route Status Patient Instructions Prescription Expires Prescription Number Last Dispense Date Ordering Provider Order Date Order Qty Source AMLODIPINE BESYLATE (AMLODIPINE BESYLATE), 10 MG, TABLET, ORAL, Fio, 1000 ea. BOTTLE Cancele d [id number] : 2023 0 Pharmac y Data Transac tion Service Facilit y DOXYCYCLINE HYCLATE (DOXYCYCLIN E HYCLATE), 100 MG, CAPSULE, ORAL, [facility],[place]., 500 ea. BOTTLE Active [id number] 4 2023 10 Pharmac y Data Transac tion Service Facilit y DOXYCYCLINE HYCLATE (DOXYCYCLIN E HYCLATE), 100 MG, CAPSULE, ORAL, [facility],[place]., 500 ea. BOTTLE Active [id number] 4 2023 20 Pharmac y Data Transac tion Service Facilit y DOXYCYCLINE MONOHYDRATE (DOXYCYCLIN E MONOHYDRATE ), 100 MG, TABLET, ORAL, [employer] [facility], 50 ea. BOTTLE Active [id number] 4 2023 60 Pharmac y Data Transac tion Service Facilit y FUROSEMIDE (furosemide ), 20 MG, TABLET, ORAL, AVKARE, 1000 ea. BOTTLE Cancele d [id number] : 2023 0 Pharmac y Data Transac tion Service Facilit y HYDROXYZINE HCL (HYDROXYZIN E HCL), 10 MG, TABLET, ORAL, SPO Medical [facility], 100 ea. BOTTLE Active [id number] 4 2023 80 Pharmac y Data Transac tion Service Facilit y HYDROXYZINE HCL (HYDROXYZIN E HCL), 25 MG, TABLET, ORAL, Fio, 100 ea. BOTTLE Active [id number] 4 2023 240 Pharmac y Data Transac tion Service Facilit y HYDROXYZINE HCL (HYDROXYZIN E HCL), 25 MG, TABLET, ORAL, Fio, 100 ea. BOTTLE Active [id number] 4 2023 40 Pharmac y Data Transac tion Service Facilit y PREDNISONE (prednisone ), 20 MG, TABLET, ORAL, AMNEAL [facility]ARMACE, 100 ea. BOTTLE Active [id number] 4 2023 10 Pharmac y Data Transac tion Service Facilit y TACROLIMUS (TACROLIMUS ), 0.1 %, OINT. (G), TOPICAL, [employer] 100 g TUBE Active [id number] 4 2023 100 Pharmac y Data Transac tion Service Facilit y TRIAMCINOLO NE ACETONIDE (TRIAMCINOL ONE ACETONIDE), 0.1 %, CREAM (G), TOPICAL, [facility], 454 g TUBE Active [id number] 4 2023 454 Pharmac y Data Transac tion Service Facilit y TRIAMCINOLO NE ACETONIDE (triamcinol one acetonide), 0.1 %, OINT. (G), TOPICAL, [facility] [facility], 454 g JAR Active [id number] 4 2023 454 Pharmac y Data Transac [...] Site Reaction Lot Number CVX Code Drug User Support Specialist Status Comments Source COVID-19 (MODERNA), MRNA, LNP-S, PF, 100 MCG/0.5 ML DOSE 2 2020 207 complet ed MOD; [id number]; 1 [facility] COVID-19 (MODERNA), MRNA, LNP-S, PF, 100 MCG/0.5 ML DOSE 1 2020 207 complet ed MOD; [id number]; 1 [facility] [...] ed [facility] Results Combined list of recent chemistry, hematology and other laboratory results from Department of Defense and Veterans Affairs, ranging from 15 months to all on record, depending upon the facility. Order Name Results Value Reference Range Date Interpretation Specimen Comments Source CREATININ E (eGFR 2020) CREATININE [MASS/VOLUM E] IN SERUM OR PLASMA 1.20 mg/dL 0.72 - 1.25 10/22 Specimen Type: SERUM No comment entered. Ordering Provider: BAM STERLING Report Released Date/Time: Oct 22, 2024 11:09 AM Reporting Lab: [place] [facility] [place] [facility] [address] [facility] [phone] Performing Lab: [facility] [place] [facility] [address] [facility] [address] [place] [facility] [place] [facility] CREATININ E (eGFR 2020) GLOMERULAR FILTRATION RATE/1.73 SQ M.PREDICTED [VOLUME RATE/AREA] IN SERUM, PLASMA OR BLOOD BY CREATININE- BASED FORMULA (CKD-EPI 2020) 64 mL/min 60 10/22 Specimen Type: SERUM No comment entered. Ordering Provider: BAM STERLING Report Released Date/Time: Oct 22, 2024 11:09 AM Reporting Lab: [place] [facility] [place] [facility] [address] [facility] [address] Performing Lab: [place] [facility] [place] [facility] [address] [facility] [address] [place] [facility] [place] [facility] Vital Signs Combined list of inpatient and outpatient Vital Signs from Department of Defense and Veterans Affairs, ranging from 12 months to all on record, depending upon the facility. Vital Sign Value Date Comments Source SYSTOLIC BLOOD PRESSURE 135 10/23/19 25 10:57:58 [facility] [place] [facility] DIASTOLIC BLOOD PRESSURE 73 025 10:57:58 [facility] [place] [facility] PULSE OXIMETRY 95 10/22/2024 10:57:58 [facility] [place] [facility] WEIGHT 299.2 10/22/2024 10:57:58 [facility] [place] [facility] BMI 42 kg/m2 10/22/2024 10:57:58 [facility] PAIN 0 10/22/2024 10:57:58 [facility] [place] [facility] TEMPERATURE 98 10/22/2024 10:57:58 [facility] [place] [facility] PULSE 87 10/22/2024 10:57:58 [facility] RESPIRATION 18 10/22/2024 10:57:58 [place] [facility] [place] [facility] Encounters Combined list of: 1) Encounters from Department of Veterans Affairs facilities going backup to the last 18 months, not all [place] inpatient encounters are included; 2) Encounters from the Department of [facility] facilities going backup to 280 months. Location Location Details Encounter Type Encounter Number Reason For Visit Attending Provider ADM Date DC Date Status Disposition Source [facility] [place] [facility] HEARING AID XM&SLCTN BINAURL [id number] Diagnos is: ICD-10- CM H90.3 Sensori neural hearing loss, bilater al SENIOR,NEFTALI OLE L 07/12 [place] [facility] [place] [facility] [place] [facility] OFF/OP CNSLTJ NEW/EST MOD 40 [id number] Diagnos is: ICD-10- CM H90.A22 Snsrnrl hear loss, uni, l ear, with rstrcd hear cntra side JOO STERLING R 10[facility] Social History Combined list of available smoking, tobacco, and other social history from Department of Defense and Veterans Affairs facilities. Social History Type Response Date Comment Source Tobacco smoking status NHIS HISTORY OF SMOKING 02/17/2004 [place] [facility] [place] [facility] History of tobacco use HISTORY OF SMOKING 03/05/2003 quit-10 yrs [facility] [place] [facility] History of tobacco use HISTORY OF SMOKING 02/05/2002 quit 10 years ago - prior hx: smoked 2 - 2.5 ppd x 15 years [facility] [place] [facility] History of tobacco use QUIT TOBACCO USE > 7 YEARS AGO [facility] History of tobacco use HISTORY OF SMOKING 12/05/2000 used to be heavy smoker [facility] This section is an empty social history section. DoD
--- OUTSIDE RECORDS SUMMARY | 2024-11-05 10:07 | XMS_ITS ---
[facility] Elisa zayas Beecher Address [address] [place] [address] Care Team Providers Care Forming Machine Upkeep Mechanic Name Role Phone Marcella Farah M.D Primary Care Provider Unavailable Coby Stevenson Unavailable [phone] Allergies No Known Allergies REASON FOR VISIT [...] 05/23/2024 Encounters Encounter Location Date Provider Diagnosis [facility] [address] [place] [phone] 05/23/2024 Coby Stevenson Hammer toe of right [...] Bill JETER IIDOB: [birth year] (69 yo M)Acc No.[id number]:05/23/2024 Patient:?Bill JETER II Provider:?Coby Stevenson DPM :1955???Age:69 Y???Sex:Male Angel e:05/23/2024 Address:[address] [place], [place] [phone] Pcp:Kin Borja Subjective: * Chief Complaints: * [...] ?Exercise: no. ?Marital status: . 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 * Medications:?TakingSertralin e HCl 100 MG Tablet [...] Stevenson DPM Date:? Generated for Trevin smallwood/Sarai/Babita on:?11/05/2024 10:06 AM EDT History and Physical Notes * HPI (History [...]
--- OUTSIDE RECORDS SUMMARY | 2024-11-05 10:07 | XMS_ITS | Encounter Summary ---
Author Name [facility] [place] Address [address] [place] [address] Support Name Relationship Address Phone BLANCA HUGHES Next of Kin [address] [place], [place] [id number] BLANCA HUGHES Emergency Contact [address] [place] [address] Insurance Providers: All historical and [...] Name Patient's Relationship to Policy Dunbar MEDICARE ([facility]) MEDICARE (M) PART B Jun 27, 2020 PART B [id number] ALEAH HUGHES PATIENT MEDICARE (WN) MEDICARE (M) PART A Jun 27, 2020 PART A [id number] ALEAH HUGHESY PATIENT [facility] 2018 [address] T Jun 27, 2017 ([facility]) SELECT [id number] ALEAH HUGHESY PATIENT FOR LIFE TFL* Jun 27, 2017 [id number] [phone] ELLEN,ALEAH MONGEY PATIENT Selected Encounter This section includes the information on record at [place] for the Encounter. Date/Time Encounter Type Encounter Description Reason Provider Source Jul 12, 2024 04:00 PM HEARING AID XM&SLCTN [facility] AUDIOLOGY ICD-10-CM H90.3 Sensorineural hearing loss, bilateral SENIOR,PATRICIA L IHE Encounter Template Text not used by [place] Assessments - Encounter Diagnoses This section includes the primary and secondary diagnoses documented for the Encounter. Date/Time Primary/Secondary Diagnosis Diagnosis Name Provider Source Jul 12, 2024 04:43 PM PRIMARY Sensorineural hearing loss, bilateral [facility] Jul 12, 2024 04:43 PM SECONDARY Tinnitus, bilateral PATRICIA CYR [facility] Plan of Treatment: Future Appointments (+ 6 months) and Future Tests (+/- 45 days) The Plan of Treatment section includes future care activities for the patient from all [place] treatmentfacilities. This section includes future appointments and future orders which are active, pending or scheduled. Future Appointments This section includes appointments that were scheduled to occur 6 months from the date of the Encounter, up to a maximum of 20 appointments. The data comes from all [place] treatment facilities. Appointment Date/Time Appointment Type Appointme nt Facility Name Oct 22, 2024 11:00 AM AMBULATORY - MEDICINE [facility] Social History: Smoking Status (Most current) and Tobacco Use (All prior to encounter date) This section includes the most current, and the historical, smoking and tobacco- related health factors from the [place] facility where the Encounter took place. Current Smoking Status This section includes the most current smoking, or tobacco-related health factor, from the [place] facility where the Encounter took place. Date/Time Current Smoking Status Comment [facility] Feb 17, 2004 09:49 AM HISTORY OF SMOKING [facility] Tobacco Use History This section includes a history of the smoking, or tobacco-related health factors, that were collected on or before the date of the Encounter. The data comes from the [place] facility where the Encounter took place. Date/Time Smoking Status/Tobac co Use Comment Facility Mar 05, 2003 11:21 AM HISTORY OF SMOKING quit-10 yrs [facility] Feb 05, 2002 02:23 PM HISTORY OF SMOKING quit 10 years ago - prior hx: smoked 2 - 2.5 ppd x 15 years [facility] Oct 02, 2001 01:47 PM QUIT TOBACCO USE > 7 YEARS AGO [facility] Dec 05, 2000 09:32 AM HISTORY OF SMOKING used to be heavy smoker [place] [facility] [place] [facility] Encounter Notes: All associated encounter notes This section contains the clinical notes associated to the Encounter. Date/Time Encounter Note(s) Provider Source Jul 12, 2024 07:53 AM AUDIOLOGY E & M NO TE: LOCAL TITLE: AUDIOLOGY CLINIC STANDARD TITLE: AUDIOLOGY [...] hearing aid selection, this was completed today. Gaston is interested in hearing aids similar to his current pair. He would prefer to remain with size 312 batteries. Once [place] is cleared for hearing aid use, a pair of Xsigo AI DIANA 312s will be ordered in [facility] in the color Jakob with [...] will be ordered as indicated above and [place] will be contacted to schedule a 60 min hearing aid fitting. Patient Education Education provided on the following topics: Hearing test results Education provided to: P Response to Education: VU [place] Patient P Family F Significant Other SO Verbalizes Understanding VU Returns Demonstration RD Performs Independently PI Lacks Comprehension LC Refused Education RE Not Applicable NA Suicide Screen: C-SSRS Screening Gosper-Suicide Severity Rating Scale (C-SSRS Screener) 1. Over [...] responses to other questions. /loretta/ MAYTE PANG, [facility] STAFF DIRECTOR OF KNOWLEDGE MANAGEMENT Signed: 07/12/2024 16:44 PATRICIA CYR [facility]
--- OUTSIDE RECORDS SUMMARY | 2024-11-05 10:07 | XMS_ITS | Continuity of Care Document ---
Author Organization [facility] Address [address] [place] [address]- Care Team Providers Care Turner Machine Name Role Phone Sofi BELLE, Fowler Primary Care Physician Encounter [facility] Date(s): 10/02/24 - 11/01/24 [facility] [address] [place] [address]- Encounter Type: Triage Allergies, Adverse Reactions, Alerts No Known Medication Allergies Immunizations Given and Recorded Vaccine Date Status Refusal Reason influenza virus vaccine, inactivated 07/23/24 Give n SARS-CoV-2 (COVID-19) mRNA-1273 vaccine 07/10/21 R ecorded SARS-CoV-2 (COVID-19) mRNA-1273 vaccine 10/03/20 R ecorded SARS-CoV-2 (COVID-19) mRNA-1273 vaccine 09/05/20 R ecorded tetanus-diphtheria toxoids (Td) 10/07/05 Recorded [...] 1 Refills, Maintenance, 07/24/24 9:03:00 AM EST, [place], [facility], Partial fill [...] Personnel Name: Lianne Sánchez RN Position: S braid cutter Member Role: Occupational Rehabilitation Aide Name: Mitra Turpin RN Position: S RN Member Role: Primary Care Nurse Name: Beth Raya RN Position: S RN Member Role: Primary Care Nurse Name: Marcella Farah MD Position: [facility] Physician - Primary Care Member Role: PCP Address: [address] [place] [address] Telecom: Name: Bethany Whitehead RN Position: S RN Member Role: Primary Care Nurse Name: Thais Healy RN Position: S RN Member Role: Primary Care Nurse Care Team Related Persons Name: BERNADETTE HUGHES Insurance Providers Guarantor name: DANIELLE NAJERACA Health Plan Information #: 1 Payer: MEDICARE PART B OUTPT Member Number: NA Policy Number: NA Group Number: NA Health Plan Information #: 2 Payer: FOR LIFE MCR A ONLY Member Number: NA Policy Number: NA Group Number: NA
--- OUTSIDE RECORDS SUMMARY | 2024-11-05 10:07 | XMS_ITS | Encounter Summary ---
Author Name [facility] Organization [facility] [place] Address [address] [place] [address] Support Name Relationship Address Phone BLANCA HUGHES Next of Kin [address] [place], [place] [phone] BLANCA HUGHES Emergency Contact [address] [place] [address] Insurance Providers: All historical and [...] Name Patient's Relationship to Policy [place] MEDICARE ([place]) MEDICARE (M) PART B Jun 27, 2020 PART B [id number] ALEAH HUGHES PATIENT MEDICARE ([place]) MEDICARE (M) PART A Jun 27, 2020 PART A [id number] ALEAH HUGHESY PATIENT [facility] 2018 SELEC T Jun 27, 2017 ([place]) SELECT [id number] ALEAH HUGHESY PATIENT FOR LIFE TFL* Jun 27, 2017 [id number] [phone] ELLEN,ALEAH MONGEY PATIENT Selected Encounter This section includes the information on record at [place] for the Encounter. Date/Time Encounter Type Encounter Description Reason Provider Source Oct 22, 2024 11:00 AM OFF/OP CNSLTJ NEW/EST MOD 40 OTOLARYNGOLOGY/ENT ICD-10-CM H90.A22 Snsrnrl hear loss, uni, l ear, with rstrcd hear cntra side REGULO DONALDSON IHE Encounter Template Text not used by VA Assessments - Encounter Diagnoses This section includes the primary and secondary diagnoses documented for the Encounter. Date/Time Primary/Secondary Diagnosis Diagnosis Name Provider Source Oct 22, 2024 11:23 AM PRIMARY Snsrnrl hear loss, uni, l ear, with rstrcd hear cntra side REGULO DONALDSON [facility] Oct 22, 2024 11:23 AM SECONDARY Tinnitus, bilateral REGULO DONALDSON [facility] Lab Results: +/- 30 days of the encounter This section includes the Chemistry and Hematology Lab Results on record with [place] for the patient. Radiology Reports and Pathology Reports are provided separately, in subsequent sections. Lab Results This section contains the Chemistry/Hematology Results that were resulted 30 days before or 30 daysafter the date of the Encounter. Date/Time Source Result Type Result - Unit Interpretation Reference Range Specimen Type Comment Oct 22, 2024 11:34 AM [facility] CREATININE (eGFR 2020) SERUM Specimen Type: SERUM No comment entered. Ordering Provider: REGULO DONALDSON Report Released Date/Time: Oct 22, 2024 11:09 AM Reporting Lab: [facility] [address] [facility] [address] Performing Lab: [address] [address] CREATININE, Serum 1.20 mg/dL 0.72-1.25 eGFR(CKD-EPI 2020) 64 mL/min >60 Vital Signs: All taken on the encounter date This section contains inpatient and outpatient Vital Signs collected on the date of the Encounter. Date/Time Temperature Pulse Blood Pressure Respiratory Rate SP02 Pain Height Weight Body Mass Index Source Oct 22, 2024 10:57 AM 98 87 135/73 18 95 0 299.2 42 [facility] Social History: Smoking Status (Most current) and Tobacco Use (All prior to encounter date) This section includes the most current, and the historical, smoking and tobacco- related health factors from the [place] facility where the Encounter took place. Current Smoking Status This section includes the most current smoking, or tobacco-related health factor, from the [place] facility where the Encounter took place. Date/Time Current Smoking Status Comment [facility] Feb 17, 2004 09:49 AM HISTORY OF SMOKING [facility] Tobacco Use History This section includes a history of the smoking, or tobacco-related health factors, that were collected on or before the date of the Encounter. The data comes from the [place] facility where the Encounter took place. Date/Time Smoking Status/Tobac co Use Comment Facility Mar 05, 2003 11:21 AM HISTORY OF SMOKING quit-10 yrs [facility] Feb 05, 2002 02:23 PM HISTORY OF SMOKING quit 10 years ago - prior hx: smoked 2 - 2.5 ppd x 15 years [facility] Oct 02, 2001 01:47 PM QUIT TOBACCO USE > 7 YEARS AGO [facility] Dec 05, 2000 09:32 AM HISTORY OF SMOKING used to be heavy smoker [facility] Encounter Notes: All associated encounter notes This section contains the clinical notes associated to the Encounter. 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 Patient states that he has worn hearing aids for at least 10 years. However over the last 2 years he feels as though his hearing has worsened. He has noticed that his left ear is a bit worse than his right during this time period. He states that he really cannot hear without his hearing aids. He puts his hearing aids into his years for [place] in the morning or he cannot hear his . He has bilateral tinnitus that is mild and not intrusive. He has no vertigo. He has no history of ear infections or ear surgery. He has no history of head trauma. He is right-handed. 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 He is not claustrophobic and has no implants. PMHx: Active problems - Computerized Problem List is the source for the followin. Calculus of Kidney 2. Abrasion, Cornea 3. Calcaneal spur 4. spirometry showed no Obstructive or restrictive disease. 5. Essential Hypertension 6. Major Depressive Disorder, Recurrent, Moderate (DSM-IV 296.32) 7. OBESITY, UNSP Service Connected Disabilities with % Eligibility: SERVICE CONNECTED 50% to 100% VERIFIED Total S/C %: 60 IMPAIRED HEARING 0% S/C MAJOR DEPRESSIVE DISORDER 50% S/C FOOT CONDITION 0% S/C FOOT CONDITION 0% S/C HEMORRHOIDS 0% S/C TINNITUS 10% S/C MEDS: Active Outpatient Medications (including Supplies): ALL: LISINOPRIL Fam Hx: Non - contributory SOC HX: FORMER SMOKER, STOPPED 15 YEARS AGO, SMOKED 2 TO 3 PACKS/DAY ROS: Denies any other relavent ROS Vitals Enter at: Oct 22, 2024@10:57:58 BP: 135/73 P: 87 R: 18 T: 98 299.2 lb [135.71 kg] (10/22/2024 10:57) BMI: 41.8 CONSTITUTION: GENERAL APPEARANCE:Well developed, well nourished and groomed. No apparent acute or chronic distress. OBESE HEAD, FACE, SALIVARY GLANDS AND TMJ: Palpation of Parotid and Submandibular glands: Normal. Facial Mobility: Normal. EAR, NOSE, MOUTH AND THROAT: Pinnas - normal. Otoscopic exam: BTE'S REMOVED WITH EXAMINATION RIGHT EAR: External auditory canal normal, tympanic membrane mobile, TYMPANOSCLEROSIS LEFT EAR: External auditory canal normal, tympanic membrane mobile, TYMPANOSCLEROSIS Hearing: MODERATE HEARING LOSS Nasal Interior: Turbinates and middle meatus - Inferior turbinates normal. Normal mucosa with no swelling, polyps, active bleeding or evidence of bleeding. Lips, Teeth and Gums: Lips normal. EDENTULOUS WITH DENTURES ON THE MAXILLA Oral Cavity and Oropharynx: Oral mucosa with normal color and moisture. Anterior 2/3rds of tongue normal. Breath quality normal. Hard palate normal. Normal floor of mouth, Posterior pharynx normal. ABSENT TONSILS, MALLAMPATI 3 NECK AND THYROID: Neck: no adenopathy; no neck masses. RESPIRATORY: Respiratory effort normal. LYMPH NODES: Neck nodes: normal. NEUROLOGIC: Higher integrative functions: Normal orientation, memory, attention span and concentration, language, and fund of knowledge. Cranial nerves: Cranial nerves II-XII grossly intact and symmetrical. GLENIS POSITIVE, [facility]: Mood and affect: normal and appropriate to the situation. AUDIOGRAM 07-12-2024 Otoscopy was WNL bilaterally. Tympanometry revealed normal [...] (2019 and 2012) indicated symmetric hearing loss. ASSESSMENT/PLAN OCT 22, 2024: 69-year-old former smoker referred secondary to a left asymmetric sensorineural hearing loss. Patient states that he has worn hearing aids for at least 10 years. However over the last 2 years he feels as though his hearing has worsened. He has noticed that his left ear is a bit worse than his right during this time period. He states that he really cannot hear without his hearing aids. He puts his hearing aids into his years for [place] in the morning or he cannot hear his . He has bilateral tinnitus that is mild and not intrusive. He has no vertigo. He has no history of ear infections or ear surgery. He has no history of head trauma. He is right-handed. 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 He is not claustrophobic and has no implants. Physical exam shows patient with obvious hearing loss with bilateral mild tympanic sclerosis The patient has a new LEFT asymmetric sensorineural hearing loss. I have ordered an MRI of the IAC and they will followup thereafter. If this is normal, hearing aid clearance may be warranted. Listening strategies were discussed. Complete encounter includes: Review of past medical records Time spent with patient including obtaining history, physical exam, shared decision making, procedures Counseling and answering questions Post visit documentation to include but not limited to medication and lab ordering. Total time = Minimum 45 min MEDICAL RECONCILIATION Outpatient: Has the patient been taking medications as documented in the EMLR? YES: The patient has been taking medications as documented in the EMLR. Essential Medication List for Review used to complete this medication reconciliation. INCLUDED IN THIS LIST: Alphabetical list of active outpatient prescriptions dispensed from this [facility] (local) and dispensed from another [place] or [facility] facility (remote) as well as inpatient orders (local, pending and active), local clinic medications, locally documented non-VA medications, and local prescriptions that have or been discontinued in the past 90 days. - All changes in medications, including all non-VA/Herbal/OTC medications were entered into CPRS. - If there were any medications the patient should no longer take, they were discontinued. - The patient/caregiver was instructed to update this list, discard old lists, and take this list to the next appointment, whether with a VA or non-VA provider. JLV Link Data on this list may not be complete. Please check JLV. Allergies/ADRs (Tool #5) FACILITY ALLERGY/ADR -------- No Remote Allergy/ADR Data available for this patient [facility] LISINOPRIL Med Recon [facility] (Tool #1) INCLUDED IN THIS LIST: Alphabetical list of active outpatient prescriptions dispensed from this [place] (local) and dispensed from another [place] or [facility] facility (remote) as well as inpatient orders (local pending and active), local clinic medications, locally documented non-VA medications, and local prescriptions that have or been discontinued in the past 90 days. Non-VA Meds Last Documented On: Data not found NOTE The display of VA prescriptions dispensed from another VA or DoD facility (remote) is limited to active outpatient prescription entries matched to National Drug File at the originating site and may not include some items such as investigational drugs, compounds, etc. NOT INCLUDED IN THIS LIST: Medications self-entered by the patient into personal health records (i.e. [employer]) are NOT included in this list. Non-VA medications documented outside this [place], remote inpatient orders (regardless of status) and remote clinic medications are NOT included in this list. The patient and provider must always discuss medications the patient is taking, regardless of where the medication was dispensed or obtained. SUPPLIES /loretta/ Regulo Donaldson MD Otolaryngology Signed: 10/22/2024 11:26 REGULO DONALDSON [facility]
--- OUTSIDE RECORDS SUMMARY | 2024-11-05 10:07 | XMS_ITS | Patient Health Record ---
Author Organization [facility] Address [address] [facility] [address] Care Team Providers Care Character Actor Name Role Phone Marcella Farah M.D Primary Care Provider Unavailable Coby Stevenson Unavailable [phone] Allergies No Known Allergies Reason For Referral [...] Problem Acquired hammer toe of right foot (6593119290978038 ) Other hammer toe(s) (acquired), right foot (M20.41) Active confirmed Problem Acquired hammer toe of left foot (5324427111132767 ) Other hammer toe(s) (acquired), left foot (M20.42) Active confirmed Problem Acquired hammer toe of right foot (9803803870821998 ) Hammer toe of right foot (M20.41) Active confirmed Improvement Problem Acquired hammer toe of left foot (5080472877224310 ) Hammer toe of left foot (M20.42) Active confirmed Improvement Problem Bilateral atherosclerosis of arteries of lower limbs (disorder) (5806056557673647 7) Atherosclerosis of [place] artery of both lower extremities, with unspecified presence of clinical manifestation (I70.203) Active confirmed Problem Spasm (65742630) Extensor tendon tightness, contracture (M62.40) Active confirmed Improvement Problem Ulcer of toe of right foot (disorder) (7314550056444362 1) Skin ulcer of toe of right foot, limited to breakdown of skin (L97.511) Active confirmed Response to treatment Problem Localized, primary osteoarthritis of the ankle and/or foot (499568171) Arthritis of joint of lesser toe, left (M19.072) Active confirmed Problem Localized, primary osteoarthritis of the ankle and/or foot (747496317) Arthritis of joint of lesser toe, right (M19.071) Active confirmed Problem Ulcer of toe of left foot (disorder) (2078760237207262 2) Skin ulcer of toe of left foot, [...] 05/23/2024 Encounters Encounter Location Date Provider Diagnosis [facility] [place] [address] [place] [address] 01/17/2024 Coby Stevenson Other hammer toe(s) (acquired), left foot M20.42 ; Ischemic ulcer of left foot, limited to breakdown of skin L97.521 ; Atherosclerosis of [place] artery of both lower extremities, with unspecified presence of clinical manifestation I70.203 ; Other hammer toe(s) (acquired), right foot M20.41 ; Arthritis of joint of lesser toe, right M19.071 ; Arthritis of joint of lesser toe, left M19.072 and Subluxation of metatarsophalangeal joint of toe, initial encounter S93.149A [address] [address] 04/03/2024 Coby Perica Skin ulcer of toe of left foot, limited to breakdown of skin L97.521 and Hammer toe of left foot M20.[address] [address] 04/10/2024 Coby Perica Hammer toe of right foot M20.41 and Hammer toe of left foot M20.[address] [address] 05/16/2024 Coby Perica Hammer toe of right foot M20.[address] [address] 05/23/2024 Coby Perica Hammer toe of right foot M20.[address] [address] 01/17/2024 Coby Perica [address] [address] 04/10/2024 Coby Perica Assessments Encounter Date Diagnosis [...] (ICD-10 - M20.41) Improvement 01/17/2024 Atherosclerosis of [place] artery of both lower extremities, with unspecified [...] Medicare [employer] [address] [place] [address] [id number] Bill Jeter Self - patient is the insured [employer] [address] [place] [id number] Bill Jeter Self - patient is the insured Medical (General) History Medical History History ICD Code Depression High blood pressure Measles Chicken pox Heart attack 2022 Surgical History Surgery Date(Month/Year) amputation finger 2022
--- OUTSIDE RECORDS SUMMARY | 2024-11-05 10:07 | XMS_ITS ---
Author Organization [facility] Address [address] [place] [address] Care Team Providers Care Ground Instructor Advanced Name Role Phone Marcella Farah M.D Primary Care Provider Coby Herring [phone] REASON FOR VISIT BUY Betadine Encounters Encounter Location Date Provider Diagnosis [address] [address] 04/10/2024 Coby Stevenson Plan Of Treatment No Information Progress Notes * Bill JETER IIDOB: [birth year] (69 yo M)Acc No.[id number]:04/10/2024 Patient:?Bill Jeter :1955???Age:69 Y???Sex:Male Address:[address] [place] [address] * true * Date:? Generated for Trishai cl/Sarai/eTransmitting on:?11/05/2024 10:07 AM EDT
--- OUTSIDE RECORDS SUMMARY | 2024-11-05 10:07 | XMS_ITS ---
Author Organization [facility] Address [address] [place] [address] Care Team Providers Care Powdered Metal Supervisor Name Role Phone Marcella Farah M.D Primary Care Provider Unavailable Coby Stevenson Unavailable [phone] Allergies No Known Allergies REASON FOR VISIT [...] non-user Ex-cigaret te smoker Vital Signs Height 3oi69pb in 05/16/2024 Weight 280 lbs 05/16/2024 BMI 40.17 kg/m2 05/16/2024 Blood pressure systolic 130 mm Hg 05/16/20 24 Blood pressure diastolic 80 mm Hg 024 Encounters Encounter Location Date Provider Diagnosis [facility] [address] [place] [address] 05/16/2024 Coby Stevenson Hammer toe of right foot M20.41 Assessments Encounter Date Diagnosis (ICD Code) Assessment Notes Treatment Notes Treatment Clinical Notes Section Notes 05/16/2024 Hammer toe of right foot (ICD-10 - M20.41) Plan Of Treatment Next Appt Details Follow Up: 1 Week, Reason: Procedure Notes * Category Sub-Category Detail Notes Podiatry Procedure Tenotomy - Flexor (80577) LOC ATION : T7 INDICATIONS : a [...] Bill JETER IIDOB: [birth year] (69 yo M)Acc No.[id number]:05/16/2024 Patient:?Bill JETER BRODY Provider:?Coby Stevenson DPM :1955???Age:69 Y???Sex:Male Angel e:05/16/2024 Address:[address] [place] [address], [id number] Pcp:Kin Borja Subjective: * Chief Complaints: * [...] * Allergies:?N.K.D.A.yes[Aller gies Verified] Objective: * Vitals:?Ht: 3uv95gh, Wt:280, BMI:40.17, Shoe size: 9, BP:130/80mm Hg, [...] * Treatment: * Procedures:?Podiatry Procedure:?Tenotomy - Flexor (45821)?LOCATION : T7 INDICATIONS : a painful non-rigid [...] dry until the next visit.? * Procedure Codes:?56094 INCIS ION OF FOOT TENDON(S) * Preventive [...] Stevenson DPM Date:? Generated for Trevin smallwood/Sarai/eTransmitting on:?11/05/2024 10:07 AM EDT History and Physical Notes * Examination Category [...]
== END 2024-11-05 10:53 | disposition home or self-care (01) ==
LOC: HO.HGI 09:48
PROVIDERS: PCP Internal Medicine; Visit Provider Internal Medicine
DX: K76.0 Fatty (change of) liver, not elsewhere classified (principal); E66.01 Morbid (severe) obesity due to excess calories; Z86.0100 Personal history of colon polyps, unspecified
CPT/HCPCS: 99214

== ENCOUNTER 2024-12-26 14:01 | Outpatient (AMB) | payer MEDICARE, OTHER, SELFPAY ==
--- NOTE | 2024-12-26 14:26 | MHC.OFFVIS ---
Vital Signs 12/26/24 14:27 Height 5 ft 11 in Weight 302 lb 0.533 oz BMI 42.1 BP 110/72 Blood Pressure Location Lt brachial Position Sitting Pulse 67 Pulse Source Monitor Intake Visit Reasons: r/s by us Intake Note: f/up- Associate Programmer Analyst Required: No Accompanied by: Self / Same As Patient Allergies No Known Allergies Allergy (Verified 11/05/24 09:55) Medication List - Last Reconciled 12/26/24 by Schuyler Small MD amlodipine 10 mg PO DAILY apixaban (Eliquis) 5 mg PO BID carvedilol 6.25 mg PO BID CPAP (CPAP Machine/Device) As directed empagliflozin (Jardiance) 10 mg PO DAILY furosemide 20 mg PO DAILY 90 days peg 3350-electrolytes 236-22.74-6.74 -5.86 gram (Golytely) 240 mL PO Q10M sertraline 50 mg PO DAILY spironolactone 25 mg PO DAILY tamsulosin 0.4 mg PO BEDTIME 90 days HPI Comments Details: [age] year gentleman with background history of hypertension, takotsubo cardiomyopathy, diastolic heart failure and atrial flutter and fibrillation. He is currently in atrial fibrillation. He is denying any palpitations. He has dyspnea on exertion but has gained more than 20 lb at this point. He lost weight previously and felt significantly better. He is taking his medication regularly. No bleeding issues. No orthopnea or PND. No peripheral edema. Taking his medications without any side effects currently. [facility] Medical History TED on CPAP Dyspnea on exertion Morbid obesity Surgical History History of amputation of finger of right hand History of surgery Hx of colonoscopy History of cardiac cath H/O vasectomy Family History Father HTN (hypertension) Mother HTN (hypertension) Social History Alcohol intake: current Alcohol intake frequency: holidays/special occasions only Patient Tobacco Use Status: Former Tobacco user Years Smoked: 20+ Review of Systems Const Denies chills, Denies fatigue, Denies fever(s), Denies frequent falls, Denies weakness, Denies weight gain and Denies weight loss ENT Denies dizziness Card Denies chest pain, Denies leg edema, Denies lightheadedness, Denies palpitations, Denies dyspnea and Denies dyspnea on exertion Resp Denies cough, Denies dyspnea and Denies dyspnea on exertion GI Denies hematochezia Musc Denies abnormal gait, Denies muscle weakness, Denies numbness, Denies radiating pain into limb and Denies tingling Neuro Denies abnormal gait, Denies dizziness, Denies frequent falls, Denies numbness, Denies tingling and Denies weakness Endo Denies fatigue and Denies palpitations Physical Exam Vital Signs: Last Vital Signs Pulse 67 12/26/24 14:27 BP 110/72 12/26/24 14:27 BMI result Body Mass Index 42.1 GENERAL APPEARANCE: in no acute distress, obese. NECK/THYROID: no carotid bruit, no jugular venous distention. SKIN: no suspicious lesions, warm and dry. HEART: no murmurs, irregular rate and rhythm. LUNGS: clear to auscultation bilaterally. ABDOMEN: normal, bowel sounds present, soft, distended but nontender. EXTREMITIES: no clubbing. No significant peripheral. Right index finger amputation with healed stump. PERIPHERAL PULSES: equal. NEUROLOGIC: nonfocal, alert and oriented. PSYCH: mood/affect full range. Office Procedures EKG Details: Atrial fibrillation 67 beats per minute, leftward axis, right bundle-branch bloc, QTC 443 milliseconds [id number]-Kojtvgzclwrgfbszl, Complete Assessment & Plan Assessment & Plan (1) Essential hypertension: Comment: Stable Code(s): I10 - Essential (primary) hypertension Category: Medical (2) PAF (paroxysmal atrial fibrillation): Code(s): I48.0 - Paroxysmal atrial fibrillation Category: Medical Plan [age] gentleman who is here for follow-up. He has known history of diastolic heart failure, hypertension and atrial fibrillation. He also had atrial flutter in the past. Currently he is rate controlled in atrial fibrillation. He is denying any palpitations. Previously had takotsubo cardiomyopathy but ejection fraction improved. He never had cardiomyopathy due to atrial fibrillation and has not had any significant change in symptomatology while in AFib. His main issue is morbid obesity. He has lost weight previously with diet and exercise and had significant improvement in his symptoms. He understands that he has gained weight and he has symptoms have worsened due to that and he will start exercising and swimming like before. We discussed about GLP 1 inhibitors which have promising results for heart failure and have good outcomes for vascular disease. He will discuss with his primary whether he can be prescribed Ozempic or Wegovy. Thank you for allowing me to participate in the care of your patient. Please feel free to contact me if you have any questions. Coding Level of Care Code Est Pt Level 4 (32447) Diagnoses Essential hypertension I10 PAF (paroxysmal atrial fibrillation) I48.0 CPT Codes EKG - CPT: 33547-Lzsdfqxtgjyxhitwi, Complete ([id number])
[2024-12-26 14:27] VITALS: BP 110/72; PULSE 67; BMI 42.1
--- OUTSIDE RECORDS SUMMARY | 2024-12-26 14:36 | XMS_ITS | Continuity of Care Document ---
Author Name [facility] Organization [facility] Care Team Providers Care Loop Tender Name Role Phone [facility] Unavailable Unavailable Problems Combined list of problems [...] [facility] [place] [facility] WNL/FUNCTIONAL Active Condition [facility] Diagnosis: ICD-10-CM Z46.1 Encounter for fitting and adjustment of hearing aid Active Diagnosis [facility] [place] [facility] Diagnosis: ICD-10-CM H90.A22 Snsrnrl hear loss, uni, l ear, with rstrcd hear cntra side Active Diagnosis [facility] [place] [facility] Diagnosis: ICD-10-CM H90.3 Sensorineural hearing loss, bilateral [...] BESYLATE (AMLODIPINE BESYLATE), 10 MG, TABLET, ORAL, [employer], 1000 ea. BOTTLE Cancele d [id number] : 2023 0 Pharmac y Data Transac tion Service Facilit y DOXYCYCLINE HYCLATE (DOXYCYCLIN E HYCLATE), 100 MG, CAPSULE, ORAL, [facility] [place]., 500 ea. BOTTLE Active [id number] 4 2023 10 Pharmac y Data Transac tion Service Facilit y DOXYCYCLINE HYCLATE (DOXYCYCLIN E HYCLATE), 100 MG, CAPSULE, ORAL, [facility] [place]., 500 ea. BOTTLE Active [id number] 4 2023 20 Pharmac y Data Transac tion Service Facilit y DOXYCYCLINE MONOHYDRATE (DOXYCYCLIN E MONOHYDRATE ), 100 MG, TABLET, ORAL, [employer], 50 ea. BOTTLE Active [id number] 4 2023 60 Pharmac y Data Transac tion Service Facilit y HYDROXYZINE HCL (HYDROXYZIN E HCL), 10 MG, TABLET, ORAL, [employer], 100 ea. BOTTLE Active [id number] 4 2023 80 Pharmac y Data Transac tion Service Facilit y HYDROXYZINE HCL (HYDROXYZIN E HCL), 25 MG, TABLET, ORAL, [employer], 100 ea. BOTTLE Active [id number] 4 2023 240 Pharmac y Data Transac tion Service Facilit y HYDROXYZINE HCL (HYDROXYZIN E HCL), 25 MG, TABLET, ORAL, [employer], 100 ea. BOTTLE Active [id number] 4 2023 40 Pharmac y Data Transac tion Service Facilit y PREDNISONE (prednisone ), 20 MG, TABLET, ORAL, AMNEAL PHARMACE, 100 ea. BOTTLE Active [id number] 4 2023 10 Pharmac y Data Transac tion Service Facilit y TACROLIMUS (TACROLIMUS ), 0.1 %, OINT. (G), TOPICAL, [employer] 100 g TUBE Active [id number] 4 2023 100 Pharmac y Data Transac tion Service Facilit y TRIAMCINOLO NE ACETONIDE (TRIAMCINOL ONE ACETONIDE), 0.1 %, CREAM (G), TOPICAL, [facility], 454 g TUBE Active [id number] 4 2023 454 Pharmac y Data Transac tion Service Facilit y TRIAMCINOLO NE ACETONIDE (triamcinol one acetonide), 0.1 %, OINT. (G), TOPICAL, [employer], 454 g JAR Active [id number] 4 2023 454 Pharmac y Data Transac tion Service Facilit y Allergies, Adverse Reactions, Alerts Combined list of allergies from Department of Defense and Veterans Affairs facilities. It does not include entries that were removed or entered in error. Substance Category Reaction Severity Reaction type Status Date Reported Comments Source LISINOPRIL Drug allergy (disorder) active 3 [facility] Immunizations Combined list of available immunizations from the Department of Defense and Veterans Affairs facilities. Immunization Series Date Given Administered By Site Reaction Lot Number CVX Code Drug Administrative Assistant Receptionist Status Comments Source COVID-19 (MODERNA), MRNA, LNP-S, PF, 100 MCG/0.5 ML DOSE 2 2020 207 complet ed MOD; [id number]; 1 [facility] [place] COVID-19 (MODERNA), MRNA, LNP-S, PF, 100 MCG/0.5 ML DOSE 1 2020 207 complet ed MOD; [id number]; 1 [facility] [place] [...] Oct 22, 2024 11:09 AM Reporting Lab: [place] [facility] [place] [facility] [address] [facility] [address] Performing Lab: [place] [facility] [place] [facility] [address] [facility] [address] [place] [facility] [place] [facility] CREATININ E (eGFR 2020) GLOMERULAR FILTRATION RATE/1.73 SQ M.PREDICTED [VOLUME RATE/AREA] IN SERUM, PLASMA OR BLOOD BY CREATININE- BASED FORMULA (CKD-EPI 2020) 64 mL/min 60 10/22 Specimen Type: SERUM No comment entered. Ordering Provider: BAM STERLING Report Released Date/Time: Oct 22, 2024 11:09 AM Reporting Lab: [facility] [place] [facility] [address] [facility] [address] Performing Lab: [place] [facility] [place] [facility] [address] [facility] [address] [place] [facility] [facility] Vital Signs Combined list of inpatient and outpatient Vital Signs from Department of Defense and Veterans Affairs, ranging from 12 months to all on record, depending upon the facility. Vital Sign Value Date Comments Source SYSTOLIC BLOOD PRESSURE 135 10/23/19 25 10:57:58 [facility] [place] [facility] DIASTOLIC BLOOD PRESSURE 73 025 10:57:58 [facility] [place] [facility] PULSE OXIMETRY 95 10/22/2024 10:57:58 [facility] [place] [facility] WEIGHT 299.2 10/22/2024 10:57:58 [facility] [place] [facility] BMI 42 kg/m2 10/22/2024 10:57:58 [facility] [place] [facility] PAIN 0 10/22/2024 10:57:58 [facility] [place] [facility] TEMPERATURE 98 10/22/2024 10:57:58 [facility] [place] [facility] PULSE 87 10/22/2024 10:57:58 [facility] [place] [facility] RESPIRATION 18 10/22/2024 10:57:58 [facility] [place] [facility] Encounters Combined list of: 1) Encounters from Department of Veterans Affairs facilities going backup to the last 18 months, not all [place] inpatient encounters are included; 2) Encounters from the Department of [facility] facilities going backup to 280 months. Location Location Details Encounter Type Encounter Number Reason For Visit Attending Provider ADM Date DC Date Status Disposition Source [place] [facility] [place] [facility] HEARING AID XM&SLCTN BINAURL [id number] Diagnos is: ICD-10- CM H90.3 Sensori neural hearing loss, bilater al SENIOR,NEFTALI OLE L 07/12 [facility] [place] [facility] [place] [facility] OFF/OP CNSLTJ NEW/EST MOD 40 [id number] Diagnos is: ICD-10- CM H90.A22 Snsrnrl hear loss, uni, l ear, with rstrcd hear cntra side STERLINGCHASECHEYANNE MCCAIN R 10/22 [place] [facility] [place] [facility] [place] [facility] CONFORMITY EVALUATION [id number] Diagnos is: ICD-10- CM Z46.1 Encount er for fitting and adjustm ent of hearing aid [facility] SANCHEZ 11/28 [place] [facility] [place] [facility] Social History Combined list of available smoking, tobacco, and other social history from Department of Defense and Veterans Affairs facilities. Social History Type Response Date Comment Source Tobacco smoking status NHIS HISTORY OF SMOKING 02/17/2004 [place] [facility] [place] [facility] History of tobacco use HISTORY OF SMOKING 03/05/2003 quit-10 yrs [facility] [place] [facility] History of tobacco use HISTORY OF SMOKING 02/05/2002 quit 10 years ago - prior hx: smoked 2 - 2.5 ppd x 15 years [facility] [place] [facility] History of tobacco use QUIT TOBACCO USE > 7 YEARS AGO 10/02/2001 [facility] History of tobacco use HISTORY OF SMOKING 12/05/2000 used to be heavy smoker [facility] This section is an empty social history section. DoD
--- OUTSIDE RECORDS SUMMARY | 2024-12-26 14:38 | XMS_ITS | Patient Health Record ---
Author Organization [facility] Address [address] [place] [address] Care Team Providers Care Jd Edwards Developer Name Role Phone BONNIE MUNOZ Primary Care Provider Kane Yanes Jr Unavailable [phone] Reason For Referral No Information Medications Medication SIG (Take, Route, Frequency, Duration) Notes Start Date End Date Status Metoprolol Tartrate 50 MG Orally Active Sertraline HCl 100 MG 1 tablet Orally Once a day Active amLODIPine Besylate 10 MG Orally Active Terazosin HCl 2 MG Orally A ctive Losartan Potassium-HCTZ 100-25 MG Orally Active Problems Problem Type SNOMED Code ICD Code Onset Dates Problem Status W/U Status Risk Notes Problem [id number] Chest discomfort (786.59) Active confirmed Plan Of Treatment No Information Insurance Providers Payer Name Payer Address Payer Phone Subscriber Number Group Number Insured Name Patient Relationship to Insured Coverage Start Date Coverage End Date PGBA DO NOT USE DO NOT USE [facility] CLAIMS USE [facility] [address] [place] [address] [id number] DANIELLE HUGHES Self - patient is the insured Medical (General) History Medical History History ICD Code Denies [place],DM,CVA,Lung disease,renal dise ase
--- OUTSIDE RECORDS SUMMARY | 2024-12-26 14:38 | XMS_ITS | Patient Health Record ---
Author Organization [facility] Address [address] [place] [address] Care Team Providers Care Drywall Metal Stud Worker Name Role Phone Marcella Farah M.D Primary Care Provider Unavailable Coby Stevenson Unavailable [phone] Allergies No Known Allergies Reason For Referral [...] Problem Acquired hammer toe of right foot (9297035474219161 ) Other hammer toe(s) (acquired), right foot (M20.41) Active confirmed Problem Acquired hammer toe of left foot (9151026831762830 ) Other hammer toe(s) (acquired), left foot (M20.42) Active confirmed Problem Acquired hammer toe of right foot (2452298615485578 ) Hammer toe of right foot (M20.41) Active confirmed Improvement Problem Acquired hammer toe of left foot (8949104056742605 ) Hammer toe of left foot (M20.42) Active confirmed Improvement Problem Bilateral atherosclerosis of arteries of lower limbs (disorder) (4039060732023634 7) Atherosclerosis of [place] artery of both lower extremities, with unspecified presence of clinical manifestation (I70.203) Active confirmed Problem Spasm (15020184) Extensor tendon tightness, contracture (M62.40) Active confirmed Improvement Problem Ulcer of toe of right foot (disorder) (0759397898224074 1) Skin ulcer of toe of right foot, limited to breakdown of skin (L97.511) Active confirmed Response to treatment Problem Localized, primary osteoarthritis of the ankle and/or foot (789238125) Arthritis of joint of lesser toe, left (M19.072) Active confirmed Problem Localized, primary osteoarthritis of the ankle and/or foot (527959876) Arthritis of joint of lesser toe, right (M19.071) Active confirmed Problem Ulcer of toe of left foot (disorder) (4380769640149837 2) Skin ulcer of toe of left [...] 05/23/2024 Encounters Encounter Location Date Provider Diagnosis [facility] [address] [place] [address] 01/17/2024 Coby Stevenson Other hammer toe(s) (acquired), left foot M20.42 ; Ischemic ulcer of left foot, limited to breakdown of skin L97.521 ; Atherosclerosis of [place] artery of both lower extremities, with unspecified presence of clinical manifestation I70.203 ; Other hammer toe(s) (acquired), right foot M20.41 ; Arthritis of joint of lesser toe, right M19.071 ; Arthritis of joint of lesser toe, left M19.072 and Subluxation of metatarsophalangeal joint of toe, initial encounter S93.149A [address] [address] 04/03/2024 Coby Perica Skin ulcer of toe of left foot, limited to breakdown of skin L97.521 and Hammer toe of left foot M20.[address] [address] 04/10/2024 Coby Perica Hammer toe of right foot M20.41 and Hammer toe of left foot M20.[address] [address] 05/16/2024 Coby Perica Hammer toe of right foot M20.[address] [address] 05/23/2024 Coby Perica Hammer toe of right foot M20.[address] [address] 01/17/2024 Coby Perica [address] [address] 04/10/2024 Coby Perica Assessments Encounter Date Diagnosis [...] (ICD-10 - M20.41) Improvement 01/17/2024 Atherosclerosis of [place] artery of both lower extremities, with unspecified [...] Medicare National [employer] [address] [place] [address] [id number] Bill Jeter Self - patient is the insured [employer] [address] [place] [id number] Bill Jeter Self - patient is the insured Medical (General) History Medical History History ICD Code Depression High blood pressure Measles Chicken pox Heart attack 2022 Surgical History Surgery Date(Month/Year) amputation finger 2022
== END 2024-12-26 15:15 | disposition home or self-care (01) ==
LOC: HO.HCS 14:01
PROVIDERS: PCP Internal Medicine; Visit Provider Internal Medicine Cardiovascular Disease
DX: I10 Essential (primary) hypertension (principal); I48.0 Paroxysmal atrial fibrillation
CPT/HCPCS: 93010; 99214

== ENCOUNTER → 2024-12-26 14:01 | Outpatient (BNVA) | payer MEDICARE, OTHER, SELFPAY | PROVIDERS: PCP Internal Medicine; Visit Provider Internal Medicine Cardiovascular Disease | DX: I11.0 Hypertensive heart disease with heart failure (principal); I50.30 Unspecified diastolic (congestive) heart failure; I48.0 Paroxysmal atrial fibrillation; I48.92 Unspecified atrial flutter | CPT/HCPCS: 93005; 99212 ==

== ENCOUNTER 2025-01-09 07:27 | Outpatient (REF) | payer MEDICARE, OTHER, SELFPAY ==
--- OUTSIDE RECORDS SUMMARY | 2024-07-12 12:00 | XMS_ITS ---
Author Name [facility] [place] Organization [place] Address [address] [place] [id number] Support Name Relationship Address Phone BLANCA HUGHES Next of Kin [address] [place], [place] [phone] BLANCA HUGHES Emergency Contact [address] [place] [address] Insurance Providers: All historical and current Section Date Range: From patient's date of to the date document was created. This section includes the names of all active insurance providers for the patient. Insurance Provider Type of Coverage Plan Name Start of Policy Coverage End of Policy Coverage Group Number Member ID Insurance Provider's Telephone Number Policy Dunbar's Name Patient's Relationship to Policy Dunbar MEDICARE ([facility]) MEDICARE (M) PART A Jun 27, 2020 PART A [id number] ALEAH HUGHES PATIENT MEDICARE (WN) MEDICARE (M) PART B Jun 27, 2020 PART B [id number] ALEAH HUGHES PATIENT [facility] 2018 SELEC T Jun 27, 2017 ([facility]) SELECT [id number] 51 ALEAH HUGHESY PATIENT FOR LIFE TFL* Jun 27, 2017 [id number] [phone] ELLEN,ALEAH MONGEY PATIENT Selected Encounter This section includes the information on record at [place] for the Encounter. Date/Time Encounter Type Encounter Description Reason Provider Source Jul 12, 2024 04:00 PM HEARING AID XM&SLCTN [facility] AUDIOLOGY ICD-10-CM H90.3 Sensorineural hearing loss, bilateral SENIOR,PATRICIA L IHE Encounter Template Text not used by [place] Assessments - Encounter Diagnoses This section includes the primary and secondary diagnoses documented for the Encounter. Date/Time Primary/Secondary Diagnosis Diagnosis Name Provider Source Jul 12, 2024 04:43 PM PRIMARY Sensorineural hearing loss, bilateral [facility] Jul 12, 2024 04:43 PM SECONDARY Tinnitus, bilateral PATRICIA CYR [facility] Plan of Treatment: Future Appointments (+ 6 months) and Future Tests (+/- 45 days) The Plan of Treatment section includes future care activities for the patient from all [place] treatmentfacilities. This section includes future appointments and future orders which are active, pending or scheduled. Future Appointments This section includes appointments that were scheduled to occur 6 months from the date of the Encounter, up to a maximum of 20 appointments. The data comes from all [place] treatment facilities. Appointment Date/Time Appointment Type Appointme nt Facility Name Oct 22, 2024 11:00 AM [facility] November 12, 2024 10:00 AM [facility] Nov 28, 2024 03:00 PM AMBULATORY - REHAB MEDICIN E [facility] Social History: Smoking Status (Most current) and Tobacco Use (All prior to encounter date) This section includes the most current, and the historical, smoking and tobacco- related health factors from the [place] facility where the Encounter took place. Current Smoking Status This section includes the most current smoking, or tobacco-related health factor, from the [place] facility where the Encounter took place. Date/Time Current Smoking Status Comment [facility] Feb 17, 2004 09:49 AM HISTORY OF SMOKING [facility] Tobacco Use History This section includes a history of the smoking, or tobacco-related health factors, that were collected on or before the date of the Encounter. The data comes from the [place] facility where the Encounter took place. Date/Time Smoking Status/Tobac co Use Comment Facility Mar 05, 2003 11:21 AM H[facility]ORY OF SMOKING [facility] yrs [facility] Feb 05, 2002 02:23 PM HISTORY OF SMOKING quit 10 years ago - prior hx: smoked 2 - 2.5 ppd x 15 years [facility] Oct 02, 2001 01:47 PM QUIT TOBACCO USE > 7 YEARS AGO [facility] Dec 05, 2000 09:32 AM HISTORY OF SMOKING used to be heavy smoker [facility] Encounter Notes: All associated encounter notes This section contains the clinical notes associated to the Encounter. Date/Time Encounter Note(s) Provider Source November 21, 2024 08:10 AM ADDENDUM: LOCAL TITLE: Addendum STANDARD TITLE: ADDENDUM DATE OF NOTE: NOVEMBER 21, 2024@08:10:31 ENTRY DATE: NOVEMBER 21, 2024@08:10:32 AUTHOR: ERICK FAIRCHILD COSIGNER: URGENCY: STATUS: COMPLETED Hearing aids received and certified. Alerting the [facility] to contact the [facility] to schedule a 60 min hearing aid fitting appointment. RTC entered. Hearing aids placed in the black cabinet. /es/ ERICK FAIRCHILD Audiology Health Bus Driver/Monitor Signed: 11/21/2024 08:11 Receipt Acknowledged By: 11/21/2024 10:13 /loretta/ [facility] DIOR ADVANCED BUSINESS CONTINUITY PLANNING DIRECTOR ====== --- Original Document --- 07/12/24 AUDIOLOGY CLINIC: Dx CODE: H90.3-Sensorineural Hearing Loss, Bilateral APPOINTMENT TYPE: Hearing Re-Evaluation and Hearing Aid Selection BACKGROUND/HISTORY: was seen today for a hearing re-evaluation and hearing aid selection appointment, unaccompanied. He was fit on 07/27/19 with GEETA bull and reports a decline in benefit from these devices. He notes that they have become intermittent. He is eligible for new hearing aids through the [place] due to the age of the current devices. His last hearing evaluation was on 07/02/19 believes his hearing has declined somewhat since then. He notes that he is more reliant on the hearing now compared to when he first got them. [facility] reports a longstanding history of bilateral tinnitus which he is typically able to ignore. He denies concerns of vertigo. Medical history includes: Active problems - Computerized Problem List is the source for the followin. Calculus of Kidney 2. Abrasion, Cornea 3. Calcaneal spur 4. spirometry showed no Obstructive or restrictive disease. 5. Essential Hypertension 6. Major Depressive Disorder, Recurrent, Moderate (DSM-IV 296.32) 7. OBESITY, UNSP ASSESSMENT: Results of today's testing are as follows: Otoscopy was WNL bilaterally. Tympanometry revealed normal middle-ear function bilaterally. Pure tone audiometric testing under headphones revealed moderate sloping to severe sensorineural hearing loss bilaterally from 250-8000 Hz. Asymmetric hearing loss, L>R by 15dBHL from 250-1000 Hz. SRT WORD RECOGNITION (Recorded [place] CNC 1/2 Word List) Right 40dBHL 88% @ 85dBHL/50dBm Left 45dBHL 88% @ 85dBHL/50dBm Compared to testing from 2019, hearing in the right ear has decreased by 20dBHL at 2000 Hz, and hearing in the left ear has decreased by 15dBHL at 1000 Hz and 20dBHL at 250, 500, and 2000 Hz. Today's testing indicates a low-frequency asymmetric hearing loss, left ear worse than right. Both previous audiograms (2019 and 2012) indicated symmetric hearing loss. CLINICAL IMPRESSIONS: Given newly indicated asymmetric low-frequency thresholds, recommend follow-up with ENT and was agreeable. He was advised that medical clearance is required before pursuing new hearing aids. HEARING AID CHECK: Initial listening check was positive for the right aid but indicated distorted sound quality from the left aid. Receivers and microphone covers were replaced. Cleaned battery compartments and vacuumed microphone ports. Hearing aids were both in good working condition post-maintenance. Hearing aids were reprogrammed to today's audiogram, changed from NAL-NL1 to NAL-NL2, and a firmware update was installed. HEARING AID SELECTION: In order to save the a trip back for a hearing aid selection, this was completed today. [facility] is interested in hearing aids similar to his current pair. He would prefer to remain with size 312 batteries. Once is cleared for hearing aid use, a pair of Geeta Edge AI DIANA 312s will be ordered in [facility] in the color Jakob with size 4 M receivers and canal lock earmolds using impressions on file. EDUCATION/COUNSELING: The patient was counseled re: today's hearing test results. He demonstrated satisfactory understanding of the education and plan, and was given the opportunity to ask questions throughout today's visit. PLAN: 1. ENT consult submitted today. 2. Once medically cleared for hearing aid use, hearing aids will be ordered as indicated above and will be contacted to schedule a 60 min hearing aid fitting. * Patient Education Education provided on the following topics: Hearing test results Education provided to: P Response to Education: VU Sutton Patient P Family F Significant Other SO Verbalizes Understanding VU Returns Demonstration RD Performs Independently PI Lacks Comprehension LC Refused Education RE Not Applicable NA * Suicide Screen: C-SSRS Screening [place]-Suicide Severity Rating Scale (C-SSRS Screener) 1. Over the past month, have you wished you were or wished you could go to sleep and not wake up? No 2. Over the past month, have you had any actual thoughts of killing yourself? No 3. Over the past month, have you been thinking about how you might do this? Response not required due to responses to other questions. 4. Over the past month, have you had these thoughts and had some intention of acting on them? Response not required due to responses to other questions. 5. Over the past month, have you started to work out or worked out the details of how to kill yourself? Response not required due to responses to other questions. 6. If yes, at any time in the past month did you intend to carry out this plan? Response not required due to responses to other questions. 7. In your lifetime, have you ever done anything, started to do anything, or prepared to do anything to end your life (for example, collected pills, obtained a gun, gave away valuables, went to the roof but didn't jump)? No 8. If YES, was this within the past 3 months? Response not required due to responses to other questions. /MAYTE Mclaughlin, [facility]-A STAFF SHUTTLE VENEERING SUPERVISOR Signed: 07/12/2024 16:44 11/12/2024 ADDENDUM STATUS: COMPLETED was medically cleared for hearing aid use by Dr. Donaldson today, 11/12/24, following an MRI that ruled out retrocochlear pathology. Therefore, GEETA EDGE AI DIANA 312s were selected and ordered in [facility] today as indicated above. Upon receipt of new hearing aids, will be contacted to schedule a 60 min hearing aid fitting. /MAYTE Mclaughlin, [facility]-A STAFF SHUTTLE VENEERING SUPERVISOR Signed: 11/12/2024 16:59 ERICK FAIRCHILD [facility] [place] [facility] Jul 12, 2024 07:53 AM AUDIOLOGY E & M NOTE: LOCAL TITLE: AUDIOLOGY CLINIC STANDARD TITLE: AUDIOLOGY E & M NOTE DATE OF NOTE: JUL 12, 2024@07:53 ENTRY DATE: JUL 12, 2024@07:53:13 AUTHOR: PATRICIA CYR EXP COSIGNER: URGENCY: STATUS: COMPLETED AUDIOLOGY CLINIC Has ADDENDA Dx CODE: H90.3-Sensorineural Hearing Loss, Bilateral APPOINTMENT TYPE: Hearing Re-Evaluation and Hearing Aid Selection BACKGROUND/HISTORY: was seen today for a hearing re-evaluation and hearing aid selection appointment, unaccompanied. He was fit on 07/27/19 with GEETA HAILY AI DIAAN 312s and reports a decline in benefit from these devices. He notes that they have become intermittent. [facility] due to [facility] of the current devices. His last hearing evaluation was on 07/02/19 believes his hearing has declined somewhat since then. He notes that he is more reliant on the hearing now compared to when he first got them. reports a longstanding history of bilateral tinnitus which he is typically able to ignore. He denies concerns of vertigo. Medical history includes: Active problems - Computerized Problem List is the source for the followin. Calculus of Kidney 2. Abrasion, Cornea 3. Calcaneal spur 4. spirometry showed no Obstructive or restrictive disease. 5. Essential Hypertension 6. Major Depressive Disorder, Recurrent, Moderate (DSM-IV 296.32) 7. OBESITY, UNSP ASSESSMENT: Results of today's testing are as follows: Otoscopy was WNL bilaterally. Tympanometry revealed normal middle-ear function bilaterally. Pure tone audiometric testing under headphones revealed moderate sloping to severe sensorineural hearing loss bilaterally from 250-8000 Hz. Asymmetric hearing loss, L>R by 15dBHL from 250-1000 Hz. SRT WORD RECOGNITION (Recorded [place] CNC 1/2 Word List) Right 40dBHL 88% @ 85dBHL/50dBm Left 45dBHL 88% @ 85dBHL/50dBm Compared to testing from 2019, hearing in the right ear has decreased by 20dBHL at 2000 Hz, and hearing in the left ear has decreased by 15dBHL at 1000 Hz and 20dBHL at 250, 500, and 2000 Hz. Today's testing indicates a low-frequency asymmetric hearing loss, left ear worse than right. Both previous audiograms (2019 and 2012) indicated symmetric hearing loss. CLINICAL IMPRESSIONS: Given newly indicated asymmetric low-frequency thresholds, recommend follow-up with ENT and was agreeable. He was advised that medical clearance is required before pursuing new hearing aids. HEARING AID CHECK: Initial listening check was positive for the right aid but indicated distorted sound quality from the left aid. Receivers and microphone covers were replaced. Cleaned battery compartments and vacuumed microphone ports. Hearing aids were both in good working condition post-maintenance. Hearing aids were reprogrammed to today's audiogram, changed from NAL-NL1 to NAL-NL2, and a firmware update was installed. HEARING AID SELECTION: In order to save the [facility] a trip back for a hearing aid selection, this was completed today. is interested in hearing aids similar to his current pair. He would prefer to remain with size 312 batteries. Once is cleared for hearing aid use, a pair of Geeta SANZ DIANA 312s will be ordered in [facility] in the color Jakob with size 4 M receivers and canal lock earmolds using impressions on file. EDUCATION/COUNSELING: The patient was counseled re: today's hearing test results. He demonstrated satisfactory understanding of the education and plan, and was given the opportunity to ask questions throughout today's visit. PLAN: 1. ENT consult submitted today. 2. Once medically cleared for hearing aid use, hearing aids will be ordered as indicated above and will be contacted to schedule a 60 min hearing aid fitting. * Patient Education Education provided on the following topics: Hearing test results Education provided to: P Response to Education: VU Sutton Patient P Family F Significant Other SO Verbalizes Understanding VU Returns Demonstration RD Performs Independently PI Lacks Comprehension LC Refused Education RE Not Applicable NA * Suicide Screen: C-SSRS Screening [place]-Suicide Severity Rating Scale (C-SSRS Screener) 1. Over the past month, have you wished you were or wished you could go to sleep and not wake up? No 2. Over the past month, have you had any actual thoughts of killing yourself? No 3. Over the past month, have you been thinking about how you might do this? Response not required due to responses to other questions. 4. Over the past month, have you had these thoughts and had some intention of acting on them? Response not required due to responses to other questions. 5. Over the past month, have you started to work out or worked out the details of how to kill yourself? Response not required due to responses to other questions. 6. If yes, at any time in the past month did you intend to carry out this plan? Response not required due to responses to other questions. 7. In your lifetime, have you ever done anything, started to do anything, or prepared to do anything to end your life (for example, collected pills, obtained a gun, gave away valuables, went to the roof but didn't jump)? No 8. If YES, was this within the past 3 months? Response not required due to responses to other questions. /MAYTE Mclaughlin, CCC-A STAFF SHUTTLE VENEERING SUPERVISOR Signed: 07/12/2024 16:44 11/12/2024 ADDENDUM STATUS: COMPLETED [facility] was medically cleared for hearing aid use by Dr. Mendoza renteria, 11/12/24, following an MRI that ruled out retrocochlear pathology. Therefore, GEETA EDGE AI DIANA 312s were selected and ordered in [facility] as indicated above. Upon receipt of new hearing aids, [facility] will be contacted to schedule a 60 min hearing aid fitting. /MAYTE Mclaughlin, CCC-A STAFF SHUTTLE VENEERING SUPERVISOR Signed: 11/12/2024 16:59 11/21/2024 ADDENDUM STATUS: COMPLETED Hearing aids received and certified. Alerting the [facility] to contact the to schedule a 60 min hearing aid fitting appointment. RTC entered. Hearing aids placed in the black cabinet. /loretta/ ERICK FAIRCHILD Audiology Health Bus Driver/Monitor Signed: 11/21/2024 08:11 Receipt Acknowledged By: 11/21/2024 10:13 /loretta/ [facility] DIOR ADVANCED BUSINESS CONTINUITY PLANNING DIRECTOR 11/26/2024 ADDENDUM STATUS: COMPLETED Appointment scheduled on 11/28/2024. Hearing aids placed in the beige cabinet. /rafael FAIRCHILD Audiology Health Bus Driver/Monitor Signed: 11/26/2024 08:14 PATRICIA CYR [facility]
--- NOTE | ~2025-01-09 | US_ITS ---
EXAMINATION: US ABDOMEN COMPLETE CLINICAL INFORMATION: Fatty liver.. COMPARISON: May 09, 2024. TECHNIQUE: Real-time ultrasound of the abdomen using grayscale technique. FINDINGS: PANCREAS: No peripancreatic fluid collections. ABDOMINAL AORTA: The proximal, mid, and distal segments are normal in caliber. INFERIOR VENA CAVA: Visualized portions are normal. LIVER: Liver measures 17 cm in maximum length per Technologist. Increased echotexture. No nodular surface. No gross solid or cystic lesion detected by the technologist. No intrahepatic biliary ductal dilatation. Main portal vein is patent with normal hepatopedal flow direction. GALLBLADDER: Fluid-filled. No pericholecystic fluid collection or gallbladder wall thickening. COMMON BILE DUCT: 4 mm. RIGHT KIDNEY: 12 cm. Normal echotexture. Normal renal cortical thickness. Probable extrarenal pelvis. No gross hydronephrosis. No gross solid or cystic lesion detected. . LEFT KIDNEY: 12 cm. Normal echotexture. Normal renal cortical thickness. No hydronephrosis. There is a 1 cm anechoic lesion at the corticomedullary junction midportion without septations or nodular components. SPLEEN: 13 cm. No focal mass.. FREE FLUID: None. US/US abdomen complete IMPRESSION: Hepatosplenomegaly, mild. Probable hepatic steatosis. 1 cm simple cyst, left kidney. No hydronephrosis. No cholelithiasis or choledocholithiasis. No ascites. Electronically signed by: Andrea So MD 01/09/2025 09:02 AM EDT
--- OUTSIDE RECORDS SUMMARY | 2025-01-09 07:30 | XMS_ITS | Patient Health Record ---
Author Organization [facility] Address [address] [place] [address] Care Team Providers Care Sod Stripper Name Role Phone BONNIE MUNOZ Primary Care Provider Kane Yanes Jr Unavailable Reason For Referral No Information Medications Medication [...] Problem Status W/U Status Risk Notes Problem [id number] Chest discomfort (786.59) Active confirmed Plan Of Treatment No Information Insurance Providers Payer Name Payer Address Payer Phone Subscriber Number Group Number Insured Name Patient Relationship to Insured Coverage Start Date Coverage End Date PGBA DO NOT USE DO NOT USE [facility] CLAIMS USE [employer] [address] [place] [address] [id number] DANIELLE HUGHES Self - patient is the insured Medical (General) History Medical History History ICD Code Denies [place],DM,CVA,Lung disease,renal dise ase
== END 2025-01-09 07:28 | disposition home or self-care (01) ==
LOC: HO.US 07:27
PROVIDERS: PCP Internal Medicine; Visit Provider Internal Medicine
DX: K76.0 Fatty (change of) liver, not elsewhere classified (principal)
CPT/HCPCS: 76700

== ENCOUNTER → 2025-01-09 08:05 | Outpatient (BNV) | payer MEDICARE, OTHER, SELFPAY | PROVIDERS: PCP Internal Medicine; Visit Provider Radiology Diagnostic Radiology | DX: N28.1 Cyst of kidney, acquired (principal) | CPT/HCPCS: 76700 ==

== ENCOUNTER 2025-03-04 10:33 | Outpatient (AMB) | payer MEDICARE, OTHER, SELFPAY ==
--- NOTE | 2025-03-04 10:43 | MHC.OFFVIS ---
Intake Visit Reasons: 6M follow up/ PVR Intake Note: Patient is present for 6M/PVR Urology Medication:TAMSULOSIN Antibiotic Allergy:NONE Blood Thinner:APIXABAN Todays PVR:0ml's Layout Designer Required: No Allergies No Known Allergies Allergy (Verified 03/04/25 11:28) Medication List - Last Reconciled 03/04/25 by PHIILP PanP- amlodipine 10 mg PO DAILY apixaban (Eliquis) 5 mg PO BID carvedilol 6.25 mg PO BID CPAP (CPAP Machine/Device) As directed empagliflozin (Jardiance) 10 mg PO DAILY furosemide 20 mg PO DAILY 90 days peg 3350-electrolytes 236-22.74-6.74 -5.86 gram (Golytely) 240 mL PO Q10M sertraline 50 mg PO DAILY spironolactone 25 mg PO DAILY tamsulosin 0.8 mg (2 x 0.4 mg) PO BEDTIME 90 days HPI Comments Details: Bill is a very pleasant 69-year-old male patient of . He has a past medical history of sleep apnea on CPAP, morbid obesity, atrial flutter, congestive heart failure, NSTEMI 2022, and takotsubo. He presents to the office today for follow-up of his lower urinary tract symptoms. In discussion with the patient today reports to be doing and feeling well. He reports somewhat improvement in lower urinary tract symptoms with initiation of 0.4 mg of Flomax. He discusses feeling symptoms are still somewhat bothersome as he continues to experience urge incontinence. He describes these episodes more throughout the day. He does however feel lower urinary tract symptoms have somewhat improved however remain somewhat bothersome. In office urinalysis results reviewed with the patient today. PVR 0 mL. Previous workup has included a bladder ultrasound 08/21 noting Fluid-filled with small volume. Bilateral ureteral jets are demonstrated. Prevoid bladder volume is 150 mL. Postvoid bladder volume is 22 mL. Prostate gland is not enlarged measures 4 cm with a volume: 24 cc. He does have a history of sleep apnea and is compliant with his CPAP. PSAs are as follows: PSA 09/14 0.2, 08/21 0.3 A1c: 11/18 5.8 He otherwise denies hematuria, dysuria, foul smelling urine, changes to urinary stream, flank pain, fever, and or chills. \We discussed at length potential causes of lower urinary tract symptoms patient was experiencing. He has had a recent abdominal ultrasound 01/18 bilateral kidneys are normal in echotexture. Normal renal cortical thickness. No hydronephrosis noted bilaterally. There is a 1 cm simple left renal cyst. We did discuss potential causes of urge incontinence as well as further treatment options and risks and benefits of these treatment options. All questions were answered. He otherwise offers no other issues or concerns at this time. [facility] Medical History TED on CPAP Dyspnea on exertion Morbid obesity Surgical History History of amputation of finger of right hand History of surgery Hx of colonoscopy History of cardiac cath H/O vasectomy Family History Father HTN (hypertension) Mother HTN (hypertension) Social History Alcohol intake: current Alcohol intake frequency: holidays/special occasions only Patient Tobacco Use Status: Former Tobacco user Years Smoked: 20+ Review of Systems Const All systems reviewed & are unremarkable except as noted in HPI and below Reports no additional complaints Eyes Reports no additional complaints ENT Reports no additional complaints Card Reports as per HPI Resp Reports as per HPI GI Reports no additional complaints Reports as per HPI Musc Reports no additional complaints Neuro Reports no additional complaints Psych Reports no additional complaints Endo Reports no additional complaints Juan/Lymph Reports no additional complaints Aller/Immun Reports no additional complaints Physical Exam Const General: cooperative, healthy appearing, comfortable, no acute distress, well developed, alert and awake Nutritional Appearance: obese Orientation/consciousness: patient oriented x3 Limitations: no limitations HEENT Head: Yes normal to inspection, Yes normocephalic and Yes atraumatic Ears: hearing grossly normal bilaterally Eyes General: appearance normal, both eyes and all related structures Neck Neck: Yes normal visual inspection and Yes trachea midline Chest Chest palpation & inspection: normal inspection of the chest Resp Effort & Inspection: normal respiratory effort and able to speak in complete sentences Cardio Rate: regular rate GI Inspection: Yes normal to inspection General: Yes no CVA tenderness Back/Spine/Pelvis Back: no CVA tenderness Skin General skin exam: no rashes or lesions noted Neuro General: patient oriented x3 Extrem General: Yes normal to inspection Psych Appearance: grossly normal and well kempt Mental Status: mental status grossly normal Speech and movement: Normal speech and movement present and Clear speech present Affect: normal affect Attitude: cooperative Thought process: Normal thought process present Thought content: Normal thought content present Insight: Fair insight present (Psych) Judgement: Fair judgement present (Psych) Office Procedures Post Void Residual Post Residual Void Post Void Residual (PVR): 0 [id number] Void Residual by ultrasound Results AMB Urinalysis, Automated UA Leukoctes 0 Brent/uL Last Edit by Baldev Burton CCM on 03/04/25 10:55 UA Nitrite Negative Last Edit by Baldev Burton [facility] on 03/04/25 10:55 UA Urobilinogen 0.2 mg/dL Last Edit by Baldev Burton [facility] on 03/04/25 10:55 UA Protein 15 mg/dL Last Edit by Baldev Burton [facility] on 03/04/25 10:55 UA pH 6.0 Last Edit by Baldev Burton [facility] on 03/04/25 10:55 UA Blood 0 Leroy/uL Last Edit by Baldev Burton [facility] on 03/04/25 10:55 UA Specific [place] 1.020 Last Edit by Baldev Burton [facility] on 03/04/25 10:55 UA Ketone Negative Last Edit by Baldev Burton [facility] on 03/04/25 10:55 UA Bilirubin 0 mg/dL Last Edit by Baldev Burton [facility] on 03/04/25 10:55 UA Glucose 500 mg/dL Last Edit by Baldev Burton [facility] on 03/04/25 10:55 Results Reviewed Results Reviewed: Laboratory Last Values Urine pH (Auto) 6.0 03/04/25 10:54 Specific [place] (Auto) 1.020 03/04/25 10:54 Urine Protein (Auto) 15 mg/dL 03/04/25 10:54 Glucose (UA)(Auto) 500 mg/dL 03/04/25 10:54 Urine Ketones (Auto) Negative 03/04/25 10:54 Urine Blood (Auto) 0 Leroy/uL 03/04/25 10:54 Urine Nitrite (Auto) Negative 03/04/25 10:54 Urine Bilirubin (Auto) 0 mg/dL 03/04/25 10:54 Urine Urobilinogen (Auto) 0.2 mg/dL 03/04/25 10:54 Leukocyte Esterase (Auto) 0 Brent/uL 03/04/25 10:54 Assessment & Plan Assessment & Plan (1) Lower urinary tract symptoms (LUTS): Code(s): R39.9 - Unspecified symptoms and signs involving the genitourinary system Category: Medical (2) Urinary urgency: Code(s): R39.15 - Urgency of urination Category: Medical (3) Urinary frequency: Code(s): R35.0 - Frequency of micturition Category: Medical (4) Nocturia: Code(s): R35.1 - Nocturia Category: Medical (5) Urinary incontinence, urge: Code(s): N39.41 - Urge incontinence Category: Medical Plan In office urinalysis results with the patient today; as noted above. PVR 0 mL. Will increase Flomax to 0.8 mg as discussed and prescribed. We did discussed potential causes of urge incontinence as well as further treatment options and risks and benefits of these treatment options. Will continue with surveillance monitoring. We did discussed potential near future in office cystoscopy and or urodynamics for further assessment evaluation. We also discussed potential trial of overactive bladder medication. All questions were answered. Follow-up in 1-3 months; or sooner with any issues, concerns, and or question. Orders: Orders AMB Urinalysis Automated Today Z13.9 - Encounter for screening, unspecified Medications: Changed From tamsulosin 0.4 mg PO BEDTIME 90 days 90 caps 2RF N40.1 - Benign prostatic hyperplasia with lower urinary tract symptoms, R35.1 - Nocturia To tamsulosin this is an increase in dose 0.8 mg (2 x 0.4 mg) PO BEDTIME 180 caps 2RF 90 days N40.1 - Benign prostatic hyperplasia with lower urinary tract symptoms, R35.1 - Nocturia Patient Instructions: The patient had an opportunity to ask questions regarding the treatment plan. All questions were answered. Physical exam, labs, and imaging were discussed and reviewed in detail. As well as risks, benefits, and discussion of treatment choices. No major barriers to understanding were identified. The patient expressed understanding and agreement with the above treatment plan. The patient was made aware they should contact our office by phone for worsening of their current condition, the appearance of new symptoms, or with any questions or concerns. Compliance is encouraged with any medications and follow up testing that is ordered. It is a privilege to be allowed the opportunity to participate in? your urological care.? Again, if you have any questions or concerns If you have any questions or concerns please do not hesitate to contact me. The office is [phone]. This note is constructed using voice recognition software. While every effort has been made to ensure accuracy hydrometer tester errors may have been included. Yours sincerely, SUZANNE Pan Coding Level of Care Code Est Pt Level 3 (07709) Complex EM visit Add On G2211 Diagnoses Lower urinary tract symptoms (LUTS) R39.9 Urinary urgency R39.15 Urinary frequency R35.0 Nocturia R35.1 Urinary incontinence, urge N39.41 CPT Codes Post Residual Void - PVR CPT Code: 97168-Cejk Void Residual by ultrasound ([id number])
--- OUTSIDE RECORDS SUMMARY | 2025-03-04 12:44 | XMS_ITS | Patient Health Record ---
Author Organization [facility] Address [address] [place] [address] Care Team Providers Care Phlebotomy Tech Name Role Phone Marcella Farah M.D Primary Care Provider Unavailable Coby Stevenson Unavailable [phone] Allergies No Known Allergies Reason For Referral [...] Problem Acquired hammer toe of right foot (7801353076677862 ) Other hammer toe(s) (acquired), right foot (M20.41) Active confirmed Problem Acquired hammer toe of left foot (7522028467742002 ) Other hammer toe(s) (acquired), left foot (M20.42) Active confirmed Problem Acquired hammer toe of right foot (7264723491317742 ) Hammer toe of right foot (M20.41) Active confirmed Improvement Problem Acquired hammer toe of left foot (7751605816630706 ) Hammer toe of left foot (M20.42) Active confirmed Improvement Problem Bilateral atherosclerosis of arteries of lower limbs (disorder) (6533487824987443 7) Atherosclerosis of [place] artery of both lower extremities, with unspecified presence of clinical manifestation (I70.203) Active confirmed Problem Spasm (97288954) Extensor tendon tightness, contracture (M62.40) Active confirmed Improvement Problem Ulcer of toe of right foot (disorder) (5810429838064369 1) Skin ulcer of toe of right foot, limited to breakdown of skin (L97.511) Active confirmed Response to treatment Problem Localized, primary osteoarthritis of the ankle and/or foot (944685808) Arthritis of joint of lesser toe, left (M19.072) Active confirmed Problem Localized, primary osteoarthritis of the ankle and/or foot (389148414) Arthritis of joint of lesser toe, right (M19.071) Active confirmed Problem Ulcer of toe of left foot (disorder) (1760121291947453 2) Skin ulcer of toe of left [...] 05/23/2024 Encounters Encounter Location Date Provider Diagnosis [address] [address] 04/03/2024 Coby Stevenson Skin ulcer of toe of left foot, limited to breakdown of skin L97.521 and Hammer toe of left foot M20.[address] [address] 04/10/2024 Coby Stevenson Hammer toe of right foot M20.41 and Hammer toe of left foot M20.[address] [facility] [address] 05/16/2024 Coby Glasera [facility] toe of right foot M20.41 [facility] [address] 05/23/2024 Coby Perica Hammer toe of right foot M20.41 [facility] [address] 04/10/2024 Coby Stevenson Assessments Encounter Date Diagnosis (ICD Code) Assessment Notes Treatment Notes Treatment Clinical Notes Section Notes 04/03/2024 Hammer toe of left foot (ICD-10 - M20.42) 04/03/2024 Skin ulcer of toe of left foot, limited to breakdown of skin (ICD-10 - L97.521) Response to treatment Patient Educated with: WOUND CARE INSTRUCTIONS.p df (WOUND CARE INSTRUCTIONS.p df) 04/10/2024 Hammer toe of right foot (ICD-10 - M20.41) 04/10/2024 Hammer toe of left foot (ICD-10 - M20.42) Improvement 05/16/2024 Hammer toe of right foot (ICD-10 - M20.41) 05/23/2024 Hammer toe of right foot (ICD-10 - M20.41) Improvement 04/03/2024 Other Plan Of Treatment Pending Test Test Name Order Date X ray : Foot, left 3V 01/17/2024 X ray : Foot, right 3V 01/17/2024 Insurance Providers Payer Name Payer Address Payer Phone Subscriber Number Group Number Insured Name Patient Relationship to Insured Coverage Start Date Coverage End Date Medicare National [facility] [address] [place] [address] [id number] Bill Jeter Self - patient is the insured for [employer] [address] [place] [address] [id number] Bill Jeter Self - patient is the insured Medical (General) History Medical History History ICD Code Depression High blood pressure Measles Chicken pox Heart attack 2022 Surgical History Surgery Date(Month/Year) amputation finger 2022
--- OUTSIDE RECORDS SUMMARY | 2025-03-04 12:44 | XMS_ITS | Patient Health Record ---
Author Organization [facility] Address [address] [place] [address] Care Team Providers Care Actuarial Assistant Name Role Phone BONNIE MUNOZ Primary Care [...] Problem Status W/U Status Risk Notes Problem [id number] Chest discomfort (786.59) Active confirmed Plan Of Treatment No Information Insurance Providers Payer Name Payer Address Payer Phone Subscriber Number Group Number Insured Name Patient Relationship to Insured Coverage Start Date Coverage End Date PGBA DO NOT USE DO NOT USE [facility] CLAIMS USE [facility] [address] [place] [address] [id number] DANIELLE HUGHES Self - patient is the insured Medical (General) History Medical History History ICD Code Denies [place],DM,CVA,Lung disease,renal dise ase
== END 2025-03-04 11:28 | disposition home or self-care (01) ==
LOC: HO.HUSH 10:34
PROVIDERS: PCP Internal Medicine; Visit Provider Nurse Practitioner Family
DX: R39.9 Unspecified symptoms and signs involving the genitourinary system (principal); R39.15 Urgency of urination; R35.0 Frequency of micturition; R35.1 Nocturia; N39.41 Urge incontinence; Z13.9 Encounter for screening, unspecified
CPT/HCPCS: 99213; G2211

== ENCOUNTER → 2025-03-04 10:33 | Outpatient (BNVA) | payer MEDICARE, OTHER, SELFPAY | PROVIDERS: PCP Internal Medicine; Visit Provider Nurse Practitioner Family | DX: R39.9 Unspecified symptoms and signs involving the genitourinary system (principal); R35.0 Frequency of micturition; R35.1 Nocturia; N39.41 Urge incontinence | CPT/HCPCS: 51798; 81003; 99212 ==

== ENCOUNTER 2025-05-13 10:08 | Outpatient (AMB) | payer MEDICARE, OTHER, SELFPAY ==
--- NOTE | 2025-05-13 10:44 | MHC.OFFVIS ---
Vital Signs 05/13/25 10:45 Height 5 ft 11 in Weight 280 lb 13.903 oz BMI 39.2 BP 120/64 Blood Pressure Location Lt brachial Position Sitting Pulse 82 Pulse Source Pulse Oximeter Intake Visit Reasons: 4 mth f/up Intake Note: 4 mth f/up Supervisor Assembly Stock Required: No Accompanied by: Self / Same As Patient Allergies No Known Allergies Allergy (Verified 03/04/25 11:28) Medication List - Last Reconciled 05/13/25 by Schuyler Small MD amlodipine 10 mg PO DAILY apixaban (Eliquis) 5 mg PO BID carvedilol 6.25 mg PO BID CPAP (CPAP Machine/Device) As directed empagliflozin (Jardiance) 10 mg PO DAILY furosemide 20 mg PO DAILY 90 days peg 3350-electrolytes 236-22.74-6.74 -5.86 gram (Golytely) 240 mL PO Q10M sertraline 50 mg PO DAILY spironolactone 25 mg PO DAILY tamsulosin 0.8 mg (2 x 0.4 mg) PO BEDTIME 90 days HPI Comments Details: [age] year gentleman who is here for follow-up. He has background history of diastolic heart failure, hypertension and atrial fibrillation. He is rate controlled at this point with carvedilol and is on anticoagulation with the apixaban 5 mg twice a day. He had episode of diastolic heart failure in the past. He has been doing quite well more recently. He has been exercising and dieting and has lost 20 lb since December. Denying any complaints on follow-up. Taking medications regularly. [facility] Medical History TED on CPAP Dyspnea on exertion Morbid obesity Surgical History History of amputation of finger of right hand History of surgery Hx of colonoscopy History of cardiac cath H/O vasectomy Family History Father HTN (hypertension) Mother HTN (hypertension) Social History Alcohol intake: current Alcohol intake frequency: holidays/special occasions only Patient Tobacco Use Status: Former Tobacco user Years Smoked: 20+ Review of Systems Const Denies chills, Denies fatigue, Denies fever(s), Denies frequent falls, Denies weakness, Denies weight gain and Denies weight loss ENT Denies dizziness Card Denies chest pain, Denies leg edema, Denies lightheadedness, Denies palpitations, Denies dyspnea and Denies dyspnea on exertion Resp Denies cough, Denies dyspnea and Denies dyspnea on exertion GI Denies hematochezia Musc Denies abnormal gait, Denies muscle weakness, Denies numbness, Denies radiating pain into limb and Denies tingling Neuro Denies abnormal gait, Denies dizziness, Denies frequent falls, Denies numbness, Denies tingling and Denies weakness Endo Denies fatigue and Denies palpitations Physical Exam Vital Signs: Last Vital Signs Pulse 82 05/13/25 10:45 BP 120/64 05/13/25 10:45 BMI result Body Mass Index 39.2 GENERAL APPEARANCE: in no acute distress, obese. NECK/THYROID: no carotid bruit, no jugular venous distention. SKIN: no suspicious lesions, warm and dry. HEART: no murmurs, irregular rate and rhythm. LUNGS: clear to auscultation bilaterally. ABDOMEN: normal, bowel sounds present, soft, distended but nontender. EXTREMITIES: no clubbing. Amputated right index finger. PERIPHERAL PULSES: equal. NEUROLOGIC: nonfocal, alert and oriented. PSYCH: mood/affect full range. Assessment & Plan Assessment & Plan (1) Essential hypertension: Comment: Stable Code(s): I10 - Essential (primary) hypertension Category: Medical (2) Takotsubo cardiomyopathy: Code(s): I51.81 - Takotsubo syndrome Category: Medical (3) Atrial flutter: Code(s): I48.92 - Unspecified atrial flutter Category: Medical (4) PAF (paroxysmal atrial fibrillation): Code(s): I48.0 - Paroxysmal atrial fibrillation Category: Medical Plan Pleasant 70-year-old gentleman who is here for follow-up. She has known history of diastolic heart failure, hypertension and atrial fibrillation. He is being treated with rate control strategy. He is on anticoagulation with apixaban 5 mg twice a day. Clinically euvolemic and denying any significant symptoms. He is motivated and is trying to exercise and diet and has lost 20 lb at this point. I have advised him to keep going. His son had gastric bypass surgery and lost lot of weight which has motivated him to lose some weight too. Blood pressure well controlled. Same medications for now. He will see us back in 6 months. Thank you for allowing me to participate in the care of your patient. Please feel free to contact me if you have any questions. Coding Level of Care Code Est Pt Level 4 (71007) Diagnoses Essential hypertension I10 Takotsubo cardiomyopathy I51.81 Atrial flutter I48.92 PAF (paroxysmal atrial fibrillation) I48.0
[2025-05-13 10:45] VITALS: BP 120/64; PULSE 82; BMI 39.2
--- OUTSIDE RECORDS SUMMARY | 2025-05-13 21:09 | XMS_ITS | Clinical Summary ---
Author Organization [facility] Address [address] [place] [address] Phone Care Team Providers Care Otolaryngologist Name Role Phone Physician, No Pcp Primary Care Provider Unavaila ble Social History Tobacco Use Types Packs/Day Years Used Date Smoking Tobacco: Never Assessed Sex and Gender Information Value Date Recorded Sex Assigned at Not on file Legal Sex Male 1:45 PM EDT Gender Identity Not on file Sexual Orientation Not on file Plan of Treatment Upcoming Encounters Date Type Department Care Team (Late st Contact Info) Description 05/24/2025 9:[address] [facility] Scan [address] [place] [address] Health Maintenance Due Date Last Done Comments Colorectal Cancer Screening: Colonoscopy 1955 DTaP,Tdap,and Td Vaccines (1 - Tdap) 1972 Pneumococcal Vaccine: 50+ Ye ars (1 of 1 - PCV) 2003 Zoster Vaccines (1 of 2) 2003 Depression Screening 06/27/2024 COVID-19 Vaccine (1 - 2024-2 6 season) 2025 Influenza Vaccine (#1) 2025 Abdominal Aortic Aneurysm (A AA) Screen 04/23/2025 Cholesterol Screening (Lipid Panel) 04/23/2025 Falls Risk Assessment 04/23/2025 Hepatitis C Screening 04/23/2025 Medicare Annual Wellness Visit 04/23/2025 Social Influencers of Health Screening 04/23/2025 RSV Immunization Adult Patie nts (1 - 1-dose 75+ series) 2028 HIB Vaccines Aged Out No longer eligi ble based on patient's age to complete this topic HPV Vaccines Aged Out No longer eligi ble based on patient's age to complete this topic Hepatitis A Vaccines Aged Out No long er eligible based on patient's age to complete this topic Hepatitis B Vaccines Aged Out No long er eligible based on patient's age to complete this topic IPV Vaccines Aged Out No longer eligi ble based on patient's age to complete this topic MMR Vaccines Aged Out No longer eligi ble based on patient's age to complete this topic Meningococcal ACWY Vaccine Aged Out N o longer eligible based on patient's age to complete this topic Meningococcal B Vaccine Aged Out No l onger eligible based on patient's age to complete this topic RSV Immunization Patients Un maryuri 20 months Aged Out No longer eligible b ased on patient's age to complete this topic Varicella Vaccines Aged Out No longer eligible based on patient's age to complete this topic Insurance [place], [place] [id number] MEDICARE Care Teams Otolaryngologist Relationship Specialty Start Date End Date Physician, No Pcp PCP - General 04/26/25
== END 2025-05-13 11:09 | disposition home or self-care (01) ==
LOC: HO.HCS 10:08
PROVIDERS: PCP Internal Medicine; Visit Provider Internal Medicine Cardiovascular Disease
DX: I10 Essential (primary) hypertension (principal); I51.81 Takotsubo syndrome; I48.92 Unspecified atrial flutter; I48.0 Paroxysmal atrial fibrillation
CPT/HCPCS: 99214

== ENCOUNTER → 2025-05-13 10:08 | Outpatient (BNVA) | payer MEDICARE, OTHER, SELFPAY | PROVIDERS: PCP Internal Medicine; Visit Provider Internal Medicine Cardiovascular Disease | DX: I10 Essential (primary) hypertension (principal); I51.81 Takotsubo syndrome; I48.92 Unspecified atrial flutter; I48.0 Paroxysmal atrial fibrillation | CPT/HCPCS: 99212 ==

== ENCOUNTER 2025-05-20 09:36 | Outpatient (AMB) | payer MEDICARE, OTHER, SELFPAY ==
--- NOTE | 2025-05-20 09:42 | A.OFFVIS_ITS ---
Intake Visit Reasons: 2m follow up Intake Note: Patient is present for 2M/PVR Urology Medication:TAMSULOSIN Antibiotic Allergy:NONE Blood Thinner:APIXABAN Todays PVR:0ml's Search Engine Optimizer Required: No Accompanied by: Self / Same As Patient Allergies No Known Allergies Allergy (Verified 05/20/25 10:01) Medication List - Last Reconciled 05/20/25 by PHILIP PanP- amlodipine 10 mg PO DAILY apixaban (Eliquis) 5 mg PO BID carvedilol 6.25 mg PO BID CPAP (CPAP Machine/Device) As directed empagliflozin (Jardiance) 10 mg PO DAILY furosemide 20 mg PO DAILY 90 days peg 3350-electrolytes 236-22.74-6.74 -5.86 gram (Golytely) 240 mL PO Q10M sertraline 50 mg PO DAILY spironolactone 25 mg PO DAILY tamsulosin 0.8 mg (2 x 0.4 mg) PO BEDTIME 90 days HPI Comments Details: Bill is a very pleasant 70-year-old male patient of . He has a past medical history of sleep apnea on CPAP, morbid obesity, atrial flutter, congestive heart failure, NSTEMI 2022, and takotsubo. He presents to the office today for follow-up of his lower urinary tract symptoms. In discussion with the patient today reports to be doing and feeling well. He reports significant improvement in lower urinary tract symptoms since his last office visit. During last office visit recommendations were made to increase Flomax however patient reports he never initiated the increase in dose. He reports having intentionally lost 20 lb over the last 2-3 months and has noted a improvement in his lower urinary tract symptoms. We did discuss correlation of obesity and or weight on the bladder in relation to lower urinary tract symptoms. In office urinalysis results reviewed with the patient today. PVR 0 mL. Previous workup has included a bladder ultrasound 08/21 noting Fluid-filled with small volume. Bilateral ureteral jets are demonstrated. Prevoid bladder volume is 150 mL. Postvoid bladder volume is 22 mL. Prostate gland is not enlarged measures 4 cm with a volume: 24 cc. He does have a history of sleep apnea and is compliant with his CPAP. PSAs are as follows: PSA 09/14 0.2, 08/21 0.3 A1c: 11/18 5.8 He otherwise denies hematuria, dysuria, foul smelling urine, changes to urinary stream, flank pain, fever, and or chills. We discussed at length potential causes of lower urinary tract symptoms patient was experiencing. He has had a recent abdominal ultrasound 01/18 bilateral kidneys are normal in echotexture. Normal renal cortical thickness. No hydronephrosis noted bilaterally. There is a 1 cm simple left renal cyst. We did discuss potential causes of urge incontinence as well as further treatment options and risks and benefits of these treatment options. All questions were answered. He otherwise offers no other issues or concerns at this time. [facility] Medical History TED on CPAP Dyspnea on exertion Morbid obesity Surgical History History of amputation of finger of right hand History of surgery Hx of colonoscopy History of cardiac cath H/O vasectomy Family History Father HTN (hypertension) Mother HTN (hypertension) Social History Alcohol intake: current Alcohol intake frequency: holidays/special occasions only Patient Tobacco Use Status: Former Tobacco user Years Smoked: 20+ Review of Systems Const All systems reviewed & are unremarkable except as noted in HPI and below Reports no additional complaints Eyes Reports no additional complaints ENT Reports no additional complaints Card Reports as per HPI Resp Reports as per HPI GI Reports no additional complaints Reports as per HPI Musc Reports no additional complaints Neuro Reports no additional complaints Psych Reports no additional complaints Endo Reports no additional complaints Juan/Lymph Reports no additional complaints Aller/Immun Reports no additional complaints Physical Exam Const General: cooperative, healthy appearing, comfortable, no acute distress, well developed, alert and awake Nutritional Appearance: obese Orientation/consciousness: patient oriented x3 Limitations: no limitations HEENT Head: Yes normal to inspection, Yes normocephalic and Yes atraumatic Ears: hearing grossly normal bilaterally Eyes General: appearance normal, both eyes and all related structures Neck Neck: Yes normal visual inspection and Yes trachea midline Chest Chest palpation & inspection: normal inspection of the chest Resp Effort & Inspection: normal respiratory effort and able to speak in complete sentences Cardio Rate: regular rate GI Inspection: Yes normal to inspection General: Yes no CVA tenderness Back/Spine/Pelvis Back: no CVA tenderness Skin General skin exam: no rashes or lesions noted Neuro General: patient oriented x3 Extrem General: Yes normal to inspection Psych Appearance: grossly normal and well kempt Mental Status: mental status grossly normal Speech and movement: Normal speech and movement present and Clear speech present Affect: normal affect Attitude: cooperative Thought process: Normal thought process present Thought content: Normal thought content present Insight: Fair insight present (Psych) Judgement: Fair judgement present (Psych) Office Procedures Post Void Residual Post Residual Void Post Void Residual (PVR): 0 [id number] Void Residual by ultrasound Results AMB Urinalysis, Automated UA Leukoctes 0 Brent/uL Last Edit by Samreen Tolbert [facility] on 05/20/25 09:52 UA Nitrite Negative Last Edit by Samreen Tolbert [facility] on 05/20/25 09:52 UA Urobilinogen 0.2 mg/dL Last Edit by Samreen Tolbert [facility] on 05/20/25 09:52 UA Protein 0 mg/dL Last Edit by [facility] on 05/20/25 09:52 UA pH 6.0 Last Edit by [facility] on 05/20/25 09:52 UA Blood 0 Leroy/uL Last Edit by Samreenrachel Tolbert [facility] on 05/20/25 09:52 UA Specific [place] 1.015 Last Edit by Samreenrachel Tolbert [facility] on 05/20/25 09:5 2 UA Ketone Negative Last Edit by Samreen Tolbert [facility] on 05/20/25 09:52 UA Bilirubin 0 mg/dL Last Edit by Samreen Tomasz [facility] on 05/20/25 09:52 UA Glucose 500 mg/dL Last Edit by [facility] on 05/20/25 09:52 Results Reviewed Results Reviewed: Laboratory Last Values Urine pH (Auto) 6.0 05/20/25 09:51 Specific [place] (Auto) 1.015 05/20/25 09:51 Urine Protein (Auto) 0 mg/dL 05/20/25 09:51 Glucose (UA)(Auto) 500 mg/dL 05/20/25 09:51 Urine Ketones (Auto) Negative 05/20/25 09:51 Urine Blood (Auto) 0 Leroy/uL 05/20/25 09:51 Urine Nitrite (Auto) Negative 05/20/25 09:51 Urine Bilirubin (Auto) 0 mg/dL 05/20/25 09:51 Urine Urobilinogen (Auto) 0.2 mg/dL 05/20/25 09:51 Leukocyte Esterase (Auto) 0 Brent/uL 05/20/25 09:51 Assessment & Plan Assessment & Plan (1) Lower urinary tract symptoms (LUTS): Code(s): R39.9 - Unspecified symptoms and signs involving the genitourinary system Category: Medical (2) Urinary urgency: Code(s): R39.15 - Urgency of urination Category: Medical (3) Urinary frequency: Code(s): R35.0 - Frequency of micturition Category: Medical (4) Nocturia: Code(s): R35.1 - Nocturia Category: Medical (5) Urinary incontinence, urge: Code(s): N39.41 - Urge incontinence Category: Medical Plan In office urinalysis results with the patient today; as noted above. PVR 0 mL. We did discussed potential causes of lower urinary tract symptoms patient was experiencing He reports be happy with current voiding parameters. Continue Flomax. All questions were answered. We did discussed bladder triggers and irritants. We did discussed potential near future in office cystoscopy and or urodynamics if symptoms arise Will obtain PSA in 6 months. Follow-up in 6 months with PSA and PVR; or sooner with any issues, concerns, and or questions. Orders: Orders Prostate Specific Antigen 6 Months N39.41 - Urge incontinence, R35.0 - Frequency of micturition, R35.1 - Nocturia, R39.15 - Urgency of urination, R39.9 - Unspecified symptoms and signs involving the genitourinary system Medications: Changed From tamsulosin this is an increase in dose 0.8 mg (2 x 0.4 mg) PO BEDTIME 90 days 180 caps 2RF N40.1 - Benign prostatic hyperplasia with lower urinary tract symptoms, R35.1 - Nocturia To tamsulosin 0.4 mg PO BEDTIME 90 caps 2RF 90 days N40.1 - Benign prostatic hyperplasia with lower urinary tract symptoms, R35.1 - Nocturia Patient Instructions: The patient had an opportunity to ask questions regarding the treatment plan. All questions were answered. Physical exam, labs, and imaging were discussed and reviewed in detail. As well as risks, benefits, and discussion of treatment choices. No major barriers to understanding were identified. The patient expressed understanding and agreement with the above treatment plan. The patient was made aware they should contact our office by phone for worsening of their current condition, the appearance of new symptoms, or with any questi ons or concerns. Compliance is encouraged with any medications and follow up testing that is ordered. It is a privilege to be allowed the opportunity to participate in? your urological care.? Again, if you have any questions or concerns If you have any questions or concerns please do not hesitate to contact me. The office is [phone]. This note is constructed using voice recognition software. While every effort has been made to ensure accuracy assembler tester errors may have been included. Yours sincerely, SUZANNE Pan Coding Level of Care Code Est Pt Level 3 (76867) Complex visit Add On G2211 Diagnoses Lower urinary tract symptoms (LUTS) R39.9 Urinary urgency R39.15 Urinary frequency R35.0 Nocturia R35.1 Urinary incontinence, urge N39.41 CPT Codes Post Residual Void - PVR CPT Code: 94124-[id number] Void Residual by ultrasound ([id number])
--- OUTSIDE RECORDS SUMMARY | 2025-05-20 11:10 | XMS_ITS | Patient Health Record ---
Author Organization [facility] Address [address] [place] [address] Care Team Providers Care Network Development Coordinator Name Role Phone BONNIE MUNOZ Primary Care Provider Kane Yanes Jr Unavailable Reason For Referral No Information Medications Medication SIG (Take, Route, Frequency, Duration) Notes Start Date End Date Status Metoprolol Tartrate 50 MG Tablet Orally Active Sertraline HCl 100 MG Tablet 1 tablet Orally Once a day A ctive amLODIPine Besylate 10 MG Tablet Orally Active Terazosin HCl 2 MG Capsule Orally Active Losartan Potassium-HCTZ 100-25 MG Tablet Orally Active Social History Social History Additional Details Category Social Info Options Details Miscellaneous: Marital status: single Occupation: retired from [employer]/works at [employer] Notes: occasional cigar Problems Problem Type SNOMED Code ICD Code Onset Dates Problem Status W/U Status Risk Notes Problem Chest discomfort (201736713) Chest discomfort (786.59) Active confirmed Plan Of Treatment No Information Insurance Providers Payer Name Payer Address Payer Phone Subscriber Number Group Number Insured Name Patient Relationship to Insured Coverage Start Date Coverage End Date PGBA DO NOT USE DO NOT USE [facility] CLAIMS USE [facility] [address] [place] [address] [id number] DANIELLE HUGHES Self - patient is the insured Medical (General) History Medical History History ICD Code Denies RI,DM,CVA,Lung disease,renal dise ase
--- OUTSIDE RECORDS SUMMARY | 2025-05-20 11:10 | XMS_ITS | Clinical Summary ---
Author Organization [facility] Address [address] [place] [address] Phone Care Team Providers Care Planer Setup Operator Name Role Phone Physician, No Pcp Primary [...] AM EST Appointment [facility] Scan [address] [place] [address] Health Maintenance Due Date Last [...] complete this topic Insurance [place], [place] [id number] MEDICARE Care Teams Planer Setup Operator Relationship Specialty Start Date End Date Physician, No Pcp PCP - General 04/26/25
--- OUTSIDE RECORDS SUMMARY | 2025-05-20 11:10 | XMS_ITS | Patient Health Record ---
Author Organization [facility] Address [address] [place] [address] Care Team Providers Care Respooler Name Role Phone Marcella Farah M.D Primary Care Provider Unavailable Coby Stevenson Unavailable [phone] Allergies No Known Allergies Reason For Referral [...] Problem Acquired hammer toe of right foot (0841201650169064 ) Other hammer toe(s) (acquired), right foot (M20.41) Active confirmed Problem Acquired hammer toe of left foot (6858376359753732 ) Other hammer toe(s) (acquired), left foot (M20.42) Active confirmed Problem Acquired hammer toe of right foot (4153356859745888 ) Hammer toe of right foot (M20.41) Active confirmed Improvement Problem Acquired hammer toe of left foot (0758425908505559 ) Hammer toe of left foot (M20.42) Active confirmed Improvement Problem Bilateral atherosclerosis of arteries of lower limbs (disorder) (2550892430193659 7) Atherosclerosis of saxman artery of both lower extremities, with unspecified presence of clinical manifestation (I70.203) Active confirmed Problem Spasm (27981444) Extensor tendon tightness, contracture (M62.40) Active confirmed Improvement Problem Ulcer of toe of right foot (disorder) (7110206002215775 1) Skin ulcer of toe of right foot, limited to breakdown of skin (L97.511) Active confirmed Response to treatment Problem Localized, primary osteoarthritis of the ankle and/or foot (438836144) Arthritis of joint of lesser toe, left (M19.072) Active confirmed Problem Localized, primary osteoarthritis of the ankle and/or foot (504135105) Arthritis of joint of lesser toe, right (M19.071) Active confirmed Problem Ulcer of toe of left foot (disorder) (4210546064664552 2) Skin ulcer of toe of left foot, limited to breakdown of skin (L97.521) Active confirmed Response to treatment Problem Ischemic ulcer o f left foot, limited to breakdown of skin (L97.521) Active confirmed Response to treatment Vital Signs Height 5ft 10in in 05/23/2024 Weight 280 lbs 05/23/2024 BMI 40.17 kg/m2 05/23/2024 Encounters Encounter Location Date Provider Diagnosis [facility] [address] [place] [address] 05/23/2024 Coby Stevenson Hammer toe of right foot M20.41 Assessments Encounter Date Diagnosis (ICD Code) Assessment Notes Treatment Notes Treatment Clinical Notes Section Notes 05/23/2024 Hammer toe of right foot (ICD-10 - M20.41) Improvement Plan Of Treatment Pending Test Test Name Order Date X ray : Foot, left 3V 01/17/2024 X ray : Foot, right 3V 01/17/2024 Insurance Providers Payer Name Payer Address Payer Phone Subscriber Number Group Number Insured Name Patient Relationship to Insured Coverage Start Date Coverage End Date Medicare [employer] [address] [place] [address] [id number] Bill Jeter Self - patient is the insured for Life [address] [place] [address] [id number] Bill Jeter Self - patient is the insured Medical (General) History Medical History History ICD Code Depression High blood pressure Measles Chicken pox Heart attack 2022 Surgical History Surgery Date(Month/Year) amputation finger 2022
== END 2025-05-20 10:13 | disposition home or self-care (01) ==
LOC: HO.HUSH 09:37
PROVIDERS: PCP Internal Medicine; Visit Provider Nurse Practitioner Family
DX: R39.9 Unspecified symptoms and signs involving the genitourinary system (principal); R39.15 Urgency of urination; R35.0 Frequency of micturition; R35.1 Nocturia; N39.41 Urge incontinence
CPT/HCPCS: 99213; G2211

== ENCOUNTER → 2025-05-20 09:36 | Outpatient (BNVA) | payer MEDICARE, OTHER, SELFPAY | PROVIDERS: PCP Internal Medicine; Visit Provider Nurse Practitioner Family | DX: R39.9 Unspecified symptoms and signs involving the genitourinary system (principal); R35.0 Frequency of micturition; R35.1 Nocturia; N39.41 Urge incontinence; Z79.01 Long term (current) use of anticoagulants; Z87.891 Personal history of nicotine dependence; N32.81 Overactive bladder | CPT/HCPCS: 51798; 99212 ==